=== PATIENT | male | born 1940 | race Caucasian/White ===

== ENCOUNTER 2016-04-07 12:28 | Inpatient (IN) | payer MEDICARE, BC ==
--- NOTE | 2016-04-07 13:16 | ED ---
General Adult HPI - General Chief complaint: Weakness Stated complaint: abd pain, loss of appetite Time Seen by Provider: 04/07/16 13:15 Source: patient, family, RN notes reviewed, old records reviewed Mode of arrival: wheelchair Limitations: no limitations - History of Present Illness Initial comments: This is a 75-year-old male ER for evaluation of weakness. Patient has had severe debility as of late. Patient has history of stroke, but this is unrelated. Patient has no other significant medical history. No chest pain and he has had source of breath upon exertion. Patient denies abdominal pain, denies headache. Denies any recent falls or trauma. Family states patient has been decreased in his level of activity since about Thanksgi time. I may become more more concerned about him. Patient himself is states he doesn't feel like he has much of an appetite, has not eaten in 3 days, and his level of activity is severely diminished. Patient has significant weight loss - Related Data Previous Rx's Medication Instructions Recorded Aspirin 81 mg PO DAILY #60 chew 07/06/15 Carvedilol [Coreg] 3.125 mg PO BID-W/MEALS #60 tab 07/06/15 Furosemide [Lasix] 20 mg PO DAILY #30 tab 07/06/15 Losartan [Cozaar] 25 mg PO DAILY #30 tab 07/06/15 hydrALAZINE HCL [Apresoline] 25 mg PO TID #90 tab 07/06/15 Allergies Allergy/AdvReac Type Severity Reaction Status Date / Time No Known Allergies Allergy Verified 04/07/16 13:10 Review of Systems ROS Statement: Those systems with pertinent positive or pertinent negative responses have been documented in the HPI. ROS Other: All systems not noted in ROS Statement are negative. Past Medical History Past Medical History: Cancer, Heart Failure, CVA/TIA, Hypertension, Prostate Disorder Additional Past Medical History / Comment(s): anemia History of Any Multi-Drug Resistant Organisms: None Reported Past Surgical History: Prostate Surgery Past Anesthesia/Blood Transfusion Reactions: No Reported Reaction Past Psychological History: No Psychological Hx Reported Smoking Status: Current every day smoker Past Alcohol Use History: None Reported, Rare Past Drug Use History: None Reported - Past Family History Father Additional Family Medical History / Comment(s): patient states he has no family medical history General Exam Limitations: no limitations General appearance: alert, anxious, lethargic, cachectic Head exam: Present: atraumatic, normocephalic, normal inspection Eye exam: Present: normal appearance, PERRL, EOMI. Absent: scleral icterus, conjunctival injection, periorbital swelling ENT exam: Present: normal exam, mucous membranes moist Neck exam: Present: normal inspection. Absent: tenderness, meningismus, lymphadenopathy Respiratory exam: Present: normal lung sounds bilaterally. Absent: respiratory distress, wheezes, rales, rhonchi, stridor Cardiovascular Exam: Present: normal rhythm, bradycardia, normal heart sounds. Absent: systolic murmur, diastolic murmur, rubs, gallop, clicks GI/Abdominal exam: Present: soft, normal bowel sounds. Absent: distended, tenderness, guarding, rebound, rigid Extremities exam: Present: normal inspection, full ROM, normal capillary refill. Absent: tenderness, pedal edema, joint swelling, calf tenderness Back exam: Present: normal inspection Neurological exam: Present: alert, oriented X3, CN II-XII intact Psychiatric exam: Present: normal affect, normal mood Skin exam: Present: warm, dry, intact, normal color. Absent: rash Course Vital Signs 04/07/16 13:04 Pulse Rate 57 L Respiratory 14 Rate Blood Pressure 104/69 O2 Sat by Pulse 96 Oximetry - Reevaluation(s) Reevaluation #1: 04/07/16 15:22 Patient has no specific clinical improvement at this point EKG Findings - EKG Comments: EKG Findings:: EKG shows sinus rhythm rate of 87, NM 136, QRS was 88, QTC 582 Medical Decision Making - Medical Decision Making 35 male ER for evaluation, weakness and anorexia and dehydration, patient found to be severely and profoundly anemic, and new onset renal failure with severe dehydration exam. Patient will be admitted for transfusion, rehydration, and nephrology consult - Lab Data Result diagrams: 04/07/16 14:34 04/07/16 14:34 Lab Results 04/07/16 04/07/16 04/07/16 Range/Units 14:34 14:34 14:34 WBC 6.3 (3.8-10.6) k/uL RBC 2.24 L (4.30-5.90) m/uL Hgb 4.2 L* (13.0-17.5) gm/dL Hct 15.9 L* (39.0-53.0) % MCV 71.1 L (80.0-100.0) fL MCH 18.9 L (25.0-35.0) pg MCHC 26.5 L (31.0-37.0) g/dL RDW 19.6 H (11.5-15.5) % Plt Count 221 (150-450) k/uL PT 12.9 H (9.0-12.0) sec INR 1.3 (<1.1) APTT 24.2 (22.0-30.0) sec Sodium 137 (137-145) mmol/L Potassium 5.5 H (3.5-5.1) mmol/L Chloride 107 (98-107) mmol/L Carbon Dioxide 12 L (22-30) mmol/L Anion Gap 18 mmol/L BUN 87 H* (9-20) mg/dL Creatinine 4.80 H (0.66-1.25) mg/dL Est GFR (MDRD) Af Amer 14 (>60 ml/min/1.73 sqM) Est GFR (MDRD) Non-Af 12 (>60 ml/min/1.73 sqM) Glucose 104 H (74-99) mg/dL Calcium 9.1 (8.4-10.2) mg/dL Phosphorus 6.7 H (2.5-4.5) mg/dL Magnesium 2.3 (1.6-2.3) mg/dL Total Bilirubin 0.4 (0.2-1.3) mg/dL AST 42 (17-59) U/L ALT 59 (21-72) U/L Alkaline Phosphatase 82 (38-126) U/L Total Protein 6.6 (6.3-8.2) g/dL Albumin 3.6 (3.5-5.0) g/dL Lipase 153 (23-300) U/L - Radiology Data Radiology results: report reviewed (Chest x-ray two-view is negative for acute disease), image reviewed Disposition Clinical Impression: Dehydration, Anemia, ARF (acute renal failure) Disposition: ADMITTED IP TO THIS [facility] Condition: Serious Referrals: Jillian Ronquillo MD [Primary Care Provider] - 1-2 days
[2016-04-07 15:01] LABS: Anisocytosis Slight; CH 19.5; CHCM 27.3; Calcium 9.1 mg/dL (8.4-10.2); HDW 4.47; Hypochromasia Marked; MCH 18.9 pg (25.0-35.0); MCV 71.1 fL (80.0-100.0); Magnesium 2.3 mg/dL (1.6-2.3); Mean Platelet Volume 8.9; Microcytosis Marked; Phosphorous 6.7 mg/dL (2.5-4.5); Poikilocytosis Moderate; Potassium 5.5 mmol/L (3.5-5.1); RBC 2.24 m/uL (4.30-5.90); RDW 19.6 % (11.5-15.5); Total Bilirubin 0.4 mg/dL (0.2-1.3); Total Protein 6.6 g/dL (6.3-8.2); WBC (Perox) 5.37
[2016-04-07 15:03] LABS: MCHC 26.5 g/dL (31.0-37.0)
[2016-04-07 15:04] LABS: HCT 15.9 % (39.0-53.0); HGB 4.2 gm/dL (13.0-17.5); INR 1.3 (<1.1); Partial Thromboplastin Time 24.2 sec (22.0-30.0); Prothrombin Time 12.9 sec (9.0-12.0)
[2016-04-07] MEDS ORDERED: diphenhydrAMINE 50 MG/ML 1 ML VIAL IVP STA (15:17)
[2016-04-07] MEDS ORDERED: SODIUM CHLORIDE 0.9% 1,000 ML IV ONE (15:17)
[2016-04-07] MEDS ORDERED: SODIUM CHLORIDE 0.9% 500 ML IV STA ×2 (15:17→15:20)
[2016-04-07] MEDS ORDERED: SODIUM CHLORIDE 0.9% 1,000 ML IV STA (15:20)
--- NOTE | 2016-04-07 15:20 | XR ---
EXAMINATION TYPE: XR chest 2V DATE OF EXAM: 04/07/2016 3:15 PM COMPARISON: 07/02/2015 HISTORY: Chest pain FINDINGS: The lungs are clear and there is no pneumothorax, pleural effusion, or focal pneumonia. The heart i s enlarged. Hyperinflation suggests COPD. Pulmonary hilum appears enlarged on the left likely in the basis of pulmonary arterial hypertension. Degenerative change of the spine. IMPRESSION: 1. Severe cardiomegaly with findings suggestive of COPD
[2016-04-07] MEDS ORDERED: IPRATROPIUM-ALBUTEROL 3 ML NEB INHALATION STA (15:23)
[2016-04-07 15:33] LABS: Creatine Kinase MB 4.8 ng/mL (0.0-2.4); Troponin I 0.112 ng/mL (0.000-0.034)
[2016-04-07 15:34] LABS: Add Differential Manual Differential
[2016-04-07 15:37] LABS: Nucleated Red Blood Cells 8 /100 WBC (0-0); Total Cells Counted 200
[2016-04-07 15:38] LABS: Crenated RBC Present; Target Cells Present; WBC 5.8 k/uL (3.8-10.6)
[2016-04-07 15:39] LABS: Polychromasia Present
[2016-04-07 18:30] LABS: Glucose,Whole Blood 127 mg/dL (75-99)
[2016-04-07 19:05] LABS: Appearance,Urine Clear (Clear); Protein,Urine Trace (Negative); Specific Gravity,Urine 1.011 (1.001-1.035)
[2016-04-07 19:06] LABS: Bacteria,Urine Occasional /hpf; Bilirubin,Urine Negative (Negative); Glucose,Urine (UA) Negative (Negative); Ketones,Urine Negative (Negative); Leukocyte Esterase,Urine Small (Negative); Nitrite,Urine Positive (Negative); Particle Count 2693; RBC,Urine 1 /hpf (0-5); UA Billing (MACRO vs. MICRO) MICRO; Urobilinogen,Urine <2.0 mg/dL (<2.0); WBC,Urine 2 /hpf (0-5)
[2016-04-08] MEDS ORDERED: NALOXONE 0.4 MG/ML 1 ML VIAL IV PRN (01:50)
[2016-04-08 05:27] LABS: INR 1.3 (<1.1); Partial Thromboplastin Time 24.6 sec (22.0-30.0)
[2016-04-08 05:28] LABS: Calcium 8.4 mg/dL (8.4-10.2); Phosphorous 6.3 mg/dL (2.5-4.5); Potassium 5.2 mmol/L (3.5-5.1)
[2016-04-08 05:34] LABS: Anisocytosis Moderate; CHCM 28.7; HCT 22.1 % (39.0-53.0); HDW 5.36; Hypochromasia Marked; MCH 22.7 pg (25.0-35.0); MCHC 28.9 g/dL (31.0-37.0); Mean Platelet Volume 8.1; Microcytosis Moderate; Poikilocytosis Marked; RBC 2.81 m/uL (4.30-5.90); RDW 20.3 % (11.5-15.5)
[2016-04-08 05:38] LABS: HGB 6.4 gm/dL (13.0-17.5); MCV 78.6 fL (80.0-100.0)
[2016-04-08 06:05] LABS: Add Differential Manual Differential
[2016-04-08 06:10] LABS: Nucleated Red Blood Cells 8 /100 WBC (0-0); Total Cells Counted 200
[2016-04-08 06:11] LABS: Crenated RBC Present; Manual Review Performed; Polychromasia Present; Target Cells Present; WBC 12.3 k/uL (3.8-10.6)
--- NOTE | 2016-04-08 07:40 | XR ---
EXAMINATION TYPE: XR chest 1V DATE OF EXAM: 04/08/2016 6:57 AM HISTORY: Shortness of breath. COMPARISON: To 317 TECHNIQUE: Single view of the chest is submitted. FINDINGS: Demonstrated are scattered senescent parenchymal change. Hyperinflation compatible with COPD. There is no evidence for focal infiltrate. The heart is enlarged. Hilar and mediastinal structures are within normal limits. Degenerative changes are seen of the dorsal spine. IMPRESSION: 1. Chronic changes without evidence for acute pulmonary disease.
--- NOTE | 2016-04-08 08:40 | US ---
EXAMINATION TYPE: US kidneys/renal and bladder DATE OF EXAM: 04/08/2016 8:29 AM COMPARISON: October 25, 2015 CLINICAL HISTORY: ARF. EXAM MEASUREMENTS: Right Kidney: 8.6 x 4.4 x 4.3 cm Left Kidney: not identified Findings: exam done portably in ICU, patient unable to cooperate. LLQ is filled with large loops of fluid fille d bowel, kidney not identified Right Kidney: echogenic, difficult to visualize Left Kidney: not identified, large fluid filled bowel occupying LLQ space previous study demonstrate d a left kidney however given exam limitations the left kidney cannot be visualized on today's study. Bladder: not identified, patient has catheter IMPRESSION: 1. Atrophic changes of the right kidney with some medical renal disease suggested. 2. Nonvisualization of the left kidney.
--- NOTE | 2016-04-08 09:57 | P.CNPUL ---
History of Present Illness Consult date: 04/08/16 Chief complaint: Acute kidney injury, failure to thrive History of present illness: 75-year-old -[place] male patient presented emergency department yesterday in a very poor health condition. The patient had lost according to the family approximately 40 pounds over the past month. I was told that he had not been eating for the past 4-6 days. The patient is awake and alert and he claims that he has no appetite and obviously he is a failure to thrive, given up on life, very much cachectic and emaciated with significant malnourishment and thought the loss and by the protein mass. In addition, the patient was an acute kidney injury with his creatinine was found to be at 4.5. He was found to be profoundly anemic with his initially was at 4.2. The patient did not have any obvious source of internal or external bleeding. He has remote history of prostate cancer and has undergone a prostatectomy. No history of any malignancy. He was in the hospital back in June 2015 for some symptoms of TIA. 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 The workup back then included a carotid Doppler that was negative for any hemodynamically significant stenosis and the patient had an echocardiogram that showed global hypokinesis with an ejection fraction of around 20%. The patient was under the care of Dr. Ochoa. He was discharged home. He claims to be following up with Dr. Ronquillo. He is a chronic smoker. No alcoholism. No substance abuse. No constipation. No abdominal distention. No GI bleeding. No hematemesis. He did vomit on few occasions however on outpatient basis. He is moving all 4 extremities and there is no limitation in his body movements. He was given a total of 2 units of packed RBCs yesterday and his hemoglobin is up to 6.4. An additional 1 unit will be given to him right now. He also received fluids in the order of 3 L normal saline and currently is on a maintenance of 100 mL an hour of 3 Amp bicarbonate with D5 water. Review of Systems For review of system was done and the positive findings are almost above in history of present illness. Apparently the patient has been gradually getting worse thinks Thanksgiving. He'll very much concerned of his condition and health in general. No chest pain. No shortness of breath on admission. No other complaints otherwise. 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 Past Drug Use History: None Reported - Past Family History Father Family Medical History: No Reported History Additional Family Medical History / Comment(s): patient states he has no family medical history Mother Family Medical History: Hypertension, Myocardial Infarction ([place]) Medications and Allergies Home Medications Medication Instructions Recorded Confirmed Type No Known Home Medications [No 04/07/16 04/07/16 History Known Home Medications] Allergies Allergy/AdvReac Type Severity Reaction Status Date / Time No Known Allergies Allergy Verified 04/07/16 13:10 Physical Exam Vitals: Vital Signs Temp Pulse Resp BP Pulse Ox 04/08/16 07:00 85 29 H 111/74 98 04/08/16 06:30 87 23 118/75 99 04/08/16 06:00 100 29 H 116/73 100 04/08/16 05:30 98.4 F 85 69 H 115/76 04/08/16 05:00 85 30 H 115/73 100 04/08/16 04:30 88 25 H 110/76 99 04/08/16 04:00 97.3 F L 88 69 H 112/87 100 04/08/16 03:30 87 23 111/83 100 04/08/16 03:12 97.5 F L 86 18 114/84 100 04/08/16 03:10 88 22 114/84 100 04/08/16 03:00 88 24 103/76 100 04/08/16 02:50 89 32 H 109/76 04/08/16 02:40 87 30 H 112/75 100 04/08/16 02:30 88 24 111/75 100 04/08/16 02:20 88 41 H 109/77 100 04/08/16 02:10 87 32 H 120/78 04/08/16 02:00 87 31 H 111/73 97 04/08/16 01:30 89 26 H 111/75 97 04/08/16 01:00 97.1 F L 86 30 H 110/68 100 04/08/16 00:30 88 23 108/72 100 04/08/16 00:28 97.1 F L 88 22 109/77 100 04/08/16 00:18 95.1 F L 87 20 108/76 100 04/08/16 00:01 95.1 F L 88 35 H 109/77 100 04/08/16 00:00 94.7 F L 87 69 H 109/77 100 04/07/16 23:40 85 24 109/77 99 04/07/16 23:30 86 23 109/75 100 04/07/16 23:20 86 28 H 109/75 99 04/07/16 23:10 85 22 109/75 93 L 04/07/16 23:00 86 23 113/79 85 L 04/07/16 22:50 86 21 113/79 04/07/16 22:40 86 23 113/79 72 L 04/07/16 22:30 85 23 108/75 79 L 04/07/16 22:20 84 21 108/75 04/07/16 22:10 86 28 H 108/75 99 04/07/16 22:00 86 46 H 119/79 71 L 04/07/16 21:50 85 11 L 119/79 80 L 04/07/16 21:40 101 H 32 H 119/79 87 L 04/07/16 21:30 24 119/78 91 L 04/07/16 21:20 88 42 H 119/78 84 L 04/07/16 21:10 91 33 H 119/78 97 04/07/16 21:00 93 26 H 119/78 99 04/07/16 20:40 94 20 119/78 98 04/07/16 20:30 97 40 H 119/78 86 L 04/07/16 20:20 93 32 H 119/78 84 L 04/07/16 20:10 95 34 H 119/78 97 04/07/16 20:00 96 20 119/78 85 L 04/07/16 19:40 92 26 H 92 L 04/07/16 19:30 93 28 H 121/92 93 L 04/07/16 19:20 90 36 H 104/59 92 L 04/07/16 19:10 94.5 F L 87 33 H 98/66 90 L 04/07/16 19:00 89 38 H 98/66 76 L 04/07/16 18:50 90 33 H 111/74 81 L 04/07/16 18:40 85 30 H 111/74 04/07/16 18:30 87 36 H 111/74 75 L 04/07/16 18:24 85 28 H 04/07/16 18:03 97.4 F L 84 18 130/69 100 04/07/16 15:50 83 04/07/16 15:45 82 20 126/71 100 04/07/16 15:37 83 Intake and Output 04/07/16 04/08/16 04/08/16 22:59 06:59 14:59 Intake Total 1190 2150 540 Output Total 850 370 70 Balance 340 1780 470 Intake: IV 400 800 300 Sodium Chloride 0.9% 1, 400 800 300 000 ml @ 100 mls/hr IV . Q10H ONE Rx#:[id number] Oral 480 420 240 Blood Product 310 930 Rc As-1 Unit 0 310 [id number] Rc Irr As1 Unit 310 [id number] Output: Urine 850 370 70 Other: Voiding Method Indwelling Catheter Indwelling Catheter Weight 59.4 kg Thin cachectic emaciated male patient with significant malnourishment.Head exam was generally normal. There was no scleral icterus or corneal arcus. Mucous membranes were moist. There is obvious temporal wasting. My normal neck mucous membranes are extremely dry at this point. Lung sounds are diminished bilaterally otherwise clear. There is no wheezes or rhonchi early crackles.Cardiac exam revealed the PMI to be normally situated and sized. The rhythm was regular and no extrasystoles were noted during several minutes of auscultation. The first and second heart sounds were normal and physiologic splitting of the second heart sound was noted. There were no murmurs, rubs, clicks, or gallops. Abdomen is soft nontender there is no organomegaly and no mass could be palpated. Extremities show diffuse muscle atrophy and there is no cyanosis or clubbing at this point. Neurologically he is awake and alert and is following commands and answering questions appropriately. Results - Laboratory Findings CBC and BMP: 04/08/16 04:55 04/08/16 04:55 PT/INR, D-dimer PT 13.0 sec (9.0-12.0) H 04/08/16 04:55 INR 1.3 (<1.1) 04/08/16 04:55 Abnormal lab findings: Abnormal Labs 04/07/16 04/07/16 04/08/16 18:28 18:30 04:55 WBC 12.3 H RBC 2.81 L Hgb 6.4 L* D Hct 22.1 L MCV 78.6 L D MCH 22.7 L MCHC 28.9 L RDW 20.3 H Neutrophils # (Manual) 10.8 H Lymphocytes # (Manual) 0.4 L Monocytes # (Manual) 1.1 H Nucleated RBCs 8 H PT Potassium Chloride Carbon Dioxide BUN Creatinine POC Glucose (mg/dL) 127 H Phosphorus Troponin I Urine Protein Trace H Ur Leukocyte Esterase Small H Urine Bacteria Occasional H Urine Yeast (Budding) Moderate H 04/08/16 04/08/16 04/08/16 04:55 04:55 04:55 WBC RBC Hgb Hct MCV MCH MCHC RDW Neutrophils # (Manual) Lymphocytes # (Manual) Monocytes # (Manual) Nucleated RBCs PT 13.0 H Potassium 5.2 H Chloride 108 H Carbon Dioxide 12 L BUN 86 H* Creatinine 4.51 H POC Glucose (mg/dL) Phosphorus 6.3 H Troponin I 0.186 H* Urine Protein Ur Leukocyte Esterase Urine Bacteria Urine Yeast (Budding) - Diagnostic Findings Chest x-ray: image reviewed Assessment and Plan Plan: Assessment 1 acute anemia, microcytic, suggestive of an occult ongoing blood loss and very much concerning an underlying intra-abdominal malignancy or a colonic malignancy resulting into an iron deficiency anemia. The patient received a total of 2 units of packed RBC and hemoglobin is up to 6.4. Further investigation is to follow. We'll check iron studies. We'll check CAT scan of the abdomen and pelvis and possibly a colonoscopy needs to be done at a later stage. 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 Check iron studies. Check a CAT scan of the abdomen and pelvis and will also check the CAT scan of the chest, oral contrast only and this will be a part of malignancy screening. Continued IV fluids and the patient is in a 5 with 3 A of bicarb at the rate of 100 mL an hour. Watch for any signs of fluid overload. Keep the Cazares catheter in place. Consult nephrology. Ultrasound of the kidneys. Thyroid function test will be checked. We'll continue to follow make further recommendations based on his progress. Prognosis obviously poor.
[2016-04-08] MEDS: PANTOPRAZOLE 40 MG/10 ML VIAL IV SCH (10:41)
[2016-04-08] MEDS: HEPARIN SODIUM,PORCINE 5,000 UNIT/ML 1 ML VIAL SQ SCH ×2 (10:41→16:48)
[2016-04-08] MEDS: DEXTROSE 5% IN WATER 1,000 ML with SODIUM BICARB (1 MEQ/ML) 150 ML IV SCH (10:41)
[2016-04-08] MEDS: IOHEXOL 350 MG/ML 25 ML BOTTLE (ORAL USE) PO PRN ×2 (10:58→12:06)
[2016-04-08 11:05] LABS: % Iron Saturation 4.2 % (20-50)
--- NOTE | 2016-04-08 11:58 | CONS ---
DATE OF CONSULTATION: REASON FOR CONSULT: Renal failure. HISTORY OF PRESENT ILLNESS: Patient is a 75-year-old male who was admitted to the hospital with complaints of weakness, increased lethargy, which has been worsening over the past few weeks. Patient also stated that he has been losing weight for about a year now. His hemoglobin was at 4.2 g/dL on admission. Serum creatinine was at 4.8. Patient was also significantly hypotensive. His urine output now is about 25 to 40 mL and hour. He has received about 2 L of IV fluids thus far and he is maintained on IV fluids. Prior to admission, patient denied any significant diarrhea. He just had very poor appetite and decreased intake. No history of vomiting. No history of diarrhea. No cough. Patient had a chest x-ray, which does not show any significant masses to consider underlying malignancy. He does have a history of prostatic cancer, status post prostatectomy. During previous admission in June of last year, serum creatinine was at 1.8 mg/dL. Patient also has significant cardiomyopathy with EF of less than 20%. Of note, CO2 was at 12 on this admission. PAST MEDICAL HISTORY: Severe cardiomyopathy, history of weight loss going on for about a year, hypertension, history of CVA/TIA, history of prostatic cancer, status post prostatic surgery. Social history is positive for smoking. No history of drug abuse or alcohol abuse. REVIEW OF SYSTEMS: As per HPI, other systems negative. ALLERGIES: None. Medications prior to admission included Coreg, Lasix, Cozaar, hydralazine. ASSESSMENT: 1. Acute kidney injury secondary to hypotension, hypoperfusion and use of angiotensin receptor blockers prior to admission. Urine output is borderline. Continue with aggressive IV hydration. Serum creatinine is slightly improved. 2. Severe metabolic acidosis with slight anion gap most likely secondary to renal failure and some degree of hypoperfusion. We will start IV bicarb. 3. Hyperkalemia associated with acute kidney injury, use of angiotensin receptor blockers; will expect further improvement with initiation of IV bicarb. 4. Severe anemia. No active bleeding per history. Recommend colonoscopy if there is no obvious malignancy identified otherwise. I will also check urine immunofixation to rule out underlying myeloma. UA currently shows only trace protein. 5. Anemia, rule out underlying malignancy, also rule out multiple myeloma. PLAN: Start IV bicarb. Check TSH. Check urine immunofixation and immunoelectrophoresis. Repeat labs in the a.m. Continue to avoid nephrotoxic agents. Continue aggressive IV hydration. Transfuse one more unit packed RBCs. Thank you for this consultation. Will continue to follow the patient with you during his hospitalization.
--- NOTE | 2016-04-08 13:29 | CT ---
EXAMINATION TYPE: CT ChestAbdPelvis wo con DATE OF EXAM: 04/08/2016 1:15 PM COMPARISON: NONE HISTORY: Wt loss and anemia CT DLP: 336.7mGycm Unenhanced CT of the Chest, Abdomen and Pelvis Unenhanced CT of the chest ,abdomen and pelvis is performed. The lack of intravenous contrast limits evaluation of the solid and hollow viscera. Study further limited by the lack of intra-abdominal fat . Oral contrast: Yes CT Chest: LUNGS: Mild upper lobe emphysematous change. Moderate COPD changes. Left basilar patchy density may r eflect atelectasis and/or infiltrate. Small bilateral pleural effusions. No evidence for mass or dist inct nodule. MEDIASTINUM: Thoracic aorta is of normal caliber. The heart is significantly enlarged. No evidence for mediastinal mass or adenopathy. HILAR STRUCTURES: No evidence for mass. No hilar adenopathy is appreciated. OTHER: No significant abnormality. CONTRAST CT ABDOMEN AND PELVIS: LIVER/GB: No calcified gallstones. No space occupying hepatic lesion. Biliary tree is of normal ca liber. PANCREAS: Poor visualization of the pancreas. SPLEEN: No splenic enlargement. No lesion seen. ADRENALS: No nodule. No thickening. KIDNEYS/BLADDER: Atrophic changes of the kidneys. No hydronephrosis. No nephrolithiasis. No disc t inct renal mass. BOWEL: Distention of the stomach with most of the oral contrast residing within the stomach. There is a small amount of contrast within the mildly distended duodenum. There appears to be caliber change overlying the aorta at the level of the transverse duodenum. Correlate for SMA syndrome. Remainder of the bowel is of normal caliber. No inflammatory change appreciated. Moderately severe gastroesophage al reflux. GENITAL ORGANS: No gross abnormality. LYMPH NODES: No greater than 1cm abdominal or pelvic lymph nodes are appreciated. AORTA: Infrarenal abdominal aortic aneurysm measuring 3.3 cm. OSSEOUS STRUCTURES: No significant abnormality is seen. OTHER: No evidence for free air. Patient is quite cachectic. IMPRESSION: 1. Correlate for SMA syndrome. 2. Infrarenal abdominal aortic aneurysm. 3. Severe cardiomegaly. 4. COPD with emphysematous changes. Basilar effusions and left basilar atelectasis or developing pneu monia. 5. Gastroesophageal reflux
[2016-04-08] MEDS ORDERED: FUROSEMIDE 10 MG/ML 10 ML VIAL IV STA (16:00)
[2016-04-08 17:30] LABS: Anisocytosis Slight; CHCM 29.7; HDW 5.44; Hypochromasia Marked; MCH 23.6 pg (25.0-35.0); MCHC 29.7 g/dL (31.0-37.0); MCV 79.6 fL (80.0-100.0); Mean Platelet Volume 9.6; Microcytosis Slight; Poikilocytosis Marked; RBC 2.44 m/uL (4.30-5.90); RDW 19.6 % (11.5-15.5); WBC 10.9 k/uL (3.8-10.6)
[2016-04-08 17:34] LABS: HGB 5.8 gm/dL (13.0-17.5)
[2016-04-08 17:36] LABS: HCT 19.5 % (39.0-53.0)
[2016-04-09] MEDS: HEPARIN SODIUM,PORCINE 5,000 UNIT/ML 1 ML VIAL SQ SCH ×2 (01:44→09:06)
[2016-04-09 05:31] LABS: INR 1.4 (<1.1); Partial Thromboplastin Time 28.7 sec (22.0-30.0); Prothrombin Time 13.9 sec (9.0-12.0)
[2016-04-09 05:32] LABS: Anisocytosis Slight; Basophils % (A) 0 %; CH 25.7; CHCM 31.2; Eosinophils % (A) 0 %; HCT 23.8 % (39.0-53.0); Hypochromasia Marked; Luc # (Auto) 0.36; Luc % (Auto) 3; Lymphocytes # (A) 0.9 k/uL (1.0-4.8); Lymphocytes % (A) 7 %; MCH 25.7 pg (25.0-35.0); MCHC 31.5 g/dL (31.0-37.0); MCV 81.6 fL (80.0-100.0); Mean Platelet Volume 9.8; Microcytosis Slight; Monocytes # (A) 0.8 k/uL (0-1.0); Monocytes % (A) 6 %; Neutrophils # (A) 11.4 k/uL (1.3-7.7); Neutrophils % (A) 85 %; Poikilocytosis Marked; RBC 2.92 m/uL (4.30-5.90); RDW 18.9 % (11.5-15.5); WBC 13.4 k/uL (3.8-10.6); WBC (Perox) 13.04
[2016-04-09 05:33] LABS: Calcium 7.6 mg/dL (8.4-10.2); HGB 7.5 gm/dL (13.0-17.5); Magnesium 1.7 mg/dL (1.6-2.3); Phosphorous 3.6 mg/dL (2.5-4.5); Potassium 4.7 mmol/L (3.5-5.1)
[2016-04-09] MEDS ORDERED: Magnesium Replacement Protocol 1 EACH MISC MISCELLANE PRN (07:06)
--- NOTE | 2016-04-09 07:09 | XR ---
EXAMINATION TYPE: XR chest 1V DATE OF EXAM: 04/09/2016 6:48 AM HISTORY: Shortness of breath. COMPARISON: April 08, 2016 TECHNIQUE: Single view of the chest is submitted. FINDINGS: Demonstrated are scattered senescent parenchymal change. There is left lower lobe infiltrate persists. The heart is enlarged. Hilar and mediastinal structures are within normal limits. Degenerative changes are seen of the dorsal spine. IMPRESSION: 1. Stable chest
[2016-04-09 07:19] LABS: Glucose,Whole Blood 107 mg/dL (75-99)
--- NOTE | 2016-04-09 08:25 | HP ---
DATE OF ADMISSION: DATE OF SERVICE: 04/08/2016 CHIEF COMPLAINT: Weakness, abdominal pain, loss of appetite. HISTORY OF PRESENT ILLNESS: Mr. Mendoza is a 75-year-old male with past medical history of stroke, hypertension, heart failure, prostrate disorder coming in with a chief complaint of generalized weakness. Patient states since about Thanksgiving his level of activity has been worsening. For the past 3 days patient has lost much of his appetite and also was having noticeable weight changes and so came into the hospital for further evaluation. At the time of admission, the patient was found to have a hemoglobin of 4.2 and creatinine of 4.80 and so has been admitted to the hospital for further evaluation The patient has been given 3 units of PRBCs and his hemoglobin has been up to 6.4, but the patient started to have GI bleed and has been having bright red blood in his stools and his hemoglobin dropped to 5.8 around this evening again. Patient has been getting IV fluids and also is on bicarb drip and he is also getting IV Protonix. REVIEW OF SYSTEMS: The patient states that he is not having any fevers, chills or rigors. Only complaint is that he has this extreme fatigue and tiredness and that he is not able to take care of his daily activities. Denies having any chest pain, difficulty in breathing. No blood in his stools prior to this admission. No dysuria or hematuria. No loss of consciousness, syncopal episode. No headaches. He denies having any recurrent infections or easy bruising. Denies having any joint pains or aches. All 13 review of systems are done and negative except for ones mentioned in the HPI. PAST MEDICAL HISTORY: Significant for a second for stroke, hypertension, and prostate disorder. ALLERGIES: No known drug allergies. Patient home medications: None. PAST SURGICAL HISTORY: Prostate surgery, tonsillectomy. SOCIAL HISTORY: Current every day smoker, quit alcohol in 1985. FAMILY HISTORY: Denies having any hypertension or diabetes. On examination, patient's vital signs temperature 98.4, heart rate 87, respiratory rate 18, blood pressure 111/74, saturating at 96% on room air. GENERAL EXAMINATION: Patient appears emaciated and cachectic. HEAD: Atraumatic. Positive for pallor. Mucous membranes are moist. NECK: No JVD. No thyromegaly. LUNGS: Diminished breath sounds in all lung loaiza. No wheezes or crackles. CARDIAC: S1, S2 heard. EXTREMITIES: No edema. No cyanosis. ABDOMEN: Soft, nontender. Bowel sounds positive. No organomegaly appreciated. 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 Patient's labs: White count of 10.9, hemoglobin is 5.8, platelets of 110. Sodium 139, potassium 5.2, chloride 108, bicarb 12, BUN 86, creatinine 4.51. Troponin 0.112, repeat 0.186. ASSESSMENT AND PLAN: 1. Acute blood loss anemia. Patient did receive 3 units of PRBCs until now and his hemoglobin is at 5.8 and he is actively bleeding. Will continue with PPI and transfuse as needed. Patient needs work-up for any underlying intra-abdominal malignancy. 2. Acute kidney injury, most likely secondary to volume depletion due to GI bleed. Will continue with bicarb drip and repeat his electrolytes for tomorrow morning. 3. History of prostate cancer, status post prostatectomy. 4. Nicotine dependence. 5. Alcohol use in the past. 6. History of cerebrovascular accident/transient ischemic attack, unspecified. 7. Severe protein calorie malnutrition. 8. Troponin leak, probably secondary to demand ischemia. PLAN: Plan is to continue the patient on bicarb drip and repeat his electrolytes for tomorrow morning. We will transfuse as needed. Continue with IV Protonix. Will consult GI for work-up for intra-abdominal malignancy. Overall prognosis is poor. Further recommendations to follow depending on the progress of the patient.
[2016-04-09] MEDS: MAGNESIUM SULFATE-D5W PMX 1 GM in DEXTROSE/WATER 1 100ML.BAG IVPB SCH ×2 (09:07→10:59)
[2016-04-09] MEDS: PANTOPRAZOLE 40 MG/10 ML VIAL IV SCH (09:07)
--- NOTE | 2016-04-09 10:01 | PN ---
Patient is seen for follow-up for acute kidney injury. He was admitted to the hospital with hypotension, severe hypovolemia, hemoglobin of 4 g/dL and a creatinine of 4.8. Patient had initially no urine output; however, he was started on IV fluids. He also received one dose of IV Lasix, following which his urine output has picked up significantly. Serum creatinine is down to 3.9. Patient did have ( ) bowel movement yesterday and his hemoglobin dropped further he has been transfused 5 units packed RBCs total. He will be seen by GI today. Hemoglobin is at 7.5 g/dL. Patient has also had significant weight loss prior to admission and the CAT scan did not reveal any major masses or lesions suggestive of malignancy. Urine immunofixation has been ordered to rule out multiple myeloma. Patient was also severely acidotic and he is maintained on bicarb drip with some improvement in his acidosis. On examination today, blood pressure is 108/77, heart rate 86 per minute. He is afebrile. Examination of the heart S1 and S2. Examination of the lungs: Bilateral breath sounds are heard. ABDOMEN: Soft, nontender sounds. Examination of the lower extremities shows no evidence of edema. BOOK PACKER are grossly intact. Labs show hemoglobin 7.5, sodium 137, potassium 4.7, BUN 117, serum creatinine 3.98. UA is fairly unremarkable. ASSESSMENT: 1. Acute kidney injury, acute tubular necrosis, initially oliguric currently nonoliguric with improving renal function. Patient was also severely hypovolemic and continue with IV fluids for now. 2. Gastrointestinal bleed with disproportionately elevated BUN secondary to gastrointestinal bleed. awaiting gastrointestinal input, status post 5 units packed RBCs. 3. Metabolic acidosis currently non-anion gap secondary to renal failure, maintained on bicarb drip. 4. Hyperkalemia, currently resolved. 5. Iron deficiency will maintain patient on IV iron. 6. Rule out underlying myeloma, urine immunofixation is currently pending. PLAN: Maintain patient on IV iron. Monitor hemoglobin for need for packed RBC transfusion. Continue IV bicarb and repeat labs in a.m.
--- NOTE | 2016-04-09 10:11 | P.PN ---
Subjective 75-year-old -[place] male patient presented emergency department yesterday in a very poor health condition. The patient had lost according to the family approximately 40 pounds over the past month. I was told that he had not been eating for the past 4-6 days. The patient is awake and alert and he claims that he has no appetite and obviously he is a failure to thrive, given up on life, very much cachectic and emaciated with significant malnourishment and thought the loss and by the protein mass. In addition, the patient was an acute kidney injury with his creatinine was found to be at 4.5. He was found to be profoundly anemic with his initially was at 4.2. The patient did not have any obvious source of internal or external bleeding. He has remote history of prostate cancer and has undergone a prostatectomy. No history of any malignancy. He was in the hospital back in June 2015 for some symptoms of TIA. Back then he had a CAT scan of the brain that was negative unit showed diffuse ORACLE ANALYST atrophy and was negative for any acute CVA. The workup back then included a carotid Doppler that was negative for any hemodynamically significant stenosis and the patient had an echocardiogram that showed global hypokinesis with an ejection fraction of around 20%. The patient was under the care of Dr. Ochoa. He was discharged home. He claims to be following up with Dr. Ronquillo. He is a chronic smoker. No alcoholism. No substance abuse. No constipation. No abdominal distention. No GI bleeding. No hematemesis. He did vomit on few occasions however on outpatient basis. He is moving all 4 extremities and there is no limitation in his body movements. He was given a total of 2 units of packed RBCs yesterday and his hemoglobin is up to 6.4. An additional 1 unit will be given to him right now. He also received fluids in the order of 3 L normal saline and currently is on a maintenance of 100 mL an hour of 3 Amp bicarbonate with D5 water. On 04/09/2016 the patient is being seen in follow-up. As mentioned, the patient had significant drop in hemoglobin down to 6.4 and he got transfused with 2 units of packed RBC initially and I gave him an additional 1 unit in the morning. Subsequent hemoglobin came back at 5.8. Based on this, the patient was given another 2 units of packed RBC and hemoglobin came up to 7.5. Note that during the day, the patient started having episodes of GI bleeds. In the beginning these was black clots and later on it switched to maroon clots. The patient had a total of 6 episodes the last episode being this morning at around 7:00. CAT scan of the abdomen was also done yesterday and it showed distention of the stomach with most of the oral contrast residing within the stomach. There was a small amount of contrast within the mildly dilated duodenum. There appears to be a caliber change overlying the aorta at the level of the transverse duodenum. The possibility of a SMA syndrome was entertained on this patient. In addition, the patient had COPD, emphysematous change, bibasilar effusions, severe cardiomyopathy and she reflux. He is also being resuscitated IV fluids. The patient is currently receiving D5 with 3 A of bicarb at the rate of 50 mL an hour. We drop the infusion rate due to concern of fluid overload and underlying cardiomyopathy. However, based on the ongoing events, I would increase the infusion rate of 125 mL an hour. His serum bicarb level is up to 18. The BN is still elevated. Creatinine has dropped down to 3.98. Objective - Vital Signs Vital signs: Vital Signs Temp 97.8 F 04/09/16 08:00 Pulse 94 04/09/16 09:00 Resp 22 04/09/16 09:00 BP 114/79 04/09/16 09:00 Pulse Ox 92 L 04/09/16 09:00 Intake & Output 04/08/16 04/09/16 04/09/16 18:59 06:59 18:59 Intake Total 1990 1600 250 Output Total 835 1450 225 Balance 1155 150 25 Weight 59.4 kg 58.9 kg Intake: IV 1100 550 150 Dextrose 5% in Water 1, 700 550 150 000 ml @ 50 mls/hr IV . Q23H SHEA with Sodium Bicarb (1 Meq/ml) 150 ml Rx#:[id number] Sodium Chloride 0.9% 1, 400 000 ml @ 100 mls/hr IV . Q10H ONE Rx#:[id number] Intake, IV Titration 100 Amount Magnesium Sulfate-D5w Pmx 100 1 gm In Dextrose/Water 1 100ml.bag @ 100 mls/hr IVPB Q1H SHEA Rx#: [id number] Oral 640 300 Blood Product 250 750 Rc Cpda-1 Unit 250 [id number] Rc Cpda-1 Unit 250 [id number] Rc Cpda-1 Unit 0 250 [id number] Output: Urine 785 1450 225 Emesis 50 Other: Voiding Method Indwelling Catheter Indwelling Catheter Indwelling Catheter # Bowel Movements 1 1 1 - Exam Thin cachectic emaciated male patient with significant malnourishment.Head exam was generally normal. There was no scleral icterus or corneal arcus. Mucous membranes were moist. There is obvious temporal wasting. My normal neck mucous membranes are extremely dry at this point. Lung sounds are diminished bilaterally otherwise clear. There is no wheezes or rhonchi early crackles.Cardiac exam revealed the PMI to be normally situated and sized. The rhythm was regular and no extrasystoles were noted during several minutes of auscultation. The first and second heart sounds were normal and physiologic splitting of the second heart sound was noted. There were no murmurs, rubs, clicks, or gallops. Abdomen is soft nontender there is no organomegaly and no mass could be palpated. Extremities show diffuse muscle atrophy and there is no cyanosis or clubbing at this point. Neurologically he is awake and alert and is following commands and answering questions appropriately. - Labs CBC & Chem 7: 04/09/16 05:02 04/09/16 05:02 Labs: Abnormal Lab Results - Last 24 Hours (Table) 04/08/16 04/08/16 04/09/16 Range/Units 04:55 17:11 05:02 WBC 10.9 H 13.4 H (3.8-10.6) k/uL RBC 2.44 L 2.92 L (4.30-5.90) m/uL Hgb 5.8 L* 7.5 L D (13.0-17.5) gm/dL Hct 19.5 L* 23.8 L (39.0-53.0) % MCV 79.6 L (80.0-100.0) fL MCH 23.6 L (25.0-35.0) pg MCHC 29.7 L (31.0-37.0) g/dL RDW 19.6 H 18.9 H (11.5-15.5) % Plt Count 110 L 114 L (150-450) k/uL Neutrophils # 11.4 H (1.3-7.7) k/uL Lymphocytes # 0.9 L (1.0-4.8) k/uL PT (9.0-12.0) sec Carbon Dioxide (22-30) mmol/L BUN (9-20) mg/dL Creatinine (0.66-1.25) mg/dL POC Glucose (mg/dL) (75-99) mg/dL Calcium (8.4-10.2) mg/dL Iron 16 L (49-181) ug/dL % Saturation 4.2 L (20-50) % 04/09/16 04/09/16 04/09/16 Range/Units 05:02 05:02 07:17 WBC (3.8-10.6) k/uL RBC (4.30-5.90) m/uL Hgb (13.0-17.5) gm/dL Hct (39.0-53.0) % MCV (80.0-100.0) fL MCH (25.0-35.0) pg MCHC (31.0-37.0) g/dL RDW (11.5-15.5) % Plt Count (150-450) k/uL Neutrophils # (1.3-7.7) k/uL Lymphocytes # (1.0-4.8) k/uL PT 13.9 H (9.0-12.0) sec Carbon Dioxide 16 L (22-30) mmol/L BUN 117 H* (9-20) mg/dL Creatinine 3.98 H (0.66-1.25) mg/dL POC Glucose (mg/dL) 107 H (75-99) mg/dL Calcium 7.6 L (8.4-10.2) mg/dL Iron (49-181) ug/dL % Saturation (20-50) % Microbiology - Last 24 Hours (Table) 04/07/16 18:30 Urine Culture - Preliminary Urine,Catheterized Assessment and Plan Plan: Assessment 1 acute anemia, microcytic, suggestive of an occult ongoing blood loss and very much concerning an underlying intra-abdominal malignancy or a colonic malignancy resulting into an iron deficiency anemia. The patient received a total of 2 units of packed RBC and hemoglobin is up to 6.4. Further investigation is to follow. We'll check iron studies. We'll check CAT scan of the abdomen and pelvis and possibly a colonoscopy needs to be done at a later stage. On 04/09/2016, the patient is being seen in follow-up. The patient started having episodes of GI bleed as I mentioned there has been significant drop in his hemoglobin. Overall he had been transfused a total of 5 units. Most recent hemoglobin is at 7.5. Meanwhile the CAT scan of the abdomen shows an raises the possibility of a SMA syndrome. For that reason a GI and a surgical consultation was obtained on an emergent basis. The patient is still using resuscitated with IV fluids. 2 acute kidney injury, nonoliguric, likely secondary to intravascular volume depletion and dehydration and the patient is responding nicely to fluids and he has an adequate urine output at this point. On 04/09/2016, the patient is still being resuscitated IV fluids. Renal function is improving and the creatinine is down to 3.98. The patient is producing adequate urine output in the order of 45 mL an hour. 3 cardiomyopathy with generalized hypokinesis and ejection fraction of around 20 % 4 prostate cancer the paresis prostatectomy 5 nicotine addiction/smoking 6 history of alcoholism 7 previous hospital physician for TIA/CVA with diffuse ORACLE ANALYST atrophy 8 severe malnourishment/cachexia, poor appetite and significant loss and total body protein mass 9 troponin leak, nonspecific 10 hyperphosphatemia 11 sinus rhythm with a bundle-branch block pattern, left sided on EKG, chronicity is not known Plan This patient is bleeding. This is probably an upper GI or a small bowel source of bleeding. The findings on the CAT scan of the abdomen was noted. There is evidence of mildly distended duodenum and a caliber change overlying the aorta at the level of the transverse duodenum. The possibility of SMA syndrome was entertained. The patient also has a small infrarenal abdominal aortic aneurysm measuring 3.3 cm in size. Further investigation will be needed. I pointed toward consultation for GI and general surgery in regards to these findings. Meanwhile the patient will be kept only on clear liquid diet at this point. We' ll monitor his hemodynamics. The fluid rates will be increased up to 125 mL an hour of D5 with 3 A of bicarb. Patient is producing adequate amount of urine output. Monitor hemoglobin. We'll continue to follow make further recommendations based on his progress. There is a critically care evaluation was done and 35 minutes. Time with Patient: Greater than 30
--- NOTE | 2016-04-09 10:31 | P.PN ---
Progress Note - Text Discussed the case with the general surgeon. We will hold off on TPN for now. We'll proceed with an EGD and colonoscopy to see there is any anatomic obstruction on the small bowel caused by the SMA. We'll also need to identify the source of bleeding. Once cleared, the patient will need a PEG tube for enteral feeding and nutritional support. We'll continue to follow.
[2016-04-09] MEDS ORDERED: [UNRECOGNIZED DRUG - OTHER] IV SCH (10:45)
[2016-04-09] MEDS: SODIUM FERRIC GLUCONAT-SUCROSE 125 MG in SODIUM CHLORIDE 0.9% 100 ML IVPB SCH (10:57)
[2016-04-09] MEDS: DEXTROSE 5% IN WATER 1,000 ML with SODIUM BICARB (1 MEQ/ML) 150 ML IV SCH ×2 (10:57→18:44)
--- NOTE | 2016-04-09 11:19 | P.GSCN ---
History of Present Illness Consult date: 04/09/16 Reason for Consult: Malnutrition, anemia History of present illness: This a 75-year-old male admitted to the ICU. Patient presents with weight loss and anemia. Apparently has lost approximately 50 pounds since January. He is also started to have acute GI bleed this morning. Review of Systems - Constitutional Reports as per HPI Past Medical History Past Medical History: Cancer, Heart Failure, CVA/TIA, Hypertension, Prostate Disorder Additional Past Medical History / Comment(s): New onset anemia, history of TIA/ CVA, history of severe COLLEGE COACH atrophy, global hypokinesis with ejection fraction of around 20%, history of prostate cancer status post prostatectomy, ongoing cachexia and weight loss History of Any Multi-Drug Resistant Organisms: None Reported Past Surgical History: Prostate Surgery, Tonsillectomy Past Anesthesia/Blood Transfusion Reactions: No Reported Reaction Past Psychological History: No Psychological Hx Reported Smoking Status: Current every day smoker Past Alcohol Use History: Heavy Additional Past Alcohol Use History / Comment(s): STARTED SMOKING AT AGE 14,1 PPD.PAST HEAVY ETOH USE BUT QUIT 1985. Past Drug Use History: None Reported - Past Family History Father Family Medical History: No Reported History Additional Family Medical History / Comment(s): patient states he has no family medical history Mother Family Medical History: Hypertension, Myocardial Infarction ([place]) Medications and Allergies Home Medications Medication Instructions Recorded Confirmed Type No Known Home Medications [No 04/07/16 04/07/16 History Known Home Medications] Allergies Allergy/AdvReac Type Severity Reaction Status Date / Time No Known Allergies Allergy Verified 04/07/16 13:10 Surgical - Exam Vital Signs Pulse Resp BP Pulse Ox 57 L 14 104/69 96 04/07/16 13:04 04/07/16 13:04 04/07/16 13:04 04/07/16 13:04 Cachectic - General well developed, no distress - Eyes PERRL - ENT normal pinna - Neck no masses - Abdomen Very thin abdomen Abdomen: soft Results - Labs 04/09/16 05:02 04/09/16 05:02 Abnormal Lab Results - Last 24 Hours (Table) 04/08/16 04/08/16 04/09/16 Range/Units 04:55 17:11 05:02 WBC 10.9 H 13.4 H (3.8-10.6) k/uL RBC 2.44 L 2.92 L (4.30-5.90) m/uL Hgb 5.8 L* 7.5 L D (13.0-17.5) gm/dL Hct 19.5 L* 23.8 L (39.0-53.0) % MCV 79.6 L (80.0-100.0) fL MCH 23.6 L (25.0-35.0) pg MCHC 29.7 L (31.0-37.0) g/dL RDW 19.6 H 18.9 H (11.5-15.5) % Plt Count 110 L 114 L (150-450) k/uL Neutrophils # 11.4 H (1.3-7.7) k/uL Lymphocytes # 0.9 L (1.0-4.8) k/uL PT (9.0-12.0) sec Carbon Dioxide (22-30) mmol/L BUN (9-20) mg/dL Creatinine (0.66-1.25) mg/dL POC Glucose (mg/dL) (75-99) mg/dL Calcium (8.4-10.2) mg/dL Iron 16 L (49-181) ug/dL % Saturation 4.2 L (20-50) % 04/09/16 04/09/16 04/09/16 Range/Units 05:02 05:02 07:17 WBC (3.8-10.6) k/uL RBC (4.30-5.90) m/uL Hgb (13.0-17.5) gm/dL Hct (39.0-53.0) % MCV (80.0-100.0) fL MCH (25.0-35.0) pg MCHC (31.0-37.0) g/dL RDW (11.5-15.5) % Plt Count (150-450) k/uL Neutrophils # (1.3-7.7) k/uL Lymphocytes # (1.0-4.8) k/uL PT 13.9 H (9.0-12.0) sec Carbon Dioxide 16 L (22-30) mmol/L BUN 117 H* (9-20) mg/dL Creatinine 3.98 H (0.66-1.25) mg/dL POC Glucose (mg/dL) 107 H (75-99) mg/dL Calcium 7.6 L (8.4-10.2) mg/dL Iron (49-181) ug/dL % Saturation (20-50) % Microbiology - Last 24 Hours (Table) 04/07/16 18:30 Urine Culture - Preliminary Urine,Catheterized Diabetes panel 04/09/16 Range/Units 05:02 Sodium 137 (137-145) mmol/L Potassium 4.7 (3.5-5.1) mmol/L Chloride 107 (98-107) mmol/L Carbon Dioxide 16 L (22-30) mmol/L BUN 117 H* (9-20) mg/dL Creatinine 3.98 H (0.66-1.25) mg/dL Glucose 77 (74-99) mg/dL Calcium 7.6 L (8.4-10.2) mg/dL Thyroid panel 04/08/16 Range/Units 04:55 TSH 3.540 (0.465-4.680) mIU/L Calcium panel 04/09/16 Range/Units 05:02 Calcium 7.6 L (8.4-10.2) mg/dL Phosphorus 3.6 (2.5-4.5) mg/dL Pituitary panel 04/08/16 04/09/16 Range/Units 04:55 05:02 Sodium 137 (137-145) mmol/L Potassium 4.7 (3.5-5.1) mmol/L Chloride 107 (98-107) mmol/L Carbon Dioxide 16 L (22-30) mmol/L BUN 117 H* (9-20) mg/dL Creatinine 3.98 H (0.66-1.25) mg/dL Glucose 77 (74-99) mg/dL Calcium 7.6 L (8.4-10.2) mg/dL TSH 3.540 (0.465-4.680) mIU/L Adrenal panel 04/09/16 Range/Units 05:02 Sodium 137 (137-145) mmol/L Potassium 4.7 (3.5-5.1) mmol/L Chloride 107 (98-107) mmol/L Carbon Dioxide 16 L (22-30) mmol/L BUN 117 H* (9-20) mg/dL Creatinine 3.98 H (0.66-1.25) mg/dL Glucose 77 (74-99) mg/dL Calcium 7.6 L (8.4-10.2) mg/dL - Imaging CT scan - abdomen: report reviewed Assessment and Plan Plan: 75-year-old male with sudden weight loss. Patient will undergo EGD in a.m. If there is evidence of SMA syndrome he may require surgical intervention.
[2016-04-09] MEDS ORDERED: MULTIVITAMINS, THERA 1 EACH TAB PO SCH (12:00)
[2016-04-09] MEDS: FOLIC ACID 1 MG TAB PO SCH (13:41)
[2016-04-09] MEDS: MULTIVITAMINS, THERA 1 EACH TAB PO SCH (13:41)
[2016-04-09] MEDS: THIAMINE 100 MG TAB PO SCH (13:41)
--- NOTE | 2016-04-10 01:38 | P.CONS ---
History of Present Illness - Reason for Consult Consult date: 04/09/16 - History of Present Illness The patient is a 75-year old male who was admitted with history of weakness and significant weight loss and decrease in his activity that has been noted around . The patient was found to have profound anemia and has started to manifest GI bleeding after admission. He has received 5 units of packed RBC's so far. He also has evidence of acute kdiney injury. Surgery was also consulted for possible SMA syndrome. Patient is scheduled foor EGD in AM. Review of Systems Constitutional: Denied fever, chills or unintentional weight loss Neurologic: No headahes, double vision or sensory or motor changes Cardiopulmonary: No chest pains, SOB or palpitations Gastrointestinal: See PI above Genitourinary: No hematuria, dysuria or frequency Endocrine: No polyphagia or polydypsia Hematology: No bleeding tendency or bruising Skin: No rashes Psychiatric: No anxiety or depression Past Medical History Past Medical History: Cancer, Heart Failure, CVA/TIA, Hypertension, Prostate Disorder Additional Past Medical History / Comment(s): New onset anemia, history of TIA/ CVA, 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 Past Drug Use History: None Reported - Past Family History Father Family Medical History: No Reported History Additional Family Medical History / Comment(s): patient states he has no family medical history Mother Family Medical History: Hypertension, Myocardial Infarction ([place]) Medications and Allergies Home Medications Medication Instructions Recorded Confirmed Type No Known Home Medications [No 04/07/16 04/07/16 History Known Home Medications] Allergies Allergy/AdvReac Type Severity Reaction Status Date / Time No Known Allergies Allergy Verified 04/07/16 13:10 Physical Exam Vitals: Vital Signs Temp Pulse Resp BP Pulse Ox 04/09/16 22:00 75 20 113/72 04/09/16 21:00 77 20 103/74 04/09/16 20:00 97.6 F 80 18 108/76 04/09/16 19:00 77 19 101/69 95 04/09/16 18:00 81 85 H 103/74 92 L 04/09/16 17:00 76 20 108/70 92 L 04/09/16 16:00 97.9 F 76 20 111/66 93 L 04/09/16 15:00 79 18 113/70 96 04/09/16 14:00 80 25 H 117/73 92 L 04/09/16 13:00 92 25 H 114/77 93 L 04/09/16 12:00 97.8 F 90 24 110/74 96 04/09/16 11:00 86 17 103/74 95 04/09/16 10:00 85 16 117/76 96 04/09/16 09:00 94 22 114/79 92 L 04/09/16 08:00 97.8 F 86 22 108/77 96 04/09/16 07:00 93 28 H 108/76 04/09/16 06:30 98 20 120/79 04/09/16 06:00 92 18 115/78 96 04/09/16 05:30 96 111/75 04/09/16 05:00 92 21 109/76 100 04/09/16 04:30 93 20 115/76 100 04/09/16 04:00 97.6 F 95 28 H 113/79 04/09/16 03:30 92 18 112/75 94 L 04/09/16 03:00 87 21 109/70 04/09/16 02:30 93 18 114/78 94 L 04/09/16 02:00 94 20 117/79 99 04/09/16 01:30 93 20 108/79 96 04/09/16 01:00 91 23 113/77 98 04/09/16 00:30 91 24 118/82 93 L 04/09/16 00:08 92 22 116/82 95 04/09/16 00:06 97.6 F 93 18 106/80 95 04/09/16 00:00 97.6 F 88 91 H 106/80 99 04/08/16 23:30 97.6 F 87 20 115/80 93 L Intake and Output 02/05/17 02/05/17 02/06/17 14:59 22:59 06:59 Intake Total 1075 935 Output Total 705 685 Balance 370 250 Intake: IV 775 875 Dextrose 5% in Water 1, 775 875 000 ml @ 125 mls/hr IV . Q9H12M SHEA with Sodium Bicarb (1 Meq/ml) 150 ml Rx#:[id number] Intake, IV Titration 300 Amount Magnesium Sulfate-D5w Pmx 200 1 gm In Dextrose/Water 1 100ml.bag @ 100 mls/hr IVPB Q1H SHEA Rx#: [id number] Sodium Ferric Gluconat- 100 Sucrose 125 mg In Sodium Chloride 0.9% 100 ml @ 100 mls/hr IVPB DAILY SHEA Rx#:[id number] Oral 60 Output: Urine 705 685 Other: Voiding Method Indwelling Catheter Indwelling Catheter # Bowel Movements 1 0 General appearance: The patient is alert, oriented, in no acute distress. HET: Head is normocephalic and atraumatic. Pupils are equal and reactive. Oropharynx is clear without lesions. Neck: Supple without lymphadenopathy. Trachea midline. Heart: S1 S2. Regular rate and rhythm. Lungs: No crackles or wheezes are heard. Abdomen: Soft, diffuse upper epigastric pain, nondistended with bowel sounds. No peritoneal signs. No palpable organomegaly or masses. Extremities: Normal skin color and turgor. No cyanosis, rash, ulceration, clubbing, or edema. Radial and pedal pulses are 2/4 bilaterally. Neurological: No focal deficits. Strength and sensation are grossly intact. Results CBC & Chem 7: 04/21/16 05:20 04/21/16 05:20 Labs: Abnormal Lab Results - Last 24 Hours (Table) 04/09/16 04/09/16 04/09/16 Range/Units 05:02 05:02 05:02 WBC 13.4 H (3.8-10.6) k/uL RBC 2.92 L (4.30-5.90) m/uL Hgb 7.5 L D (13.0-17.5) gm/dL Hct 23.8 L (39.0-53.0) % RDW 18.9 H (11.5-15.5) % Plt Count 114 L (150-450) k/uL Neutrophils # 11.4 H (1.3-7.7) k/uL Lymphocytes # 0.9 L (1.0-4.8) k/uL PT 13.9 H (9.0-12.0) sec Carbon Dioxide 16 L (22-30) mmol/L BUN 117 H* (9-20) mg/dL Creatinine 3.98 H (0.66-1.25) mg/dL POC Glucose (mg/dL) (75-99) mg/dL Calcium 7.6 L (8.4-10.2) mg/dL 04/09/16 Range/Units 07:17 WBC (3.8-10.6) k/uL RBC (4.30-5.90) m/uL Hgb (13.0-17.5) gm/dL Hct (39.0-53.0) % RDW (11.5-15.5) % Plt Count (150-450) k/uL Neutrophils # (1.3-7.7) k/uL Lymphocytes # (1.0-4.8) k/uL PT (9.0-12.0) sec Carbon Dioxide (22-30) mmol/L BUN (9-20) mg/dL Creatinine (0.66-1.25) mg/dL POC Glucose (mg/dL) 107 H (75-99) mg/dL Calcium (8.4-10.2) mg/dL Microbiology - Last 24 Hours (Table) 04/07/16 18:30 Urine Culture - Final Urine,Catheterized Assessment and Plan Plan: 75-year old with GI bleeding and profound anemia and significant weight loss. Abnormal CT raising possibility of SMA syndrome. Will await EGD results an plan accordingly.
[2016-04-10] MEDS: DEXTROSE 5% IN WATER 1,000 ML with SODIUM BICARB (1 MEQ/ML) 150 ML IV SCH ×2 (04:36→08:53)
[2016-04-10 05:00] LABS: Anisocytosis Moderate; CH 25.8; CHCM 32.1; HCT 21.3 % (39.0-53.0); HDW 4.89; Hypochromasia Marked; MCH 24.3 pg (25.0-35.0); MCHC 30.5 g/dL (31.0-37.0); MCV 79.8 fL (80.0-100.0); Mean Platelet Volume 10.6; Microcytosis Slight; Poikilocytosis Marked; RBC 2.67 m/uL (4.30-5.90); RDW 20.2 % (11.5-15.5); WBC (Perox) 9.45
[2016-04-10 05:01] LABS: HGB 6.5 gm/dL (13.0-17.5)
[2016-04-10 05:02] LABS: INR 1.3 (<1.1); Partial Thromboplastin Time 30.6 sec (22.0-30.0); Prothrombin Time 12.8 sec (9.0-12.0)
[2016-04-10 05:06] LABS: Calcium 7.2 mg/dL (8.4-10.2); Magnesium 2.1 mg/dL (1.6-2.3); Phosphorous 2.7 mg/dL (2.5-4.5); Potassium 3.5 mmol/L (3.5-5.1)
[2016-04-10 05:20] LABS: Add Differential Manual Differential
[2016-04-10 05:23] LABS: Band Neutrophils % 0.5 %; Manual Review Performed; Nucleated Red Blood Cells 6 /100 WBC (0-0); Total Cells Counted 200; WBC 9.3 k/uL (3.8-10.6)
[2016-04-10 05:24] LABS: Polychromasia Present; Target Cells Present
[2016-04-10] MEDS ORDERED: Potassium Replacement Protocol 1 EACH MISC MISCELLANE PRN (05:44)
[2016-04-10] MEDS ORDERED: POTASSIUM CHLORIDE 10 MEQ, LIDOCAINE 2% INJ 10 MG in SODIUM CHLORIDE 0.9% 100 ML IV SCH (06:00)
--- NOTE | 2016-04-10 08:20 | XR ---
EXAMINATION TYPE: XR chest 1V DATE OF EXAM: 04/10/2016 6:48 AM COMPARISON: 04/09/2016 HISTORY: Shortness of TECHNIQUE: Single frontal view of the chest is obtained. FINDINGS: Marked cardiomegaly with left lower lobe infiltrate and small effusion stable. Hyperinflat ion suggests COPD. No overt failure. No pneumothorax. IMPRESSION: 1. COPD and severe cardiomegaly with stable left lower lobe infiltrate and small effusion.
[2016-04-10] MEDS: PANTOPRAZOLE 40 MG/10 ML VIAL IV SCH (08:53)
[2016-04-10] MEDS: SODIUM FERRIC GLUCONAT-SUCROSE 125 MG in SODIUM CHLORIDE 0.9% 100 ML IVPB SCH (08:58)
[2016-04-10] MEDS: SODIUM CHLORIDE 0.9% 1,000 ML IV SCH (10:58)
--- NOTE | 2016-04-10 11:05 | PN ---
DATE OF SERVICE: 04/10/2016 The patient is seen for follow-up for acute kidney injury, which is mainly acute tubular necrosis associated with hypotension and hypoperfusion. His renal function has been improving. Patient was also severely anemic at the time of admission and he started to have black tarry stools yesterday. He has required more than 5 units of packed RBCs. The patient was evaluated by GI yesterday and he is scheduled for EGD this morning. The patient has had significant weight loss over the past 7 to 8 months. On examination, blood pressure is 104/64, heart rate 97 per minute. He is afebrile. Examination of the heart S1 and S2. Examination of the lungs, bilateral breath sounds are heard. No crackles or wheezing. His abdomen is soft, nontender, cachectic. Examination of lower extremities shows no evidence of edema. Labs show hemoglobin of 6.5 g/dL, sodium 132, potassium 3.5, BUN 105, serum creatinine 3.6. ASSESSMENT: 1. Acute kidney injury, acute tubular necrosis, currently nonoliguric and significantly improved. 2. Severe metabolic acidosis associated with advanced renal failure, currently improved. Will discontinue the bicarb drip. 3. Severe anemia at the time of admission from underlying gastrointestinal bleed, scheduled for endoscopy today. 4. Severe iron deficiency secondary to ongoing GI bleed, rule out underlying gastrointestinal malignancy. 5. Hypotension associated with severe anemia and hypovolemia, currently improved. PLAN: Discontinue bicarb drip. Change IV fluids to normal saline. Repeat labs in a.m.
[2016-04-10] MEDS ORDERED: ePHEDrine 50 MG/ML 1 ML AMP ONE (13:14)
[2016-04-10] MEDS ORDERED: PROPOFOL 10 MG/ML 20 ML VIAL IV ONE (13:14)
[2016-04-10] MEDS ORDERED: IV FLUID CONTINUATION 1,000 ML IV ONE (13:15)
--- NOTE | 2016-04-10 13:31 | P.OP ---
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 He received IV sedation. The gastroscope some placed oropharynx and passed into the esophagus and into the stomach. Scope was then placed through the pylorus. There appeared to be evidence of SMA syndrome with an occlusion of the duodenum by a pulsatile vessel. The scope was then withdrawn in the antrum appeared mildly inflamed a biopsies performed. Scope was then brought back and near the incisura of the stomach there appeared to be a large gastric ulcer. There is no active bleeding. There is no evidence of blood in the stomach. Scope was then withdrawn and retroflexed and there was a small hiatal hernia. The GE junction was at 40 cm. The distal esophagus. Normal. The proximal esophagus. Normal. Scope was withdrawn for patient.
[2016-04-10] MEDS ORDERED: PEG 3350-NA SULF,BICARB,CL/KCL 4,000 ML BOTTLE PO ONE (14:00)
--- NOTE | 2016-04-10 14:50 | P.PN ---
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 The patient had lost according to the family approximately 40 pounds over the past month. I was told that he had not been eating for the past 4-6 days. The patient is awake and alert and he claims that he has no appetite and obviously he is a failure to thrive, given up on life, very much cachectic and emaciated with significant malnourishment and thought the loss and by the protein mass. In addition, the patient was an acute kidney injury with his creatinine was found to be at 4.5. He was found to be profoundly anemic with his initially was at 4.2. The patient did not have any obvious source of internal or external bleeding. He has remote history of prostate cancer and has undergone a prostatectomy. No history of any malignancy. He was in the hospital back in June 2015 for some symptoms of TIA. 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 The workup back then included a carotid Doppler that was negative for any hemodynamically significant stenosis and the patient had an echocardiogram that showed global hypokinesis with an ejection fraction of around 20%. The patient was under the care of Dr. Ochoa. He was discharged home. He claims to be following up with Dr. Ronquillo. He is a chronic smoker. No alcoholism. No substance abuse. No constipation. No abdominal distention. No GI bleeding. No hematemesis. He did vomit on few occasions however on outpatient basis. He is moving all 4 extremities and there is no limitation in his body movements. He was given a total of 2 units of packed RBCs yesterday and his hemoglobin is up to 6.4. An additional 1 unit will be given to him right now. He also received fluids in the order of 3 L normal saline and currently is on a maintenance of 100 mL an hour of 3 Amp bicarbonate with D5 water. On 04/09/2016 the patient is being seen in follow-up. As mentioned, the patient had significant drop in hemoglobin down to 6.4 and he got transfused with 2 units of packed RBC initially and I gave him an additional 1 unit in the morning. Subsequent hemoglobin came back at 5.8. Based on this, the patient was given another 2 units of packed RBC and hemoglobin came up to 7.5. Note that during the day, the patient started having episodes of GI bleeds. In the beginning these was black clots and later on it switched to maroon clots. The patient had a total of 6 episodes the last episode being this morning at around 7:00. CAT scan of the abdomen was also done yesterday and it showed distention of the stomach with most of the oral contrast residing within the stomach. There was a small amount of contrast within the mildly dilated duodenum. There appears to be a caliber change overlying the aorta at the level of the transverse duodenum. The possibility of a SMA syndrome was entertained on this patient. In addition, the patient had COPD, emphysematous change, bibasilar effusions, severe cardiomyopathy and she reflux. He is also being resuscitated IV fluids. The patient is currently receiving D5 with 3 A of bicarb at the rate of 50 mL an hour. We drop the infusion rate due to concern of fluid overload and underlying cardiomyopathy. However, based on the ongoing events, I would increase the infusion rate of 125 mL an hour. His serum bicarb level is up to 18. The BN is still elevated. Creatinine has dropped down to 3.98. Reevaluated today on 04/10/2016, patient underwent EGD which was nondiagnostic and was noted to be normal. Hemoglobin this morning is 6.5, hence I ordered another unit of packed RBC to be transfused today. Patient is now being followed by gastroenterology and general surgery and workup is still in progress. His renal profile seems to be a bit improved creatinine is down to 3.6 BUN is 105. Rest of the labs were noted to be relatively unremarkable. So far the patient received 5 units of packed RBCs, and he would be receiving the sixths unit today. Clinically, the patient is feeling better, denies any shortness of breath no cough no chest pain no abdominal pain no nausea no vomiting. Objective - Vital Signs Vital signs: Vital Signs Temp 97.4 F L 04/10/16 13:53 Pulse 87 04/10/16 14:15 Resp 20 04/10/16 14:15 BP 128/79 04/10/16 14:15 Pulse Ox 100 04/10/16 14:15 Intake & Output 04/09/16 04/10/16 04/10/16 18:59 06:59 18:59 Intake Total 1760 1350 1350 Output Total 1245 1345 495 Balance 515 5 855 Weight 59.1 kg Intake: IV 1400 1250 700 Dextrose 5% in Water 1, 1400 1250 500 000 ml @ 125 mls/hr IV . Q9H12M SHEA with Sodium Bicarb (1 Meq/ml) 150 ml Rx#:[id number] Intake, IV Titration 300 100 400 Amount Magnesium Sulfate-D5w Pmx 200 1 gm In Dextrose/Water 1 100ml.bag @ 100 mls/hr IVPB Q1H SHEA Rx#: [id number] Potassium Chloride 10 meq 100 Lidocaine 2% Inj 10 mg In Sodium Chloride 0.9% 100 ml @ 100 mls/hr IV Q1HR SHEA Rx#:[id number] Sodium Chloride 0.9% 1, 300 000 ml @ 100 mls/hr IV . Q10H SHEA Rx#:[id number] Sodium Ferric Gluconat- 100 100 Sucrose 125 mg In Sodium Chloride 0.9% 100 ml @ 100 mls/hr IVPB DAILY SHEA Rx#:[id number] Oral 60 Blood Product 250 Rc Cpda-1 Unit 0 [id number] Rc Cpda-1 Unit 250 [id number] Output: Urine 1245 1345 495 Other: Voiding Method Indwelling Catheter Indwelling Catheter Indwelling Catheter # Bowel Movements 1 0 - Exam Physical Exam: Revealed a 75-year-old in no distress HEENT:[Neck is supple.] [No neck masses.] [No thyromegaly.] [No JVD.] Chest: [Clear throughout, no crackles, no rhonchi, no wheezes.] Cardiac Exam: [Normal S1 and S2, no S3 gallop, no murmur.] Abdomen: [Soft, nontender, no megaly, no rebound, no guarding, normal bowel sounds.] Extremities: [No clubbing, no edema, no cyanosis.] Neurological Exam: [No focal neurologic deficit.] - Labs CBC & Chem 7: 04/10/16 04:09 04/10/16 04:09 Labs: Abnormal Lab Results - Last 24 Hours (Table) 04/10/16 04/10/16 04/10/16 Range/Units 04:09 04:09 04:09 RBC 2.67 L (4.30-5.90) m/uL Hgb 6.5 L* (13.0-17.5) gm/dL Hct 21.3 L (39.0-53.0) % MCV 79.8 L (80.0-100.0) fL MCH 24.3 L (25.0-35.0) pg MCHC 30.5 L (31.0-37.0) g/dL RDW 20.2 H (11.5-15.5) % Plt Count 102 L (150-450) k/uL Neutrophils # (Manual) 7.9 H (1.3-7.7) k/uL Lymphocytes # (Manual) 0.9 L (1.0-4.8) k/uL Nucleated RBCs 6 H (0-0) /100 WBC PT 12.8 H (9.0-12.0) sec APTT 30.6 H (22.0-30.0) sec Sodium 132 L (137-145) mmol/L Chloride 97 L (98-107) mmol/L BUN 105 H* (9-20) mg/dL Creatinine 3.60 H (0.66-1.25) mg/dL Calcium 7.2 L (8.4-10.2) mg/dL Microbiology - Last 24 Hours (Table) 04/07/16 18:30 Urine Culture - Final Urine,Catheterized Assessment and Plan Plan: 1 acute anemia, microcytic, suggestive of an occult ongoing blood loss and very much concerning an underlying intra-abdominal malignancy or a colonic malignancy resulting into an iron deficiency anemia. The patient received a total of 2 units of packed RBC and hemoglobin is up to 6.4. Further investigation is to follow. We'll check iron studies. We'll check CAT scan of the abdomen and pelvis and possibly a colonoscopy needs to be done at a later stage. On 04/09/2016, the patient is being seen in follow-up. The patient started having episodes of GI bleed as I mentioned there has been significant drop in his hemoglobin. Overall he had been transfused a total of 5 units. Most recent hemoglobin is at 7.5. Meanwhile the CAT scan of the abdomen shows an raises the possibility of a SMA syndrome. For that reason a GI and a surgical consultation was obtained on an emergent basis. The patient is still using resuscitated with IV fluids. 2 acute kidney injury, nonoliguric, likely secondary to intravascular volume depletion and dehydration and the patient is responding nicely to fluids and he has an adequate urine output at this point. On 04/09/2016, the patient is still being resuscitated IV fluids. Renal function is improving and the creatinine is down to 3.98. The patient is producing adequate urine output in the order of 45 mL an hour. On 04/10/2016, patient is feeling better clinically, and his hemoglobin remains low at 6.5 hence he will require more blood transfusion and this will be #6 unit given today. 3 cardiomyopathy with generalized hypokinesis and ejection fraction of around 20 % 4 prostate cancer the paresis prostatectomy 5 nicotine addiction/smoking 6 history of alcoholism 7 previous hospital physician for TIA/CVA with diffuse RADIO INTELLIGENCE OPERATOR atrophy 8 severe malnourishment/cachexia, poor appetite and significant loss and total body protein mass 9 troponin leak, nonspecific 10 hyperphosphatemia 11 sinus rhythm with a bundle-branch block pattern, left sided on EKG, chronicity is not known Recommendation: EGD was noted to be normal as documented by Dr. michelle on the case, if the patient truly has SMA syndrome, I believe surgery would have to be considered. That decision will be made by the surgeon on the case. In the meantime continue supportive care measures, continue to monitor hemodynamics, keep the hemoglobin above 7. Prognosis remains guarded. Critical care time is 35 minutes. Time with Patient: Greater than 30
[2016-04-10] MEDS: FOLIC ACID 1 MG TAB PO SCH (15:01)
[2016-04-10] MEDS: MULTIVITAMINS, THERA 1 EACH TAB PO SCH (15:01)
[2016-04-10] MEDS: THIAMINE 100 MG TAB PO SCH (15:01)
--- NOTE | 2016-04-10 15:07 | PN ---
INTERVAL HISTORY: Mr. Mendoza is a 75-year-old male with a past medical history of stroke, hypertension, heart failure, prostrate disorder, admitted to the hospital with the chief complaint of generalized weakness. The patient has been having decreased p.o. intake since and for the past 3 days, he has not eaten much and for the past couple of days, he did not even drink any liquids, so brought into the hospital for further evaluation. At the time of admission, the patient's hemoglobin was found to be 4.2 and a creatinine of 4.8 and he has received 5 units of PRBCs until now. Patient had 6 to 7 bloody bowel movements until this morning. Since morning, he did not have any bleeding per rectum. He is currently on a bicarb drip. Today the patient appears to be much more alert and oriented than yesterday. He has his sister and his fiance at the bedside. Patient states that it is his loss of appetite and not problem with dysphagia that he was not able to eat. He states that he feels much better than when he came in. Denies having any abdominal pain, nausea or vomiting. He denies having any chest pain, any difficulty in breathing. He states his last bowel movement was this morning and it was bloody. Patient denies having any weakness of his extremities. Patient's medications have been reviewed. He is on Tylenol, DuoNeb, bicarb drip, iron supplements, multivitamins, Protonix, thiamine, and folic acid supplement. On examination, patient's vitals, temperature 97.6, heart rate 80, respiratory rate 18, blood pressure 108/76, saturating at 94% on room air. Patient appears to emaciated and cachectic. Has temporal wasting. HEAD: Atraumatic. EYES: Positive for pallor. Mucous membranes are moist. Patient has very poor dental hygiene. NECK: No thyromegaly. No JVD. LUNGS: Diminished breath sounds in all lung loaiza. CARDIAC: S1, S2 heard. EXTREMITIES: No edema. No cyanosis, no clubbing. Abdomen is soft, nontender. Bowel sounds positive. No organomegaly appreciated. MECHANOTHERAPIST: Alert, awake, oriented x3, following commands. No focal deficits. Patient's labs: White count of 13.4, hemoglobin is 7.5, platelets of 114. Sodium 137, potassium 4.7, chloride 107, bicarb 16, BUN 117, creatinine 3.98. Iron profile showing iron-deficiency anemia and TSH within normal limits, CEA 4.2. ASSESSMENT AND PLAN: 1. Acute anemia secondary to acute gastrointestinal bleed. Patient received 5 units of PRBCs until now and his hemoglobin has been around 7.5. He is not actively bleeding currently. 2. Surgical services have been consulted and the patient also had a CAT scan of his abdomen and pelvis which was showing SMA syndrome and infrarenal abdominal aortic aneurysm with severe cardiomegaly. 3. Acute kidney injury secondary to volume depletion due to gastrointestinal bleed, continue with bicarb drip. 4. History of prostate cancer, status post prostatectomy. 5. Troponin elevation, most likely secondary to demand ischemia. 6. History of alcohol abuse. 7. Nicotine dependence. 8. History of transient ischemic attack/cerebrovascular accident. 9. Severe cardiomegaly has been on CT of the chest. PLAN: To continue the patient with bicarb drip as mentioned above and Surgical Services were consulted for evaluation of SMA syndrome . Patient being scheduled for an EGD and possible PEG tube placement for tomorrow morning. The treatment care plan was discussed with the patient's sister and fiance and the patient. Overall prognosis is guarded. Further recommendations to follow depending on the progress of the patient. [facility]
[2016-04-10 16:20] LABS: Anisocytosis Slight; CH 27.4; CHCM 32.6; HCT 28.2 % (39.0-53.0); HDW 4.82; Hypochromasia Moderate; MCH 27.2 pg (25.0-35.0); MCHC 32.6 g/dL (31.0-37.0); MCV 83.5 fL (80.0-100.0); Mean Platelet Volume 10.3; Microcytosis Slight; Poikilocytosis Marked; RBC 3.38 m/uL (4.30-5.90); RDW 19.3 % (11.5-15.5); WBC (Perox) 9.73
[2016-04-10 16:23] LABS: HGB 9.2 gm/dL (13.0-17.5)
[2016-04-10 18:21] LABS: Add Differential Manual Differential
[2016-04-10 18:26] LABS: Nucleated Red Blood Cells 4 /100 WBC (0-0); Total Cells Counted 200; WBC 9.3 k/uL (3.8-10.6)
[2016-04-10 18:27] LABS: Crenated RBC Present; Polychromasia Present; Target Cells Present
[2016-04-10] MEDS: POTASSIUM CHLORIDE 10 MEQ, LIDOCAINE 2% INJ 10 MG in SODIUM CHLORIDE 0.9% 100 ML IVPB SCH ×2 (18:58→21:39)
[2016-04-11] MEDS: SODIUM CHLORIDE 0.9% 1,000 ML IV SCH ×3 (04:43→18:10)
[2016-04-11 05:21] LABS: Anisocytosis Slight; Basophils % (A) 0 %; CHCM 30.9; Eosinophils # (A) 0.1 k/uL (0-0.7); Eosinophils % (A) 1 %; HGB 9.6 gm/dL (13.0-17.5); Hypochromasia Marked; Large Platelets Flag Moderate; Luc % (Auto) 2; Lymphocytes # (A) 0.6 k/uL (1.0-4.8); Lymphocytes % (A) 6 %; MCHC 31.1 g/dL (31.0-37.0); MCV 86.9 fL (80.0-100.0); Mean Platelet Volume 11.2; Monocytes # (A) 0.6 k/uL (0-1.0); Monocytes % (A) 6 %; Neutrophils # (A) 8.2 k/uL (1.3-7.7); Neutrophils % (A) 85 %; Poikilocytosis Moderate; RBC 3.57 m/uL (4.30-5.90); RDW 18.9 % (11.5-15.5); WBC 9.6 k/uL (3.8-10.6)
[2016-04-11 05:41] LABS: Calcium 7.2 mg/dL (8.4-10.2); Magnesium 1.9 mg/dL (1.6-2.3); Phosphorous 3.3 mg/dL (2.5-4.5)
[2016-04-11 06:04] LABS: Manual Review Performed
[2016-04-11 06:05] LABS: Polychromasia Present; Target Cells Present
[2016-04-11 06:06] LABS: Large Platelets Present
[2016-04-11] MEDS: MAGNESIUM SULFATE-D5W PMX 1 GM in DEXTROSE/WATER 1 100ML.BAG IVPB SCH ×2 (06:27→08:59)
--- NOTE | 2016-04-11 08:52 | XR ---
EXAMINATION TYPE: XR chest 1V DATE OF EXAM: 04/11/2016 6:51 AM COMPARISON: 04/10/2016 HISTORY: Shortness of breath TECHNIQUE: Single frontal view of the chest is obtained. FINDINGS: Marked cardiomegaly with left lower lobe infiltrate and small effusion stable. Hyperinflat ion suggests COPD. No overt failure. No pneumothorax. There now is a small right pleural effusion and basilar infiltrate. IMPRESSION: 1. COPD and severe cardiomegaly with stable left lower lobe infiltrate and small effusion. 2. There is no a small right pleural effusion with basilar infiltrate. Mild venous congestion not exc luded.
[2016-04-11] MEDS: PANTOPRAZOLE 40 MG/10 ML VIAL IV SCH (09:00)
[2016-04-11] MEDS ORDERED: LIDOCAINE 2% INJ 20 MG/ML SQ ONE (09:44)
--- NOTE | 2016-04-11 09:45 | PN ---
Mr. Mendoza is a 75-year-old male with past medical history of stroke, hypertension, heart failure, prostrate disorder, admitted to the hospital with the chief complaint of generalized weakness. Patient was found to have a hemoglobin of 4.8. He was given 2 units of PRBCs. Then eventually he started to have GI bleed. The patient received 6 units of PRBCs until now and his hemoglobin has been stable. 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 Today, the patient appears to be more alert and awake. He denies having any complaints. He states that his appetite seems to be getting better and wants to eat. Apparently the patient oral intake has been affected for the past few months. REVIEW OF SYSTEMS: CONSTITUTIONAL: Does not have any fevers, chills. RESPIRATORY: No difficulty in breathing. CARDIAC: No chest pain. GI: He denies having any pain. No bloody stools. Patient's medications have been reviewed. On examination, patient's vital signs: Temperature 97.5, heart rate 77, respiratory rate 12, blood pressure 109/73, saturating at 98%. GENERAL: Patient is thin, cachectic with temporal wasting. No acute distress. HEAD: Atraumatic. EYES: PERRLA, positive ( ) and mucous membrane moist. NECK: No JVD. LUNGS: Diminished breath sounds in all lung loaiza. CARDIAC: S1, S2 heard. ABDOMEN: Soft, scaphoid. Bowel sounds positive. 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 No focal deficits. Patient's labs: White count of 9.3, hemoglobin 9.2, platelets 76, sodium 132, potassium 3.5, chloride 97, bicarb 25, BUN 105, creatinine 3. ASSESSMENT AND PLAN: 1. Acute anemia secondary to acute GI bleed. The patient received 6 units of PRBCs. Until now hemoglobin has been stable around 9. Not actively bleeding. 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 2. Acute kidney injury secondary to volume depletion. Continue with bicarb drip and creatinine slowly trending down. 3. History of prostate cancer, status post prostatectomy. 4. Troponin elevation secondary to demand ischemia. 5. History of alcohol abuse. 6. Nicotine dependence. 7. History of transient ischemic attack/cerebrovascular accident. 8. Severe cardiomegaly has been seen on the CAT scan of the chest. PLAN: The plan is to continue the patient on bicarb drip and patient is being scheduled for a colonoscopy for tomorrow. Continue with the rest of his medication regimen and overall prognosis is guarded. Further recommendations to follow depending on the progress of the patient.
[2016-04-11] MEDS: SODIUM FERRIC GLUCONAT-SUCROSE 125 MG in SODIUM CHLORIDE 0.9% 100 ML IVPB SCH (10:00)
--- NOTE | 2016-04-11 10:03 | XR ---
EXAMINATION TYPE: XR chest 1V portable DATE OF EXAM: 04/11/2016 9:59 AM COMPARISON: 04/11/2016 HISTORY: PICC line placed TECHNIQUE: Single frontal view of the chest is obtained. FINDINGS: Bilateral infiltrate and pleural effusion seen with interstitial changes. Heart is enlarge d and there is evidence of COPD. PICC line appears in good position with the tip overlying the SVC IMPRESSION: 1. Diffuse pleural-parenchymal changes are stable 2. PICC line in good position.
--- NOTE | 2016-04-11 10:17 | CDI ---
In responding to this query, please exercise your independent professional judgment. The [facility] Coding Staff and Clinical Documentation Specialists appreciate your assistance in clarifying documentation, maintaining compliance with coding guidelines, accurately documenting patients condition and capturing severity of illness. The fact that a question is asked does not imply that any particular answer is desired or expected. Communication forms are a method of clarifying documentation and are not made part of the Legal Health Record. Thank you in advance for your clarification. Last Revision, May 2015 Mirna Verde [address] [place] [address] Documentation Clarification Form Date: 04/11/2016 10:07:00 AM From: Genoveva Du RN, CCDS Admit Date: 04/07/2016 3:21:00 PM Patient Name: Manuel Mendoza Visit Number: [id number] Dr. Way CHF is documented in the medical history . History/Risk Factors: CHF, HTN, CVA, ARF with ATN this admission, Anemia with GIB this admission Clinical Indicators: 04/08 Pulmonary consult: " patient had an echocardiogram that showed global hypokinesis with an ejection fraction of around 20%. cardiomyopathy." VS/Pulse OX: HR 57, RR 14, B/P 104/69, spo2 96% RA 07/02/15 Echocardiogram Results: severe global hypokinesis of the LV. EF <20%. 04/10/16 Chest X Ray: Copd and severe cardiomegly with stable left lower lobe infiltrate and small pleural effusion Treatment: Lasix 60 mg IVP OT- then held d/t ARF with ATN Consults: Pulmonary, Nephrology In your professional opinion, can you please clarify the acuity and type of CHF if known? Acute Chronic Acute on Chronic AND Systolic Diastolic Systolic and Diastolic Cor Pulmonale (Right Sided HF w/ Pulmonary HTN) Unable to determine Other, please specify If known, please specify if Heart Failure is due to: Hypertension Rheumatic Fever Please document in your progress notes and discharge summary in order to capture severity of illness and risk of mortality. Include clinical findings that support your diagnosis. FYI: Press F11 to launch patient chart. Place X here if this finding has no clinical significance, is not applicable or if you are not able to provide any additional documentation. YAQUELIN
--- NOTE | 2016-04-11 10:27 | CDI ---
In responding to this query, please exercise your independent professional judgment. The [facility] Coding Staff and Clinical Documentation Specialists appreciate your assistance in clarifying documentation, maintaining compliance with coding guidelines, accurately documenting patients condition and capturing severity of illness. The fact that a question is asked does not imply that any particular answer is desired or expected. Communication forms are a method of clarifying documentation and are not made part of the Legal Health Record. Thank you in advance for your clarification. Last Revision, January 2015 Mirna Verde [address] [place] [address] Documentation Clarification Form Date: 04/11/2016 10:18:00 AM From: Genoveva Du RN, CCDS Admit Date: 04/07/2016 3:21:00 PM Patient Name: Manuel Mendoza Visit Number: [id number] Dr. Way Cardiomyopathy is documented in the Pulmonary Consult and Progress Notes . History/Risk Factors: CHF, HTN, CVA. Iron deficiency, Severe Anemia Clinical indicators: 04/10 Pulmonary Progress Note: "cardiomyopathy with generalized hypokinesis and ejection fraction of around 20%." Patient C/O: Weakness, lethargy, loss of appetite, 04/10/16 CXR: COPD and severe cardiomegly with stable left lower lobe infiltrate and small pleural effusion 06/29/15 Echocardiogram: there is severe global hypokinesis of LV. EF severely impaired <20% Treatment: Consults: Pulmonary, Nephrology 2L IVF Bolus 7 Units PC Currently not on any cardiac meds In your professional opinion; can you please clarify the type of cardiomyopathy and underlying cause if known? Congenital Dilated Hypertrophic Ischemic Secondary, please indicate underlying cause if known Unable to determine Other, please specify Please document in your progress notes and discharge summary in order to capture severity of illness and risk of mortality. Include clinical findings that support your diagnosis. FYI: Press F11 to launch patient chart Place X here if this finding has no clinical significance, is not applicable or if you are not able to provide any additional documentation. MTDD
[2016-04-11 11:53] LABS: Glucose,Whole Blood 96 mg/dL (75-99)
[2016-04-11 12:02] LABS: Ionized Calcium 4.2 mg/dL (4.5-5.3)
[2016-04-11 12:04] LABS: Calcium 7.1 mg/dL (8.4-10.2); Potassium 3.7 mmol/L (3.5-5.1); Total Bilirubin 0.6 mg/dL (0.2-1.3); Total Protein 4.9 g/dL (6.3-8.2)
--- NOTE | 2016-04-11 12:20 | P.PN ---
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 The patient had lost according to the family approximately 40 pounds over the past month. I was told that he had not been eating for the past 4-6 days. The patient is awake and alert and he claims that he has no appetite and obviously he is a failure to thrive, given up on life, very much cachectic and emaciated with significant malnourishment and thought the loss and by the protein mass. In addition, the patient was an acute kidney injury with his creatinine was found to be at 4.5. He was found to be profoundly anemic with his initially was at 4.2. The patient did not have any obvious source of internal or external bleeding. He has remote history of prostate cancer and has undergone a prostatectomy. No history of any malignancy. He was in the hospital back in June 2015 for some symptoms of TIA. Back then he had a CAT scan of the brain that was negative unit showed diffuse DESIGN PRINTER BALLOON atrophy and was negative for any acute CVA. The workup back then included a carotid Doppler that was negative for any hemodynamically significant stenosis and the patient had an echocardiogram that showed global hypokinesis with an ejection fraction of around 20%. The patient was under the care of Dr. Ochoa. He was discharged home. He claims to be following up with Dr. Ronquillo. He is a chronic smoker. No alcoholism. No substance abuse. No constipation. No abdominal distention. No GI bleeding. No hematemesis. He did vomit on few occasions however on outpatient basis. He is moving all 4 extremities and there is no limitation in his body movements. He was given a total of 2 units of packed RBCs yesterday and his hemoglobin is up to 6.4. An additional 1 unit will be given to him right now. He also received fluids in the order of 3 L normal saline and currently is on a maintenance of 100 mL an hour of 3 Amp bicarbonate with D5 water. On 04/09/2016 the patient is being seen in follow-up. As mentioned, the patient had significant drop in hemoglobin down to 6.4 and he got transfused with 2 units of packed RBC initially and I gave him an additional 1 unit in the morning. Subsequent hemoglobin came back at 5.8. Based on this, the patient was given another 2 units of packed RBC and hemoglobin came up to 7.5. Note that during the day, the patient started having episodes of GI bleeds. In the beginning these was black clots and later on it switched to maroon clots. The patient had a total of 6 episodes the last episode being this morning at around 7:00. CAT scan of the abdomen was also done yesterday and it showed distention of the stomach with most of the oral contrast residing within the stomach. There was a small amount of contrast within the mildly dilated duodenum. There appears to be a caliber change overlying the aorta at the level of the transverse duodenum. The possibility of a SMA syndrome was entertained on this patient. In addition, the patient had COPD, emphysematous change, bibasilar effusions, severe cardiomyopathy and she reflux. He is also being resuscitated IV fluids. The patient is currently receiving D5 with 3 A of bicarb at the rate of 50 mL an hour. We drop the infusion rate due to concern of fluid overload and underlying cardiomyopathy. However, based on the ongoing events, I would increase the infusion rate of 125 mL an hour. His serum bicarb level is up to 18. The BN is still elevated. Creatinine has dropped down to 3.98. Reevaluated today on 04/10/2016, patient underwent EGD which was nondiagnostic and was noted to be normal. Hemoglobin this morning is 6.5, hence I ordered another unit of packed RBC to be transfused today. Patient is now being followed by gastroenterology and general surgery and workup is still in progress. His renal profile seems to be a bit improved creatinine is down to 3.6 BUN is 105. Rest of the labs were noted to be relatively unremarkable. So far the patient received 5 units of packed RBCs, and he would be receiving the sixths unit today. Clinically, the patient is feeling better, denies any shortness of breath no cough no chest pain no abdominal pain no nausea no vomiting. Patient was reevaluated today on 04/11/2016, he seems to be doing quite well. Patient is about to have a PICC line placed and to continue nutritional support , patient is on TPN. Dr. Ramos is planning colonoscopy because of his GI bleeding, and hopefully he will be cleaned it off for adequate colonoscopy. Hemoglobin today is 9.6, no evidence of active bleeding today, total units of packed RBCs given so far are 7. Patient is feeling better overall, he is relatively asymptomatic. His WBC count is 9.6. Electrolytes are normal. BUN remains elevated at 73 and creatinine is 3.05. Improved compared to what it was on admission at 4.80. Chest x-ray showed COPD, cardiomegaly, and left lower lobe atelectasis or infiltrate, and a small effusion. Objective - Vital Signs Vital signs: Vital Signs Temp 98.1 F 04/11/16 08:00 Pulse 84 04/11/16 11:00 Resp 21 04/11/16 11:00 BP 117/83 04/11/16 11:00 Pulse Ox 97 04/11/16 11:00 Intake & Output 04/10/16 04/11/16 04/11/16 18:59 06:59 18:59 Intake Total 2100 1200 700 Output Total 1000 670 210 Balance 1100 530 490 Weight 61.9 kg 61.9 kg Intake: IV 700 400 Dextrose 5% in Water 1, 500 000 ml @ 125 mls/hr IV . Q9H12M SHEA with Sodium Bicarb (1 Meq/ml) 150 ml Rx#:[id number] Sodium Chloride 0.9% 1, 400 000 ml @ 100 mls/hr IV . Q10H SHEA Rx#:[id number] Intake, IV Titration 900 1200 300 Amount Magnesium Sulfate-D5w Pmx 200 1 gm In Dextrose/Water 1 100ml.bag @ 100 mls/hr IVPB Q1H SHEA Rx#: [id number] Potassium Chloride 10 meq 100 100 Lidocaine 2% Inj 10 mg In Sodium Chloride 0.9% 100 ml @ 100 mls/hr IVPB Q1HR SHEA Rx#:[id number] Sodium Chloride 0.9% 1, 700 1100 100 000 ml @ 100 mls/hr IV . Q10H SHEA Rx#:[id number] Sodium Ferric Gluconat- 100 Sucrose 125 mg In Sodium Chloride 0.9% 100 ml @ 100 mls/hr IVPB DAILY SHEA Rx#:[id number] Blood Product 500 Rc Cpda-1 Unit 250 [id number] Rc Cpda-1 Unit 250 [id number] Output: Urine 1000 670 210 Other: Voiding Method Indwelling Catheter Indwelling Catheter Indwelling Catheter - Exam Physical Exam: Revealed a 75-year-old in no distress HEENT:[Neck is supple.] [No neck masses.] [No thyromegaly.] [No JVD.] Chest: [Clear throughout, no crackles, no rhonchi, no wheezes.] Cardiac Exam: [Normal S1 and S2, no S3 gallop, no murmur.] Abdomen: [Soft, nontender, no megaly, no rebound, no guarding, normal bowel sounds.] Extremities: [No clubbing, no edema, no cyanosis.] Neurological Exam: [No focal neurologic deficit.] - Labs CBC & Chem 7: 04/11/16 04:46 04/11/16 11:05 Labs: Abnormal Lab Results - Last 24 Hours (Table) 04/10/16 04/10/16 04/10/16 Range/Units 15:58 15:58 15:58 RBC 3.38 L (4.30-5.90) m/uL Hgb 9.2 L D (13.0-17.5) gm/dL Hct 28.2 L (39.0-53.0) % RDW 19.3 H (11.5-15.5) % Plt Count 76 L (150-450) k/uL Neutrophils # (1.3-7.7) k/uL Neutrophils # (Manual) 8.7 H (1.3-7.7) k/uL Lymphocytes # (1.0-4.8) k/uL Lymphocytes # (Manual) 0.5 L (1.0-4.8) k/uL Nucleated RBCs 4 H (0-0) /100 WBC Sodium (137-145) mmol/L Potassium 3.2 L (3.5-5.1) mmol/L BUN (9-20) mg/dL Creatinine (0.66-1.25) mg/dL Calcium (8.4-10.2) mg/dL Ionized Calcium Clarissa (4.5-5.3) mg/dL ALT (21-72) U/L Total Protein (6.3-8.2) g/dL Albumin (3.5-5.0) g/dL Crossmatch See Detail 04/11/16 04/11/16 04/11/16 Range/Units 04:46 04:46 11:05 RBC 3.57 L (4.30-5.90) m/uL Hgb 9.6 L (13.0-17.5) gm/dL Hct 31.0 L (39.0-53.0) % RDW 18.9 H (11.5-15.5) % Plt Count 91 L (150-450) k/uL Neutrophils # 8.2 H (1.3-7.7) k/uL Neutrophils # (Manual) (1.3-7.7) k/uL Lymphocytes # 0.6 L (1.0-4.8) k/uL Lymphocytes # (Manual) (1.0-4.8) k/uL Nucleated RBCs (0-0) /100 WBC Sodium 135 L (137-145) mmol/L Potassium (3.5-5.1) mmol/L BUN 80 H* 73 H (9-20) mg/dL Creatinine 3.10 H 3.05 H (0.66-1.25) mg/dL Calcium 7.2 L 7.1 L (8.4-10.2) mg/dL Ionized Calcium Clarissa 4.2 L (4.5-5.3) mg/dL ALT 117 H (21-72) U/L Total Protein 4.9 L (6.3-8.2) g/dL Albumin 2.4 L (3.5-5.0) g/dL Crossmatch Assessment and Plan Plan: 1 acute anemia, microcytic, suggestive of an occult ongoing blood loss and very much concerning an underlying intra-abdominal malignancy or a colonic malignancy resulting into an iron deficiency anemia. 2 possible SMA syndrome, however this is not convincing says the clinical presentation is not consistent with SMA syndrome. On 04/10/2016, patient is feeling better clinically, and his hemoglobin remains low at 6.5 hence he will require more blood transfusion and this will be #6 unit given today. On 04/11/2016, patient had a PICC line placed, he received a total of 7 units of packed RBCs so far since admission, and I believe the patient is being considered for colonoscopy by Dr. Ramos. In the meantime we will continue to monitor in the ICU, and transfuse to keep hemoglobin above 7. In the meantime continue to monitor for pulmonary edema as his the patient has severe cardiomyopathy and LV dysfunction. 3 cardiomyopathy with generalized hypokinesis and ejection fraction of around 20 % 4 prostate cancer the paresis prostatectomy 5 nicotine addiction/smoking 6 history of alcoholism 7 previous hospital physician for TIA/CVA with diffuse DESIGN PRINTER BALLOON atrophy 8 severe malnourishment/cachexia, poor appetite and significant loss and total body protein mass 9 troponin leak, nonspecific 10 hyperphosphatemia 11 sinus rhythm with a bundle-branch block pattern, left sided on EKG, chronicity is not known Recommendation: Continue present supportive care measures, TPN via PICC line, plans for colonoscopy as recommended by Dr. Ramos on the case. Prognosis remains guarded. Clinically I doubt SMA syndrome. Time with Patient: Less than 30
[2016-04-11 12:27] LABS: Hemoglobin A1C 5.4 % (4.2-6.1)
[2016-04-11] MEDS: INSULIN LISPRO (humaLOG) 300 UNIT/3 ML VIAL SQ SCH ×2 (12:45→18:10)
[2016-04-11] MEDS: FOLIC ACID 1 MG TAB PO SCH (12:45)
[2016-04-11] MEDS: FAT EMULSION 20% 250 ML IV SCH (12:46)
[2016-04-11] MEDS: MULTIVITAMINS, THERA 1 EACH TAB PO SCH (12:46)
[2016-04-11] MEDS: THIAMINE 100 MG TAB PO SCH (12:47)
[2016-04-11] MEDS ORDERED: MVI, ADULT NO.4 WITH VIT K 10 ML, TRACE (CONC-1ML/DOSE) 1 ML in AMINO ACID 5%-D25W+LYTE... IV ONE ×3 (13:00)
--- NOTE | 2016-04-11 13:05 | IR ---
PICC LINE PLACEMENT: HISTORY: Infection requiring long-term antibiotic therapy PROCEDURE: Ultrasound guidance of PICC line placement. CHALK TESTER: Dr. Gaffney. COMPLICATIONS: None ANESTHESIA: 1. 1% Lidocaine locally. FINDINGS/TECHNIQUE: The procedure was explained to the patient. The risks, complications, benefits and alternatives were discussed and any questions were answered. Informed consent was obtained. The patient was placed supine on the fluoroscopic table and prepped and draped in the usual sterile fas ion. Utilizing a 21 gauge needle and sonographic guidance, access in the left basilic vein was achi eved and there is placement of a 0.018 guidewire. The vein is patent. A 5-F. Sheath was placed over the guidewire. The guidewire and dilator were removed and a 5-F. Double lumen PICC line was placed through the sheath with the chest x-ray confirming the tip at the level of the SVC. The sheath was r emoved, the catheter was flushed and sutured into position. The patient was stable throughout the pr ocedure and remained stable upon discharge from the Department of Radiology. The vein puncture was patent under ultrasound. A crespo scale image was obtained to document patency of the vein punctured. All elements of the maximal barrier technique were utilized. IMPRESSION: 1. Successful PICC line placement under ultrasound performed bedside within the ICU.
[2016-04-11] MEDS ORDERED: PROPOFOL 10 MG/ML 20 ML VIAL IV ONE (13:17)
[2016-04-11] MEDS ORDERED: ePHEDrine 50 MG/ML 1 ML AMP ONE (13:17)
[2016-04-11] MEDS ORDERED: IV FLUID CONTINUATION 400 ML IV ONE (13:19)
--- NOTE | 2016-04-11 13:39 | P.OP ---
Date of Procedure: 04/11/16 Preoperative Diagnosis: GI bleed Postoperative Diagnosis: Normal colonoscopy, right colon not visualized. Procedure(s) Performed: Colonoscopy Anesthesia: MAC Surgeon: Salty Ramos Pathology: none sent Condition: stable Disposition: PACU Description of Procedure: Patient's placed on the endoscopy table lateral position. He received IV sedation. Digital rectal exam was performed which revealed no abnormalities. The flexible colonoscope was then placed patient anus and passed throughout the colon. Scope passed into the right colon secondary to tortuosity bowel. Patient was very cachectic and there was a high risk a perforation due to the patient's underlying malnutrition. At this point the scope was withdrawn remainder of the transverse colon descending colon and sigmoid colon appeared normal. There is no evidence of blood in the colon. The scope was then brought back the rectum and this appeared normal. Scope was withdrawn for patient.
[2016-04-11] MEDS ORDERED: HYDROmorphone 1 MG/ML 1 ML SYRINGE IVP STA (17:35)
[2016-04-11 18:00] LABS: Glucose,Whole Blood 142 mg/dL (75-99)
--- NOTE | 2016-04-11 18:42 | XR ---
EXAMINATION TYPE: XR abdomen 2V DATE OF EXAM: 04/11/2016 6:14 PM COMPARISON: NONE HISTORY: Abdominal pain after colonoscopy TECHNIQUE: 2 views FINDINGS: Heart is enlarged. There is pulmonary vascular congestion. There is a large amount of air i n the large and small bowel. There appears to be some air under the right hemidiaphragm. IMPRESSION: Intestinal ileus. There is evidence for a pneumoperitoneum with air under the right hemid iaphragm. Cardiomegaly and probable congestive heart failure with pulmonary congestion and mild basilar pulmona ry infiltrates. This report was given verbally to Veronica in the ICU at 6:40 PM.
--- NOTE | 2016-04-11 20:09 | PN ---
Patient is seen for follow-up for acute kidney injury which was mainly prerenal. Patient was also hypotensive and he has been started on fluids. Renal function has improved to some degree. Serum creatinine now at 3.1 from 4.8 on initial admission, patient's urine output has improved significantly since admission. He developed gastrointestinal bleed and did have an endoscopy, which did not reveal any significant findings and patient is scheduled for colonoscopy today. There was no abnormality noted on the colonoscopy. On examination, blood pressure was this morning was 124/84, heart rate 83 per minute. He is afebrile. Examination of the heart S1 and S2. Examination of the lungs: Bilateral breath sounds are heard. Decreased breath sounds in bases. ABDOMEN: Soft, nontender. Examination of lower extremities shows no evidence of edema. MANAGER VALIDATION exam is grossly intact. Labs show hemoglobin 9.6. Sodium 139, potassium 3.7, BUN 73, serum creatinine 3.0. Phosphorus at 3.3. ASSESSMENT: 1. Acute kidney injury, acute tubular necrosis, associated with severe hypovolemia and hypotension, currently nonoliguric with significant improvement in urine output. 2. Gastrointestinal bleed with normal EGD and colonoscopy. 3. Severe anemia on admission with hemoglobin of 4.2 g/dL and metabolic acidosis. Urine immunofixation is normal. 4. Severe metabolic acidosis on initial admission, currently resolved. PLAN: Continue IV fluids. Continue to encourage increased oral intake.
--- NOTE | 2016-04-11 21:07 | P.PN ---
Progress Note - Text The patient developed abdominal pain this afternoon. He had a x-ray of the abdomen performed today which shows some evidence of free air. I discussed these findings with the patient's daughter and sister. The patient will undergo exploratory laparotomy today to evaluate source of free air. I discussed with the patient and his family that he is very cachectic and his colonic is very fragile. Which could explain his free air..
--- NOTE | 2016-04-11 22:07 | PN ---
SUBJECTIVE DATA/INTERVAL HISTORY: This is a 75 gentleman that was admitted to the hospital due to an unintentional weight loss of over 40 pounds in the last few months. Patient was noted to have an acute anemia secondary to what was initially attributed to alcohol blood loss from the gastrointestinal tract. 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 Patient initially underwent an EGD, which was nondiagnostic. Patient received approximately about 7 units of PRBC. The patient has not had any dietary intake for a prolonged period of time. Patient also underwent a colonoscopy today which apparently was also nondiagnostic for any acute bleeding at this time. However, the right colon apparently was torturous and Dr. Ramos was not able to pass the colonoscope further. Patient also was started on TPN due to significantly poor intake in the recent times. Patient was seen earlier this ( ). Denies having any new complaints. States to be feeling slightly better since admission. Denies having chest pain, difficulty in breathing, nausea, vomiting. OBJECTIVE DATA: Temperature is 98.1, pulse rate 84, respiratory rate 21, blood pressure is 117/80, saturating 97% on room air. GENERAL APPEARANCE: Alert, oriented x3 in no acute distress. LUNGS: Diminished breath sounds, however, no rhonchi or wheezing appreciated. HEART: S1, S2 are heard. Regular rate and rhythm. No murmurs appreciated. ABDOMEN: Soft, nontender, no organomegaly. Bowel sounds are intact. Rectal exam done previously did not reveal any abnormalities. This was done by another physician. NEUROLOGIC: No focal motor or sensory deficits appreciated. EXTREMITIES: No lower extremity edema noted. Laboratory data included hemoglobin 9.6, hematocrit of 31, white count 9.6, platelets of 91. Sodium 139, potassium 3.7, chloride 102, bicarb 26, BUN 72, creatinine of 3.05. ASSESSMENT AND PLAN: 1. Acute microcytic anemia likely secondary to iron deficiency. 2. Acute blood loss anemia with underlying iron deficiency likely secondary to a gastrointestinal chronic loss. 3. Possible SMA syndrome. 4. Unintentional weight loss. 5. Compensated systolic heart failure around 20% ejection fraction. 6. Prostate cancer, status post prostatectomy. 7. Chronic tobacco dependence. 8. History of alcoholism. 9. Severe protein calorie malnutrition. 10. Hypophosphatemia. 11. Indeterminate troponin leak. PLAN: The patient appears to be slightly stable. Patient is slightly improved. Continue TPN at this time. Will need to evaluate further recommendations in regards to the SMA syndrome, however due to the severe protein calorie malnutrition prognosis appeared to be extremely guarded. Continue clinical course. Further recommendations will follow.
[2016-04-11] MEDS ORDERED: LIDOCAINE 1% INJ 10MG/ML (20 ML MDV) ONE (22:17)
[2016-04-11] MEDS ORDERED: VECURONIUM 10 MG VIAL IV ONE (22:17)
[2016-04-11] MEDS ORDERED: ETOMIDATE 2 MG/ML 10 ML VIAL ONE (22:17)
[2016-04-11] MEDS ORDERED: fentaNYL (PF) 50 MCG/ML 2 ML AMP ONE (22:17)
[2016-04-11] MEDS ORDERED: PHENYLEPHRINE-0.9% NACL SYG 1 MG/10 ML SYRINGE ONE (22:17)
[2016-04-11] MEDS ORDERED: GLYCOPYRROLATE 0.2 MG/ML 2 ML VIAL ONE (22:17)
[2016-04-11] MEDS ORDERED: NEOSTIGMINE 1 MG/ML 10 ML VIAL ONE (22:17)
[2016-04-11] MEDS ORDERED: SUCCINYLCHOLINE CHLORIDE 100 MG/5 ML SYR IV ONE (22:17)
[2016-04-11] MEDS ORDERED: SODIUM CHLORIDE 0.9% 100 ML with ceFAZolin 2,000 MG IV ONE ×2 (22:30)
[2016-04-11] MEDS ORDERED: IV FLUID CONTINUATION 500 ML IV ONE ×2 (22:43)
[2016-04-11] MEDS ORDERED: LACTATED RINGERS 1,000 ML IV ONE ×2 (22:44)
[2016-04-11] MEDS: PIPERACILLIN-TAZOBACTAM 3.375 GM in DEXTROSE/WATER 1 50ML.BAG IVPB SCH (22:51)
--- NOTE | 2016-04-11 23:20 | P.OP ---
Date of Procedure: 04/11/16 Preoperative Diagnosis: Bowel perforation Postoperative Diagnosis: Perforation of rectosigmoid Procedure(s) Performed: Partial colectomy Anesthesia: NICKOLAS Surgeon: Salty Ramos Estimated Blood Loss (ml): 40 Pathology: other (Rectosigmoid) Condition: stable Disposition: ICU Indications for Procedure: This is a 75-year-old male cachectic who underwent colonoscopy for GI bleed. Patient developed abdominal pain after colonoscopy. Abdominal x-ray showed evidence of free air. Description of Procedure: The patient's placed on the operative table in the supine position. He received general anesthesia. His abdomen was prepped and draped usual sterile fashion. The abdomen was entered through midline incision. The Bookwalter retractors placed a wound. There was some serous and was fluid in the belly. This was aspirated. The colon appeared to be dilated. At the level of the rectosigmoid there is found to be a colonic perforation. There were adhesions on the distal sigmoid which fixed this area. At this point the bowel was transected proximally and distally with a GI stapler. The specimen measured approximately 4 cm in length. A giip-[id number] functional end-to-end staple anastomosis created between the proximal and distal bowel at the rectosigmoid area. A 3-0 GI silk suture was used as a crotch stitch. The abdomen was then irrigated with 4 L of normal saline. There is no bleeding seen. The patient stomach was palpated. The ulcer could be palpated on the lesser curvature approximately 5 cm from the pylorus. The fascia was then closed with looped #1 PDS suture. Skin was closed with consuelo. Patient was sent to the ICU in guarded condition.
[2016-04-11 23:52] LABS: Glucose,Whole Blood 143 mg/dL (75-99)
[2016-04-12] MEDS: INSULIN LISPRO (humaLOG) 300 UNIT/3 ML VIAL SQ SCH ×4 (00:27→19:06)
[2016-04-12] MEDS: HYDROmorphone 1 MG/ML 1 ML SYRINGE IVP PRN ×2 (00:40→10:06)
[2016-04-12] MEDS: LACTATED RINGERS 1,000 ML IV SCH ×3 (00:42→17:35)
[2016-04-12] MEDS: SODIUM CHLORIDE 0.9% 1,000 ML IV SCH (00:43)
[2016-04-12] MEDS ORDERED: HYDROmorphone 1 MG/ML 1 ML SYRINGE IVP PRN (00:44)
[2016-04-12 00:55] LABS: Glucose,Whole Blood 154 mg/dL (75-99)
[2016-04-12 01:10] LABS: Anisocytosis Slight; CH 26.8; CHCM 30.7; HCT 36.7 % (39.0-53.0); HDW 4.67; HGB 11.4 gm/dL (13.0-17.5); Hypochromasia Marked; Immature Gran Flag Marked; Large Platelets Flag Marked; MCV 87.1 fL (80.0-100.0); Mean Platelet Volume 11.6; Poikilocytosis Marked; RBC 4.21 m/uL (4.30-5.90); RDW 19.5 % (11.5-15.5); WBC (Perox) 10.63
[2016-04-12 01:23] LABS: Potassium 3.7 mmol/L (3.5-5.1)
[2016-04-12] MEDS ORDERED: POTASSIUM CHLORIDE 10 MEQ in WATER FOR INJECTION 1 100ML.BAG IVPB ONE (01:34)
[2016-04-12 01:49] LABS: Add Differential Manual Differential
[2016-04-12 01:55] LABS: Band Neutrophils % 8.5 %; Nucleated Red Blood Cells 10 /100 WBC (0-0); Total Cells Counted 200
[2016-04-12 01:56] LABS: Large Platelets Present; Manual Review Performed; Polychromasia Present; Toxic Granulation Present; WBC 9.3 k/uL (3.8-10.6)
[2016-04-12 04:51] LABS: Anisocytosis Slight; CH 26.9; CHCM 30.8; HCT 35.7 % (39.0-53.0); HDW 4.72; HGB 10.9 gm/dL (13.0-17.5); Hypochromasia Marked; Immature Gran Flag Marked; Large Platelets Flag Moderate; MCH 26.5 pg (25.0-35.0); MCHC 30.5 g/dL (31.0-37.0); Poikilocytosis Marked; RDW 19.8 % (11.5-15.5); WBC (Perox) 14.41
[2016-04-12 05:05] LABS: Calcium 7.4 mg/dL (8.4-10.2); Magnesium 2.2 mg/dL (1.6-2.3); Phosphorous 4.4 mg/dL (2.5-4.5); Potassium 3.9 mmol/L (3.5-5.1)
[2016-04-12 05:07] LABS: Add Differential Manual Differential
[2016-04-12 05:12] LABS: Band Neutrophils % 10.5 %; Manual Review Performed; Metamyelocytes % 0.5 %; Nucleated Red Blood Cells 6 /100 WBC (0-0); Polychromasia Present; Total Cells Counted 200; WBC 13.5 k/uL (3.8-10.6)
[2016-04-12 05:13] LABS: Large Platelets Present
--- NOTE | 2016-04-12 07:40 | XR ---
EXAMINATION TYPE: XR chest 1V DATE OF EXAM: 04/12/2016 6:49 AM COMPARISON: 04/11/2016 HISTORY: Abnormal x-ray TECHNIQUE: Single frontal view of the chest is obtained. FINDINGS: There is persistent large amount of free intraperitoneal air. Bilateral infiltrate and ple ural effusion seen. NG tube is seen. The heart is enlarged. Left-sided PICC line noted. No pneumothor ax. IMPRESSION: 1. Pneumoperitoneum persists 2. Bilateral infiltrate and pleural effusion
[2016-04-12 07:42] LABS: Glucose,Whole Blood 129 mg/dL (75-99)
[2016-04-12] MEDS: PANTOPRAZOLE 40 MG/10 ML VIAL IV SCH (07:44)
[2016-04-12] MEDS: PIPERACILLIN-TAZOBACTAM 3.375 GM in DEXTROSE/WATER 1 50ML.BAG IVPB SCH (07:44)
[2016-04-12 11:52] LABS: Glucose,Whole Blood 132 mg/dL (75-99)
[2016-04-12] MEDS: FOLIC ACID 1 MG TAB PO SCH (13:22)
[2016-04-12] MEDS: FAT EMULSION 20% 250 ML IV SCH (13:59)
--- NOTE | 2016-04-12 14:45 | PN ---
Patient is seen for follow-up for acute kidney injury. He was admitted to the hospital with severe anemia hemoglobin of 4.2. Initially there was no cause identified; however, subsequently the patient started to have obvious GI bleeding. An EGD was done with which did not reveal any evidence of underlying any cause of bleeding. Patient also had a colonoscopy done yesterday which was unfortunately complicated with perforation and patient had surgery yesterday with partial colectomy. He did not need a colostomy. Initially on admission, patient was quite hypotensive and hypovolemic. He has been aggressively hydrated. He was also very acidotic and severely oliguric. Subsequently his urine output has improved. Renal function has improved; however, creatinine is staying at about 2.9 mg/dL. He is maintained on normal saline and he is now having good urine output. His urine output had gone down again yesterday after surgery, but seems to have picked up now. Urinalysis has been fairly unremarkable. An ultrasound was also unremarkable. On examination today, patient is comfortable, awake, not in any acute distress. Blood pressure is 110/78, heart rate 97 per minute. He is afebrile. Examination of the heart S1 and S2. Examination of the lungs decreased breath sounds in bases. No crackles or wheezing is heard. ABDOMEN: Soft. Is currently dressed. Examination of lower extremities shows no evidence of edema. INFECTION PREVENTIONIST exam shows patient is moving all 4 extremities. Labs show sodium 138, potassium 3.9. Hemoglobin 10.9 g/dL. ASSESSMENT: 1. Acute kidney injury secondary to severe hypovolemia hypotension. 2. Acute tubular necrosis, initially currently improving. Serum creatinine is the same as yesterday. Continue with IV fluids for now and repeat labs in a.m. Continue to avoid nephrotoxic agents. 3. Status post colonic perforation currently status post partial colectomy doing fairly well. 4. Significant weight loss prior to admission. No obvious malignancy identified. PLAN: Continue IV fluids. Repeat labs in the a.m.
--- NOTE | 2016-04-12 15:05 | P.PN ---
Subjective Principal diagnosis: Acute anemia secondary to occult blood loss, possible superior mesenteric artery syndrome 75-year-old -[place] male patient presented emergency department yesterday in a very poor health condition. The patient had lost according to the family approximately 40 pounds over the past month. I was told that he had not been eating for the past 4-6 days. The patient is awake and alert and he claims that he has no appetite and obviously he is a failure to thrive, given up on life, very much cachectic and emaciated with significant malnourishment and thought the loss and by the protein mass. In addition, the patient was an acute kidney injury with his creatinine was found to be at 4.5. He was found to be profoundly anemic with his initially was at 4.2. The patient did not have any obvious source of internal or external bleeding. He has remote history of prostate cancer and has undergone a prostatectomy. No history of any malignancy. He was in the hospital back in June 2015 for some symptoms of TIA. Back then he had a CAT scan of the brain that was negative unit showed diffuse BIOFUELS OPERATIONS MANAGER atrophy and was negative for any acute CVA. The workup back then included a carotid Doppler that was negative for any hemodynamically significant stenosis and the patient had an echocardiogram that showed global hypokinesis with an ejection fraction of around 20%. The patient was under the care of Dr. Ochoa. He was discharged home. He claims to be following up with Dr. Ronquillo. He is a chronic smoker. No alcoholism. No substance abuse. No constipation. No abdominal distention. No GI bleeding. No hematemesis. He did vomit on few occasions however on outpatient basis. He is moving all 4 extremities and there is no limitation in his body movements. He was given a total of 2 units of packed RBCs yesterday and his hemoglobin is up to 6.4. An additional 1 unit will be given to him right now. He also received fluids in the order of 3 L normal saline and currently is on a maintenance of 100 mL an hour of 3 Amp bicarbonate with D5 water. On 04/09/2016 the patient is being seen in follow-up. As mentioned, the patient had significant drop in hemoglobin down to 6.4 and he got transfused with 2 units of packed RBC initially and I gave him an additional 1 unit in the morning. Subsequent hemoglobin came back at 5.8. Based on this, the patient was given another 2 units of packed RBC and hemoglobin came up to 7.5. Note that during the day, the patient started having episodes of GI bleeds. In the beginning these was black clots and later on it switched to maroon clots. The patient had a total of 6 episodes the last episode being this morning at around 7:00. CAT scan of the abdomen was also done yesterday and it showed distention of the stomach with most of the oral contrast residing within the stomach. There was a small amount of contrast within the mildly dilated duodenum. There appears to be a caliber change overlying the aorta at the level of the transverse duodenum. The possibility of a SMA syndrome was entertained on this patient. In addition, the patient had COPD, emphysematous change, bibasilar effusions, severe cardiomyopathy and she reflux. He is also being resuscitated IV fluids. The patient is currently receiving D5 with 3 A of bicarb at the rate of 50 mL an hour. We drop the infusion rate due to concern of fluid overload and underlying cardiomyopathy. However, based on the ongoing events, I would increase the infusion rate of 125 mL an hour. His serum bicarb level is up to 18. The BN is still elevated. Creatinine has dropped down to 3.98. Reevaluated today on 04/10/2016, patient underwent EGD which was nondiagnostic and was noted to be normal. Hemoglobin this morning is 6.5, hence I ordered another unit of packed RBC to be transfused today. Patient is now being followed by gastroenterology and general surgery and workup is still in progress. His renal profile seems to be a bit improved creatinine is down to 3.6 BUN is 105. Rest of the labs were noted to be relatively unremarkable. So far the patient received 5 units of packed RBCs, and he would be receiving the sixths unit today. Clinically, the patient is feeling better, denies any shortness of breath no cough no chest pain no abdominal pain no nausea no vomiting. Patient was reevaluated today on 04/11/2016, he seems to be doing quite well. Patient is about to have a PICC line placed and to continue nutritional support , patient is on TPN. Dr. aRmos is planning colonoscopy because of his GI bleeding, and hopefully he will be cleaned it off for adequate colonoscopy. Hemoglobin today is 9.6, no evidence of active bleeding today, total units of packed RBCs given so far are 7. Patient is feeling better overall, he is relatively asymptomatic. His WBC count is 9.6. Electrolytes are normal. BUN remains elevated at 73 and creatinine is 3.05. Improved compared to what it was on admission at 4.80. Chest x-ray showed COPD, cardiomegaly, and left lower lobe atelectasis or infiltrate, and a small effusion. Patient was reevaluated today on 04/12/2016, apparently the patient underwent colonoscopy yesterday, and postoperatively was noted to have free air on the x- rays of the abdomen. Hence the patient underwent partial colectomy for perforation of rectosigmoid area. Patient was extubated uneventfully after his surgery, he is now in the intensive care unit, hemodynamically stable, continues to have a nasogastric tube in place, and seems to be in no form of respiratory distress. His hemoglobin seems to be stable, today it is 10.9. Patient received a total of 7 units of packed RBCs since admission. Renal profile has improved but is not improving any further, creatinine is 2.90 today. Chest x-ray showed pneumoperitoneum, and bilateral areas of atelectasis or infiltrates with pleural effusions. Hence I will cut down his IV fluid, patient is making good amount of urine on his own. Hence I will not diuresis at this point. Patient remains on Zosyn which is appropriate for now Objective - Vital Signs Vital signs: Vital Signs Temp 97.9 F 04/12/16 12:00 Pulse 107 H 04/12/16 14:00 Resp 25 H 04/12/16 14:00 BP 124/74 04/12/16 14:00 Pulse Ox 94 L 04/12/16 14:00 Intake & Output 04/11/16 04/12/16 04/12/16 18:59 06:59 18:59 Intake Total 1746 2797 1011 Output Total 515 355 275 Balance 1231 2442 736 Weight 61.9 kg 59 kg 59 kg Intake: IV 1100 1450 Sodium Chloride 0.9% 1, 1000 400 000 ml @ 100 mls/hr IV . Q10H [facility] Rx#:[id number] Intake, IV Titration 646 1347 1011 Amount Amino Acid 5%-D25w+Lytes* 141 300 240 E* 1,000 ml @ 70 mls/hr IV .BY DURATION SHEA Rx#: [id number] Fat Emulsion 20% 250 ml @ 105 147 21 21 mls/hr IV DAILY@1300 SHEA Rx#:[id number] Lactated Ringers 1,000 ml 900 750 @ 75 mls/hr IV .[id number] SHEA Rx#:[id number] Magnesium Sulfate-D5w Pmx 200 1 gm In Dextrose/Water 1 100ml.bag @ 100 mls/hr IVPB Q1H [facility] Rx#: [id number] Sodium Chloride 0.9% 1, 100 000 ml @ 100 mls/hr IV . Q10H [facility] Rx#:[id number] Sodium Ferric Gluconat- 100 Sucrose 125 mg In Sodium Chloride 0.9% 100 ml @ 100 mls/hr IVPB DAILY SHEA Rx#:[id number] Output: Gastric Drainage 75 Urine 515 305 200 Estimated Blood Loss 50 Other: Voiding Method Indwelling Catheter Indwelling Catheter Indwelling Catheter - Exam Physical Exam: Revealed a 75-year-old in no distress HEENT:[Neck is supple.] [No neck masses.] [No thyromegaly.] [No JVD.] Nasogastric tube is intact. Chest: [Diminished breath sounds at the bases no crackles or rhonchi or wheezes. ] Cardiac Exam: [Normal S1 and S2, no S3 gallop, no murmur.] Abdomen: [Postsurgical, slightly tender , no megaly, no rebound, no guarding, no bowel sounds.] Extremities: [No clubbing, no edema, no cyanosis.] Neurological Exam: [No focal neurologic deficit.] - Labs CBC & Chem 7: 04/12/16 04:18 04/12/16 04:18 Labs: Abnormal Lab Results - Last 24 Hours (Table) 04/11/16 04/11/16 04/12/16 Range/Units 17:58 23:49 00:53 WBC (3.8-10.6) k/uL RBC (4.30-5.90) m/uL Hgb (13.0-17.5) gm/dL Hct (39.0-53.0) % MCHC (31.0-37.0) g/dL RDW (11.5-15.5) % Plt Count (150-450) k/uL Neutrophils # (Manual) (1.3-7.7) k/uL Lymphocytes # (Manual) (1.0-4.8) k/uL Nucleated RBCs (0-0) /100 WBC Carbon Dioxide (22-30) mmol/L BUN (9-20) mg/dL Creatinine (0.66-1.25) mg/dL Glucose (74-99) mg/dL POC Glucose (mg/dL) 142 H 143 H 154 H (75-99) mg/dL Calcium (8.4-10.2) mg/dL 04/12/16 04/12/16 04/12/16 Range/Units 00:59 00:59 04:18 WBC 13.5 H (3.8-10.6) k/uL RBC 4.21 L 4.10 L (4.30-5.90) m/uL Hgb 11.4 L 10.9 L (13.0-17.5) gm/dL Hct 36.7 L 35.7 L (39.0-53.0) % MCHC 30.5 L (31.0-37.0) g/dL RDW 19.5 H 19.8 H (11.5-15.5) % Plt Count 100 L 88 L (150-450) k/uL Neutrophils # (Manual) 9.1 H 13.0 H (1.3-7.7) k/uL Lymphocytes # (Manual) 0.1 L 0.4 L (1.0-4.8) k/uL Nucleated RBCs 10 H 6 H (0-0) /100 WBC Carbon Dioxide 21 L (22-30) mmol/L BUN 65 H (9-20) mg/dL Creatinine 2.90 H (0.66-1.25) mg/dL Glucose 140 H (74-99) mg/dL POC Glucose (mg/dL) (75-99) mg/dL Calcium 7.0 L (8.4-10.2) mg/dL 04/12/16 04/12/16 04/12/16 Range/Units 04:18 07:40 11:50 WBC (3.8-10.6) k/uL RBC (4.30-5.90) m/uL Hgb (13.0-17.5) gm/dL Hct (39.0-53.0) % MCHC (31.0-37.0) g/dL RDW (11.5-15.5) % Plt Count (150-450) k/uL Neutrophils # (Manual) (1.3-7.7) k/uL Lymphocytes # (Manual) (1.0-4.8) k/uL Nucleated RBCs (0-0) /100 WBC Carbon Dioxide (22-30) mmol/L BUN 67 H (9-20) mg/dL Creatinine 2.90 H (0.66-1.25) mg/dL Glucose 135 H (74-99) mg/dL POC Glucose (mg/dL) 129 H 132 H (75-99) mg/dL Calcium 7.4 L (8.4-10.2) mg/dL Assessment and Plan Plan: 1 acute anemia, microcytic, suggestive of an occult ongoing blood loss and very much concerning an underlying intra-abdominal malignancy or a colonic malignancy resulting into an iron deficiency anemia. 2 possible SMA syndrome, however this is not convincing says the clinical presentation is not consistent with SMA syndrome. On 04/10/2016, patient is feeling better clinically, and his hemoglobin remains low at 6.5 hence he will require more blood transfusion and this will be #6 unit given today. On 04/11/2016, patient had a PICC line placed, he received a total of 7 units of packed RBCs so far since admission, and I believe the patient is being considered for colonoscopy by Dr. Ramos. In the meantime we will continue to monitor in the ICU, and transfuse to keep hemoglobin above 7. In the meantime continue to monitor for pulmonary edema as his the patient has severe cardiomyopathy and LV dysfunction. On 04/12/2016, patient is status post partial colectomy for perforation of the rectosigmoid. Patient has relatively uneventful postoperative course. Hemoglobin remains stable. Total units of transfusions given since admission with 7 units of packed RBCs. 3 cardiomyopathy with generalized hypokinesis and ejection fraction of around 20 % 4 prostate cancer the paresis prostatectomy 5 nicotine addiction/smoking 6 history of alcoholism 7 previous hospital physician for TIA/CVA with diffuse BIOFUELS OPERATIONS MANAGER atrophy 8 severe malnourishment/cachexia, poor appetite and significant loss and total body protein mass 9 troponin leak, nonspecific 10 hyperphosphatemia 11 sinus rhythm with a bundle-branch block pattern, left sided on EKG, chronicity is not known Recommendation: Continue present supportive care measures, continue TPN, we'll monitor in the ICU for one more day, and possible transfer to a regular medical floor in a.m. Time with Patient: Less than 30
[2016-04-12] MEDS ORDERED: DILTIAZEM 5 MG/ML 5 ML VIAL IVP STA ×2 (16:35→16:58)
--- NOTE | 2016-04-12 17:22 | P.PN ---
Subjective Patient is a 75-year-old male admitted with evidence of GI bleed status post transfusion of 7 units of PRBC total since admission. 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 On 04/11/2016, patient underwent colonoscopy for GI bleed with no evidence of blood in the colon. Patient subsequently developed abdominal pain after colonoscopy with abdominal x-ray showing evidence of free air. Patient was taken to the operating room for bowel perforation with findings of perforation of the rectosigmoid and underwent partial colectomy. Patient is evaluated in the intensive care unit. Patient denies abdominal pain at rest, minimal abdominal pain with movement. Denies nausea or vomiting. Denies flatus or bowel movement. No evidence of active bleeding. NG tube with 75 mL of brownish drainage last 24 hours. Urine output marginal. Afebrile. WBC increased to 13.5. Hemoglobin stable at 10.9. Objective - Vital Signs Vital signs: Vital Signs Temp 97.9 F 04/12/16 12:00 Pulse 94 04/12/16 15:30 Resp 22 04/12/16 15:30 BP 119/79 04/12/16 15:30 Pulse Ox 92 L 04/12/16 15:30 Intake & Output 04/11/16 04/12/16 04/12/16 18:59 06:59 18:59 Intake Total 1746 2797 1343 Output Total 515 355 330 Balance 1231 2442 1013 Weight 61.9 kg 59 kg 59 kg Intake: IV 1100 1450 Sodium Chloride 0.9% 1, 1000 400 000 ml @ 100 mls/hr IV . Q10H [facility] Rx#:[id number] Intake, IV Titration 646 1347 1343 Amount Amino Acid 5%-D25w+Lytes* 141 300 380 E* 1,000 ml @ 70 mls/hr IV .BY DURATION [facility]A Rx#: [id number] Fat Emulsion 20% 250 ml @ 105 147 63 21 mls/hr IV DAILY@1300 [facility] Rx#:[id number] Lactated Ringers 1,000 ml 900 900 @ 75 mls/hr IV .[id number] [facility] Rx#:[id number] Magnesium Sulfate-D5w Pmx 200 1 gm In Dextrose/Water 1 100ml.bag @ 100 mls/hr IVPB Q1H [facility] Rx#: [id number] Sodium Chloride 0.9% 1, 100 000 ml @ 100 mls/hr IV . Q10H [facility] Rx#:[id number] Sodium Ferric Gluconat- 100 Sucrose 125 mg In Sodium Chloride 0.9% 100 ml @ 100 mls/hr IVPB DAILY [facility] Rx#:[id number] Output: Gastric Drainage 75 Urine 515 305 255 Estimated Blood Loss 50 Other: Voiding Method Indwelling Catheter Indwelling Catheter Indwelling Catheter - Exam GENERAL: Pt awake and alert, cachectic, in no acute distress. ENT: Nasogastric tube to low intermittent suction. LUNGS: Breath sounds clear to auscultation bilaterally. No wheezes, rales, or rhonchi. HEART: Heart S1, S2, no S3 or S4. Irregularly irregular. Patient currently A. fib with RVR on monitor. ABDOMEN: Soft, mild incisional tenderness, hypoactive bowel sounds. No guarding , no rebound. Abdominal incision will old sanguinous drainage. NEUROLOGICAL: Pt oriented x 3. - Labs CBC & Chem 7: 04/12/16 04:18 04/12/16 04:18 Labs: Abnormal Lab Results - Last 24 Hours (Table) 04/11/16 04/11/16 04/12/16 Range/Units 17:58 23:49 00:53 WBC (3.8-10.6) k/uL RBC (4.30-5.90) m/uL Hgb (13.0-17.5) gm/dL Hct (39.0-53.0) % MCHC (31.0-37.0) g/dL RDW (11.5-15.5) % Plt Count (150-450) k/uL Neutrophils # (Manual) (1.3-7.7) k/uL Lymphocytes # (Manual) (1.0-4.8) k/uL Nucleated RBCs (0-0) /100 WBC Carbon Dioxide (22-30) mmol/L BUN (9-20) mg/dL Creatinine (0.66-1.25) mg/dL Glucose (74-99) mg/dL POC Glucose (mg/dL) 142 H 143 H 154 H (75-99) mg/dL Calcium (8.4-10.2) mg/dL 04/12/16 04/12/16 04/12/16 Range/Units 00:59 00:59 04:18 WBC 13.5 H (3.8-10.6) k/uL RBC 4.21 L 4.10 L (4.30-5.90) m/uL Hgb 11.4 L 10.9 L (13.0-17.5) gm/dL Hct 36.7 L 35.7 L (39.0-53.0) % MCHC 30.5 L (31.0-37.0) g/dL RDW 19.5 H 19.8 H (11.5-15.5) % Plt Count 100 L 88 L (150-450) k/uL Neutrophils # (Manual) 9.1 H 13.0 H (1.3-7.7) k/uL Lymphocytes # (Manual) 0.1 L 0.4 L (1.0-4.8) k/uL Nucleated RBCs 10 H 6 H (0-0) /100 WBC Carbon Dioxide 21 L (22-30) mmol/L BUN 65 H (9-20) mg/dL Creatinine 2.90 H (0.66-1.25) mg/dL Glucose 140 H (74-99) mg/dL POC Glucose (mg/dL) (75-99) mg/dL Calcium 7.0 L (8.4-10.2) mg/dL 04/12/16 04/12/16 04/12/16 Range/Units 04:18 07:40 11:50 WBC (3.8-10.6) k/uL RBC (4.30-5.90) m/uL Hgb (13.0-17.5) gm/dL Hct (39.0-53.0) % MCHC (31.0-37.0) g/dL RDW (11.5-15.5) % Plt Count (150-450) k/uL Neutrophils # (Manual) (1.3-7.7) k/uL Lymphocytes # (Manual) (1.0-4.8) k/uL Nucleated RBCs (0-0) /100 WBC Carbon Dioxide (22-30) mmol/L BUN 67 H (9-20) mg/dL Creatinine 2.90 H (0.66-1.25) mg/dL Glucose 135 H (74-99) mg/dL POC Glucose (mg/dL) 129 H 132 H (75-99) mg/dL Calcium 7.4 L (8.4-10.2) mg/dL Assessment and Plan Plan: Impression: 1. Acute anemia, microcytic, suggestive of occult ongoing blood loss suspect secondary to gastric ulcer. 2. Possible SMA syndrome. 3. Small hiatal hernia. 4. Status post partial colectomy for perforation of rectosigmoid on 04/12/2016 5. Malnutrition, protein calorie, severe. Plan: Continue NG tube to low intermittent suction. Continue TPN. Continue IV hydration. Continue supportive treatment and pain management. Increase activity. Continue incentive spirometry 10 times an hour while awake. Continue to follow medical team. Repeat CBC and BMP in a.m. The above impression and plan have been discussed and directed by Dr. Ramos. Casa KNIGHT acting as scribe for Dr. Ramos.
[2016-04-12 17:32] LABS: Magnesium 2.1 mg/dL (1.6-2.3); Phosphorous 4.1 mg/dL (2.5-4.5); Potassium 3.8 mmol/L (3.5-5.1)
--- NOTE | 2016-04-12 17:46 | P.PN ---
Subjective 75-year-old gentleman with history of peptic ulcer disease comes in to the hospital with a 60 pound weight loss due to pain associated with ingestion of food. Patient was noted to have anemia on admission. Patient underwent a upper endoscopy was noted to have a large ulcer that was not bleeding. Thereafter patient also underwent a colonoscopy on 04/11/2016. Unfortunately there was a competition with abdominal perforation and patient was noted to have free air in the abdomen thereafter patient underwent a sigmoid colectomy and laparotomy. Patient was started on TPN on 04/10/2016. Patient is tolerating currently. On 04/12/2016and During my exmination patient was not complaining of any pain at rest however does complain of pain in his abdomen with minimal movement. Patient was noted to have a irregularly irregular tachycardia. Patient does have a left bundle branch block at baseline. Denies having any chest pain difficulty breathing headaches blurry vision. Objective - Vital Signs Vital signs: Vital Signs Temp 97.9 F 04/12/16 12:00 Pulse 94 04/12/16 15:30 Resp 22 04/12/16 15:30 BP 119/79 04/12/16 15:30 Pulse Ox 92 L 04/12/16 15:30 Intake & Output 04/11/16 04/12/16 04/12/16 18:59 06:59 18:59 Intake Total 1746 2797 1343 Output Total 515 355 330 Balance 1231 2442 1013 Weight 61.9 kg 59 kg 59 kg Intake: IV 1100 1450 Sodium Chloride 0.9% 1, 1000 400 000 ml @ 100 mls/hr IV . Q10H [facility] Rx#:[id number] Intake, IV Titration 646 1347 1343 Amount Amino Acid 5%-D25w+Lytes* 141 300 380 E* 1,000 ml @ 70 mls/hr IV .BY DURATION [facility] Rx#: [id number] Fat Emulsion 20% 250 ml @ 105 147 63 21 mls/hr IV DAILY@1300 [facility] Rx#:[id number] Lactated Ringers 1,000 ml 900 900 @ 75 mls/hr IV .[id number] [facility] Rx#:[id number] Magnesium Sulfate-D5w Pmx 200 1 gm In Dextrose/Water 1 100ml.bag @ 100 mls/hr IVPB Q1H [facility] Rx#: [id number] Sodium Chloride 0.9% 1, 100 000 ml @ 100 mls/hr IV . Q10H [facility] Rx#:[id number] Sodium Ferric Gluconat- 100 Sucrose 125 mg In Sodium Chloride 0.9% 100 ml @ 100 mls/hr IVPB DAILY [facility] Rx#:[id number] Output: Gastric Drainage 75 Urine 515 305 255 Estimated Blood Loss 50 Other: Voiding Method Indwelling Catheter Indwelling Catheter Indwelling Catheter - Exam Gen. appearance patient is extremity cachectic Neck is supple no JVD Heart S1-S2 heard irregularly irregular tachycardic Abdomen is tender to palpation is a midline incision that is noted no organomegaly is appreciated Lungs good air entry clear to auscultation or rhonchi or wheezing noted His a PICC line on the left upper arm Neurologically no focal motor or sensory deficits noted - Labs CBC & Chem 7: 04/12/16 04:18 04/12/16 17:07 Labs: Abnormal Lab Results - Last 24 Hours (Table) 04/11/16 04/11/16 04/12/16 Range/Units 17:58 23:49 00:53 WBC (3.8-10.6) k/uL RBC (4.30-5.90) m/uL Hgb (13.0-17.5) gm/dL Hct (39.0-53.0) % MCHC (31.0-37.0) g/dL RDW (11.5-15.5) % Plt Count (150-450) k/uL Neutrophils # (Manual) (1.3-7.7) k/uL Lymphocytes # (Manual) (1.0-4.8) k/uL Nucleated RBCs (0-0) /100 WBC Carbon Dioxide (22-30) mmol/L BUN (9-20) mg/dL Creatinine (0.66-1.25) mg/dL Glucose (74-99) mg/dL POC Glucose (mg/dL) 142 H 143 H 154 H (75-99) mg/dL Calcium (8.4-10.2) mg/dL 04/12/16 04/12/16 04/12/16 Range/Units 00:59 00:59 04:18 WBC 13.5 H (3.8-10.6) k/uL RBC 4.21 L 4.10 L (4.30-5.90) m/uL Hgb 11.4 L 10.9 L (13.0-17.5) gm/dL Hct 36.7 L 35.7 L (39.0-53.0) % MCHC 30.5 L (31.0-37.0) g/dL RDW 19.5 H 19.8 H (11.5-15.5) % Plt Count 100 L 88 L (150-450) k/uL Neutrophils # (Manual) 9.1 H 13.0 H (1.3-7.7) k/uL Lymphocytes # (Manual) 0.1 L 0.4 L (1.0-4.8) k/uL Nucleated RBCs 10 H 6 H (0-0) /100 WBC Carbon Dioxide 21 L (22-30) mmol/L BUN 65 H (9-20) mg/dL Creatinine 2.90 H (0.66-1.25) mg/dL Glucose 140 H (74-99) mg/dL POC Glucose (mg/dL) (75-99) mg/dL Calcium 7.0 L (8.4-10.2) mg/dL 04/12/16 04/12/16 04/12/16 Range/Units 04:18 07:40 11:50 WBC (3.8-10.6) k/uL RBC (4.30-5.90) m/uL Hgb (13.0-17.5) gm/dL Hct (39.0-53.0) % MCHC (31.0-37.0) g/dL RDW (11.5-15.5) % Plt Count (150-450) k/uL Neutrophils # (Manual) (1.3-7.7) k/uL Lymphocytes # (Manual) (1.0-4.8) k/uL Nucleated RBCs (0-0) /100 WBC Carbon Dioxide (22-30) mmol/L BUN 67 H (9-20) mg/dL Creatinine 2.90 H (0.66-1.25) mg/dL Glucose 135 H (74-99) mg/dL POC Glucose (mg/dL) 129 H 132 H (75-99) mg/dL Calcium 7.4 L (8.4-10.2) mg/dL Assessment and Plan Plan: #1 acute on chronic blood loss anemia from a GI source compensated systolic heart failure #4 prostate cancer status post prostatectomy #5 chronic tobacco dependence #6 severe protein calorie malnutrition #7 hypophosphatemia #8 indeterminate troponin leak #9 wide-complex tachycardia however it appears to be apparent at this time it could be underlying atrial fib Plan Patient will be given 10 mg of IV Cardizem thereafter a Cardizem drip will be started. We'll need to workup the underlying rhythm. Continue TPN. Patient's prognosis is poor due to severe weight loss. Repeat hemoglobin in the a.m.
[2016-04-12 18:17] LABS: Glucose,Whole Blood 202 mg/dL (75-99)
[2016-04-12] MEDS ORDERED: SODIUM CHLORIDE 0.9% 1,000 ML IV ONE (18:52)
[2016-04-12] MEDS ORDERED: PHYTONADIONE 5 MG in SODIUM CHLORIDE 0.9% 50 ML IVPB STA (18:52)
[2016-04-12] MEDS: DILTIAZEM 125 MG in SODIUM CHLORIDE 0.9% 100 ML IV SCH (19:06)
[2016-04-12] MEDS: 1: MVI, ADULT NO.4 WITH VIT K 10 ML, TRACE (CONC-1ML/DOSE) 1 ML in AMINO ACID 5%-D25W+LY IV SCH ×3 (21:45)
[2016-04-12 23:39] LABS: Glucose,Whole Blood 228 mg/dL (75-99)
[2016-04-13] MEDS: PIPERACILLIN-TAZOBACTAM 3.375 GM in DEXTROSE/WATER 1 50ML.BAG IVPB SCH ×3 (00:37→22:27)
[2016-04-13] MEDS: INSULIN LISPRO (humaLOG) 300 UNIT/3 ML VIAL SQ SCH ×4 (00:37→18:10)
[2016-04-13] MEDS: LACTATED RINGERS 1,000 ML IV SCH ×2 (04:31→18:10)
[2016-04-13 05:13] LABS: Anisocytosis Slight; Basophils % (A) 0 %; CH 26.7; CHCM 30.6; Eosinophils # (A) 0.1 k/uL (0-0.7); Eosinophils % (A) 0 %; HCT 29.1 % (39.0-53.0); HDW 4.59; Hypochromasia Marked; Large Platelets Flag Moderate; Luc # (Auto) 0.17; Luc % (Auto) 1; Lymphocytes # (A) 0.5 k/uL (1.0-4.8); Lymphocytes % (A) 3 %; MCH 27.7 pg (25.0-35.0); MCHC 31.8 g/dL (31.0-37.0); MCV 87.2 fL (80.0-100.0); Mean Platelet Volume 11.5; Monocytes # (A) 0.5 k/uL (0-1.0); Monocytes % (A) 3 %; Neutrophils # (A) 13.8 k/uL (1.3-7.7); Neutrophils % (A) 92 %; Poikilocytosis Moderate; RBC 3.33 m/uL (4.30-5.90)
[2016-04-13 05:18] LABS: HGB 9.2 gm/dL (13.0-17.5)
[2016-04-13 05:28] LABS: Calcium 7.4 mg/dL (8.4-10.2); Magnesium 2.1 mg/dL (1.6-2.3); Phosphorous 4.2 mg/dL (2.5-4.5)
[2016-04-13 05:36] LABS: Glucose,Whole Blood 166 mg/dL (75-99)
--- NOTE | 2016-04-13 09:00 | XR ---
EXAMINATION TYPE: XR chest 1V DATE OF EXAM: 04/13/2016 6:39 AM COMPARISON: 04/12/2016 HISTORY: Abnormal x-ray TECHNIQUE: Single frontal view of the chest is obtained. FINDINGS: There is persistent large amount of free intraperitoneal air. Bilateral infiltrate and ple ural effusion seen. NG tube is seen. The heart is enlarged. Left-sided PICC line noted. No pneumothor ax. Surgical consuelo overlying the abdomen. Hyperinflation correlate for COPD. IMPRESSION: 1. Pneumoperitoneum persists 2. Bilateral infiltrate and pleural effusion
[2016-04-13] MEDS: PANTOPRAZOLE 40 MG/10 ML VIAL IV SCH (10:03)
[2016-04-13] MEDS: 1: MVI, ADULT NO.4 WITH VIT K 10 ML, TRACE (CONC-1ML/DOSE) 1 ML in AMINO ACID 5%-D25W+LY IV SCH ×6 (10:03→20:33)
--- NOTE | 2016-04-13 10:26 | P.PN ---
Subjective Patient is a 75-year-old male admitted with evidence of GI bleed status post transfusion of 7 units of PRBC total since admission. 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 On 04/11/2016, patient underwent colonoscopy for GI bleed with no evidence of blood in the colon. Patient subsequently developed abdominal pain after colonoscopy with abdominal x-ray showing evidence of free air. Patient was taken to the operating room for bowel perforation with findings of perforation of the rectosigmoid and underwent partial colectomy. Patient is evaluated in the intensive care unit. Patient complains of mild abdominal pain with movement. Denies nausea or vomiting. Report flatus without bowel movement. No evidence of active bleeding. NG tube with small amount of yellow/green drainage last 24 hours. Urine output adequate. Afebrile. WBC increased to 15. Hemoglobin stable at 10.9. Chest x-ray from this morning with evidence of persistent pneumoperitoneum. Objective - Vital Signs Vital signs: Vital Signs Temp 97.5 F L 04/13/16 08:00 Pulse 96 04/13/16 09:00 Resp 22 04/13/16 09:00 BP 111/56 04/13/16 09:00 Pulse Ox 93 L 04/13/16 09:00 Intake & Output 04/12/16 04/13/16 04/13/16 18:59 06:59 18:59 Intake Total 2600 2414 80 Output Total 385 895 125 Balance 2215 1519 -45 Weight 59 kg 66.7 kg Intake: Intake, IV Titration 2600 2414 80 Amount Amino Acid 5%-D25w+Lytes* 520 840 E* 1,000 ml @ 70 mls/hr IV .BY DURATION [facility] Rx#: [id number] Diltiazem 125 mg In 110 10 Sodium Chloride 0.9% 100 ml @ Titrate IV .Q0M [facility] Rx#:[id number] Fat Emulsion 20% 250 ml @ 105 84 21 mls/hr IV DAILY@1300 [facility] Rx#:[id number] Lactated Ringers 1,000 ml 1975 375 @ 75 mls/hr IV .[id number] [facility] Rx#:[id number] Lactated Ringers 1,000 ml 675 As IV .[facility] Rx#: [id number] Mvi, Adult No.4 with Vit 280 70 K 10 ml Trace (Conc-1Ml/ Dose) 1 ml In Amino Acid 5%-D25w+Lytes*E* 1,000 ml @ 70 mls/hr IV .BY DURATION [facility] Rx#: [id number] Piperacillin-Tazobactam 3 50 .375 gm In Dextrose/Water 1 50ml.bag @ 12.5 mls/hr IVPB Q12HR [facility] Rx#: [id number] Output: Gastric Drainage 75 Urine 310 895 125 Other: Voiding Method Indwelling Catheter Indwelling Catheter - Exam GENERAL: Pt awake and alert, cachectic, in no acute distress. ENT: Nasogastric tube to low intermittent suction. HEART: Heart S1, S2, no S3 or S4. Irregularly irregular. ABDOMEN: Soft, mild incisional tenderness, active bowel sounds. No guarding, no rebound. Abdominal incision will old sanguinous drainage. NEUROLOGICAL: Pt oriented x 3. - Labs CBC & Chem 7: 04/13/16 04:59 04/13/16 04:59 Labs: Abnormal Lab Results - Last 24 Hours (Table) 04/12/16 04/12/16 04/12/16 Range/Units 11:50 18:16 23:37 WBC (3.8-10.6) k/uL RBC (4.30-5.90) m/uL Hgb (13.0-17.5) gm/dL Hct (39.0-53.0) % RDW (11.5-15.5) % Plt Count (150-450) k/uL Neutrophils # (1.3-7.7) k/uL Lymphocytes # (1.0-4.8) k/uL BUN (9-20) mg/dL Creatinine (0.66-1.25) mg/dL Glucose (74-99) mg/dL POC Glucose (mg/dL) 132 H 202 H 228 H (75-99) mg/dL Calcium (8.4-10.2) mg/dL 04/13/16 04/13/16 04/13/16 Range/Units 04:59 04:59 05:33 WBC 15.0 H (3.8-10.6) k/uL RBC 3.33 L (4.30-5.90) m/uL Hgb 9.2 L D (13.0-17.5) gm/dL Hct 29.1 L (39.0-53.0) % RDW 20.0 H (11.5-15.5) % Plt Count 76 L (150-450) k/uL Neutrophils # 13.8 H (1.3-7.7) k/uL Lymphocytes # 0.5 L (1.0-4.8) k/uL BUN 67 H (9-20) mg/dL Creatinine 2.90 H (0.66-1.25) mg/dL Glucose 161 H (74-99) mg/dL POC Glucose (mg/dL) 166 H (75-99) mg/dL Calcium 7.4 L (8.4-10.2) mg/dL Assessment and Plan Plan: Impression: 1. Acute anemia, microcytic, suggestive of occult ongoing blood loss suspect secondary to gastric ulcer. 2. Possible SMA syndrome. 3. Small hiatal hernia. 4. Status post partial colectomy for perforation of rectosigmoid on 04/12/2016. 5. Malnutrition, protein calorie, severe. Plan: Discontinue NG tube. Keep patient nothing by mouth except for ice chips and popsicles. Continue TPN. Continue IV hydration. Continue supportive treatment and pain management. Increase activity. Continue incentive spirometry 10 times an hour while awake. Continue physical therapy. Continue to follow medical team. Repeat CBC and BMP in a.m. The above impression and plan have been discussed and directed by Dr. Ramos. Casa KNIGHT acting as scribe for Dr. Ramos.
[2016-04-13] MEDS: DILTIAZEM 125 MG in SODIUM CHLORIDE 0.9% 100 ML IV SCH (10:35)
[2016-04-13 11:37] LABS: Glucose,Whole Blood 114 mg/dL (75-99)
--- NOTE | 2016-04-13 12:14 | P.PN ---
Subjective Patient is seen in follow-up for acute kidney injury on chronic kidney disease. Vision does have chronic kidney disease stage III with baseline creatinine near 1.8 from a of 2016. This admission his creatinine was 4.8 and is now stabilized at 2.9. Hemoglobin stable at 9.2. He's currently receiving TPN. He is maintained on a Cardizem drip for atrial fibrillation with RVR. Denies any chest pain or shortness of breath. Vital signs are stable. General: The patient appeared well nourished and normally developed. HEENT: Head exam is unremarkable. Neck is without jugular venous distension. LUNGS: Lungs are clear to auscultation and percussion. Breath sounds decreased. HEART: Irregular rate and rhythm. First and second heart sounds normal. No murmurs, rubs or gallops. ABDOMEN: Abdominal exam reveals normal bowel sounds. Non-tender and non- distended. No evidence of peritonitis. EXTREMITITES: No clubbing, cyanosis, or edema. Objective - Vital Signs Vital signs: Vital Signs Temp 97.5 F L 04/13/16 08:00 Pulse 96 04/13/16 11:00 Resp 13 04/13/16 11:00 BP 84/57 04/13/16 11:00 Pulse Ox 94 L 04/13/16 11:00 Intake & Output 04/12/16 04/13/16 04/13/16 18:59 06:59 18:59 Intake Total 2600 2414 788 Output Total 385 895 245 Balance 2215 1519 543 Weight 59 kg 66.7 kg Intake: Intake, IV Titration 2600 2414 788 Amount Amino Acid 5%-D25w+Lytes* 520 840 E* 1,000 ml @ 70 mls/hr IV .BY DURATION [facility] Rx#: [id number] Diltiazem 125 mg In 110 163 Sodium Chloride 0.9% 100 ml @ Titrate IV .Q0M [facility] Rx#:[id number] Fat Emulsion 20% 250 ml @ 105 84 21 mls/hr IV DAILY@1300 [facility] Rx#:[id number] Lactated Ringers 1,000 ml 1975 375 225 @ 75 mls/hr IV .[id number] [facility] Rx#:[id number] Lactated Ringers 1,000 ml 675 As IV .[facility] Rx#: [id number] Mvi, Adult No.4 with Vit 280 350 K 10 ml Trace (Conc-1Ml/ Dose) 1 ml In Amino Acid 5%-D25w+Lytes*E* 1,000 ml @ 70 mls/hr IV .BY DURATION [facility] Rx#: [id number] Piperacillin-Tazobactam 3 50 50 .375 gm In Dextrose/Water 1 50ml.bag @ 12.5 mls/hr IVPB Q12HR [facility] Rx#: [id number] Output: Gastric Drainage 75 Urine 310 895 245 Other: Voiding Method Indwelling Catheter Indwelling Catheter - Labs CBC & Chem 7: 04/13/16 04:59 04/13/16 04:59 Labs: Abnormal Lab Results - Last 24 Hours (Table) 04/12/16 04/12/16 04/13/16 Range/Units 18:16 23:37 04:59 WBC 15.0 H (3.8-10.6) k/uL RBC 3.33 L (4.30-5.90) m/uL Hgb 9.2 L D (13.0-17.5) gm/dL Hct 29.1 L (39.0-53.0) % RDW 20.0 H (11.5-15.5) % Plt Count 76 L (150-450) k/uL Neutrophils # 13.8 H (1.3-7.7) k/uL Lymphocytes # 0.5 L (1.0-4.8) k/uL BUN (9-20) mg/dL Creatinine (0.66-1.25) mg/dL Glucose (74-99) mg/dL POC Glucose (mg/dL) 202 H 228 H (75-99) mg/dL Calcium (8.4-10.2) mg/dL 04/13/16 04/13/16 04/13/16 Range/Units 04:59 05:33 11:35 WBC (3.8-10.6) k/uL RBC (4.30-5.90) m/uL Hgb (13.0-17.5) gm/dL Hct (39.0-53.0) % RDW (11.5-15.5) % Plt Count (150-450) k/uL Neutrophils # (1.3-7.7) k/uL Lymphocytes # (1.0-4.8) k/uL BUN 67 H (9-20) mg/dL Creatinine 2.90 H (0.66-1.25) mg/dL Glucose 161 H (74-99) mg/dL POC Glucose (mg/dL) 166 H 114 H (75-99) mg/dL Calcium 7.4 L (8.4-10.2) mg/dL Assessment and Plan Plan: Assessment: #1. Nonoliguric acute kidney injury secondary to ischemic ATN secondary to severe anemia and hemodynamic instability. Creatinine stable at 2.9. #2. Chronic kidney disease stage III with baseline creatinine near 1.8. #3. Acute anemia status post packed red blood cell transfusions. Hemoglobin stable at 9.2 today. #4. Hypotension. #5. Atrial fibrillation with RVR. #6. Status post partial colectomy due to perforation. Plan: Continue with IV fluids. Maintain TPN. Cardiology following. Currently on Cardizem drip. Monitor hemoglobin and transfuse as needed. Repeat electrolytes in the morning.
[2016-04-13] MEDS: FOLIC ACID 1 MG TAB PO SCH (13:15)
[2016-04-13] MEDS: FAT EMULSION 20% 250 ML IV SCH (13:16)
--- NOTE | 2016-04-13 13:42 | P.PN ---
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 The patient had lost according to the family approximately 40 pounds over the past month. I was told that he had not been eating for the past 4-6 days. The patient is awake and alert and he claims that he has no appetite and obviously he is a failure to thrive, given up on life, very much cachectic and emaciated with significant malnourishment and thought the loss and by the protein mass. In addition, the patient was an acute kidney injury with his creatinine was found to be at 4.5. He was found to be profoundly anemic with his initially was at 4.2. The patient did not have any obvious source of internal or external bleeding. He has remote history of prostate cancer and has undergone a prostatectomy. No history of any malignancy. He was in the hospital back in June 2015 for some symptoms of TIA. Back then he had a CAT scan of the brain that was negative unit showed diffuse REVIEW NURSE atrophy and was negative for any acute CVA. The workup back then included a carotid Doppler that was negative for any hemodynamically significant stenosis and the patient had an echocardiogram that showed global hypokinesis with an ejection fraction of around 20%. The patient was under the care of Dr. Ochoa. He was discharged home. He claims to be following up with Dr. Ronquillo. He is a chronic smoker. No alcoholism. No substance abuse. No constipation. No abdominal distention. No GI bleeding. No hematemesis. He did vomit on few occasions however on outpatient basis. He is moving all 4 extremities and there is no limitation in his body movements. He was given a total of 2 units of packed RBCs yesterday and his hemoglobin is up to 6.4. An additional 1 unit will be given to him right now. He also received fluids in the order of 3 L normal saline and currently is on a maintenance of 100 mL an hour of 3 Amp bicarbonate with D5 water. On 04/09/2016 the patient is being seen in follow-up. As mentioned, the patient had significant drop in hemoglobin down to 6.4 and he got transfused with 2 units of packed RBC initially and I gave him an additional 1 unit in the morning. Subsequent hemoglobin came back at 5.8. Based on this, the patient was given another 2 units of packed RBC and hemoglobin came up to 7.5. Note that during the day, the patient started having episodes of GI bleeds. In the beginning these was black clots and later on it switched to maroon clots. The patient had a total of 6 episodes the last episode being this morning at around 7:00. CAT scan of the abdomen was also done yesterday and it showed distention of the stomach with most of the oral contrast residing within the stomach. There was a small amount of contrast within the mildly dilated duodenum. There appears to be a caliber change overlying the aorta at the level of the transverse duodenum. The possibility of a SMA syndrome was entertained on this patient. In addition, the patient had COPD, emphysematous change, bibasilar effusions, severe cardiomyopathy and she reflux. He is also being resuscitated IV fluids. The patient is currently receiving D5 with 3 A of bicarb at the rate of 50 mL an hour. We drop the infusion rate due to concern of fluid overload and underlying cardiomyopathy. However, based on the ongoing events, I would increase the infusion rate of 125 mL an hour. His serum bicarb level is up to 18. The BN is still elevated. Creatinine has dropped down to 3.98. Reevaluated today on 04/10/2016, patient underwent EGD which was nondiagnostic and was noted to be normal. Hemoglobin this morning is 6.5, hence I ordered another unit of packed RBC to be transfused today. Patient is now being followed by gastroenterology and general surgery and workup is still in progress. His renal profile seems to be a bit improved creatinine is down to 3.6 BUN is 105. Rest of the labs were noted to be relatively unremarkable. So far the patient received 5 units of packed RBCs, and he would be receiving the sixths unit today. Clinically, the patient is feeling better, denies any shortness of breath no cough no chest pain no abdominal pain no nausea no vomiting. Patient was reevaluated today on 04/11/2016, he seems to be doing quite well. Patient is about to have a PICC line placed and to continue nutritional support , patient is on TPN. Dr. Ramos is planning colonoscopy because of his GI bleeding, and hopefully he will be cleaned it off for adequate colonoscopy. Hemoglobin today is 9.6, no evidence of active bleeding today, total units of packed RBCs given so far are 7. Patient is feeling better overall, he is relatively asymptomatic. His WBC count is 9.6. Electrolytes are normal. BUN remains elevated at 73 and creatinine is 3.05. Improved compared to what it was on admission at 4.80. Chest x-ray showed COPD, cardiomegaly, and left lower lobe atelectasis or infiltrate, and a small effusion. Patient was reevaluated today on 04/12/2016, apparently the patient underwent colonoscopy yesterday, and postoperatively was noted to have free air on the x- rays of the abdomen. Hence the patient underwent partial colectomy for perforation of rectosigmoid area. Patient was extubated uneventfully after his surgery, he is now in the intensive care unit, hemodynamically stable, continues to have a nasogastric tube in place, and seems to be in no form of respiratory distress. His hemoglobin seems to be stable, today it is 10.9. Patient received a total of 7 units of packed RBCs since admission. Renal profile has improved but is not improving any further, creatinine is 2.90 today. Chest x-ray showed pneumoperitoneum, and bilateral areas of atelectasis or infiltrates with pleural effusions. Hence I will cut down his IV fluid, patient is making good amount of urine on his own. Hence I will not diuresis at this point. Patient remains on Zosyn which is appropriate for now Patient was reevaluated on 04/13/2016, seems to be doing relatively well, remains on Cardizem drip as per cardiology for his A. fib/RVR. Patient is doing well, hemoglobin is stable at 9.2 WBC count is 15.0. Electrolytes are relatively normal BUN remains elevated at 67 creatinine is 2.90 about the same as it was in the last couple of days. Patient denies any abdominal pain, no nausea, no vomiting, and he denies any shortness of breath. Chest x-ray is improved, however it continues to show by basilar infiltrates and pleural effusions. Patient remains on antibiotics accordingly. Objective - Vital Signs Vital signs: Vital Signs Temp 97.8 F 04/13/16 12:00 Pulse 69 04/13/16 12:00 Resp 23 04/13/16 12:00 BP 86/53 04/13/16 12:00 Pulse Ox 95 04/13/16 12:00 Intake & Output 04/12/16 04/13/1617 18:59 06:59 18:59 Intake Total 2600 2414 940 Output Total 385 895 275 Balance 2215 1515 665 Weight 59 kg 66.7 kg Intake: Intake, IV Titration 2600 2414 940 Amount Amino Acid 5%-D25w+Lytes* 520 840 E* 1,000 ml @ 70 mls/hr IV .BY DURATION [facility] Rx#: [id number] Diltiazem 125 mg In 110 170 Sodium Chloride 0.9% 100 ml @ Titrate IV .Q0M [facility] Rx#:[id number] Fat Emulsion 20% 250 ml @ 105 84 21 mls/hr IV DAILY@1300 [facility] Rx#:[id number] Lactated Ringers 1,000 ml 1975 375 300 @ 75 mls/hr IV .[id number] [facility] Rx#:[id number] Lactated Ringers 1,000 ml 675 As IV .[facility] Rx#: [id number] Mvi, Adult No.4 with Vit 280 420 K 10 ml Trace (Conc-1Ml/ Dose) 1 ml In Amino Acid 5%-D25w+Lytes*E* 1,000 ml @ 70 mls/hr IV .BY DURATION [facility] Rx#: [id number] Piperacillin-Tazobactam 3 50 50 .375 gm In Dextrose/Water 1 50ml.bag @ 12.5 mls/hr IVPB Q12HR [facility] Rx#: [id number] Output: Gastric Drainage 75 Urine 310 895 275 Other: Voiding Method Indwelling Catheter Indwelling Catheter Indwelling Catheter - Exam Physical Exam: Revealed a 75-year-old in no distress HEENT:[Neck is supple.] [No neck masses.] [No thyromegaly.] [No JVD.] Nasogastric tube is intact., It will likely be removed today. Chest: [Diminished breath sounds at the bases no crackles or rhonchi or wheezes. ] Cardiac Exam: [Normal S1 and S2, no S3 gallop, no murmur.] Abdomen: [Postsurgical, slightly tender , no megaly, no rebound, no guarding, no bowel sounds.] Extremities: [No clubbing, no edema, no cyanosis.] Neurological Exam: [No focal neurologic deficit.] - Labs CBC & Chem 7: 04/13/16 04:59 02/09/17 04:59 Labs: Abnormal Lab Results - Last 24 Hours (Table) 04/12/16 04/12/16 04/13/16 Range/Units 18:16 23:37 04:59 WBC 15.0 H (3.8-10.6) k/uL RBC 3.33 L (4.30-5.90) m/uL Hgb 9.2 L D (13.0-17.5) gm/dL Hct 29.1 L (39.0-53.0) % RDW 20.0 H (11.5-15.5) % Plt Count 76 L (150-450) k/uL Neutrophils # 13.8 H (1.3-7.7) k/uL Lymphocytes # 0.5 L (1.0-4.8) k/uL BUN (9-20) mg/dL Creatinine (0.66-1.25) mg/dL Glucose (74-99) mg/dL POC Glucose (mg/dL) 202 H 228 H (75-99) mg/dL Calcium (8.4-10.2) mg/dL 04/13/16 04/13/16 04/13/16 Range/Units 04:59 05:33 11:35 WBC (3.8-10.6) k/uL RBC (4.30-5.90) m/uL Hgb (13.0-17.5) gm/dL Hct (39.0-53.0) % RDW (11.5-15.5) % Plt Count (150-450) k/uL Neutrophils # (1.3-7.7) k/uL Lymphocytes # (1.0-4.8) k/uL BUN 67 H (9-20) mg/dL Creatinine 2.90 H (0.66-1.25) mg/dL Glucose 161 H (74-99) mg/dL POC Glucose (mg/dL) 166 H 114 H (75-99) mg/dL Calcium 7.4 L (8.4-10.2) mg/dL Assessment and Plan Plan: 1 acute anemia, microcytic, suggestive of an occult ongoing blood loss and very much concerning an underlying intra-abdominal malignancy or a colonic malignancy resulting into an iron deficiency anemia. 2 possible SMA syndrome, however this is not convincing says the clinical presentation is not consistent with SMA syndrome. On 04/10/2016, patient is feeling better clinically, and his hemoglobin remains low at 6.5 hence he will require more blood transfusion and this will be #6 unit given today. On 04/11/2016, patient had a PICC line placed, he received a total of 7 units of packed RBCs so far since admission, and I believe the patient is being considered for colonoscopy by Dr. Ramos. In the meantime we will continue to monitor in the ICU, and transfuse to keep hemoglobin above 7. In the meantime continue to monitor for pulmonary edema as his the patient has severe cardiomyopathy and LV dysfunction. On 04/12/2016, patient is status post partial colectomy for perforation of the rectosigmoid. Patient has relatively uneventful postoperative course. Hemoglobin remains stable. Total units of transfusions given since admission with 7 units of packed RBCs. On 04/13/2016, patient is doing relatively better than expected, however he remains in A. fib and RVR, and he is on Cardizem drip. We plan to transfer the patient out of the ICU to a cardiac floor/monitor bed. Considering his poor LV function, and considering his abnormal chest x-ray showing bilateral pleural effusions, I would likely could maintain the patient on diuretics. 3 cardiomyopathy with generalized hypokinesis and ejection fraction of around 20 % 4 prostate cancer the paresis prostatectomy 5 nicotine addiction/smoking 6 history of alcoholism 7 previous hospital physician for TIA/CVA with diffuse REVIEW NURSE atrophy 8 severe malnourishment/cachexia, poor appetite and significant loss and total body protein mass 9 troponin leak, nonspecific 10 hyperphosphatemia 11 sinus rhythm with a bundle-branch block pattern, left sided on EKG, chronicity is not known Recommendation: Continue present supportive care measures, transfer patient to a monitored bed on selective, and continue to follow closely. Prognosis remains guarded. We'll continue to follow Time with Patient: Less than 30
[2016-04-13] MEDS: FUROSEMIDE 10 MG/ML 2 ML VIAL IV SCH (14:56)
[2016-04-13 17:30] LABS: Glucose,Whole Blood 140 mg/dL (75-99)
--- NOTE | 2016-04-13 19:43 | P.PN ---
Subjective 75-year-old gentleman with history of peptic ulcer disease comes in to the hospital with a 60 pound weight loss due to pain associated with ingestion of food. Patient was noted to have anemia on admission. Patient underwent a upper endoscopy was noted to have a large ulcer that was not bleeding. Thereafter patient also underwent a colonoscopy on 04/11/2016. Unfortunately there was a competition with abdominal perforation and patient was noted to have free air in the abdomen thereafter patient underwent a sigmoid colectomy and laparotomy. Patient was started on TPN on 04/10/2016. Patient is tolerating currently. On 04/12/2016and During my exmination patient was not complaining of any pain at rest however does complain of pain in his abdomen with minimal movement. Patient was noted to have a irregularly irregular tachycardia. Patient does have a left bundle branch block at baseline. Denies having any chest pain difficulty breathing headaches blurry vision. 04/13/2016 Patient denies having any additional complaints. States to have some abdominal discomfort. Objective - Vital Signs Vital signs: Vital Signs Temp 97.8 F 04/13/16 12:00 Pulse 101 H 04/13/16 14:00 Resp 13 04/13/16 14:00 BP 90/62 04/13/16 14:00 Pulse Ox 96 04/13/16 14:00 Intake & Output 04/13/16 04/13/16 04/14/16 06:59 18:59 06:59 Intake Total 2414 1282 Output Total 895 340 Balance 1519 942 Weight 66.7 kg Intake: Intake, IV Titration 2414 1282 Amount Amino Acid 5%-D25w+Lytes* 840 E* 1,000 ml @ 70 mls/hr IV .BY DURATION [facility] Rx#: [id number] Diltiazem 125 mg In 110 180 Sodium Chloride 0.9% 100 ml @ Titrate IV .Q0M [facility] Rx#:[id number] Fat Emulsion 20% 250 ml @ 84 42 21 mls/hr IV DAILY@1300 [facility] Rx#:[id number] Lactated Ringers 1,000 ml 375 450 @ 75 mls/hr IV .[id number] [facility] Rx#:[id number] Lactated Ringers 1,000 ml 675 As IV .[facility] Rx#: [id number] Mvi, Adult No.4 with Vit 280 560 K 10 ml Trace (Conc-1Ml/ Dose) 1 ml In Amino Acid 5%-D25w+Lytes*E* 1,000 ml @ 70 mls/hr IV .BY DURATION [facility] Rx#: [id number] Piperacillin-Tazobactam 3 50 50 .375 gm In Dextrose/Water 1 50ml.bag @ 12.5 mls/hr IVPB Q12HR [facility] Rx#: [id number] Output: Urine 895 340 Other: Voiding Method Indwelling Catheter Indwelling Catheter - Exam Gen. appearance patient is extremity cachectic Neck is supple no JVD Heart S1-S2 heard irregularly irregular tachycardic Abdomen is tender to palpation is a midline incision that is noted no organomegaly is appreciated Lungs good air entry clear to auscultation or rhonchi or wheezing noted His a PICC line on the left upper arm Neurologically no focal motor or sensory deficits noted - Labs CBC & Chem 7: 04/13/16 04:59 04/13/16 04:59 Labs: Abnormal Lab Results - Last 24 Hours (Table) 04/12/16 04/13/16 04/13/16 Range/Units 23:37 04:59 04:59 WBC 15.0 H (3.8-10.6) k/uL RBC 3.33 L (4.30-5.90) m/uL Hgb 9.2 L D (13.0-17.5) gm/dL Hct 29.1 L (39.0-53.0) % RDW 20.0 H (11.5-15.5) % Plt Count 76 L (150-450) k/uL Neutrophils # 13.8 H (1.3-7.7) k/uL Lymphocytes # 0.5 L (1.0-4.8) k/uL BUN 67 H (9-20) mg/dL Creatinine 2.90 H (0.66-1.25) mg/dL Glucose 161 H (74-99) mg/dL POC Glucose (mg/dL) 228 H (75-99) mg/dL Calcium 7.4 L (8.4-10.2) mg/dL 04/13/16 04/13/16 04/13/16 Range/Units 05:33 11:35 17:27 WBC (3.8-10.6) k/uL RBC (4.30-5.90) m/uL Hgb (13.0-17.5) gm/dL Hct (39.0-53.0) % RDW (11.5-15.5) % Plt Count (150-450) k/uL Neutrophils # (1.3-7.7) k/uL Lymphocytes # (1.0-4.8) k/uL BUN (9-20) mg/dL Creatinine (0.66-1.25) mg/dL Glucose (74-99) mg/dL POC Glucose (mg/dL) 166 H 114 H 140 H (75-99) mg/dL Calcium (8.4-10.2) mg/dL Assessment and Plan Plan: #1 acute on chronic blood loss anemia from a GI source compensated systolic heart failure #4 prostate cancer status post prostatectomy #5 chronic tobacco dependence #6 severe protein calorie malnutrition #7 hypophosphatemia #8 indeterminate troponin leak #9 wide-complex tachycardia appears to have some aberrant conduction currently maintained on a Cardizem drip Plan Continue TPN. Continue Cardizem drip. In regards to restarting diet defer to surgery. Patient has multiple comorbidities. Prognosis is guarded. However if her plan changes to continue bowel rest for prolonged period of time may need to consider [facility].
[2016-04-13 21:38] LABS: Glucose,Whole Blood 147 mg/dL (75-99)
[2016-04-14] MEDS: INSULIN LISPRO (humaLOG) 300 UNIT/3 ML VIAL SQ SCH ×4 (00:04→17:20)
[2016-04-14] MEDS: LACTATED RINGERS 1,000 ML IV SCH ×2 (06:05→17:20)
[2016-04-14 06:34] LABS: Ionized Calcium 4.7 mg/dL (4.5-5.3)
[2016-04-14 06:37] LABS: Glucose,Whole Blood 162 mg/dL (75-99)
[2016-04-14 06:43] LABS: Anisocytosis Moderate; Basophils % (A) 0 %; CH 26.9; CHCM 30.8; Eosinophils % (A) 0 %; HCT 27.9 % (39.0-53.0); HDW 4.46; HGB 8.6 gm/dL (13.0-17.5); Hypochromasia Marked; Large Platelets Flag Marked; Luc # (Auto) 0.18; Luc % (Auto) 1; Lymphocytes # (A) 0.5 k/uL (1.0-4.8); Lymphocytes % (A) 3 %; MCH 26.8 pg (25.0-35.0); MCHC 30.8 g/dL (31.0-37.0); MCV 87.1 fL (80.0-100.0); Mean Platelet Volume 12.7; Microcytosis Slight; Monocytes # (A) 0.7 k/uL (0-1.0); Monocytes % (A) 4 %; Neutrophils # (A) 14.7 k/uL (1.3-7.7); Neutrophils % (A) 91 %; Poikilocytosis Moderate; RBC 3.21 m/uL (4.30-5.90); RDW 20.2 % (11.5-15.5); WBC 16.1 k/uL (3.8-10.6); WBC (Perox) 18.05
[2016-04-14 06:46] LABS: Calcium 7.7 mg/dL (8.4-10.2); Magnesium 2.2 mg/dL (1.6-2.3); Phosphorous 4.8 mg/dL (2.5-4.5)
[2016-04-14 07:16] LABS: Large Platelets Present; Manual Review Performed; Toxic Granulation Present
[2016-04-14] MEDS: PANTOPRAZOLE 40 MG/10 ML VIAL IV SCH (08:45)
[2016-04-14] MEDS: PIPERACILLIN-TAZOBACTAM 3.375 GM in DEXTROSE/WATER 1 50ML.BAG IVPB SCH ×2 (08:45→20:47)
[2016-04-14] MEDS: DILTIAZEM 125 MG in SODIUM CHLORIDE 0.9% 100 ML IV SCH (10:11)
--- NOTE | 2016-04-14 10:45 | XR ---
EXAMINATION TYPE: XR chest 1V DATE OF EXAM: 04/14/2016 10:40 AM COMPARISON: 04/13/2016 HISTORY: NG tube removal TECHNIQUE: Single frontal view of the chest is obtained. FINDINGS: Persistent bilateral infiltrate and pleural effusion is stable with cardiomegaly and left- sided PICC line. Mild central venous congestion not excluded. No pneumothorax. However, there persists evidence of free intraperitoneal air. IMPRESSION: 1. Stable bilateral infiltrate and pleural effusion. 2. Persistent free intraperitoneal air.
[2016-04-14] MEDS: 1: MVI, ADULT NO.4 WITH VIT K 10 ML, TRACE (CONC-1ML/DOSE) 1 ML in AMINO ACID 5%-D25W+LY IV SCH ×15 (12:00→19:31)
[2016-04-14 12:06] LABS: Glucose,Whole Blood 158 mg/dL (75-99)
[2016-04-14] MEDS: FOLIC ACID 1 MG TAB PO SCH (12:19)
[2016-04-14] MEDS: FUROSEMIDE 10 MG/ML 2 ML VIAL IV SCH (12:23)
[2016-04-14] MEDS: FAT EMULSION 20% 250 ML IV SCH (12:29)
--- NOTE | 2016-04-14 14:27 | PN ---
The patient is seen for followup for acute kidney injury. He was initially admitted to the hospital with severe anemia and hemoglobin of around 4. Subsequently, the patient developed obvious GI bleed for which he had an EGD done, which did not show any evidence of active bleeding. A colonoscopy was done which unfortunately was complicated with bowel perforation. Patient was taken to OR and he exploratory laparotomy and partial colectomy. Colostomy did not need to be done. He was significantly hypotensive and hypovolemic on initial admission. This improved with aggressive IV hydration and serum creatinine had improved with improvement in urine output as well. His creatinine, however, has been rising again after the surgery. Urine output remains adequate. Patient is maintained on IV fluids in the form of TPN. He had also developed A. fib with RVR, which definitely contributed to some worsening of his renal function. On examination today, patient is sitting up on a bedside chair. He is comfortable. He is not in any acute distress. Blood pressure is 117/82, ( ) per minute. He is afebrile. EXAMINATION OF THE HEART: S1 and S2. EXAMINATION OF THE LUNGS: Bilateral breath sounds are heard. Decreased breath sounds at the bases. ABDOMEN: Soft. Incision is dressed. Examination of the lower extremities shows no evidence of edema. Labs show sodium 138, potassium 4.0, BUN 74, serum creatinine 3.2. Hemoglobin at 8.6 g/dL. ASSESSMENT: 1. Acute kidney injury, acute tubular necrosis, currently nonoliguric with improvement in renal function since admission; however lately, the serum creatinine has risen again secondary to hemodynamic instability with atrial fibrillation and rapid ventricular response. Patient is maintained on a Cardizem drip. He has a Cazares catheter with urine output of 1280 mL for 24 hours. Continue to avoid nephrotoxic agents. Continue with TPN. 2. Gastrointestinal bleed with no obvious source of bleeding. No active bleeding noted at this time. 3. Status post laparotomy and sigmoid colectomy 4. Chronic kidney disease with previous creatinine at 1.8 in July of 2015. Etiology is likely nephrosclerosis. UA was fairly benign at the time of admission. 5. Weight loss over the past year with workup currently negative thus far. No obvious malignancy identified yet. TSH was not low.
--- NOTE | 2016-04-14 16:41 | P.PN ---
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 The patient had lost according to the family approximately 40 pounds over the past month. I was told that he had not been eating for the past 4-6 days. The patient is awake and alert and he claims that he has no appetite and obviously he is a failure to thrive, given up on life, very much cachectic and emaciated with significant malnourishment and thought the loss and by the protein mass. In addition, the patient was an acute kidney injury with his creatinine was found to be at 4.5. He was found to be profoundly anemic with his initially was at 4.2. The patient did not have any obvious source of internal or external bleeding. He has remote history of prostate cancer and has undergone a prostatectomy. No history of any malignancy. He was in the hospital back in June 2015 for some symptoms of TIA. Back then he had a CAT scan of the brain that was negative unit showed diffuse [employer] atrophy and was negative for any acute CVA. The workup back then included a carotid Doppler that was negative for any hemodynamically significant stenosis and the patient had an echocardiogram that showed global hypokinesis with an ejection fraction of around 20%. The patient was under the care of Dr. Ochoa. He was discharged home. He claims to be following up with Dr. Ronquillo. He is a chronic smoker. No alcoholism. No substance abuse. No constipation. No abdominal distention. No GI bleeding. No hematemesis. He did vomit on few occasions however on outpatient basis. He is moving all 4 extremities and there is no limitation in his body movements. He was given a total of 2 units of packed RBCs yesterday and his hemoglobin is up to 6.4. An additional 1 unit will be given to him right now. He also received fluids in the order of 3 L normal saline and currently is on a maintenance of 100 mL an hour of 3 Amp bicarbonate with D5 water. On 04/09/2016 the patient is being seen in follow-up. As mentioned, the patient had significant drop in hemoglobin down to 6.4 and he got transfused with 2 units of packed RBC initially and I gave him an additional 1 unit in the morning. Subsequent hemoglobin came back at 5.8. Based on this, the patient was given another 2 units of packed RBC and hemoglobin came up to 7.5. Note that during the day, the patient started having episodes of GI bleeds. In the beginning these was black clots and later on it switched to maroon clots. The patient had a total of 6 episodes the last episode being this morning at around 7:00. CAT scan of the abdomen was also done yesterday and it showed distention of the stomach with most of the oral contrast residing within the stomach. There was a small amount of contrast within the mildly dilated duodenum. There appears to be a caliber change overlying the aorta at the level of the transverse duodenum. The possibility of a SMA syndrome was entertained on this patient. In addition, the patient had COPD, emphysematous change, bibasilar effusions, severe cardiomyopathy and she reflux. He is also being resuscitated IV fluids. The patient is currently receiving D5 with 3 A of bicarb at the rate of 50 mL an hour. We drop the infusion rate due to concern of fluid overload and underlying cardiomyopathy. However, based on the ongoing events, I would increase the infusion rate of 125 mL an hour. His serum bicarb level is up to 18. The BN is still elevated. Creatinine has dropped down to 3.98. Reevaluated today on 04/10/2016, patient underwent EGD which was nondiagnostic and was noted to be normal. Hemoglobin this morning is 6.5, hence I ordered another unit of packed RBC to be transfused today. Patient is now being followed by gastroenterology and general surgery and workup is still in progress. His renal profile seems to be a bit improved creatinine is down to 3.6 BUN is 105. Rest of the labs were noted to be relatively unremarkable. So far the patient received 5 units of packed RBCs, and he would be receiving the sixths unit today. Clinically, the patient is feeling better, denies any shortness of breath no cough no chest pain no abdominal pain no nausea no vomiting. Patient was reevaluated today on 04/11/2016, he seems to be doing quite well. Patient is about to have a PICC line placed and to continue nutritional support , patient is on TPN. Dr. Ramos is planning colonoscopy because of his GI bleeding, and hopefully he will be cleaned it off for adequate colonoscopy. Hemoglobin today is 9.6, no evidence of active bleeding today, total units of packed RBCs given so far are 7. Patient is feeling better overall, he is relatively asymptomatic. His WBC count is 9.6. Electrolytes are normal. BUN remains elevated at 73 and creatinine is 3.05. Improved compared to what it was on admission at 4.80. Chest x-ray showed COPD, cardiomegaly, and left lower lobe atelectasis or infiltrate, and a small effusion. Patient was reevaluated today on 04/12/2016, apparently the patient underwent colonoscopy yesterday, and postoperatively was noted to have free air on the x- rays of the abdomen. Hence the patient underwent partial colectomy for perforation of rectosigmoid area. Patient was extubated uneventfully after his surgery, he is now in the intensive care unit, hemodynamically stable, continues to have a nasogastric tube in place, and seems to be in no form of respiratory distress. His hemoglobin seems to be stable, today it is 10.9. Patient received a total of 7 units of packed RBCs since admission. Renal profile has improved but is not improving any further, creatinine is 2.90 today. Chest x-ray showed pneumoperitoneum, and bilateral areas of atelectasis or infiltrates with pleural effusions. Hence I will cut down his IV fluid, patient is making good amount of urine on his own. Hence I will not diuresis at this point. Patient remains on Zosyn which is appropriate for now Patient was reevaluated on 04/13/2016, seems to be doing relatively well, remains on Cardizem drip as per cardiology for his A. fib/RVR. Patient is doing well, hemoglobin is stable at 9.2 WBC count is 15.0. Electrolytes are relatively normal BUN remains elevated at 67 creatinine is 2.90 about the same as it was in the last couple of days. Patient denies any abdominal pain, no nausea, no vomiting, and he denies any shortness of breath. Chest x-ray is improved, however it continues to show by basilar infiltrates and pleural effusions. Patient remains on antibiotics accordingly. Patient was seen today on 04/14/2016, seems to be doing relatively well, less shortness of breath, no cough no wheezing no chest pain, remains nothing by mouth, and his nasogastric tube was removed. Chest x-ray continues to show some bibasilar atelectasis and small bilateral pleural effusions, patient remains on Lasix. CBC showed a stable hemoglobin of 8.6, his BUN is up to 74 creatinine is 3.20. Hence I will cut down the Lasix to 20 mg once daily instead of twice daily. Overall the patient seems to be worse while considering his overall multiple comorbidities. Objective - Vital Signs Vital signs: Vital Signs Temp 96.9 F L 04/14/16 15:43 Pulse 60 04/14/16 15:43 Resp 20 04/14/16 15:43 BP 138/68 04/14/16 15:43 Pulse Ox 96 04/14/16 15:43 Intake & Output 04/13/16 04/14/16 04/14/16 18:59 06:59 18:59 Intake Total 2293 125 810 Output Total 340 600 Balance 195 125 210 Weight 67 kg 67 kg Intake: Intake, IV Titration 2293 125 810 Amount Diltiazem 125 mg In 180 125 Sodium Chloride 0.9% 100 ml @ Titrate IV .Q0M [facility] Rx#:[id number] Fat Emulsion 20% 250 ml @ 42 21 mls/hr IV DAILY@1300 [facility]#:[id number] Lactated Ringers 1,000 ml 450 @ 75 mls/hr IV .[id number] [facility] Rx#:[id number] Lactated Ringers 1,000 ml 150 As IV .STK-[facility] ONE Rx#: [id number] Mvi, Adult No.4 with Vit 1571 K 10 ml Trace (Conc-1Ml/ Dose) 1 ml In Amino Acid 5%-D25w+Lytes*E* 1,000 ml @ 70 mls/hr IV .BY DURATION [facility] Rx#: [id number] Mvi, Adult No.4 with Vit 560 K 10 ml Trace (Conc-1Ml/ Dose) 1 ml In Amino Acid 5%-D25w+Lytes*E* 1,000 ml @ 70 mls/hr IV .BY DURATION [facility] Rx#: [id number] Piperacillin-Tazobactam 3 50 100 .375 gm In Dextrose/Water 1 50ml.bag @ 12.5 mls/hr IVPB Q12HR [facility] Rx#: [id number] Output: Urine 340 600 Uretheral (Cazares) 600 Other: Voiding Method Indwelling Catheter - Exam Physical Exam: Revealed a 75-year-old in no distress HEENT:[Neck is supple.] [No neck masses.] [No thyromegaly.] [No JVD.] Nasogastric tube is intact., It will likely be removed today. Chest: [Diminished breath sounds at the bases no crackles or rhonchi or wheezes. ] Cardiac Exam: [Irregular irregular rhythm Normal S1 and S2, no S3 gallop, no murmur.] Abdomen: [Postsurgical, slightly tender , no megaly, no rebound, no guarding, no bowel sounds.] Extremities: [No clubbing, trace of bipedal edema, no cyanosis.] Neurological Exam: [No focal neurologic deficit.] - Labs CBC & Chem 7: 04/14/16 05:54 04/14/16 05:54 Labs: Abnormal Lab Results - Last 24 Hours (Table) 04/13/16 04/13/16 04/14/16 Range/Units 17:27 21:06 05:54 WBC (3.8-10.6) k/uL RBC (4.30-5.90) m/uL Hgb (13.0-17.5) gm/dL Hct (39.0-53.0) % MCHC (31.0-37.0) g/dL RDW (11.5-15.5) % Plt Count (150-450) k/uL Neutrophils # (1.3-7.7) k/uL Lymphocytes # (1.0-4.8) k/uL Carbon Dioxide 21 L (22-30) mmol/L BUN 74 H (9-20) mg/dL Creatinine 3.20 H (0.66-1.25) mg/dL Glucose 160 H (74-99) mg/dL POC Glucose (mg/dL) 140 H 147 H (75-99) mg/dL Calcium 7.7 L (8.4-10.2) mg/dL Phosphorus 4.8 H (2.5-4.5) mg/dL 04/14/16 04/14/16 04/14/16 Range/Units 05:54 06:11 12:04 WBC 16.1 H (3.8-10.6) k/uL RBC 3.21 L (4.30-5.90) m/uL Hgb 8.6 L (13.0-17.5) gm/dL Hct 27.9 L (39.0-53.0) % MCHC 30.8 L (31.0-37.0) g/dL RDW 20.2 H (11.5-15.5) % Plt Count 77 L (150-450) k/uL Neutrophils # 14.7 H (1.3-7.7) k/uL Lymphocytes # 0.5 L (1.0-4.8) k/uL Carbon Dioxide (22-30) mmol/L BUN (9-20) mg/dL Creatinine (0.66-1.25) mg/dL Glucose (74-99) mg/dL POC Glucose (mg/dL) 162 H 158 H (75-99) mg/dL Calcium (8.4-10.2) mg/dL Phosphorus (2.5-4.5) mg/dL Assessment and Plan Plan: 1 acute anemia, microcytic, suggestive of an occult ongoing blood loss and very much concerning an underlying intra-abdominal malignancy or a colonic malignancy resulting into an iron deficiency anemia. 2 possible SMA syndrome, however this is not convincing says the clinical presentation is not consistent with SMA syndrome. On 04/10/2016, patient is feeling better clinically, and his hemoglobin remains low at 6.5 hence he will require more blood transfusion and this will be #6 unit given today. On 04/11/2016, patient had a PICC line placed, he received a total of 7 units of packed RBCs so far since admission, and I believe the patient is being considered for colonoscopy by Dr. Ramos. In the meantime we will continue to monitor in the ICU, and transfuse to keep hemoglobin above 7. In the meantime continue to monitor for pulmonary edema as his the patient has severe cardiomyopathy and LV dysfunction. On 04/12/2016, patient is status post partial colectomy for perforation of the rectosigmoid. Patient has relatively uneventful postoperative course. Hemoglobin remains stable. Total units of transfusions given since admission with 7 units of packed RBCs. On 04/13/2016, patient is doing relatively better than expected, however he remains in A. fib and RVR, and he is on Cardizem drip. We plan to transfer the patient out of the ICU to a cardiac floor/monitor bed. Considering his poor LV function, and considering his abnormal chest x-ray showing bilateral pleural effusions, I would likely could maintain the patient on diuretics. On 04/14/2016, patient continues to do well, his renal functioning seems to be a bit worse, continues to have small bilateral pleural effusions, and I believe this is mostly related to his underlying congestive heart failure and and suspected cardiomyopathy/LV dysfunction, ejection fraction is about 20%. We will keep the patient on diuretics, however I will cut that down to 20 mg daily. 3 cardiomyopathy with generalized hypokinesis and ejection fraction of around 20 % 4 prostate cancer the paresis prostatectomy 5 nicotine addiction/smoking 6 history of alcoholism 7 previous hospital physician for TIA/CVA with diffuse [employer] atrophy 8 severe malnourishment/cachexia, poor appetite and significant loss and total body protein mass 9 troponin leak, nonspecific 10 hyperphosphatemia 11 sinus rhythm with a bundle-branch block pattern, left sided on EKG, chronicity is not known Recommendation: Continue present supportive care measures, start ambulating the patient, we will continue to follow, reviewed the chest x-ray, and discussed his condition with the patient. Time with Patient: Less than 30
[2016-04-14 17:17] LABS: Glucose,Whole Blood 105 mg/dL (75-99)
--- NOTE | 2016-04-14 18:15 | P.PN ---
Subjective Patient is a 75-year-old male admitted with evidence of GI bleed status post transfusion of 7 units of PRBC total since admission. 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 On 04/11/2016, patient underwent colonoscopy for GI bleed with no evidence of blood in the colon. Patient subsequently developed abdominal pain after colonoscopy with abdominal x-ray showing evidence of free air. Patient was taken to the operating room for bowel perforation with findings of perforation of the rectosigmoid and underwent partial colectomy. Patient is evaluated on the selective care unit. Patient complains of mild abdominal pain with movement. Denies nausea or vomiting. Report flatus without bowel movement. No evidence of active bleeding. Urine output adequate. Afebrile. WBC increased to 16.1. Hemoglobin decreased to 8.6. Chest x-ray from this morning with evidence of persistent free intraperitoneal air. Biopsy of gastric body positive for H. pylori. Objective - Vital Signs Vital signs: Vital Signs Temp 96.9 F L 04/14/16 15:43 Pulse 60 04/14/16 15:43 Resp 20 04/14/16 15:43 BP 138/68 04/14/16 15:43 Pulse Ox 96 04/14/16 15:43 Intake & Output 04/13/16 04/14/16 04/14/16 18:59 06:59 18:59 Intake Total 2293 125 810 Output Total 340 600 Balance 3 125 210 Weight 67 kg 67 kg Intake: Intake, IV Titration 2293 125 810 Amount Diltiazem 125 mg In 180 125 Sodium Chloride 0.9% 100 ml @ Titrate IV .Q0M [facility] Rx#:[id number] Fat Emulsion 20% 250 ml @ 42 21 mls/hr IV DAILY@1300 [facility] Rx#:[id number] Lactated Ringers 1,000 ml 450 @ 75 mls/hr IV .[id number] [facility] Rx#:[id number] Lactated Ringers 1,000 ml 150 As IV .[facility] Rx#: [id number] Mvi, Adult No.4 with Vit 1571 K 10 ml Trace (Conc-1Ml/ Dose) 1 ml In Amino Acid 5%-D25w+Lytes*E* 1,000 ml @ 70 mls/hr IV .BY DURATION [facility] Rx#: [id number] Mvi, Adult No.4 with Vit 560 K 10 ml Trace (Conc-1Ml/ Dose) 1 ml In Amino Acid 5%-D25w+Lytes*E* 1,000 ml @ 70 mls/hr IV .BY DURATION [facility] Rx#: [id number] Piperacillin-Tazobactam 3 50 100 .375 gm In Dextrose/Water 1 50ml.bag @ 12.5 mls/hr IVPB Q12HR [facility] Rx#: [id number] Output: Urine 340 600 Uretheral (Cazares) 600 Other: Voiding Method Indwelling Catheter - Exam GENERAL: Pt awake and alert, cachectic, in no acute distress. HEART: Heart S1, S2, no S3 or S4. Irregularly irregular. ABDOMEN: Soft, mild incisional tenderness, active bowel sounds. No guarding, no rebound. Abdominal incision saturated with serosanguineous drainage. Suki intact. No erythema or purulent drainage. NEUROLOGICAL: Pt oriented x 3. - Labs CBC & Chem 7: 04/14/16 05:54 04/14/16 05:54 Labs: Abnormal Lab Results - Last 24 Hours (Table) 04/13/16 04/14/16 04/14/16 Range/Units 21:06 05:54 05:54 WBC 16.1 H (3.8-10.6) k/uL RBC 3.21 L (4.30-5.90) m/uL Hgb 8.6 L (13.0-17.5) gm/dL Hct 27.9 L (39.0-53.0) % MCHC 30.8 L (31.0-37.0) g/dL RDW 20.2 H (11.5-15.5) % Plt Count 77 L (150-450) k/uL Neutrophils # 14.7 H (1.3-7.7) k/uL Lymphocytes # 0.5 L (1.0-4.8) k/uL Carbon Dioxide 21 L (22-30) mmol/L BUN 74 H (9-20) mg/dL Creatinine 3.20 H (0.66-1.25) mg/dL Glucose 160 H (74-99) mg/dL POC Glucose (mg/dL) 147 H (75-99) mg/dL Calcium 7.7 L (8.4-10.2) mg/dL Phosphorus 4.8 H (2.5-4.5) mg/dL 04/14/16 04/14/16 04/14/16 Range/Units 06:11 12:04 17:16 WBC (3.8-10.6) k/uL RBC (4.30-5.90) m/uL Hgb (13.0-17.5) gm/dL Hct (39.0-53.0) % MCHC (31.0-37.0) g/dL RDW (11.5-15.5) % Plt Count (150-450) k/uL Neutrophils # (1.3-7.7) k/uL Lymphocytes # (1.0-4.8) k/uL Carbon Dioxide (22-30) mmol/L BUN (9-20) mg/dL Creatinine (0.66-1.25) mg/dL Glucose (74-99) mg/dL POC Glucose (mg/dL) 162 H 158 H 105 H (75-99) mg/dL Calcium (8.4-10.2) mg/dL Phosphorus (2.5-4.5) mg/dL Assessment and Plan Plan: Impression: 1. Acute anemia, microcytic, suggestive of occult ongoing blood loss suspect secondary to gastric ulcer secondary to H. pylori.. 2. Possible SMA syndrome. 3. Small hiatal hernia. 4. Status post partial colectomy for perforation of rectosigmoid on 04/12/2016. 5. Malnutrition, protein calorie, severe. Plan: *Patient on clear liquid diet. Continue TPN. Continue local wound care. Continue IV hydration. Continue supportive treatment and pain management. Increase activity. Continue incentive spirometry 10 times an hour while awake. Continue physical therapy. Continue to follow medical team. Repeat CBC and BMP in a.m. The above impression and plan have been discussed and directed by Dr. Ramos. Casa KNIGHT acting as scribe for Dr. Ramos.
--- NOTE | 2016-04-14 18:24 | P.PN ---
Subjective 75-year-old gentleman with history of peptic ulcer disease comes in to the hospital with a 60 pound weight loss due to pain associated with ingestion of food. Patient was noted to have anemia on admission. Patient underwent a upper endoscopy was noted to have a large ulcer that was not bleeding. Thereafter patient also underwent a colonoscopy on 04/11/2016. Unfortunately there was a competition with abdominal perforation and patient was noted to have free air in the abdomen thereafter patient underwent a sigmoid colectomy and laparotomy. Patient was started on TPN on 04/10/2016. Patient is tolerating currently. On 04/12/2016and During my exmination patient was not complaining of any pain at rest however does complain of pain in his abdomen with minimal movement. Patient was noted to have a irregularly irregular tachycardia. Patient does have a left bundle branch block at baseline. Denies having any chest pain difficulty breathing headaches blurry vision. 04/13/2016 Patient denies having any additional complaints. States to have some abdominal discomfort. 04/14/16 No new overnight events. Denies passing gas. Tolerating CLD> NO fevers, chills, chest pain, KOFFI reported. Objective - Vital Signs Vital signs: Vital Signs Temp 96.9 F L 04/14/16 15:43 Pulse 60 04/14/16 15:43 Resp 20 04/14/16 15:43 BP 138/68 04/14/16 15:43 Pulse Ox 96 04/14/16 15:43 Intake & Output 04/13/16 04/14/16 04/14/16 18:59 06:59 18:59 Intake Total 2293 125 810 Output Total 340 600 Balance 1953 125 210 Weight 67 kg 67 kg Intake: Intake, IV Titration 2293 125 810 Amount Diltiazem 125 mg In 180 125 Sodium Chloride 0.9% 100 ml @ Titrate IV .Q0M [facility] Rx#:[id number] Fat Emulsion 20% 250 ml @ 42 21 mls/hr IV DAILY@1300 [facility] Rx#:[id number] Lactated Ringers 1,000 ml 450 @ 75 mls/hr IV .[id number] [facility] Rx#:[id number] Lactated Ringers 1,000 ml 150 As IV .[facility] Rx#: [id number] Mvi, Adult No.4 with Vit 1571 K 10 ml Trace (Conc-1Ml/ Dose) 1 ml In Amino Acid 5%-D25w+Lytes*E* 1,000 ml @ 70 mls/hr IV .BY DURATION [facility] Rx#: [id number] Mvi, Adult No.4 with Vit 560 K 10 ml Trace (Conc-1Ml/ Dose) 1 ml In Amino Acid 5%-D25w+Lytes*E* 1,000 ml @ 70 mls/hr IV .BY DURATION [facility] Rx#: [id number] Piperacillin-Tazobactam 3 50 100 .375 gm In Dextrose/Water 1 50ml.bag @ 12.5 mls/hr IVPB Q12HR [facility] Rx#: [id number] Output: Urine 340 600 Uretheral (Cazares) 600 Other: Voiding Method Indwelling Catheter - Exam Gen. appearance patient is extremity cachectic Neck is supple no JVD Heart S1-S2 heard irregularly irregular tachycardic Abdomen is tender to palpation is a midline incision that is noted no organomegaly is appreciated Lungs good air entry clear to auscultation or rhonchi or wheezing noted His a PICC line on the left upper arm Neurologically no focal motor or sensory deficits noted - Labs CBC & Chem 7: 04/14/16 05:54 04/14/16 05:54 Labs: Abnormal Lab Results - Last 24 Hours (Table) 04/13/16 04/14/16 04/14/16 Range/Units 21:06 05:54 05:54 WBC 16.1 H (3.8-10.6) k/uL RBC 3.21 L (4.30-5.90) m/uL Hgb 8.6 L (13.0-17.5) gm/dL Hct 27.9 L (39.0-53.0) % MCHC 30.8 L (31.0-37.0) g/dL RDW 20.2 H (11.5-15.5) % Plt Count 77 L (150-450) k/uL Neutrophils # 14.7 H (1.3-7.7) k/uL Lymphocytes # 0.5 L (1.0-4.8) k/uL Carbon Dioxide 21 L (22-30) mmol/L BUN 74 H (9-20) mg/dL Creatinine 3.20 H (0.66-1.25) mg/dL Glucose 160 H (74-99) mg/dL POC Glucose (mg/dL) 147 H (75-99) mg/dL Calcium 7.7 L (8.4-10.2) mg/dL Phosphorus 4.8 H (2.5-4.5) mg/dL 04/14/16 04/14/16 04/14/16 Range/Units 06:11 12:04 17:16 WBC (3.8-10.6) k/uL RBC (4.30-5.90) m/uL Hgb (13.0-17.5) gm/dL Hct (39.0-53.0) % MCHC (31.0-37.0) g/dL RDW (11.5-15.5) % Plt Count (150-450) k/uL Neutrophils # (1.3-7.7) k/uL Lymphocytes # (1.0-4.8) k/uL Carbon Dioxide (22-30) mmol/L BUN (9-20) mg/dL Creatinine (0.66-1.25) mg/dL Glucose (74-99) mg/dL POC Glucose (mg/dL) 162 H 158 H 105 H (75-99) mg/dL Calcium (8.4-10.2) mg/dL Phosphorus (2.5-4.5) mg/dL Assessment and Plan Plan: #1 acute on chronic blood loss anemia from a GI source compensated systolic heart failure #4 prostate cancer status post prostatectomy #5 chronic tobacco dependence #6 severe protein calorie malnutrition #7 hypophosphatemia #8 indeterminate troponin leak #9 wide-complex tachycardia appears to have some aberrant conduction currently maintained on a Cardizem drip Plan Continue TPN. Continue Cardizem drip. In regards to restarting diet defer to surgery. Patient has multiple comorbidities. Prognosis is guarded Pt will be monitered as diet is advanced. Repeat labs in the am. Will start oral cardizem to titrate off drip vero in the am. DVT prophylaxis.
[2016-04-14] MEDS ORDERED: METOPROLOL TARTRATE 5 MG/5 ML VIAL IVP PRN (22:55)
[2016-04-14] MEDS: METOPROLOL TARTRATE 25 MG TAB PO SCH (23:25)
[2016-04-14] MEDS: IPRATROPIUM-ALBUTEROL 3 ML NEB INHALATION PRN (23:49)
[2016-04-15] MEDS: INSULIN LISPRO (humaLOG) 300 UNIT/3 ML VIAL SQ SCH ×4 (00:06→19:56)
[2016-04-15 00:14] LABS: Glucose,Whole Blood 173 mg/dL (75-99)
[2016-04-15] MEDS: 1: MVI, ADULT NO.4 WITH VIT K 10 ML, TRACE (CONC-1ML/DOSE) 1 ML in AMINO ACID 5%-D25W+LY IV SCH ×6 (04:47)
[2016-04-15 05:09] LABS: Anisocytosis Moderate; Basophils % (A) 0 %; CH 26.7; CHCM 30.2; Eosinophils % (A) 0 %; HCT 28.2 % (39.0-53.0); HDW 4.38; HGB 8.5 gm/dL (13.0-17.5); Hypochromasia Marked; Large Platelets Flag Marked; Luc % (Auto) 2; Lymphocytes # (A) 0.7 k/uL (1.0-4.8); Lymphocytes % (A) 5 %; MCH 26.6 pg (25.0-35.0); MCHC 30.3 g/dL (31.0-37.0); MCV 88.1 fL (80.0-100.0); Mean Platelet Volume 12.9; Microcytosis Slight; Monocytes # (A) 0.5 k/uL (0-1.0); Monocytes % (A) 4 %; Neutrophils # (A) 13.4 k/uL (1.3-7.7); Neutrophils % (A) 90 %; Poikilocytosis Moderate; RBC 3.21 m/uL (4.30-5.90); RDW 20.1 % (11.5-15.5); WBC 14.9 k/uL (3.8-10.6)
[2016-04-15 05:19] LABS: Ionized Calcium 4.7 mg/dL (4.5-5.3)
[2016-04-15 05:32] LABS: Magnesium 2.3 mg/dL (1.6-2.3); Phosphorous 4.6 mg/dL (2.5-4.5); Potassium 4.6 mmol/L (3.5-5.1)
[2016-04-15 06:41] LABS: Glucose,Whole Blood 149 mg/dL (75-99)
[2016-04-15] MEDS ORDERED: LACTATED RINGERS 500 ML IV ONE (06:45)
[2016-04-15] MEDS ORDERED: LACTATED RINGERS 1,000 ML IV ONE (06:45)
[2016-04-15] MEDS: LACTATED RINGERS 1,000 ML IV SCH (06:46)
--- NOTE | 2016-04-15 07:49 | XR ---
EXAMINATION TYPE: XR chest 1V portable DATE OF EXAM: 04/15/2016 7:21 AM COMPARISON: 04/14/2016 INDICATION: Increased shortness of breath TECHNIQUE: Single frontal view of the chest is obtained. FINDINGS: The heart size is normal. The pulmonary vasculature is normal. There is a right lower lobe infiltrate. Correlate for pneumonia. Minimal right and small left pleural effusion is present. Some mild left basilar infiltrate is present. Findings are worsening over the i nterval. PICC line enters on the left with tip in superior vena cava region. IMPRESSION: 1. Worsening bilateral lower lobe infiltrates greater on the right, with small bilateral pleural effu sions, larger on the left.
--- NOTE | 2016-04-15 08:10 | P.PN ---
Subjective Alert... Decreased UOP overnight. pain controlled. BP on lower side. is tolerating pills. On TPN, getting LR fluid bolus. Objective - Vital Signs Vital signs: Vital Signs Temp 97.2 F L 04/15/16 04:00 Pulse 120 H 04/15/16 06:53 Resp 22 04/15/16 04:00 BP 97/59 04/15/16 06:53 Pulse Ox 95 04/15/16 04:00 Intake & Output 04/14/16 04/15/16 04/15/16 18:59 06:59 18:59 Intake Total 810 920 870 Output Total 600 400 Balance 210 520 870 Weight 67 kg 74 kg Intake: Intake, IV Titration 810 920 870 Amount Lactated Ringers 1,000 ml 450 450 @ 75 mls/hr IV .[id number] [facility] Rx#:[id number] Lactated Ringers 1,000 ml 150 As IV .STK-MED ONE Rx#: [id number] Mvi, Adult No.4 with Vit 560 420 K 10 ml Trace (Conc-1Ml/ Dose) 1 ml In Amino Acid 5%-D25w+Lytes*E* 1,000 ml @ 70 mls/hr IV .BY [facility] Rx#: [id number] Parenteral Electrolytes 420 20 ml Potassium Acetate 10 meq In Amino Acid 5%- D25w 1,000 ml @ 70 mls/hr IV .BY [facility] Rx#: [id number] Piperacillin-Tazobactam 3 100 50 .375 gm In Dextrose/Water 1 50ml.bag @ 12.5 mls/hr IVPB Q12HR [facility] Rx#: [id number] Output: Urine 600 400 Straight 400 Uretheral (Cazares) 600 - Constitutional General appearance: Present: no acute distress - Respiratory Respiratory: bilateral: CTA - Cardiovascular Rhythm: irregularly irregular - Peripheral edema leg Peripheral Edema: bilateral: None - Gastrointestinal General gastrointestinal: Present: decreased bowel sounds - Labs CBC & Chem 7: 04/15/16 04:51 04/15/16 04:45 Labs: Abnormal Lab Results - Last 24 Hours (Table) 04/14/16 04/14/16 04/14/16 Range/Units 12:04 17:16 23:49 WBC (3.8-10.6) k/uL RBC (4.30-5.90) m/uL Hgb (13.0-17.5) gm/dL Hct (39.0-53.0) % MCHC (31.0-37.0) g/dL RDW (11.5-15.5) % Plt Count (150-450) k/uL Neutrophils # (1.3-7.7) k/uL Lymphocytes # (1.0-4.8) k/uL Carbon Dioxide (22-30) mmol/L BUN (9-20) mg/dL Creatinine (0.66-1.25) mg/dL POC Glucose (mg/dL) 158 H 105 H (75-99) mg/dL Plasma Lactic Acid Yaw 2.6 H* (0.7-2.0) mmol/L Calcium (8.4-10.2) mg/dL Phosphorus (2.5-4.5) mg/dL 04/15/16 04/15/16 04/15/16 Range/Units 00:00 04:45 04:45 WBC (3.8-10.6) k/uL RBC (4.30-5.90) m/uL Hgb (13.0-17.5) gm/dL Hct (39.0-53.0) % MCHC (31.0-37.0) g/dL RDW (11.5-15.5) % Plt Count (150-450) k/uL Neutrophils # (1.3-7.7) k/uL Lymphocytes # (1.0-4.8) k/uL Carbon Dioxide 18 L (22-30) mmol/L BUN 83 H* (9-20) mg/dL Creatinine 3.55 H (0.66-1.25) mg/dL POC Glucose (mg/dL) 173 H (75-99) mg/dL Plasma Lactic Acid Yaw 2.1 H (0.7-2.0) mmol/L Calcium 8.0 L (8.4-10.2) mg/dL Phosphorus 4.6 H (2.5-4.5) mg/dL 04/15/16 04/15/16 Range/Units 04:51 06:11 WBC 14.9 H (3.8-10.6) k/uL RBC 3.21 L (4.30-5.90) m/uL Hgb 8.5 L (13.0-17.5) gm/dL Hct 28.2 L (39.0-53.0) % MCHC 30.3 L (31.0-37.0) g/dL RDW 20.1 H (11.5-15.5) % Plt Count 80 L (150-450) k/uL Neutrophils # 13.4 H (1.3-7.7) k/uL Lymphocytes # 0.7 L (1.0-4.8) k/uL Carbon Dioxide (22-30) mmol/L BUN (9-20) mg/dL Creatinine (0.66-1.25) mg/dL POC Glucose (mg/dL) 149 H (75-99) mg/dL Plasma Lactic Acid Yaw (0.7-2.0) mmol/L Calcium (8.4-10.2) mg/dL Phosphorus (2.5-4.5) mg/dL Assessment and Plan Plan: Assessment: #1. Nonoliguric acute kidney injury secondary to ischemic ATN secondary to severe anemia/hemodynamic instability. BP on lower side. --Receiving IVF bolus now. --D/C lasix. --Add NaHCO3 1300mg bid for worsening acidosis (lactic acid is trending down) --Heplock IV. Continue TPN 70ml/hr. --Fluid bolus with 0.9NS if BP remains low. #2. Chronic kidney disease stage III with baseline creatinine near 1.8. #3. Acute anemia status post packed red blood cell transfusions. #4. Atrial fibrillation with RVR. --On cardizem gtt #5. Status post partial colectomy due to perforation.
[2016-04-15] MEDS: PANTOPRAZOLE 40 MG/10 ML VIAL IV SCH (08:32)
[2016-04-15] MEDS: PIPERACILLIN-TAZOBACTAM 3.375 GM in DEXTROSE/WATER 1 50ML.BAG IVPB SCH ×2 (08:32→22:32)
[2016-04-15] MEDS: METOPROLOL TARTRATE 25 MG TAB PO SCH ×2 (08:33→19:55)
--- NOTE | 2016-04-15 10:18 | P.PN ---
Subjective Principal diagnosis: Peptic ulcer disease, blood loss anemia, colon perforation status post resection The patient is seen on rounds. He's tolerating clear liquids. He's not hungry. He hasn't passed flatus. Pain is controlled. Denies chest pain or shortness of breath. Objective - Vital Signs Vital signs: Vital Signs Temp 97.0 F L 04/15/16 08:00 Pulse 111 H 04/15/16 08:00 Resp 28 H 04/15/16 08:00 BP 96/64 04/15/16 08:00 Pulse Ox 95 04/15/16 04:00 Intake & Output 04/14/16 04/15/16 04/15/16 18:59 06:59 18:59 Intake Total 810 920 870 Output Total 600 400 Balance 210 520 870 Weight 67 kg 74 kg Intake: Intake, IV Titration 810 920 870 Amount Lactated Ringers 1,000 ml 450 450 @ 75 mls/hr IV .[id number] [facility] Rx#:[id number] Lactated Ringers 1,000 ml 150 As IV .K-MED ONE Rx#: [id number] Mvi, Adult No.4 with Vit 560 420 K 10 ml Trace (Conc-1Ml/ Dose) 1 ml In Amino Acid 5%-D25w+Lytes*E* 1,000 ml @ 70 mls/hr IV .BY DURATION [facility] Rx#: [id number] Parenteral Electrolytes 420 20 ml Potassium Acetate 10 meq In Amino Acid 5%- D25w 1,000 ml @ 70 mls/hr IV .BY DURATION [facility] Rx#: [id number] Piperacillin-Tazobactam 3 100 50 .375 gm In Dextrose/Water 1 50ml.bag @ 12.5 mls/hr IVPB Q12HR [facility] Rx#: [id number] Output: Urine 600 400 Straight 400 Uretheral (Cazares) 600 - Constitutional General appearance: Present: cooperative, thin - Respiratory Respiratory: bilateral: CTA - Cardiovascular Rhythm: regular - Gastrointestinal General gastrointestinal: Present: decreased bowel sounds, distended (Mildly), soft Localized gastrointestinal: surgical scar: midline (The incision is intact. There is moderate amount to large amount of serous drainage in the lower midline ) - Labs CBC & Chem 7: 04/15/16 04:51 04/15/16 04:45 Labs: Abnormal Lab Results - Last 24 Hours (Table) 04/14/16 04/14/16 04/14/16 Range/Units 12:04 17:16 23:49 WBC (3.8-10.6) k/uL RBC (4.30-5.90) m/uL Hgb (13.0-17.5) gm/dL Hct (39.0-53.0) % MCHC (31.0-37.0) g/dL RDW (11.5-15.5) % Plt Count (150-450) k/uL Neutrophils # (1.3-7.7) k/uL Lymphocytes # (1.0-4.8) k/uL Carbon Dioxide (22-30) mmol/L BUN (9-20) mg/dL Creatinine (0.66-1.25) mg/dL POC Glucose (mg/dL) 158 H 105 H (75-99) mg/dL Plasma Lactic Acid Yaw 2.6 H* (0.7-2.0) mmol/L Calcium (8.4-10.2) mg/dL Phosphorus (2.5-4.5) mg/dL 04/15/16 04/15/16 04/15/16 Range/Units 00:00 04:45 04:45 WBC (3.8-10.6) k/uL RBC (4.30-5.90) m/uL Hgb (13.0-17.5) gm/dL Hct (39.0-53.0) % MCHC (31.0-37.0) g/dL RDW (11.5-15.5) % Plt Count (150-450) k/uL Neutrophils # (1.3-7.7) k/uL Lymphocytes # (1.0-4.8) k/uL Carbon Dioxide 18 L (22-30) mmol/L BUN 83 H* (9-20) mg/dL Creatinine 3.55 H (0.66-1.25) mg/dL POC Glucose (mg/dL) 173 H (75-99) mg/dL Plasma Lactic Acid Yaw 2.1 H (0.7-2.0) mmol/L Calcium 8.0 L (8.4-10.2) mg/dL Phosphorus 4.6 H (2.5-4.5) mg/dL 04/15/16 04/15/16 Range/Units 04:51 06:11 WBC 14.9 H (3.8-10.6) k/uL RBC 3.21 L (4.30-5.90) m/uL Hgb 8.5 L (13.0-17.5) gm/dL Hct 28.2 L (39.0-53.0) % MCHC 30.3 L (31.0-37.0) g/dL RDW 20.1 H (11.5-15.5) % Plt Count 80 L (150-450) k/uL Neutrophils # 13.4 H (1.3-7.7) k/uL Lymphocytes # 0.7 L (1.0-4.8) k/uL Carbon Dioxide (22-30) mmol/L BUN (9-20) mg/dL Creatinine (0.66-1.25) mg/dL POC Glucose (mg/dL) 149 H (75-99) mg/dL Plasma Lactic Acid Yaw (0.7-2.0) mmol/L Calcium (8.4-10.2) mg/dL Phosphorus (2.5-4.5) mg/dL Assessment and Plan (1) Peptic ulcer disease with hemorrhage Status: Acute (2) Helicobacter pylori (H. pylori) Status: Acute (3) Protein-calorie malnutrition, severe Status: Acute Plan: Monitor the wound. Add some supplements and since he's not eating well. Encourage activity. Monitor hemoglobin. Treat for the H. pylori. Progressing very slowly
[2016-04-15] MEDS ORDERED: AMOXICILLIN 875 MG TAB PO SCH (10:30)
--- NOTE | 2016-04-15 11:04 | P.PN ---
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 The patient had lost according to the family approximately 40 pounds over the past month. I was told that he had not been eating for the past 4-6 days. The patient is awake and alert and he claims that he has no appetite and obviously he is a failure to thrive, given up on life, very much cachectic and emaciated with significant malnourishment and thought the loss and by the protein mass. In addition, the patient was an acute kidney injury with his creatinine was found to be at 4.5. He was found to be profoundly anemic with his initially was at 4.2. The patient did not have any obvious source of internal or external bleeding. He has remote history of prostate cancer and has undergone a prostatectomy. No history of any malignancy. He was in the hospital back in June 2015 for some symptoms of TIA. Back then he had a CAT scan of the brain that was negative unit showed diffuse DIRECTOR C[employer]OMER atrophy and was negative for any acute CVA. The workup back then included a carotid Doppler that was negative for any hemodynamically significant stenosis and the patient had an echocardiogram that showed global hypokinesis with an ejection fraction of around 20%. The patient was under the care of Dr. Ochoa. He was discharged home. He claims to be following up with Dr. Ronquillo. He is a chronic smoker. No alcoholism. No substance abuse. No constipation. No abdominal distention. No GI bleeding. No hematemesis. He did vomit on few occasions however on outpatient basis. He is moving all 4 extremities and there is no limitation in his body movements. He was given a total of 2 units of packed RBCs yesterday and his hemoglobin is up to 6.4. An additional 1 unit will be given to him right now. He also received fluids in the order of 3 L normal saline and currently is on a maintenance of 100 mL an hour of 3 Amp bicarbonate with D5 water. Patient was reevaluated today on 04/12/2016, apparently the patient underwent colonoscopy yesterday, and postoperatively was noted to have free air on the x- rays of the abdomen. Hence the patient underwent partial colectomy for perforation of rectosigmoid area. Patient was extubated uneventfully after his surgery, he is now in the intensive care unit, hemodynamically stable, continues to have a nasogastric tube in place, and seems to be in no form of respiratory distress. His hemoglobin seems to be stable, today it is 10.9. Patient received a total of 7 units of packed RBCs since admission. Renal profile has improved but is not improving any further, creatinine is 2.90 today. Chest x-ray showed pneumoperitoneum, and bilateral areas of atelectasis or infiltrates with pleural effusions. Hence I will cut down his IV fluid, patient is making good amount of urine on his own. Hence I will not diuresis at this point. Patient remains on Zosyn which is appropriate for now Patient was reevaluated on 04/13/2016, seems to be doing relatively well, remains on Cardizem drip as per cardiology for his A. fib/RVR. Patient is doing well, hemoglobin is stable at 9.2 WBC count is 15.0. Electrolytes are relatively normal BUN remains elevated at 67 creatinine is 2.90 about the same as it was in the last couple of days. Patient denies any abdominal pain, no nausea, no vomiting, and he denies any shortness of breath. Chest x-ray is improved, however it continues to show by basilar infiltrates and pleural effusions. Patient remains on antibiotics accordingly. Patient was seen today on 04/14/2016, seems to be doing relatively well, less shortness of breath, no cough no wheezing no chest pain, remains nothing by mouth, and his nasogastric tube was removed. Chest x-ray continues to show some bibasilar atelectasis and small bilateral pleural effusions, patient remains on Lasix. CBC showed a stable hemoglobin of 8.6, his BUN is up to 74 creatinine is 3.20. Hence I will cut down the Lasix to 20 mg once daily instead of twice daily. Overall the patient seems to be worse while considering his overall multiple comorbidities. Patient was reevaluated today on 04/15/2016, clinically he feels much better, breathing a lot easier, however his chest x-ray is suggestive of bilateral infiltrates in the lower lobes, and possibly bilateral pleural effusions. Patient is known to have history of cardiomyopathy and LV dysfunction, and he remains on diuretics. However his renal profile seems to be worsening, and I believe this is more of a cardiorenal syndrome. Although the patient presented with hypertension, and he may have sustained acute kidney injury upon presentation from acute tubular necrosis. However his being followed by nephrology, and urine output seems to be reasonable. Patient remains on antibiotics for presumptive by basilar infiltrates. CBC showed leukocytosis today with a WBC count of 14.9. Hemoglobin is stable at 8.5 BUN is 83 creatinine is 3.55. Chest x-ray is worrisome but clinically the patient is doing well, denies any cough no wheezing denies any shortness of breath, he is actually on room air saturating quite nicely. Objective - Vital Signs Vital signs: Vital Signs Temp 97.0 F L 04/15/16 08:00 Pulse 111 H 04/15/16 08:00 Resp 28 H 04/15/16 08:00 BP 96/64 04/15/16 08:00 Pulse Ox 95 04/15/16 08:00 Intake & Output 04/14/16 04/15/16 04/15/16 18:59 06:59 18:59 Intake Total 810 920 870 Output Total 600 400 Balance 210 520 870 Weight 67 kg 74 kg Intake: Intake, IV Titration 810 920 870 Amount Lactated Ringers 1,000 ml 450 450 @ 75 mls/hr IV .[id number] [facility] Rx#:[id number] Lactated Ringers 1,000 ml 150 As IV .STK-MED ONE Rx#: [id number] Mvi, Adult No.4 with Vit 560 420 K 10 ml Trace (Conc-1Ml/ Dose) 1 ml In Amino Acid 5%-D25w+Lytes*E* 1,000 ml @ 70 mls/hr IV .BY DURATION [facility] Rx#: [id number] Parenteral Electrolytes 420 20 ml Potassium Acetate 10 meq In Amino Acid 5%- D25w 1,000 ml @ 70 mls/hr IV .BY DURATION [facility] Rx#: [id number] Piperacillin-Tazobactam 3 100 50 .375 gm In Dextrose/Water 1 50ml.bag @ 12.5 mls/hr IVPB Q12HR [facility] Rx#: [id number] Output: Urine 600 400 Straight 400 Uretheral (Cazares) 600 - Exam Physical Exam: Revealed a 75-year-old in no distress HEENT:[Neck is supple.] [No neck masses.] [No thyromegaly.] [No JVD.] Nasogastric tube is intact., It will likely be removed today. Chest: [Diminished breath sounds at the bases no crackles or rhonchi or wheezes. ] Cardiac Exam: [Irregular irregular rhythm Normal S1 and S2, no S3 gallop, no murmur.] Abdomen: [Postsurgical, slightly tender , no megaly, no rebound, no guarding, no bowel sounds.] Extremities: [No clubbing, trace of bipedal edema, no cyanosis.] Neurological Exam: [No focal neurologic deficit.] - Labs CBC & Chem 7: 04/15/16 04:51 04/15/16 04:45 Labs: Abnormal Lab Results - Last 24 Hours (Table) 04/14/16 04/14/16 04/14/16 Range/Units 12:04 17:16 23:49 WBC (3.8-10.6) k/uL RBC (4.30-5.90) m/uL Hgb (13.0-17.5) gm/dL Hct (39.0-53.0) % MCHC (31.0-37.0) g/dL RDW (11.5-15.5) % Plt Count (150-450) k/uL Neutrophils # (1.3-7.7) k/uL Lymphocytes # (1.0-4.8) k/uL Carbon Dioxide (22-30) mmol/L BUN (9-20) mg/dL Creatinine (0.66-1.25) mg/dL POC Glucose (mg/dL) 158 H 105 H (75-99) mg/dL Plasma Lactic Acid Yaw 2.6 H* (0.7-2.0) mmol/L Calcium (8.4-10.2) mg/dL Phosphorus (2.5-4.5) mg/dL 04/15/16 04/15/16 04/15/16 Range/Units 00:00 04:45 04:45 WBC (3.8-10.6) k/uL RBC (4.30-5.90) m/uL Hgb (13.0-17.5) gm/dL Hct (39.0-53.0) % MCHC (31.0-37.0) g/dL RDW (11.5-15.5) % Plt Count (150-450) k/uL Neutrophils # (1.3-7.7) k/uL Lymphocytes # (1.0-4.8) k/uL Carbon Dioxide 18 L (22-30) mmol/L BUN 83 H* (9-20) mg/dL Creatinine 3.55 H (0.66-1.25) mg/dL POC Glucose (mg/dL) 173 H (75-99) mg/dL Plasma Lactic Acid Yaw 2.1 H (0.7-2.0) mmol/L Calcium 8.0 L (8.4-10.2) mg/dL Phosphorus 4.6 H (2.5-4.5) mg/dL 04/15/16 04/15/16 Range/Units 04:51 06:11 WBC 14.9 H (3.8-10.6) k/uL RBC 3.21 L (4.30-5.90) m/uL Hgb 8.5 L (13.0-17.5) gm/dL Hct 28.2 L (39.0-53.0) % MCHC 30.3 L (31.0-37.0) g/dL RDW 20.1 H (11.5-15.5) % Plt Count 80 L (150-450) k/uL Neutrophils # 13.4 H (1.3-7.7) k/uL Lymphocytes # 0.7 L (1.0-4.8) k/uL Carbon Dioxide (22-30) mmol/L BUN (9-20) mg/dL Creatinine (0.66-1.25) mg/dL POC Glucose (mg/dL) 149 H (75-99) mg/dL Plasma Lactic Acid Yaw (0.7-2.0) mmol/L Calcium (8.4-10.2) mg/dL Phosphorus (2.5-4.5) mg/dL Assessment and Plan Plan: 1 acute anemia, microcytic, suggestive of an occult ongoing blood loss and very much concerning an underlying intra-abdominal malignancy or a colonic malignancy resulting into an iron deficiency anemia. 2 possible SMA syndrome, however this is not convincing says the clinical presentation is not consistent with SMA syndrome. On 04/10/2016, patient is feeling better clinically, and his hemoglobin remains low at 6.5 hence he will require more blood transfusion and this will be #6 unit given today. On 04/11/2016, patient had a PICC line placed, he received a total of 7 units of packed RBCs so far since admission, and I believe the patient is being considered for colonoscopy by Dr. Ramos. In the meantime we will continue to monitor in the ICU, and transfuse to keep hemoglobin above 7. In the meantime continue to monitor for pulmonary edema as his the patient has severe cardiomyopathy and LV dysfunction. On 04/12/2016, patient is status post partial colectomy for perforation of the rectosigmoid. Patient has relatively uneventful postoperative course. Hemoglobin remains stable. Total units of transfusions given since admission with 7 units of packed RBCs. On 04/13/2016, patient is doing relatively better than expected, however he remains in A. fib and RVR, and he is on Cardizem drip. We plan to transfer the patient out of the ICU to a cardiac floor/monitor bed. Considering his poor LV function, and considering his abnormal chest x-ray showing bilateral pleural effusions, I would likely could maintain the patient on diuretics. On 04/14/2016, patient continues to do well, his renal functioning seems to be a bit worse, continues to have small bilateral pleural effusions, and I believe this is mostly related to his underlying congestive heart failure and and suspected cardiomyopathy/LV dysfunction, ejection fraction is about 20%. We will keep the patient on diuretics, however I will cut that down to 20 mg daily. On 04/15/2016, no major change except chest x-ray is more suggestive of worsening infiltrates in lower lobes. Patient remains on antibiotics and diuretics, renal functioning seems to be worsening again. And I believe the patient has what seems to be a cardiorenal syndrome. 3 cardiomyopathy with generalized hypokinesis and ejection fraction of around 20 % 4 prostate cancer the paresis prostatectomy 5 nicotine addiction/smoking 6 history of alcoholism 7 previous hospital physician for TIA/CVA with diffuse [employer] CUSTOMER atrophy 8 severe malnourishment/cachexia, poor appetite and significant loss and total body protein mass 9 troponin leak, nonspecific 10 hyperphosphatemia 11 sinus rhythm with a bundle-branch block pattern, left sided on EKG, chronicity is not known Recommendation: Continue present supportive care measures, start ambulating the patient, we will continue to follow, reviewed the chest x-ray, and discussed his condition with the patient. Time with Patient: Less than 30
[2016-04-15] MEDS: FOLIC ACID 1 MG TAB PO SCH (11:44)
[2016-04-15] MEDS: SODIUM BICARBONATE TAB 650 MG TAB PO SCH ×2 (11:44→22:18)
[2016-04-15] MEDS: CLARITHROMYCIN 500 MG TAB PO SCH ×2 (11:45→22:18)
[2016-04-15 11:49] LABS: Glucose,Whole Blood 135 mg/dL (75-99)
[2016-04-15] MEDS ORDERED: FUROSEMIDE 10 MG/ML 2 ML VIAL IV ONE (13:00)
[2016-04-15 14:18] LABS: Glucose,Whole Blood 134 mg/dL (75-99)
[2016-04-15] MEDS: NOREPINEPHRINE 16 MG in SODIUM CHLORIDE 0.9% 250 ML IV SCH (14:48)
--- NOTE | 2016-04-15 17:09 | P.PN ---
Subjective 75-year-old gentleman with history of peptic ulcer disease comes in to the hospital with a 60 pound weight loss due to pain associated with ingestion of food. Patient was noted to have anemia on admission. Patient underwent a upper endoscopy was noted to have a large ulcer that was not bleeding. Thereafter patient also underwent a colonoscopy on 04/11/2016. Unfortunately there was a competition with abdominal perforation and patient was noted to have free air in the abdomen thereafter patient underwent a sigmoid colectomy and laparotomy. Patient was started on TPN on 04/10/2016. Patient is tolerating currently. On 04/12/2016and During my exmination patient was not complaining of any pain at rest however does complain of pain in his abdomen with minimal movement. Patient was noted to have a irregularly irregular tachycardia. Patient does have a left bundle branch block at baseline. Denies having any chest pain difficulty breathing headaches blurry vision. 04/13/2016 Patient denies having any additional complaints. States to have some abdominal discomfort. 04/14/16 No new overnight events. Denies passing gas. Tolerating CLD> NO fevers, chills, chest pain, KOFFI reported. 04/15/2016 The patient this morning was slightly tachycardic. There was some concern over breathing to 40. Patient's blood pressure was low. Patient was triaged ICU. Patient was seen multiple times with frequent evaluations. I initially patient' s IV fluids were increased patient denied having any acute complaints however heart rate was anywhere in the 120s to 130s some appears to be a left bundle branch block with irregular abberency In the ICU he was directed at the patient should be started on Levophed. Objective - Vital Signs Vital signs: Vital Signs Temp 97.0 F L 04/15/16 11:38 Pulse 109 H 04/15/16 15:00 Resp 23 04/15/16 15:00 BP 106/66 04/15/16 15:00 Pulse Ox 98 04/15/16 15:00 Intake & Output 04/14/16 04/15/16 04/15/16 18:59 06:59 18:59 Intake Total 810 920 870 Output Total 600 400 Balance 210 520 870 Weight 67 kg 74 kg Intake: Intake, IV Titration 810 920 870 Amount Lactated Ringers 1,000 ml 450 450 @ 75 mls/hr IV .[id number] [facility] Rx#:[id number] Lactated Ringers 1,000 ml 150 As IV .[facility] Rx#: [id number] Mvi, Adult No.4 with Vit 560 420 K 10 ml Trace (Conc-1Ml/ Dose) 1 ml In Amino Acid 5%-D25w+Lytes*E* 1,000 ml @ 70 mls/hr IV .BY DURATION [facility] Rx#: [id number] Parenteral Electrolytes 420 20 ml Potassium Acetate 10 meq In Amino Acid 5%- D25w 1,000 ml @ 70 mls/hr IV .BY DURATION [facility] Rx#: [id number] Piperacillin-Tazobactam 3 100 50 .375 gm In Dextrose/Water 1 50ml.bag @ 12.5 mls/hr IVPB Q12HR [facility] Rx#: [id number] Output: Urine 600 400 Straight 400 Uretheral (Cazares) 600 - Exam Gen. appearance patient is extremity cachectic Neck is supple no JVD Heart S1-S2 heard irregularly irregular tachycardic Abdomen is tender to palpation is a midline incision that is noted no organomegaly is appreciated Lungs good air entry clear to auscultation or rhonchi or wheezing noted His a PICC line on the left upper arm Neurologically no focal motor or sensory deficits noted - Labs CBC & Chem 7: 04/15/16 04:51 04/15/16 04:45 Labs: Abnormal Lab Results - Last 24 Hours (Table) 04/14/16 04/14/16 04/15/16 Range/Units 17:16 23:49 00:00 WBC (3.8-10.6) k/uL RBC (4.30-5.90) m/uL Hgb (13.0-17.5) gm/dL Hct (39.0-53.0) % MCHC (31.0-37.0) g/dL RDW (11.5-15.5) % Plt Count (150-450) k/uL Neutrophils # (1.3-7.7) k/uL Lymphocytes # (1.0-4.8) k/uL Carbon Dioxide (22-30) mmol/L BUN (9-20) mg/dL Creatinine (0.66-1.25) mg/dL POC Glucose (mg/dL) 105 H 173 H (75-99) mg/dL Plasma Lactic Acid Yaw 2.6 H* (0.7-2.0) mmol/L Calcium (8.4-10.2) mg/dL Phosphorus (2.5-4.5) mg/dL 04/15/16 04/15/16 04/15/16 Range/Units 04:45 04:45 04:51 WBC 14.9 H (3.8-10.6) k/uL RBC 3.21 L (4.30-5.90) m/uL Hgb 8.5 L (13.0-17.5) gm/dL Hct 28.2 L (39.0-53.0) % MCHC 30.3 L (31.0-37.0) g/dL RDW 20.1 H (11.5-15.5) % Plt Count 80 L (150-450) k/uL Neutrophils # 13.4 H (1.3-7.7) k/uL Lymphocytes # 0.7 L (1.0-4.8) k/uL Carbon Dioxide 18 L (22-30) mmol/L BUN 83 H* (9-20) mg/dL Creatinine 3.55 H (0.66-1.25) mg/dL POC Glucose (mg/dL) (75-99) mg/dL Plasma Lactic Acid Yaw 2.1 H (0.7-2.0) mmol/L Calcium 8.0 L (8.4-10.2) mg/dL Phosphorus 4.6 H (2.5-4.5) mg/dL 04/15/16 04/15/16 04/15/16 Range/Units 06:11 11:47 14:13 WBC (3.8-10.6) k/uL RBC (4.30-5.90) m/uL Hgb (13.0-17.5) gm/dL Hct (39.0-53.0) % MCHC (31.0-37.0) g/dL RDW (11.5-15.5) % Plt Count (150-450) k/uL Neutrophils # (1.3-7.7) k/uL Lymphocytes # (1.0-4.8) k/uL Carbon Dioxide (22-30) mmol/L BUN (9-20) mg/dL Creatinine (0.66-1.25) mg/dL POC Glucose (mg/dL) 149 H 135 H 134 H (75-99) mg/dL Plasma Lactic Acid Yaw (0.7-2.0) mmol/L Calcium (8.4-10.2) mg/dL Phosphorus (2.5-4.5) mg/dL Assessment and Plan Plan: #1 acute on chronic blood loss anemia from a GI source compensated systolic heart failure #4 prostate cancer status post prostatectomy #5 chronic tobacco dependence #6 severe protein calorie malnutrition #7 hypophosphatemia #8 indeterminate troponin leak #9 wide-complex tachycardia appears to have some aberrant conduction currently maintained on a Cardizem drip #10 shock likely due to underlying sepsis. Plan Patient was evaluated again in the ICU. Continue Levothroid. Did discuss the case with the estate planning director as well. Empiric antibiotics will be started. Did discuss the case with the patient and the family that his prognosis extremely poor. Patient does not want to be intubated patient will be made a DO NOT RESUSCITATE and DO NOT INTUBATE prior to a CODE BLUE for respiratory distress The patient progressively gets worse goals of care to be comfortable was also discussed with the patient does agree with that. Prognosis is extremely poor
[2016-04-15] MEDS: FAT EMULSION 20% 250 ML IV SCH (17:11)
[2016-04-15] MEDS ORDERED: 1: PARENTERAL ELECTROLYTES 20 ML, MVI, ADULT NO.4 WITH VIT K 10 ML, TRACE (CONC-1ML/DOSE IV SCH ×5 (18:00)
[2016-04-15 19:55] LABS: Glucose,Whole Blood 92 mg/dL (75-99)
[2016-04-15] MEDS: IPRATROPIUM-ALBUTEROL 3 ML NEB INHALATION PRN (21:01)
[2016-04-16] MEDS ORDERED: FUROSEMIDE 10 MG/ML 4 ML VIAL IV STA ×2 (00:33→10:42)
[2016-04-16] MEDS: INSULIN LISPRO (humaLOG) 300 UNIT/3 ML VIAL SQ SCH ×4 (00:59→18:11)
[2016-04-16 05:18] LABS: Ionized Calcium 4.4 mg/dL (4.5-5.3)
[2016-04-16 05:26] LABS: Magnesium 2.3 mg/dL (1.6-2.3); Phosphorous 5.1 mg/dL (2.5-4.5); Potassium 4.8 mmol/L (3.5-5.1)
[2016-04-16 05:33] LABS: Anisocytosis Moderate; Basophils % (A) 0 %; CH 26.6; CHCM 30.4; Eosinophils % (A) 0 %; HCT 27.8 % (39.0-53.0); HDW 4.29; HGB 9.1 gm/dL (13.0-17.5); Hypochromasia Marked; Large Platelets Flag Marked; Luc # (Auto) 0.32; Luc % (Auto) 3; Lymphocytes % (A) 8 %; MCH 28.7 pg (25.0-35.0); MCHC 32.8 g/dL (31.0-37.0); MCV 87.4 fL (80.0-100.0); Mean Platelet Volume 13.2; Microcytosis Slight; Monocytes # (A) 0.4 k/uL (0-1.0); Monocytes % (A) 3 %; Neutrophils # (A) 10.9 k/uL (1.3-7.7); Neutrophils % (A) 86 %; Poikilocytosis Moderate; RBC 3.18 m/uL (4.30-5.90); RDW 20.2 % (11.5-15.5); WBC 12.6 k/uL (3.8-10.6); WBC (Perox) 13.65
[2016-04-16] MEDS: IPRATROPIUM-ALBUTEROL 3 ML NEB INHALATION PRN ×2 (05:37→19:58)
[2016-04-16 06:50] LABS: Glucose,Whole Blood 177 mg/dL (75-99)
--- NOTE | 2016-04-16 07:44 | XR ---
EXAMINATION TYPE: XR chest 1V portable DATE OF EXAM: 04/16/2016 6:32 AM COMPARISON: April 15, 2016 HISTORY: Congestive heart failure or pneumonia TECHNIQUE: Single frontal view of the chest is obtained. FINDINGS: There is worsening of the focal right infrahilar and right lower lobe more confluent opaci ties and stable bilateral trace pleural effusions with associated bibasilar atelectasis. Unchanged le ft PICC. Cardiomediastinal silhouette is stable. Osseous structures are intact. IMPRESSION: Worsening right infrahilar and right lower lobe pneumonia with trace right parapneumonic effusion and trace left pleural effusion.
--- NOTE | 2016-04-16 08:20 | P.PN ---
Subjective Became hypotensive and tachycardic yesterday and was transferred to ICU. Required levophed. Made a DNR. UOPhas dropped considerably in past 12 hours. Lasix was held and has been receiving IVFS (LR). Weaned off levophed. He is alert, no complaints. On TPN and LR. Objective - Vital Signs Vital signs: Vital Signs Temp 97.4 F L 04/16/16 04:00 Pulse 98 04/16/16 07:00 Resp 37 H 04/16/16 07:00 BP 123/83 04/16/16 07:00 Pulse Ox 98 04/16/16 07:00 Intake & Output 04/15/16 04/16/16 04/16/16 18:59 06:59 18:59 Intake Total 1101 892.102 75 Output Total 740 820 30 Balance 361 72.102 45 Weight 72.2 kg Intake: IV 825 75 Lactated Ringers 1,000 ml 825 75 @ 75 mls/hr IV .[id number] [facility] Rx#:[id number] Intake, IV Titration 1101 67.102 Amount Fat Emulsion 20% 250 ml @ 21 21 21 mls/hr IV DAILY@1300 [facility] Rx#:[id number] Lactated Ringers 1,000 ml 450 20 @ 75 mls/hr IV .[id number] [facility] Rx#:[id number] Mvi, Adult No.4 with Vit 420 K 10 ml Trace (Conc-1Ml/ Dose) 1 ml In Amino Acid 5%-D25w+Lytes*E* 1,000 ml @ 70 mls/hr IV .BY DURATION [facility] Rx#: [id number] Norepinephrine 16 mg In 26.102 Sodium Chloride 0.9% 250 ml @ Titrate IV .Q0M [facility] Rx#:[id number] Parenteral Electrolytes 210 20 ml Potassium Acetate 10 meq In Amino Acid 5%- D25w 1,000 ml @ 70 mls/hr IV .BY DURATION [facility] Rx#: [id number] Output: Urine 740 820 30 Uretheral (Cazares) 600 600 Other: Voiding Method Indwelling Catheter Indwelling Catheter # Bowel Movements 0 - Constitutional General appearance: Present: cooperative, no acute distress - Respiratory Respiratory: bilateral: dullness - Cardiovascular Rhythm: regular Heart sounds: normal: S1, S2 - Peripheral edema leg Peripheral Edema: bilateral: None, Trace - Gastrointestinal General gastrointestinal: Present: normal bowel sounds - Labs CBC & Chem 7: 04/16/16 04:31 04/16/16 04:31 Labs: Abnormal Lab Results - Last 24 Hours (Table) 04/15/16 04/15/16 04/16/16 Range/Units 11:47 14:13 04:31 WBC (3.8-10.6) k/uL RBC (4.30-5.90) m/uL Hgb (13.0-17.5) gm/dL Hct (39.0-53.0) % RDW (11.5-15.5) % Plt Count (150-450) k/uL Neutrophils # (1.3-7.7) k/uL Carbon Dioxide 16 L (22-30) mmol/L BUN 96 H* (9-20) mg/dL Creatinine 4.00 H (0.66-1.25) mg/dL Glucose 136 H (74-99) mg/dL POC Glucose (mg/dL) 135 H 134 H (75-99) mg/dL Calcium 8.0 L (8.4-10.2) mg/dL Ionized Calcium Clarissa 4.4 L (4.5-5.3) mg/dL Phosphorus 5.1 H (2.5-4.5) mg/dL 04/16/16 04/16/16 Range/Units 04:31 06:49 WBC 12.6 H (3.8-10.6) k/uL RBC 3.18 L (4.30-5.90) m/uL Hgb 9.1 L (13.0-17.5) gm/dL Hct 27.8 L (39.0-53.0) % RDW 20.2 H (11.5-15.5) % Plt Count 80 L (150-450) k/uL Neutrophils # 10.9 H (1.3-7.7) k/uL Carbon Dioxide (22-30) mmol/L BUN (9-20) mg/dL Creatinine (0.66-1.25) mg/dL Glucose (74-99) mg/dL POC Glucose (mg/dL) 177 H (75-99) mg/dL Calcium (8.4-10.2) mg/dL Ionized Calcium Clarissa (4.5-5.3) mg/dL Phosphorus (2.5-4.5) mg/dL Assessment and Plan Plan: Assessment/Plan #1. Nonoliguric--> Oliguric acute kidney injury secondary to ischemic ATN secondary to severe anemia/hemodynamic instability. BP on lower side. --UOP has dropped considerably as result of hemodynamic instability yesterday. --He is off levophed. Heplock IV now. --remove the potassium in the TPN. --No indication for dialysis however may be needed if uop doesnt improve. I spoke to him about dialysis and he asked to speak to his family. --He was made a DNR #2. Metabolic Acidosis-stable. --On NaHCO3, will increase from BID to tid 1300mg. #3. Chronic kidney disease stage III with baseline creatinine near 1.8. #4. Acute anemia status post packed red blood cell transfusions. #5. Atrial fibrillation with RVR. #6. Status post partial colectomy due to perforation. --On TPN
[2016-04-16] MEDS: CLARITHROMYCIN 500 MG TAB PO SCH ×2 (09:23→20:02)
[2016-04-16] MEDS: PANTOPRAZOLE 40 MG/10 ML VIAL IV SCH (09:23)
[2016-04-16] MEDS: SODIUM BICARBONATE TAB 650 MG TAB PO SCH ×3 (09:24→20:43)
[2016-04-16] MEDS: PIPERACILLIN-TAZOBACTAM 3.375 GM in DEXTROSE/WATER 1 50ML.BAG IVPB SCH ×2 (09:34→20:02)
--- NOTE | 2016-04-16 10:31 | P.PN ---
Subjective Principal diagnosis: Peptic ulcer disease, blood loss anemia, colon perforation status post resection The patient is seen on rounds. He was moved to the ICU due to some hypotension for which she received legal fed. That was wean last night and his blood pressures been stable. He also had problems with tachypnea and shortness of breath. His respirations are in the 30s today and he feels better. He denies any abdominal pain. He's been having large amount of serous drainage for which the nurses have been changing his dressing frequently Objective - Vital Signs Vital signs: Vital Signs Temp 97.4 F L 04/16/16 04:00 Pulse 98 04/16/16 07:00 Resp 37 H 04/16/16 07:00 BP 123/83 04/16/16 07:00 Pulse Ox 98 04/16/16 07:00 Intake & Output 04/15/16 04/16/16 04/16/16 18:59 06:59 18:59 Intake Total 1101 892.102 75 Output Total 740 820 30 Balance 361 72.102 45 Weight 72.2 kg Intake: IV 825 75 Lactated Ringers 1,000 ml 825 75 @ 75 mls/hr IV .[id number] [facility] Rx#:[id number] Intake, IV Titration 1101 67.102 Amount Fat Emulsion 20% 250 ml @ 21 21 21 mls/hr IV DAILY@1300 [facility] Rx#:[id number] Lactated Ringers 1,000 ml 450 20 @ 75 mls/hr IV .[id number] [facility] Rx#:[id number] Mvi, Adult No.4 with Vit 420 K 10 ml Trace (Conc-1Ml/ Dose) 1 ml In Amino Acid 5%-D25w+Lytes*E* 1,000 ml @ 70 mls/hr IV .BY DURATION [facility] Rx#: [id number] Norepinephrine 16 mg In 26.102 Sodium Chloride 0.9% 250 ml @ Titrate IV .Q0M [facility] Rx#:[id number] Parenteral Electrolytes 210 20 ml Potassium Acetate 10 meq In Amino Acid 5%- D25w 1,000 ml @ 70 mls/hr IV .BY DURATION [facility] Rx#: [id number] Output: Urine 740 820 30 Uretheral (Cazares) 600 600 Other: Voiding Method Indwelling Catheter Indwelling Catheter # Bowel Movements 0 - Constitutional General appearance: Present: no acute distress, thin - Respiratory Respiratory: bilateral: CTA - Gastrointestinal General gastrointestinal: Present: decreased bowel sounds, soft. Absent: tenderness Localized gastrointestinal: surgical scar: midline (Incision is intact without cellulitis or swelling. There is a moderately large amount of serous drainage.) - Labs CBC & Chem 7: 04/16/16 04:31 04/16/16 04:31 Labs: Abnormal Lab Results - Last 24 Hours (Table) 04/15/16 04/15/16 04/16/16 Range/Units 11:47 14:13 04:31 WBC (3.8-10.6) k/uL RBC (4.30-5.90) m/uL Hgb (13.0-17.5) gm/dL Hct (39.0-53.0) % RDW (11.5-15.5) % Plt Count (150-450) k/uL Neutrophils # (1.3-7.7) k/uL Carbon Dioxide 16 L (22-30) mmol/L BUN 96 H* (9-20) mg/dL Creatinine 4.00 H (0.66-1.25) mg/dL Glucose 136 H (74-99) mg/dL POC Glucose (mg/dL) 135 H 134 H (75-99) mg/dL Calcium 8.0 L (8.4-10.2) mg/dL Ionized Calcium Clarissa 4.4 L (4.5-5.3) mg/dL Phosphorus 5.1 H (2.5-4.5) mg/dL 04/16/16 04/16/16 Range/Units 04:31 06:49 WBC 12.6 H (3.8-10.6) k/uL RBC 3.18 L (4.30-5.90) m/uL Hgb 9.1 L (13.0-17.5) gm/dL Hct 27.8 L (39.0-53.0) % RDW 20.2 H (11.5-15.5) % Plt Count 80 L (150-450) k/uL Neutrophils # 10.9 H (1.3-7.7) k/uL Carbon Dioxide (22-30) mmol/L BUN (9-20) mg/dL Creatinine (0.66-1.25) mg/dL Glucose (74-99) mg/dL POC Glucose (mg/dL) 177 H (75-99) mg/dL Calcium (8.4-10.2) mg/dL Ionized Calcium Clarissa (4.5-5.3) mg/dL Phosphorus (2.5-4.5) mg/dL Assessment and Plan (1) Peptic ulcer disease with hemorrhage Status: Acute (2) Helicobacter pylori (H. pylori) Status: Acute (3) Protein-calorie malnutrition, severe Status: Acute Plan: Discuss wound management with the nurses. We'll try to pouch the lower portion of the incision. He had severe protein calorie malnutrition at time of the surgery so it's likely he's having some fascial dehiscence which is allowing the drainage. Continue medical treatment. Progressing slowly.
[2016-04-16] MEDS ORDERED: 1: PARENTERAL ELECTROLYTES 20 ML, MVI, ADULT NO.4 WITH VIT K 10 ML, TRACE (CONC-1ML/DOSE IV SCH ×4 (11:00)
[2016-04-16] MEDS: METOPROLOL TARTRATE 25 MG TAB PO SCH ×2 (12:27→20:00)
[2016-04-16] MEDS: FOLIC ACID 1 MG TAB PO SCH (12:29)
[2016-04-16] MEDS: FAT EMULSION 20% 250 ML IV SCH (12:29)
[2016-04-16 13:03] LABS: Glucose,Whole Blood 172 mg/dL (75-99)
--- NOTE | 2016-04-16 13:43 | P.PN ---
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 The patient had lost according to the family approximately 40 pounds over the past month. I was told that he had not been eating for the past 4-6 days. The patient is awake and alert and he claims that he has no appetite and obviously he is a failure to thrive, given up on life, very much cachectic and emaciated with significant malnourishment and thought the loss and by the protein mass. In addition, the patient was an acute kidney injury with his creatinine was found to be at 4.5. He was found to be profoundly anemic with his initially was at 4.2. The patient did not have any obvious source of internal or external bleeding. He has remote history of prostate cancer and has undergone a prostatectomy. No history of any malignancy. He was in the hospital back in June 2015 for some symptoms of TIA. Back then he had a CAT scan of the brain that was negative unit showed diffuse TAKE AWAY [employer]ENDANT atrophy and was negative for any acute CVA. The workup back then included a carotid Doppler that was negative for any hemodynamically significant stenosis and the patient had an echocardiogram that showed global hypokinesis with an ejection fraction of around 20%. The patient was under the care of Dr. Ochoa. He was discharged home. He claims to be following up with Dr. Ronquillo. He is a chronic smoker. No alcoholism. No substance abuse. No constipation. No abdominal distention. No GI bleeding. No hematemesis. He did vomit on few occasions however on outpatient basis. He is moving all 4 extremities and there is no limitation in his body movements. He was given a total of 2 units of packed RBCs yesterday and his hemoglobin is up to 6.4. An additional 1 unit will be given to him right now. He also received fluids in the order of 3 L normal saline and currently is on a maintenance of 100 mL an hour of 3 Amp bicarbonate with D5 water. Patient was reevaluated today on 04/12/2016, apparently the patient underwent colonoscopy yesterday, and postoperatively was noted to have free air on the x- rays of the abdomen. Hence the patient underwent partial colectomy for perforation of rectosigmoid area. Patient was extubated uneventfully after his surgery, he is now in the intensive care unit, hemodynamically stable, continues to have a nasogastric tube in place, and seems to be in no form of respiratory distress. His hemoglobin seems to be stable, today it is 10.9. Patient received a total of 7 units of packed RBCs since admission. Renal profile has improved but is not improving any further, creatinine is 2.90 today. Chest x-ray showed pneumoperitoneum, and bilateral areas of atelectasis or infiltrates with pleural effusions. Hence I will cut down his IV fluid, patient is making good amount of urine on his own. Hence I will not diuresis at this point. Patient remains on Zosyn which is appropriate for now Patient was reevaluated on 04/13/2016, seems to be doing relatively well, remains on Cardizem drip as per cardiology for his A. fib/RVR. Patient is doing well, hemoglobin is stable at 9.2 WBC count is 15.0. Electrolytes are relatively normal BUN remains elevated at 67 creatinine is 2.90 about the same as it was in the last couple of days. Patient denies any abdominal pain, no nausea, no vomiting, and he denies any shortness of breath. Chest x-ray is improved, however it continues to show by basilar infiltrates and pleural effusions. Patient remains on antibiotics accordingly. Patient was seen today on 04/14/2016, seems to be doing relatively well, less shortness of breath, no cough no wheezing no chest pain, remains nothing by mouth, and his nasogastric tube was removed. Chest x-ray continues to show some bibasilar atelectasis and small bilateral pleural effusions, patient remains on Lasix. CBC showed a stable hemoglobin of 8.6, his BUN is up to 74 creatinine is 3.20. Hence I will cut down the Lasix to 20 mg once daily instead of twice daily. Overall the patient seems to be worse while considering his overall multiple comorbidities. Patient was reevaluated today on 04/15/2016, clinically he feels much better, breathing a lot easier, however his chest x-ray is suggestive of bilateral infiltrates in the lower lobes, and possibly bilateral pleural effusions. Patient is known to have history of cardiomyopathy and LV dysfunction, and he remains on diuretics. However his renal profile seems to be worsening, and I believe this is more of a cardiorenal syndrome. Although the patient presented with hypertension, and he may have sustained acute kidney injury upon presentation from acute tubular necrosis. However his being followed by nephrology, and urine output seems to be reasonable. Patient remains on antibiotics for presumptive by basilar infiltrates. CBC showed leukocytosis today with a WBC count of 14.9. Hemoglobin is stable at 8.5 BUN is 83 creatinine is 3.55. Chest x-ray is worrisome but clinically the patient is doing well, denies any cough no wheezing denies any shortness of breath, he is actually on room air saturating quite nicely. Patient was transferred yesterday to the intensive care unit, the reason we transfer the patient was mostly because of the fact that he was in atrial fibrillation, RVR, hypotensive, and he was developing worsening congestive heart failure, and possibly worsening infiltrates in both lungs. The patient required placement on norepinephrine last night, but he is off norepinephrine at this point, and his blood pressure seems to be reasonable. Patient has episodes of tachypnea, but at this point he seems to be in no form of distress. Not to mention that the patient requested to be yesterday to be a DO NOT RESUSCITATE CODE STATUS. Chest x-ray today showed worsening right infrahilar and right lower lobe consolidation, and I believe there is a trace or small parapneumonic effusion noted on the right side with a small effusion on the left. Labs showed normal CBC his BUN is up to 96 creatinine is up to 4. Patient is being followed by nephrology. Today I recommended more diuretic to be given, and in the meantime we will continue with antibiotics. Patient remains on Zosyn, and Biaxin. Objective - Vital Signs Vital signs: Vital Signs Temp 98 F 04/16/16 08:00 Pulse 98 04/16/16 11:00 Resp 33 H 04/16/16 11:00 BP 108/75 04/16/16 11:00 Pulse Ox 95 04/16/16 11:00 Intake & Output 04/15/16 04/16/16 04/16/16 18:59 06:59 18:59 Intake Total 1101 892.102 405 Output Total 740 820 160 Balance 361 72.102 245 Weight 72.2 kg Intake: IV 825 75 Lactated Ringers 1,000 ml 825 75 @ 75 mls/hr IV .[id number] [facility] Rx#:[id number] Intake, IV Titration 1101 67.102 330 Amount Fat Emulsion 20% 250 ml @ 21 21 21 mls/hr IV DAILY@1300 [facility] Rx#:[id number] Lactated Ringers 1,000 ml 450 20 @ 75 mls/hr IV .[id number] [facility] Rx#:[id number] Mvi, Adult No.4 with Vit 420 K 10 ml Trace (Conc-1Ml/ Dose) 1 ml In Amino Acid 5%-D25w+Lytes*E* 1,000 ml @ 70 mls/hr IV .BY DURATION [facility] Rx#: [id number] Norepinephrine 16 mg In 26.102 Sodium Chloride 0.9% 250 ml @ Titrate IV .Q0M [facility] Rx#:[id number] Parenteral Electrolytes 280 20 ml In Amino Acid 5%- D25w 1,000 ml @ 70 mls/hr IV .BY DURATION [facility] Rx#: [id number] Parenteral Electrolytes 210 20 ml Potassium Acetate 10 meq In Amino Acid 5%- D25w 1,000 ml @ 70 mls/hr IV .BY DURATION [facility] Rx#: [id number] Piperacillin-Tazobactam 3 50 .375 gm In Dextrose/Water 1 50ml.bag @ 12.5 mls/hr IVPB Q12HR [facility] Rx#: [id number] Output: Urine 740 820 160 Uretheral (Cazares) 600 600 Other: Voiding Method Indwelling Catheter Indwelling Catheter # Bowel Movements 0 - Exam Physical Exam: Revealed a 75-year-old in no distress HEENT:[Neck is supple.] [No neck masses.] [No thyromegaly.] [No JVD.] Nasogastric tube is intact., It will likely be removed today. Chest: [Diminished breath sounds at the bases no crackles or rhonchi or wheezes. ] Cardiac Exam: [Irregular irregular rhythm Normal S1 and S2, no S3 gallop, no murmur.] Abdomen: [Postsurgical, slightly tender , no megaly, no rebound, no guarding, no bowel sounds.] Extremities: [No clubbing, trace of bipedal edema, no cyanosis.] Neurological Exam: [No focal neurologic deficit.] - Labs CBC & Chem 7: 04/16/16 04:31 04/16/16 04:31 Labs: Abnormal Lab Results - Last 24 Hours (Table) 04/15/16 04/16/16 04/16/16 Range/Units 14:13 04:31 04:31 WBC 12.6 H (3.8-10.6) k/uL RBC 3.18 L (4.30-5.90) m/uL Hgb 9.1 L (13.0-17.5) gm/dL Hct 27.8 L (39.0-53.0) % RDW 20.2 H (11.5-15.5) % Plt Count 80 L (150-450) k/uL Neutrophils # 10.9 H (1.3-7.7) k/uL Carbon Dioxide 16 L (22-30) mmol/L BUN 96 H* (9-20) mg/dL Creatinine 4.00 H (0.66-1.25) mg/dL Glucose 136 H (74-99) mg/dL POC Glucose (mg/dL) 134 H (75-99) mg/dL Calcium 8.0 L (8.4-10.2) mg/dL Ionized Calcium Clarissa 4.4 L (4.5-5.3) mg/dL Phosphorus 5.1 H (2.5-4.5) mg/dL 04/16/16 04/16/16 Range/Units 06:49 12:43 WBC (3.8-10.6) k/uL RBC (4.30-5.90) m/uL Hgb (13.0-17.5) gm/dL Hct (39.0-53.0) % RDW (11.5-15.5) % Plt Count (150-450) k/uL Neutrophils # (1.3-7.7) k/uL Carbon Dioxide (22-30) mmol/L BUN (9-20) mg/dL Creatinine (0.66-1.25) mg/dL Glucose (74-99) mg/dL POC Glucose (mg/dL) 177 H 172 H (75-99) mg/dL Calcium (8.4-10.2) mg/dL Ionized Calcium Clarissa (4.5-5.3) mg/dL Phosphorus (2.5-4.5) mg/dL Assessment and Plan Plan: 1 acute anemia, microcytic, suggestive of an occult ongoing blood loss and very much concerning an underlying intra-abdominal malignancy or a colonic malignancy resulting into an iron deficiency anemia. 2 possible SMA syndrome, however this is not convincing says the clinical presentation is not consistent with SMA syndrome. On 04/10/2016, patient is feeling better clinically, and his hemoglobin remains low at 6.5 hence he will require more blood transfusion and this will be #6 unit given today. On 04/11/2016, patient had a PICC line placed, he received a total of 7 units of packed RBCs so far since admission, and I believe the patient is being considered for colonoscopy by Dr. Ramos. In the meantime we will continue to monitor in the ICU, and transfuse to keep hemoglobin above 7. In the meantime continue to monitor for pulmonary edema as his the patient has severe cardiomyopathy and LV dysfunction. On 04/12/2016, patient is status post partial colectomy for perforation of the rectosigmoid. Patient has relatively uneventful postoperative course. Hemoglobin remains stable. Total units of transfusions given since admission with 7 units of packed RBCs. On 04/13/2016, patient is doing relatively better than expected, however he remains in A. fib and RVR, and he is on Cardizem drip. We plan to transfer the patient out of the ICU to a cardiac floor/monitor bed. Considering his poor LV function, and considering his abnormal chest x-ray showing bilateral pleural effusions, I would likely could maintain the patient on diuretics. On 04/14/2016, patient continues to do well, his renal functioning seems to be a bit worse, continues to have small bilateral pleural effusions, and I believe this is mostly related to his underlying congestive heart failure and and suspected cardiomyopathy/LV dysfunction, ejection fraction is about 20%. We will keep the patient on diuretics, however I will cut that down to 20 mg daily. On 04/15/2016, no major change except chest x-ray is more suggestive of worsening infiltrates in lower lobes. Patient remains on antibiotics and diuretics, renal functioning seems to be worsening again. And I believe the patient has what seems to be a cardiorenal syndrome. On 04/16/2016, patient is back in the ICU, required norepinephrine overnight, but presently off norepinephrine. Blood pressure seems to be reasonable, heart rate seems to be under control, and his A. fib/RVR is well controlled at this point. However his chest x-ray showed some worsening of his right infrahilar pneumonia and pleural effusion, patient was given more diuretics, and I will keep him on antibiotics. If the chest x-ray shows any worsening, ultrasound of the chest and possible thoracentesis could be considered. 3 cardiomyopathy with generalized hypokinesis and ejection fraction of around 20 % 4 prostate cancer the paresis prostatectomy 5 nicotine addiction/smoking 6 history of alcoholism 7 previous hospital physician for TIA/CVA with diffuse TAKE [employer]ENDANT atrophy 8 severe malnourishment/cachexia, poor appetite and significant loss and total body protein mass 9 troponin leak, nonspecific 10 hyperphosphatemia 11 sinus rhythm with a bundle-branch block pattern, left sided on EKG, chronicity is not known Recommendation: Continue present supportive care measures, continue to monitor in the ICU, Lasix was ordered this morning, continue antibiotics, overall prognosis remains poor and guarded. Time with Patient: Greater than 30
[2016-04-16 18:06] LABS: Glucose,Whole Blood 206 mg/dL (75-99)
--- NOTE | 2016-04-16 18:59 | P.PN ---
Subjective 75-year-old gentleman with history of peptic ulcer disease comes in to the hospital with a 60 pound weight loss due to pain associated with ingestion of food. Patient was noted to have anemia on admission. Patient underwent a upper endoscopy was noted to have a large ulcer that was not bleeding. Thereafter patient also underwent a colonoscopy on 04/11/2016. Unfortunately there was a competition with abdominal perforation and patient was noted to have free air in the abdomen thereafter patient underwent a sigmoid colectomy and laparotomy. Patient was started on TPN on 04/10/2016. Patient is tolerating currently. On 04/12/2016and During my exmination patient was not complaining of any pain at rest however does complain of pain in his abdomen with minimal movement. Patient was noted to have a irregularly irregular tachycardia. Patient does have a left bundle branch block at baseline. Denies having any chest pain difficulty breathing headaches blurry vision. 04/13/2016 Patient denies having any additional complaints. States to have some abdominal discomfort. 04/14/16 No new overnight events. Denies passing gas. Tolerating CLD> NO fevers, chills, chest pain, KOFFI reported. 04/15/2016 The patient this morning was slightly tachycardic. There was some concern over breathing to 40. Patient's blood pressure was low. Patient was triaged ICU. Patient was seen multiple times with frequent evaluations. I initially patient' s IV fluids were increased patient denied having any acute complaints however heart rate was anywhere in the 120s to 130s some appears to be a left bundle branch block with irregular abberency In the ICU he was directed at the patient should be started on Levophed. 2016 Slightly improved currently on 4 l o2. States to have some KOFFI No other complaints reported. Objective - Vital Signs Vital signs: Vital Signs Temp 97.4 F L 04/16/16 16:00 Pulse 111 H 04/16/16 17:00 Resp 26 H 04/16/16 17:00 BP 116/85 04/16/16 17:00 Pulse Ox 94 L 04/16/16 17:00 Intake & Output 04/15/16 04/16/16 04/16/16 18:59 06:59 18:59 Intake Total 1101 892.102 930 Output Total 740 820 590 Balance 361 72.102 340 Weight 72.2 kg Intake: IV 825 75 Lactated Ringers 1,000 ml 825 75 @ 75 mls/hr IV .[id number] [facility] Rx#:[id number] Intake, IV Titration 1101 67.102 855 Amount Fat Emulsion 20% 250 ml @ 21 21 105 21 mls/hr IV DAILY@1300 [facility] Rx#:[id number] Lactated Ringers 1,000 ml 450 20 @ 75 mls/hr IV .[id number] [facility] Rx#:[id number] Mvi, Adult No.4 with Vit 420 K 10 ml Trace (Conc-1Ml/ Dose) 1 ml In Amino Acid 5%-D25w+Lytes*E* 1,000 ml @ 70 mls/hr IV .BY DURATION [facility] Rx#: [id number] Norepinephrine 16 mg In 26.102 Sodium Chloride 0.9% 250 ml @ Titrate IV .Q0M [facility] Rx#:[id number] Parenteral Electrolytes 700 20 ml In Amino Acid 5%- D25w 1,000 ml @ 70 mls/hr IV .BY DURATION [facility] Rx#: [id number] Parenteral Electrolytes 210 20 ml Potassium Acetate 10 meq In Amino Acid 5%- D25w 1,000 ml @ 70 mls/hr IV .BY DURATION [facility] Rx#: [id number] Piperacillin-Tazobactam 3 50 .375 gm In Dextrose/Water 1 50ml.bag @ 12.5 mls/hr IVPB Q12HR [facility] Rx#: [id number] Output: Urine 740 820 590 Uretheral (Cazares) 600 600 Other: Voiding Method Indwelling Catheter Indwelling Catheter Indwelling Catheter # Bowel Movements 0 - Exam Gen. appearance patient is extremity cachectic Neck is supple no JVD Heart S1-S2 heard irregularly irregular tachycardic Abdomen is tender to palpation is a midline incision that is noted no organomegaly is appreciated Lungs good air entry clear to auscultation or rhonchi or wheezing noted His a PICC line on the left upper arm Neurologically no focal motor or sensory deficits noted - Labs CBC & Chem 7: 04/16/16 04:31 04/16/16 04:31 Labs: Abnormal Lab Results - Last 24 Hours (Table) 04/16/16 04/16/16 04/16/16 Range/Units 04:31 04:31 06:49 WBC 12.6 H (3.8-10.6) k/uL RBC 3.18 L (4.30-5.90) m/uL Hgb 9.1 L (13.0-17.5) gm/dL Hct 27.8 L (39.0-53.0) % RDW 20.2 H (11.5-15.5) % Plt Count 80 L (150-450) k/uL Neutrophils # 10.9 H (1.3-7.7) k/uL Carbon Dioxide 16 L (22-30) mmol/L BUN 96 H* (9-20) mg/dL Creatinine 4.00 H (0.66-1.25) mg/dL Glucose 136 H (74-99) mg/dL POC Glucose (mg/dL) 177 H (75-99) mg/dL Calcium 8.0 L (8.4-10.2) mg/dL Ionized Calcium Clarissa 4.4 L (4.5-5.3) mg/dL Phosphorus 5.1 H (2.5-4.5) mg/dL 04/16/16 04/16/16 Range/Units 12:43 18:04 WBC (3.8-10.6) k/uL RBC (4.30-5.90) m/uL Hgb (13.0-17.5) gm/dL Hct (39.0-53.0) % RDW (11.5-15.5) % Plt Count (150-450) k/uL Neutrophils # (1.3-7.7) k/uL Carbon Dioxide (22-30) mmol/L BUN (9-20) mg/dL Creatinine (0.66-1.25) mg/dL Glucose (74-99) mg/dL POC Glucose (mg/dL) 172 H 206 H (75-99) mg/dL Calcium (8.4-10.2) mg/dL Ionized Calcium Clarissa (4.5-5.3) mg/dL Phosphorus (2.5-4.5) mg/dL Assessment and Plan Plan: #1 acute on chronic blood loss anemia from a GI source #2 slightly decompensated systolic heart failure due to fluid infusion during shock state. #3 acute hypoxic respiratory failure sec to mild degree of fluid overload like #4 prostate cancer status post prostatectomy #5 chronic tobacco dependence #6 severe protein calorie malnutrition #7 hypophosphatemia #8 indeterminate troponin leak #9 wide-complex tachycardia appears to have some aberrant conduction currently maintained on a Cardizem drip #10 shock likely due to underlying sepsis. Plan Continue ongoing care, slightly improved Empiric antibiotics will be started. Did discuss the case with the patient and the family that his prognosis extremely poor. Patient does not want to be intubated patient will be made a DO NOT RESUSCITATE and DO NOT INTUBATE prior to a CODE BLUE for respiratory distress The patient progressively gets worse goals of care to be comfortable was also discussed with the patient does agree with that. Prognosis is extremely poor
[2016-04-17 00:12] LABS: Glucose,Whole Blood 126 mg/dL (75-99)
[2016-04-17] MEDS ORDERED: SODIUM CHLORIDE 0.9% 500 ML IV ONE (00:57)
[2016-04-17] MEDS: INSULIN LISPRO (humaLOG) 300 UNIT/3 ML VIAL SQ SCH ×4 (01:48→17:48)
[2016-04-17] MEDS: DILTIAZEM 125 MG in SODIUM CHLORIDE 0.9% 100 ML IV SCH (01:49)
[2016-04-17] MEDS: IPRATROPIUM-ALBUTEROL 3 ML NEB INHALATION PRN ×4 (03:26→15:57)
[2016-04-17 05:03] LABS: Ionized Calcium 4.8 mg/dL (4.5-5.3)
[2016-04-17 05:09] LABS: Anisocytosis Moderate; Basophils % (A) 0 %; CH 26.4; CHCM 29.9; Eosinophils % (A) 0 %; HDW 4.13; HGB 8.3 gm/dL (13.0-17.5); Hypochromasia Marked; Large Platelets Flag Marked; Luc % (Auto) 2; Lymphocytes % (A) 5 %; MCHC 30.7 g/dL (31.0-37.0); MCV 88.1 fL (80.0-100.0); Mean Platelet Volume 14.5; Microcytosis Slight; Monocytes # (A) 0.9 k/uL (0-1.0); Monocytes % (A) 4 %; Neutrophils # (A) 20.4 k/uL (1.3-7.7); Neutrophils % (A) 90 %; Poikilocytosis Moderate; RBC 3.07 m/uL (4.30-5.90); WBC 22.8 k/uL (3.8-10.6)
[2016-04-17 05:12] LABS: Calcium 8.1 mg/dL (8.4-10.2); Magnesium 2.3 mg/dL (1.6-2.3); Phosphorous 4.3 mg/dL (2.5-4.5); Potassium 4.2 mmol/L (3.5-5.1)
[2016-04-17 05:56] LABS: Large Platelets Present
[2016-04-17 05:59] LABS: Polychromasia Present; Target Cells Present
[2016-04-17 06:36] LABS: Glucose,Whole Blood 141 mg/dL (75-99)
--- NOTE | 2016-04-17 07:59 | XR ---
EXAMINATION TYPE: XR chest 1V DATE OF EXAM: 04/17/2016 6:49 AM HISTORY: Shortness of breath. REFERENCE: Previous study dated 04/16/2016. FINDINGS: A left basilic PICC line is in place. Its tip is in the superior vena cava. There are bilateral effusions. There is bibasilar airspace disease. This may have worsened slightly o n the left comparison: Previous exam. Heart size is normal. IMPRESSION: WORSENING LEFT BASILAR AIRSPACE DISEASE.
[2016-04-17] MEDS: CLARITHROMYCIN 500 MG TAB PO SCH ×2 (09:45→21:12)
[2016-04-17] MEDS: METOPROLOL TARTRATE 25 MG TAB PO SCH ×2 (09:45→20:36)
[2016-04-17] MEDS: PANTOPRAZOLE 40 MG/10 ML VIAL IV SCH (09:45)
[2016-04-17] MEDS: PIPERACILLIN-TAZOBACTAM 3.375 GM in DEXTROSE/WATER 1 50ML.BAG IVPB SCH ×2 (10:23→21:12)
[2016-04-17] MEDS: SODIUM BICARBONATE TAB 650 MG TAB PO SCH ×4 (10:24→21:12)
--- NOTE | 2016-04-17 11:25 | P.PN ---
Subjective 75-year-old -[place] male patient presented emergency department yesterday in a very poor health condition. The patient had lost according to the family approximately 40 pounds over the past month. I was told that he had not been eating for the past 4-6 days. The patient is awake and alert and he claims that he has no appetite and obviously he is a failure to thrive, given up on life, very much cachectic and emaciated with significant malnourishment and thought the loss and by the protein mass. In addition, the patient was an acute kidney injury with his creatinine was found to be at 4.5. He was found to be profoundly anemic with his initially was at 4.2. The patient did not have any obvious source of internal or external bleeding. He has remote history of prostate cancer and has undergone a prostatectomy. No history of any malignancy. He was in the hospital back in June 2015 for some symptoms of TIA. Back then he had a CAT scan of the brain that was negative unit showed diffuse ENVIRONMENTAL SERVICES MANAGER atrophy and was negative for any acute CVA. The workup back then included a carotid Doppler that was negative for any hemodynamically significant stenosis and the patient had an echocardiogram that showed global hypokinesis with an ejection fraction of around 20%. The patient was under the care of Dr. Ochoa. He was discharged home. He claims to be following up with Dr. Ronquillo. He is a chronic smoker. No alcoholism. No substance abuse. No constipation. No abdominal distention. No GI bleeding. No hematemesis. He did vomit on few occasions however on outpatient basis. He is moving all 4 extremities and there is no limitation in his body movements. He was given a total of 2 units of packed RBCs yesterday and his hemoglobin is up to 6.4. An additional 1 unit will be given to him right now. He also received fluids in the order of 3 L normal saline and currently is on a maintenance of 100 mL an hour of 3 Amp bicarbonate with D5 water. He is seen again today 04/17/2016 in the intensive care unit. The patient had undergone partial colectomy for perforated rectosigmoid area. He was transferred to the intensive care unit for an episode of hypotension on 2016 after an A team was called. He did have atrial fibrillation with a rapid ventricular response at that time. He had also had worsening congestive heart failure. He is currently on norepinephrine at 5 g, Cardizem drip at 5 mg per hour. He use had a poor oral intake even prior to admission. The patient is quite cachectic appearing. He is receiving TPN at 70 mL per hour. Presently, he is awake and alert in no acute distress. He is requiring 4 L of nasal cannula to maintain O2 saturations in the 90s. His white count is climbing currently at 22.8. Hemoglobin 8.3. Platelet count 82,000. His renal function is worsening. BUN 110, creatinine 4.23. Objective - Vital Signs Vital signs: Vital Signs Temp 97.8 F 04/17/16 08:00 Pulse 120 H 04/17/16 10:00 Resp 18 04/17/16 10:00 BP 103/69 04/17/16 10:00 Pulse Ox 98 04/17/16 10:00 Intake & Output 04/16/16 04/17/16 04/17/16 18:59 06:59 18:59 Intake Total 1112 0 294.92 Output Total 650 345 148 Balance 462 -345 146.92 Weight 73.6 kg 73.6 kg Intake: IV 75 Lactated Ringers 1,000 ml 75 @ 75 mls/hr IV .[id number] [facility] Rx#:[id number] Intake, IV Titration 1037 0 294.92 Amount Diltiazem 125 mg In 15 Sodium Chloride 0.9% 100 ml @ 5 MG/HR 5 mls/hr IV .Q24H [facility] Rx#:[id number] Fat Emulsion 20% 250 ml @ 147 21 mls/hr IV DAILY@1300 [facility] Rx#:[id number] Mvi, Adult No.4 with Vit 70 K 10 ml Trace (Conc-1Ml/ Dose) 1 ml Sodium Acetate 35 meq Magnesium Sulfate 5 meq Calcium Gluconate 1,500 mg In Amino Acid 5% -D25w 1,000 ml @ 70 mls/ hr IV .BY DURATION [facility] Rx #:[id number] Norepinephrine 16 mg In 0 19.92 Sodium Chloride 0.9% 250 ml @ Titrate IV .Q0M [facility] Rx#:[id number] Parenteral Electrolytes 840 20 ml In Amino Acid 5%- D25w 1,000 ml @ 70 mls/hr IV .BY DURATION [facility] Rx#: [id number] Piperacillin-Tazobactam 3 50 50 .375 gm In Dextrose/Water 1 50ml.bag @ 12.5 mls/hr IVPB Q12HR [facility] Rx#: [id number] Sodium Acetate 35 meq 140 Magnesium Sulfate 5 meq Calcium Gluconate 1,500 mg In Amino Acid 5%-D25w 1,000 ml @ 70 mls/hr IV . BY DURATION [facility] Rx#: [id number] Output: Drainage 10 Medial Abdomen 10 Urine 650 345 136 Stool 2 Other: Voiding Method Indwelling Catheter Indwelling Catheter Indwelling Catheter - Exam GENERAL EXAM: Cachectic. Alert, fairly comfortable in no apparent distress. HEAD: Normocephalic. EYES: Normal reaction of pupils, equal size. NOSE: Clear with pink turbinates. THROAT: No erythema or exudates. NECK: No masses, no JVD. CHEST: No chest wall deformity. LUNGS: Equal air entry with bibasilar crackles. Diminished.. CVS: S1 and S2 normal with no audible murmurs, regular rhythm. ABDOMEN: No hepatosplenomegaly, normal bowel sounds, no guarding or rigidity. Extremities: There is no significant peripheral edema. No clubbing. Peripheral pulses are intact. - Labs CBC & Chem 7: 04/17/16 04:38 04/17/16 04:38 Labs: Abnormal Lab Results - Last 24 Hours (Table) 04/16/16 04/16/16 04/17/16 Range/Units 12:43 18:04 00:10 WBC (3.8-10.6) k/uL RBC (4.30-5.90) m/uL Hgb (13.0-17.5) gm/dL Hct (39.0-53.0) % MCHC (31.0-37.0) g/dL RDW (11.5-15.5) % Plt Count (150-450) k/uL Neutrophils # (1.3-7.7) k/uL Carbon Dioxide (22-30) mmol/L BUN (9-20) mg/dL Creatinine (0.66-1.25) mg/dL Glucose (74-99) mg/dL POC Glucose (mg/dL) 172 H 206 H 126 H (75-99) mg/dL Calcium (8.4-10.2) mg/dL 04/17/16 04/17/16 04/17/16 Range/Units 04:38 04:38 06:35 WBC 22.8 H (3.8-10.6) k/uL RBC 3.07 L (4.30-5.90) m/uL Hgb 8.3 L (13.0-17.5) gm/dL Hct 27.0 L (39.0-53.0) % MCHC 30.7 L (31.0-37.0) g/dL RDW 20.0 H (11.5-15.5) % Plt Count 82 L (150-450) k/uL Neutrophils # 20.4 H (1.3-7.7) k/uL Carbon Dioxide 20 L (22-30) mmol/L BUN 110 H* (9-20) mg/dL Creatinine 4.23 H (0.66-1.25) mg/dL Glucose 125 H (74-99) mg/dL POC Glucose (mg/dL) 141 H (75-99) mg/dL Calcium 8.1 L (8.4-10.2) mg/dL Assessment and Plan Plan: #1 Acute anemia, microcytic, suggestive of occult ongoing blood loss and is now status post colectomy. Pathology revealed acute serositis and focal reactive mesothelial hyperplasia consistent with perforation. #2 Atrial fibrillation with a rapid ventricular response requiring Cardizem drip. #3 Hypotension secondary to above currently on norepinephrine at 5 g. #4 Cardiomyopathy with generalized hypokinesis and ejection fraction of 20%. #5 Prostate cancer status post prostatectomy. #6 Chronic nicotine addiction. #7 History of alcoholism. #8 Previous history of CVA/TIA with diffuse ENVIRONMENTAL SERVICES MANAGER atrophy. #9 Severe malnourishment/cachexia, poor appetite and significant loss of total body protein mass Plan: The patient was seen and evaluated by Dr. Hooker. We'll obtain a cortisol level based on his ongoing hypotension. His atrial fibrillation is better controlled. The patient's overall prognosis is quite guarded at this point. There may be some discussion regarding hospice placement. He does remain a DO NOT RESUSCITATE/DO NOT INTUBATE CODE STATUS. In the interim we'll continue with full supportive care until further decisions are made. We'll continue to follow make further recommendations based on his clinical status.
[2016-04-17 12:17] LABS: Glucose,Whole Blood 156 mg/dL (75-99)
[2016-04-17] MEDS: FOLIC ACID 1 MG TAB PO SCH (12:18)
[2016-04-17] MEDS: FAT EMULSION 20% 250 ML IV SCH (12:33)
[2016-04-17] MEDS: IOHEXOL 350 MG/ML 25 ML BOTTLE (ORAL USE) PO PRN ×2 (12:50→13:46)
--- NOTE | 2016-04-17 13:15 | CDI ---
In responding to this query, please exercise your independent professional judgment. The [facility] Coding Staff and Clinical Documentation Specialists appreciate your assistance in clarifying documentation, maintaining compliance with coding guidelines, accurately documenting patients condition and capturing severity of illness. The fact that a question is asked does not imply that any particular answer is desired or expected. Communication forms are a method of clarifying documentation and are not made part of the Legal Health Record. Thank you in advance for your clarification. Last Revision, January 2015 Mirna Verde [address] [place] [address] Documentation Clarification Form 2nd Request Date: 04/11/2016 10:18:00 AM From: Genoveva Du RN, CCDS Admit Date: 04/07/2016 3:21:00 PM Patient Name: Manuel Mendoza Visit Number: [id number] Dr. [address] Cardiomyopathy is documented in the Pulmonary Consult and Progress Notes. History/Risk Factors: CHF, HTN, CVA. Iron deficiency, Severe Anemia Clinical indicators: 04/10 Pulmonary Progress Note: "cardiomyopathy with generalized hypokinesis and ejection fraction of around 20%." Patient C/O: Weakness, lethargy, loss of appetite, 04/10/16 CXR: COPD and severe cardiomegly with stable left lower lobe infiltrate and small pleural effusion 06/29/15 Echocardiogram: there is severe global hypokinesis of LV. EF severely impaired <20% Treatment: Consults: Pulmonary, nephrology 2L IVF Bolus 7 Units PC Currently not on any cardiac meds In your professional opinion; can you please clarify the type of cardiomyopathy and underlying cause if known? Congenital Dilated Hypertrophic Ischemic Secondary, please indicate underlying cause if known Unable to determine Other, please specify Please document in your progress notes and discharge summary in order to capture severity of illness and risk of mortality. Include clinical findings that support your diagnosis. FYI: Press F11 to launch patient chart Place X here if this finding has no clinical significance, is not applicable or if you are not able to provide any additional documentation. MTDD
--- NOTE | 2016-04-17 15:04 | P.PN ---
Subjective Principal diagnosis: Peptic ulcer disease, blood loss anemia, colon perforation status post resection Patient is a 75-year-old male admitted with evidence of GI bleed status post transfusion of 7 units of PRBC total since admission. 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 On 04/11/2016, patient underwent colonoscopy for GI bleed with no evidence of blood in the colon. Patient subsequently developed abdominal pain after colonoscopy with abdominal x-ray showing evidence of free air. Patient was taken to the operating room for bowel perforation with findings of perforation of the rectosigmoid and underwent partial colectomy. Patient is evaluated in the intensive care unit where he was transferred for hypotension 2 days ago. Patient remains on levophed for hemodynamic support along with IV Cardizem for atrial fibrillation with RVR. Patient denies nausea , vomiting, or abdominal pain. Report flatus without bowel movement. No evidence of active bleeding. Urine output adequate. Afebrile. WBC increased to 22.8.. Hemoglobin decreased to 8.3. Renal function worsening. 20 mL of serous drainage from midline abdominal incision last 24 hours. Objective - Vital Signs Vital signs: Vital Signs Temp 97.6 F 04/17/16 12:00 Pulse 119 H 04/17/16 14:00 Resp 32 H 04/17/16 14:00 BP 107/62 04/17/16 14:00 Pulse Ox 96 04/17/16 14:00 Intake & Output 04/16/16 04/17/16 04/17/16 18:59 06:59 18:59 Intake Total 1112 0 1386.92 Output Total 650 345 301 Balance 462 -345 1085.92 Weight 73.6 kg 73.6 kg Intake: IV 75 Lactated Ringers 1,000 ml 75 @ 75 mls/hr IV .[id number] [facility] Rx#:[id number] Intake, IV Titration 1037 0 636.92 Amount Diltiazem 125 mg In 35 Sodium Chloride 0.9% 100 ml @ 5 MG/HR 5 mls/hr IV .Q24H [facility] Rx#:[id number] Fat Emulsion 20% 250 ml @ 147 42 21 mls/hr IV DAILY@1300 [facility] Rx#:[id number] Mvi, Adult No.4 with Vit 70 K 10 ml Trace (Conc-1Ml/ Dose) 1 ml Sodium Acetate 35 meq Magnesium Sulfate 5 meq Calcium Gluconate 1,500 mg In Amino Acid 5% -D25w 1,000 ml @ 70 mls/ hr IV .BY DURATION [facility] Rx #:[id number] Norepinephrine 16 mg In 0 19.92 Sodium Chloride 0.9% 250 ml @ Titrate IV .Q0M [facility] Rx#:[id number] Parenteral Electrolytes 840 20 ml In Amino Acid 5%- D25w 1,000 ml @ 70 mls/hr IV .BY DURATION [facility] Rx#: [id number] Piperacillin-Tazobactam 3 50 50 .375 gm In Dextrose/Water 1 50ml.bag @ 12.5 mls/hr IVPB Q12HR [facility] Rx#: [id number] Sodium Acetate 35 meq 420 Magnesium Sulfate 5 meq Calcium Gluconate 1,500 mg In Amino Acid 5%-D25w 1,000 ml @ 70 mls/hr IV . BY DURATION [facility] Rx#: [id number] Oral 750 Output: Drainage 20 Medial Abdomen 20 Urine 650 345 278 Stool 3 Other: Voiding Method Indwelling Catheter Indwelling Catheter Indwelling Catheter - Exam GENERAL: Pt awake and alert, cachectic, in no acute distress. ENT: Dry mucous membranes. LUNGS: Breath sounds diminished to auscultation bilaterally. No wheezes, rales , or rhonchi. HEART: Heart S1, S2, no S3 or S4. Irregularly irregular rate and rhythm. No murmurs, rubs or gallops. ABDOMEN: Soft, nontender, nondistended, normoactive bowel sounds. No guarding, no rebound. Abdominal incision dry and intact with pouch attached to inferior end of the incision draining serous drainage. NEUROLOGICAL: Pt oriented x 2. - Labs CBC & Chem 7: 04/17/16 04:38 04/17/16 04:38 Labs: Abnormal Lab Results - Last 24 Hours (Table) 04/16/16 04/17/16 04/17/16 Range/Units 18:04 00:10 04:38 WBC (3.8-10.6) k/uL RBC (4.30-5.90) m/uL Hgb (13.0-17.5) gm/dL Hct (39.0-53.0) % MCHC (31.0-37.0) g/dL RDW (11.5-15.5) % Plt Count (150-450) k/uL Neutrophils # (1.3-7.7) k/uL Carbon Dioxide 20 L (22-30) mmol/L BUN 110 H* (9-20) mg/dL Creatinine 4.23 H (0.66-1.25) mg/dL Glucose 125 H (74-99) mg/dL POC Glucose (mg/dL) 206 H 126 H (75-99) mg/dL Calcium 8.1 L (8.4-10.2) mg/dL 04/17/16 04/17/16 04/17/16 Range/Units 04:38 06:35 12:16 WBC 22.8 H (3.8-10.6) k/uL RBC 3.07 L (4.30-5.90) m/uL Hgb 8.3 L (13.0-17.5) gm/dL Hct 27.0 L (39.0-53.0) % MCHC 30.7 L (31.0-37.0) g/dL RDW 20.0 H (11.5-15.5) % Plt Count 82 L (150-450) k/uL Neutrophils # 20.4 H (1.3-7.7) k/uL Carbon Dioxide (22-30) mmol/L BUN (9-20) mg/dL Creatinine (0.66-1.25) mg/dL Glucose (74-99) mg/dL POC Glucose (mg/dL) 141 H 156 H (75-99) mg/dL Calcium (8.4-10.2) mg/dL Assessment and Plan Plan: Impression: 1. Acute anemia, microcytic, suggestive of occult ongoing blood loss suspect secondary to gastric ulcer secondary to H. pylori status post partial colectomy for perforation of the rectosigmoid on 04/12/2016. 2. Malnutrition, protein calorie, severe. Plan: Patient will undergo CT of chest abdomen and pelvis. Continue clear liquid diet. Continue TPN. Continue local wound care. Continue to follow with medical team. Repeat CBC and BMP in a.m. The above impression and plan have been discussed and directed by Dr. Ramos. Casa KNIGHT acting as scribe for Dr. Ramos.
--- NOTE | 2016-04-17 15:31 | CT ---
EXAMINATION TYPE: CT ChestAbdPelvis wo con DATE OF EXAM: 04/17/2016 2:47 PM COMPARISON: Chest x-ray same date, CT chest abdomen pelvis April 2016 HISTORY: Sepsis. CT DLP: 1468.00 mGycm Automated exposure control for dose reduction was used. Helical acquisition obtained through the chest abdomen and pelvis following oral contrast only. FINDINGS: There are large bilateral pleural effusions. There is associated atelectasis. There are some air bron chograms, difficult to exclude basilar pneumonia. The heart is markedly enlarged. There are coronary artery calcifications present. Emphysematous changes are present within the lungs. No endobronchial l esion. Some retained secretions are present along the distal trachea. Contrast is present within the esophagus. ABDOMEN: Anterior abdomen shows consuelo. 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 Minimal air pre sent within the upper abdomen may be postoperative. There is ascites present. No evident bowel obstru ction. Question aneurysmal dilation of the celiac axis. Urinary bladder is catheterized. Gallbladder is somewhat hydropic. There are changes of anasarca, inc reased attenuation within the subcutaneous fat. Lack of contrast could compromise sensitivity. The ki dneys appear somewhat atrophic. Postoperative suture line suspected deep within the pelvis, contrast has not coursed to this level. P robable prostate seeds are present. IMPRESSION: PROBABLE POSTOPERATIVE PNEUMOPERITONEUM IS MINIMAL. ASCITES, CHANGES OF ANASARCA. INCREASED PLEURAL E FFUSIONS AND ASSOCIATED ATELECTASIS. MARKED CARDIOMEGALY, CORONARY ARTERY DISEASE. NONCONTRAST EXAM. GALLBLADDER APPEARS SOMEWHAT HYDROPIC. THERE ARE LIMITATIONS TO THE EXAM.
--- NOTE | 2016-04-17 16:20 | PN ---
Patient is seen for followup for acute kidney injury. He is currently in the ICU. Patient is maintained on pressors. He is awake. He is not in any acute distress. Renal function has worsened over the weekend. Patient continues to have urine output which is currently at about 30 mL/hour. On examination, blood pressure is 107/62, heart rate 119 per minute. He is afebrile. EXAMINATION OF THE HEART: S1 and S2. EXAMINATION OF THE LUNGS: Bilateral breath sounds are heard. Decreased breath sounds in bases. ABDOMEN: Soft. Incision is intact. Examination of lower extremities shows no significant edema. WAVE SOLDER OFFBEARER exam is grossly intact. Patient has been moving all 4 extremities. Labs show sodium 138, potassium 4.2, BUN 110, serum creatinine 4.23. Hemoglobin at 8.3 g/dL. ASSESSMENT: 1. Acute kidney injury, acute tubular necrosis, with worsening of renal function over the weekend. Currently patient is non-oliguric. He continues to have borderline urine output. I have discussed dialysis with him, and it appears that they would like to proceed with it in case it is needed. At this time patient is fairly stable. He does not need to be dialyzed today. We will reassess his status on a daily basis. 2. Atrial fibrillation with rapid ventricular response, maintained on IV Cardizem. 3. Status post laparotomy and partial colectomy for colonic perforation. 4. Generalized debility. 5. Cardiomyopathy with ejection fraction of about 20%. 6. Hypotension, maintained on Levophed. 7. Maintained on empiric antibiotics to cover the abdomen. PLAN: Continue TPN. Repeat labs in a.m.
--- NOTE | 2016-04-17 17:32 | P.PN ---
Subjective 75-year-old gentleman with history of peptic ulcer disease comes in to the hospital with a 60 pound weight loss due to pain associated with ingestion of food. Patient was noted to have anemia on admission. Patient underwent a upper endoscopy was noted to have a large ulcer that was not bleeding. Thereafter patient also underwent a colonoscopy on 04/11/2016. Unfortunately there was a competition with abdominal perforation and patient was noted to have free air in the abdomen thereafter patient underwent a sigmoid colectomy and laparotomy. Patient was started on TPN on 04/10/2016. Patient is tolerating currently. On 04/12/2016and During my exmination patient was not complaining of any pain at rest however does complain of pain in his abdomen with minimal movement. Patient was noted to have a irregularly irregular tachycardia. Patient does have a left bundle branch block at baseline. Denies having any chest pain difficulty breathing headaches blurry vision. 04/13/2016 Patient denies having any additional complaints. States to have some abdominal discomfort. 04/14/16 No new overnight events. Denies passing gas. Tolerating CLD> NO fevers, chills, chest pain, KOFFI reported. 04/15/2016 The patient this morning was slightly tachycardic. There was some concern over breathing to 40. Patient's blood pressure was low. Patient was triaged ICU. Patient was seen multiple times with frequent evaluations. I initially patient' s IV fluids were increased patient denied having any acute complaints however heart rate was anywhere in the 120s to 130s some appears to be a left bundle branch block with irregular abberency In the ICU he was directed at the patient should be started on Levophed. 2016 Slightly improved currently on 4 l o2. States to have some KOFFI No other complaints reported. 2016 ON vasopressor support Supplemental o2 Not tolerating diet. Objective - Vital Signs Vital signs: Vital Signs Temp 97.8 F 04/17/16 16:00 Pulse 122 H 04/17/16 17:00 Resp 28 H 04/17/16 17:00 BP 92/67 04/17/16 17:00 Pulse Ox 96 04/17/16 17:00 Intake & Output 04/16/16 04/17/16 04/17/16 18:59 06:59 18:59 Intake Total 1112 0 1674.92 Output Total 650 345 511 Balance 462 -345 1163.92 Weight 73.6 kg 73.6 kg Intake: IV 75 Lactated Ringers 1,000 ml 75 @ 75 mls/hr IV .[id number] [facility] Rx#:[id number] Intake, IV Titration 1037 0 924.92 Amount Diltiazem 125 mg In 50 Sodium Chloride 0.9% 100 ml @ 5 MG/HR 5 mls/hr IV .Q24H [facility] Rx#:[id number] Fat Emulsion 20% 250 ml @ 147 105 21 mls/hr IV DAILY@1300 [facility] Rx#:[id number] Mvi, Adult No.4 with Vit 70 K 10 ml Trace (Conc-1Ml/ Dose) 1 ml Sodium Acetate 35 meq Magnesium Sulfate 5 meq Calcium Gluconate 1,500 mg In Amino Acid 5% -D25w 1,000 ml @ 70 mls/ hr IV .BY DURATION [facility] Rx #:[id number] Norepinephrine 16 mg In 0 19.92 Sodium Chloride 0.9% 250 ml @ Titrate IV .Q0M [facility] Rx#:[id number] Parenteral Electrolytes 840 20 ml In Amino Acid 5%- D25w 1,000 ml @ 70 mls/hr IV .BY DURATION [facility] Rx#: [id number] Piperacillin-Tazobactam 3 50 50 .375 gm In Dextrose/Water 1 50ml.bag @ 12.5 mls/hr IVPB Q12HR [facility] Rx#: [id number] Sodium Acetate 35 meq 630 Magnesium Sulfate 5 meq Calcium Gluconate 1,500 mg In Amino Acid 5%-D25w 1,000 ml @ 70 mls/hr IV . BY DURATION [facility] Rx#: [id number] Oral 750 Output: Drainage 150 Medial Abdomen 150 Urine 650 345 358 Stool 3 Other: Voiding Method Indwelling Catheter Indwelling Catheter Indwelling Catheter # Voids 30 - Exam Gen. appearance patient is extremity cachectic Neck is supple no JVD Heart S1-S2 heard irregularly irregular tachycardic Abdomen is tender to palpation is a midline incision that is noted no organomegaly is appreciated Lungs good air entry clear to auscultation or rhonchi or wheezing noted His a PICC line on the left upper arm Neurologically no focal motor or sensory deficits noted - Labs CBC & Chem 7: 04/17/16 04:38 04/17/16 04:38 Labs: Abnormal Lab Results - Last 24 Hours (Table) 04/16/16 04/17/16 04/17/16 Range/Units 18:04 00:10 04:38 WBC (3.8-10.6) k/uL RBC (4.30-5.90) m/uL Hgb (13.0-17.5) gm/dL Hct (39.0-53.0) % MCHC (31.0-37.0) g/dL RDW (11.5-15.5) % Plt Count (150-450) k/uL Neutrophils # (1.3-7.7) k/uL Carbon Dioxide 20 L (22-30) mmol/L BUN 110 H* (9-20) mg/dL Creatinine 4.23 H (0.66-1.25) mg/dL Glucose 125 H (74-99) mg/dL POC Glucose (mg/dL) 206 H 126 H (75-99) mg/dL Calcium 8.1 L (8.4-10.2) mg/dL 04/17/16 04/17/16 04/17/16 Range/Units 04:38 06:35 12:16 WBC 22.8 H (3.8-10.6) k/uL RBC 3.07 L (4.30-5.90) m/uL Hgb 8.3 L (13.0-17.5) gm/dL Hct 27.0 L (39.0-53.0) % MCHC 30.7 L (31.0-37.0) g/dL RDW 20.0 H (11.5-15.5) % Plt Count 82 L (150-450) k/uL Neutrophils # 20.4 H (1.3-7.7) k/uL Carbon Dioxide (22-30) mmol/L BUN (9-20) mg/dL Creatinine (0.66-1.25) mg/dL Glucose (74-99) mg/dL POC Glucose (mg/dL) 141 H 156 H (75-99) mg/dL Calcium (8.4-10.2) mg/dL Assessment and Plan Plan: #1 acute on chronic blood loss anemia from a GI source #2 slightly decompensated systolic heart failure due to fluid infusion during shock state. #3 acute hypoxic respiratory failure sec to mild degree of fluid overload like #4 prostate cancer status post prostatectomy #5 chronic tobacco dependence #6 severe protein calorie malnutrition #7 hypophosphatemia #8 indeterminate troponin leak #9 wide-complex tachycardia appears to have some aberrant conduction #10 shock likely due to underlying sepsis. Plan Continue ongoing care, slightly improved Empiric antibiotics will be started. Did discuss the case with the patient and the family that his prognosis extremely poor. Patient does not want to be intubated patient will be made a DO NOT RESUSCITATE and DO NOT INTUBATE prior to a CODE BLUE for respiratory distress CT scans ordered by Surgery, await results empiric abx. The patient progressively gets worse goals of care to be comfortable was also discussed with the patient does agree with that. Prognosis is extremely poor
[2016-04-17 17:49] LABS: Glucose,Whole Blood 133 mg/dL (75-99)
[2016-04-17 23:59] LABS: Glucose,Whole Blood 139 mg/dL (75-99)
[2016-04-18] MEDS: INSULIN LISPRO (humaLOG) 300 UNIT/3 ML VIAL SQ SCH ×4 (00:03→19:12)
[2016-04-18] MEDS: DILTIAZEM 125 MG in SODIUM CHLORIDE 0.9% 100 ML IV SCH (01:07)
[2016-04-18 05:16] LABS: Ionized Calcium 4.7 mg/dL (4.5-5.3)
[2016-04-18 05:25] LABS: Calcium 8.2 mg/dL (8.4-10.2); Magnesium 2.4 mg/dL (1.6-2.3); Phosphorous 4.4 mg/dL (2.5-4.5); Potassium 3.5 mmol/L (3.5-5.1)
[2016-04-18 05:25] LABS: Anisocytosis Moderate; CH 26.6; CHCM 30.6; HDW 4.18; HGB 8.4 gm/dL (13.0-17.5); Hypochromasia Marked; Large Platelets Flag Marked; MCHC 31.1 g/dL (31.0-37.0); MCV 86.8 fL (80.0-100.0); Mean Platelet Volume 14.8; Microcytosis Slight; Poikilocytosis Moderate; RBC 3.11 m/uL (4.30-5.90); RDW 20.4 % (11.5-15.5); WBC 19.1 k/uL (3.8-10.6)
[2016-04-18] MEDS ORDERED: POTASSIUM CHLORIDE 20 MEQ in WATER FOR INJECTION 1 100ML.BAG IVPB ONE (05:47)
[2016-04-18] MEDS ORDERED: Potassium Replacement Protocol 1 EACH MISC MISCELLANE PRN (05:47)
[2016-04-18 05:54] LABS: Add Differential Manual Differential
[2016-04-18 05:56] LABS: Large Platelets Present; Nucleated Red Blood Cells 0 /100 WBC (0-0); Total Cells Counted 100
[2016-04-18 05:57] LABS: Polychromasia Present
[2016-04-18 05:59] LABS: Manual Review Performed
[2016-04-18 06:11] LABS: Glucose,Whole Blood 164 mg/dL (75-99)
[2016-04-18] MEDS: METOPROLOL TARTRATE 25 MG TAB PO SCH ×2 (08:00→19:55)
[2016-04-18] MEDS: CLARITHROMYCIN 500 MG TAB PO SCH ×2 (08:01→20:58)
[2016-04-18] MEDS: SODIUM BICARBONATE TAB 650 MG TAB PO SCH ×3 (08:01→21:00)
[2016-04-18] MEDS: PIPERACILLIN-TAZOBACTAM 3.375 GM in DEXTROSE/WATER 1 50ML.BAG IVPB SCH ×2 (08:02→21:24)
[2016-04-18] MEDS: PANTOPRAZOLE 40 MG/10 ML VIAL IV SCH (08:02)
--- NOTE | 2016-04-18 08:39 | XR ---
EXAMINATION TYPE: XR chest 1V DATE OF EXAM: 04/18/2016 6:37 AM COMPARISON: Prior chest x-ray 17 April 2016 HISTORY: Shortness of breath TECHNIQUE: Single frontal view of the chest is obtained. FINDINGS: Bibasilar effusions are present with associated atelectasis versus airspace disease. Patie nt is rotated. Left-sided PICC line is present with the distal tip overlying the innominate vein on t he left. No evident pneumothorax. Heart size is stable. There are overlying cardiac leads. IMPRESSION: Bilateral pleural effusions and associated atelectasis, correlate to exclude pneumonia, edema. Rotated exam. Cardiomegaly. Follow-up recommended.
--- NOTE | 2016-04-18 09:39 | P.PN ---
Subjective Progress note 04/18/16 This is a 75-year-old patient who was admitted back on February 04. He was seen yesterday with my nurse practitioner here in the ICU. He has a history of recent partial colectomy for perforated rectosigmoid area. He was transferred to the ICU for an episode of hypotension on April 15. Currently his hypotension is resolved. He also has a history of atrial fibrillation with RVR. Currently on a Cardizem drip at 5 mg per hour. Chest x-ray shows heart failure with cardiomegaly and bilateral effusions, right greater than left. The patient is quite cachectic appearing. Is getting TPN at 70 mL an hour. He is also getting a Cardizem 5 mg an hour. Currently on room air with saturation of 93%. Mildly tachypnea. Not well alert and with it. Objective - Vital Signs Vital signs: Vital Signs Temp 97.2 F L 04/18/16 08:00 Pulse 80 04/18/16 09:00 Resp 40 H 04/18/16 09:00 BP 155/75 04/18/16 09:00 Pulse Ox 94 L 04/18/16 09:00 Intake & Output 04/17/16 04/18/16 04/18/16 18:59 06:59 18:59 Intake Total 2815.67 727.418 279.255 Output Total 541 480 108 Balance 2274.67 247.418 171.255 Weight 73.6 kg 70.4 kg Intake: Intake, IV Titration 2065.67 607.418 229.255 Amount Diltiazem 125 mg In 55 141.5 32.333 Sodium Chloride 0.9% 100 ml @ 5 MG/HR 5 mls/hr IV .Q24H [facility] Rx#:[id number] Fat Emulsion 20% 250 ml @ 126 84 21 mls/hr IV DAILY@1300 [facility] Rx#:[id number] Mvi, Adult No.4 with Vit 1114.75 K 10 ml Trace (Conc-1Ml/ Dose) 1 ml Sodium Acetate 35 meq Magnesium Sulfate 5 meq Calcium Gluconate 1,500 mg In Amino Acid 5% -D25w 1,000 ml @ 70 mls/ hr IV .BY DURATION [facility] Rx #:[id number] Norepinephrine 16 mg In 19.92 76.918 6.922 Sodium Chloride 0.9% 250 ml @ Titrate IV .Q0M [facility] Rx#:[id number] Piperacillin-Tazobactam 3 50 25.0 50 .375 gm In Dextrose/Water 1 50ml.bag @ 12.5 mls/hr IVPB Q12HR [facility] Rx#: [id number] Sodium Acetate 35 meq 700 280 140 Magnesium Sulfate 5 meq Calcium Gluconate 1,500 mg In Amino Acid 5%-D25w 1,000 ml @ 70 mls/hr IV . BY DURATION [facility] Rx#: [id number] Oral 750 120 50 Output: Drainage 150 60 Medial Abdomen 150 60 Urine 388 420 108 Stool 3 Other: Voiding Method Indwelling Catheter Indwelling Catheter # Voids 30 - Exam No acute distress, not particularly alert but does respond appropriately. Mildly tachypnea. HEENT examination is grossly unremarkable. Not wearing any supplemental oxygen. Mucous membranes are moist. Supple. Full range of motion. No adenopathy. No neck vein distention. Cardiovascular examination reveals mild tachycardia. Heart rate about 110. Heart rate is irregular Consistent with atrial fibrillation. No distinct murmurs noted. Lungs reveal few scattered basilar crackles. Breath sounds diminished. No wheezes. A few scattered upper airway rhonchi are noted. Abdomen soft. Bowel sounds are noted. Extremities are intact. - Labs CBC & Chem 7: 04/17/16 04:38 04/18/16 04:32 Labs: Abnormal Lab Results - Last 24 Hours (Table) 04/17/16 04/17/16 04/17/16 Range/Units 04:32 12:16 17:47 WBC 19.1 H (3.8-10.6) k/uL RBC 3.11 L (4.30-5.90) m/uL Hgb 8.4 L (13.0-17.5) gm/dL Hct 27.0 L (39.0-53.0) % RDW 20.4 H (11.5-15.5) % Plt Count 99 L (150-450) k/uL Neutrophils # (Manual) 17.6 H (1.3-7.7) k/uL Lymphocytes # (Manual) 0.6 L (1.0-4.8) k/uL Carbon Dioxide (22-30) mmol/L BUN (9-20) mg/dL Creatinine (0.66-1.25) mg/dL POC Glucose (mg/dL) 156 H 133 H (75-99) mg/dL Calcium (8.4-10.2) mg/dL Magnesium (1.6-2.3) mg/dL Albumin (3.5-5.0) g/dL 04/17/16 04/18/16 04/18/16 Range/Units 23:56 04:32 06:09 WBC (3.8-10.6) k/uL RBC (4.30-5.90) m/uL Hgb (13.0-17.5) gm/dL Hct (39.0-53.0) % RDW (11.5-15.5) % Plt Count (150-450) k/uL Neutrophils # (Manual) (1.3-7.7) k/uL Lymphocytes # (Manual) (1.0-4.8) k/uL Carbon Dioxide 18 L (22-30) mmol/L BUN 113 H* (9-20) mg/dL Creatinine 4.40 H (0.66-1.25) mg/dL POC Glucose (mg/dL) 139 H 164 H (75-99) mg/dL Calcium 8.2 L (8.4-10.2) mg/dL Magnesium 2.4 H (1.6-2.3) mg/dL Albumin 2.3 L (3.5-5.0) g/dL Assessment and Plan (1) Atrial fibrillation Status: Acute (2) Cardiomyopathy Status: Acute (3) Prostate cancer Status: Acute (4) CVA (cerebral vascular accident) Status: Acute (5) Status post colectomy Status: Acute (6) ARF (acute renal failure) Status: Acute (7) Anemia Status: Acute (8) Dehydration Status: Acute (9) Peptic ulcer disease with hemorrhage Status: Acute (10) Protein-calorie malnutrition, severe Status: Acute (11) Transient cerebral ischemia Status: Acute Plan: Plan The patient was seen again today. The patient seemed to be more stable hemodynamically. We will set his been weaned off. His overall prognosis is very poor. Has been seen by surgery. He is a DO NOT RESUSCITATE. Continue to follow. Possible discharge to 6 selective later today bed opens up. We'll review the x-rays labs and medications. Time with Patient: Less than 30
[2016-04-18 11:00] LABS: HGB 8.4 gm/dL (13.0-17.5); RBC 3.11 m/uL (4.30-5.90); WBC 19.1 k/uL (3.8-10.6)
[2016-04-18 11:01] LABS: MCHC 31.1 g/dL (31.0-37.0); MCV 86.8 fL (80.0-100.0); RDW 20.4 % (11.5-15.5)
[2016-04-18 11:02] LABS: Add Differential Manual Differential
[2016-04-18 11:10] LABS: Large Platelets Present; Nucleated Red Blood Cells 0 /100 WBC (0-0); Polychromasia Present; Total Cells Counted 200
--- NOTE | 2016-04-18 11:56 | P.PN ---
Subjective Principal diagnosis: Peptic ulcer disease, blood loss anemia, colon perforation status post resection , H. pylori Patient is a 75-year-old male admitted with evidence of GI bleed status post transfusion of 7 units of PRBC total since admission. 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 On 04/11/2016, patient underwent colonoscopy for GI bleed with no evidence of blood in the colon. Patient subsequently developed abdominal pain after colonoscopy with abdominal x-ray showing evidence of free air. Patient was taken to the operating room later on 04/11/2016 for bowel perforation with findings of perforation of the rectosigmoid and underwent partial colectomy. Patient is evaluated in the intensive care unit where he is currently lying in bed. Levophed has been weaned off. Patient denies nausea, vomiting, or abdominal pain. Report flatus with one large loose bowel movement yesterday. Nurse reports the patient is not eating. No evidence of active bleeding. Urine output adequate. Afebrile. WBC decreased to 19.1. Hemoglobin stable at 8.4. Renal function continues to worsen. 40 mL of serous drainage from midline abdominal incision last 24 hours. Objective - Vital Signs Vital signs: Vital Signs Temp 97.2 F L 04/18/16 08:00 Pulse 87 04/18/16 10:00 Resp 39 H 04/18/16 10:00 BP 116/69 04/18/16 10:00 Pulse Ox 96 04/18/16 10:00 Intake & Output 04/17/16 04/18/16 04/18/16 18:59 06:59 18:59 Intake Total 2815.67 727.418 349.255 Output Total 541 480 161 Balance 2274.67 247.418 188.255 Weight 73.6 kg 70.4 kg Intake: Intake, IV Titration 2065.67 607.418 299.255 Amount Diltiazem 125 mg In 55 141.5 32.333 Sodium Chloride 0.9% 100 ml @ 5 MG/HR 5 mls/hr IV .Q24H [facility] Rx#:[id number] Fat Emulsion 20% 250 ml @ 126 84 21 mls/hr IV DAILY@1300 [facility] Rx#:[id number] Mvi, Adult No.4 with Vit 1114.75 K 10 ml Trace (Conc-1Ml/ Dose) 1 ml Sodium Acetate 35 meq Magnesium Sulfate 5 meq Calcium Gluconate 1,500 mg In Amino Acid 5% -D25w 1,000 ml @ 70 mls/ hr IV .BY DURATION [facility] Rx #:[id number] Norepinephrine 16 mg In 19.92 76.918 6.922 Sodium Chloride 0.9% 250 ml @ Titrate IV .Q0M [facility] Rx#:[id number] Piperacillin-Tazobactam 3 50 25.0 50 .375 gm In Dextrose/Water 1 50ml.bag @ 12.5 mls/hr IVPB Q12HR [facility] Rx#: [id number] Sodium Acetate 35 meq 70 Calcium Gluconate 1,500 mg Potassium Chloride 10 meq In Amino Acid 5%-D25w 1,000 ml @ 70 mls/hr IV .BY DURATION [facility] Rx#: [id number] Sodium Acetate 35 meq 700 280 140 Magnesium Sulfate 5 meq Calcium Gluconate 1,500 mg In Amino Acid 5%-D25w 1,000 ml @ 70 mls/hr IV . BY DURATION [facility] Rx#: [id number] Oral 750 120 50 Output: Drainage 150 60 Medial Abdomen 150 60 Urine 388 420 161 Stool 3 Other: Voiding Method Indwelling Catheter Indwelling Catheter Indwelling Catheter # Voids 30 - Exam GENERAL: Pt awake and alert, cachectic, in no acute distress. ENT: Dry mucous membranes. LUNGS: Breath sounds diminished to auscultation bilaterally. No wheezes, rales , or rhonchi. HEART: Heart S1, S2, no S3 or S4. Irregularly irregular rate and rhythm. No murmurs, rubs or gallops. ABDOMEN: Soft, nontender, nondistended, normoactive bowel sounds. No guarding, no rebound. Abdominal incision approximated with pouch attached to inferior end of the incision draining serous drainage. - Labs CBC & Chem 7: 04/18/16 04:32 04/18/16 04:32 Labs: Abnormal Lab Results - Last 24 Hours (Table) 04/17/16 04/17/16 04/17/16 Range/Units 04:32 12:16 17:47 WBC 19.1 H (3.8-10.6) k/uL RBC 3.11 L (4.30-5.90) m/uL Hgb 8.4 L (13.0-17.5) gm/dL Hct 27.0 L (39.0-53.0) % RDW 20.4 H (11.5-15.5) % Plt Count 99 L (150-450) k/uL Neutrophils # (Manual) 17.6 H (1.3-7.7) k/uL Lymphocytes # (Manual) 0.6 L (1.0-4.8) k/uL Carbon Dioxide (22-30) mmol/L BUN (9-20) mg/dL Creatinine (0.66-1.25) mg/dL POC Glucose (mg/dL) 156 H 133 H (75-99) mg/dL Calcium (8.4-10.2) mg/dL Magnesium (1.6-2.3) mg/dL Albumin (3.5-5.0) g/dL 04/17/16 04/18/16 04/18/16 Range/Units 23:56 04:32 04:32 WBC 19.1 H (3.8-10.6) k/uL RBC 3.11 L (4.30-5.90) m/uL Hgb 8.4 L (13.0-17.5) gm/dL Hct 27.0 L (39.0-53.0) % RDW 20.4 H (11.5-15.5) % Plt Count 99 L (150-450) k/uL Neutrophils # (Manual) 17.6 H (1.3-7.7) k/uL Lymphocytes # (Manual) 0.6 L (1.0-4.8) k/uL Carbon Dioxide 18 L (22-30) mmol/L BUN 113 H* (9-20) mg/dL Creatinine 4.40 H (0.66-1.25) mg/dL POC Glucose (mg/dL) 139 H (75-99) mg/dL Calcium 8.2 L (8.4-10.2) mg/dL Magnesium 2.4 H (1.6-2.3) mg/dL Albumin 2.3 L (3.5-5.0) g/dL 04/18/16 Range/Units 06:09 WBC (3.8-10.6) k/uL RBC (4.30-5.90) m/uL Hgb (13.0-17.5) gm/dL Hct (39.0-53.0) % RDW (11.5-15.5) % Plt Count (150-450) k/uL Neutrophils # (Manual) (1.3-7.7) k/uL Lymphocytes # (Manual) (1.0-4.8) k/uL Carbon Dioxide (22-30) mmol/L BUN (9-20) mg/dL Creatinine (0.66-1.25) mg/dL POC Glucose (mg/dL) 164 H (75-99) mg/dL Calcium (8.4-10.2) mg/dL Magnesium (1.6-2.3) mg/dL Albumin (3.5-5.0) g/dL Assessment and Plan Plan: Impression: 1. Acute anemia, microcytic, suggestive of occult ongoing blood loss suspect secondary to gastric ulcer secondary to H. pylori status post partial colectomy for perforation of the rectosigmoid on 04/12/2016. 2. Malnutrition, protein calorie, severe. Plan: Advance diet to full liquids. Continue TPN. Continue local wound care. Continue to follow with medical team. Repeat CBC and BMP in a.m. The above impression and plan have been discussed and directed by Dr. Ramos. Casa KNIGHT acting as scribe for Dr. Ramos.
[2016-04-18] MEDS: FOLIC ACID 1 MG TAB PO SCH (12:05)
[2016-04-18] MEDS ORDERED: FUROSEMIDE 10 MG/ML 10 ML VIAL IV STA (12:29)
[2016-04-18] MEDS: FAT EMULSION 20% 250 ML IV SCH (12:40)
[2016-04-18 12:45] LABS: Glucose,Whole Blood 121 mg/dL (75-99)
--- NOTE | 2016-04-18 12:53 | CDI ---
In responding to this query, please exercise your independent professional judgment. The [facility] Coding Staff and Clinical Documentation Specialists appreciate your assistance in clarifying documentation, maintaining compliance with coding guidelines, accurately documenting patients condition and capturing severity of illness. The fact that a question is asked does not imply that any particular answer is desired or expected. Communication forms are a method of clarifying documentation and are not made part of the Legal Health Record. Thank you in advance for your clarification. Last Revision, January 2015 Mirna Verde [address] [place] [address] Documentation Clarification Form Date: 04/18/2016 12:22:00 PM From: Genoveva Du RN, CCDS Admit Date: 04/07/2016 3:21:00 PM Patient Name: Manuel Mendoza Visit Number: [id number] Dr. Dwain Way Atrial fibrillation is documented in the progress notes. History/Risk Factors: A-Fib, acute on chronic systolic CHF, severe PCM, sepsis, shock, ETOH, Nicotine Dependence, demand ischemia Clinical Indicators: 04/08/16 Pulmonary Consult: "He also has a history of atrial fibrillation with RVR. Heart rate is irregular Consistent with atrial fibrillation." EKG/telemetry: Atrial Fib Treatment: Consults: Pulmonary, Surgery, Nephrology Cardizem bolus and drip @ 5 cc/hr Lopressor 5mg IVP q 6 hrs PRN for tachyarrhythmias Lopressor 25mg PO BID In your professional opinion, can you please clarify the type of atrial fibrillation, if known? Chronic/Permanent Paroxysmal Persistent Other, please specify Unable to determine Please document in your progress notes and discharge summary in order to capture severity of illness and risk of mortality. Include clinical findings that support your diagnosis. FYI: Press F11 to launch patient chart Place X here if this finding has no clinical significance, is not applicable or if you are not able to provide any additional documentation. DEOND
--- NOTE | 2016-04-18 14:33 | P.PN ---
Subjective 75-year-old gentleman with history of peptic ulcer disease comes in to the hospital with a 60 pound weight loss due to pain associated with ingestion of food. Patient was noted to have anemia on admission. Patient underwent a upper endoscopy was noted to have a large ulcer that was not bleeding. Thereafter patient also underwent a colonoscopy on 04/11/2016. Unfortunately there was a competition with abdominal perforation and patient was noted to have free air in the abdomen thereafter patient underwent a sigmoid colectomy and laparotomy. Patient was started on TPN on 04/10/2016. Patient is tolerating currently. On 04/12/2016and During my exmination patient was not complaining of any pain at rest however does complain of pain in his abdomen with minimal movement. Patient was noted to have a irregularly irregular tachycardia. Patient does have a left bundle branch block at baseline. Denies having any chest pain difficulty breathing headaches blurry vision. 04/13/2016 Patient denies having any additional complaints. States to have some abdominal discomfort. 04/14/16 No new overnight events. Denies passing gas. Tolerating CLD> NO fevers, chills, chest pain, KOFFI reported. 04/15/2016 The patient this morning was slightly tachycardic. There was some concern over breathing to 40. Patient's blood pressure was low. Patient was triaged ICU. Patient was seen multiple times with frequent evaluations. I initially patient' s IV fluids were increased patient denied having any acute complaints however heart rate was anywhere in the 120s to 130s some appears to be a left bundle branch block with irregular abberency In the ICU he was directed at the patient should be started on Levophed. 2016 Slightly improved currently on 4 l o2. States to have some KOFFI No other complaints reported. 2016 ON vasopressor support Supplemental o2 Not tolerating diet. 2016 Off vasopressor support. Continues to be on 3 L a supplement oxygen. States to be slightly improved. Does not have an appetite at this time. Is passing gas at this time. Objective - Vital Signs Vital signs: Vital Signs Temp 97.4 F L 04/18/16 12:00 Pulse 104 H 04/18/16 13:00 Resp 27 H 04/18/16 13:00 BP 113/74 04/18/16 13:00 Pulse Ox 96 04/18/16 13:00 Intake & Output 04/17/16 04/18/16 04/18/16 18:59 06:59 18:59 Intake Total 2815.67 727.418 559.965 Output Total 541 480 236 Balance 2274.67 247.418 323.965 Weight 73.6 kg 70.4 kg Intake: Intake, IV Titration 2065.67 607.418 509.965 Amount Diltiazem 125 mg In 55 141.5 32.333 Sodium Chloride 0.9% 100 ml @ 5 MG/HR 5 mls/hr IV .Q24H [facility] Rx#:[id number] Fat Emulsion 20% 250 ml @ 126 84 21 mls/hr IV DAILY@1300 [facility] Rx#:[id number] Mvi, Adult No.4 with Vit 1114.75 K 10 ml Trace (Conc-1Ml/ Dose) 1 ml Sodium Acetate 35 meq Magnesium Sulfate 5 meq Calcium Gluconate 1,500 mg In Amino Acid 5% -D25w 1,000 ml @ 70 mls/ hr IV .BY DURATION [facility] Rx #:[id number] Norepinephrine 16 mg In 19.92 76.918 7.632 Sodium Chloride 0.9% 250 ml @ Titrate IV .Q0M [facility] Rx#:[id number] Piperacillin-Tazobactam 3 50 25.0 50 .375 gm In Dextrose/Water 1 50ml.bag @ 12.5 mls/hr IVPB Q12HR [facility] Rx#: [id number] Sodium Acetate 35 meq 700 280 420 Magnesium Sulfate 5 meq Calcium Gluconate 1,500 mg In Amino Acid 5%-D25w 1,000 ml @ 70 mls/hr IV . BY DURATION [facility] Rx#: [id number] Oral 750 120 50 Output: Drainage 150 60 Medial Abdomen 150 60 Urine 388 420 236 Stool 3 Other: Voiding Method Indwelling Catheter Indwelling Catheter Indwelling Catheter # Voids 30 - Exam Gen. appearance patient is extremity cachectic Neck is supple no JVD Heart S1-S2 heard irregularly irregular tachycardic Abdomen is tender to palpation is a midline incision that is noted no organomegaly is appreciated. Is oozing around incision site no signs of cellulitis. Lungs good air entry clear to auscultation or rhonchi or wheezing noted His a PICC line on the left upper arm Neurologically no focal motor or sensory deficits noted - Labs CBC & Chem 7: 04/18/16 04:32 02/14/17 04:32 Labs: Abnormal Lab Results - Last 24 Hours (Table) 04/17/16 04/17/16 04/17/16 Range/Units 04:32 17:47 23:56 WBC 19.1 H (3.8-10.6) k/uL RBC 3.11 L (4.30-5.90) m/uL Hgb 8.4 L (13.0-17.5) gm/dL Hct 27.0 L (39.0-53.0) % RDW 20.4 H (11.5-15.5) % Plt Count 99 L (150-450) k/uL Neutrophils # (Manual) 17.6 H (1.3-7.7) k/uL Lymphocytes # (Manual) 0.6 L (1.0-4.8) k/uL Carbon Dioxide (22-30) mmol/L BUN (9-20) mg/dL Creatinine (0.66-1.25) mg/dL POC Glucose (mg/dL) 133 H 139 H (75-99) mg/dL Calcium (8.4-10.2) mg/dL Magnesium (1.6-2.3) mg/dL Albumin (3.5-5.0) g/dL 04/18/16 04/18/16 04/18/16 Range/Units 04:32 04:32 06:09 WBC 19.1 H (3.8-10.6) k/uL RBC 3.11 L (4.30-5.90) m/uL Hgb 8.4 L (13.0-17.5) gm/dL Hct 27.0 L (39.0-53.0) % RDW 20.4 H (11.5-15.5) % Plt Count 99 L (150-450) k/uL Neutrophils # (Manual) 17.6 H (1.3-7.7) k/uL Lymphocytes # (Manual) 0.6 L (1.0-4.8) k/uL Carbon Dioxide 18 L (22-30) mmol/L BUN 113 H* (9-20) mg/dL Creatinine 4.40 H (0.66-1.25) mg/dL POC Glucose (mg/dL) 164 H (75-99) mg/dL Calcium 8.2 L (8.4-10.2) mg/dL Magnesium 2.4 H (1.6-2.3) mg/dL Albumin 2.3 L (3.5-5.0) g/dL 04/18/16 Range/Units 12:42 WBC (3.8-10.6) k/uL RBC (4.30-5.90) m/uL Hgb (13.0-17.5) gm/dL Hct (39.0-53.0) % RDW (11.5-15.5) % Plt Count (150-450) k/uL Neutrophils # (Manual) (1.3-7.7) k/uL Lymphocytes # (Manual) (1.0-4.8) k/uL Carbon Dioxide (22-30) mmol/L BUN (9-20) mg/dL Creatinine (0.66-1.25) mg/dL POC Glucose (mg/dL) 121 H (75-99) mg/dL Calcium (8.4-10.2) mg/dL Magnesium (1.6-2.3) mg/dL Albumin (3.5-5.0) g/dL Assessment and Plan Plan: #1 acute on chronic blood loss anemia from a GI source #2 slightly decompensated systolic heart failure due to fluid infusion during shock state. #3 acute hypoxic respiratory failure sec to mild degree of fluid overload like #4 prostate cancer status post prostatectomy #5 chronic tobacco dependence #6 severe protein calorie malnutrition #7 hypophosphatemia #8 indeterminate troponin leak #9 wide-complex tachycardia appears to have some aberrant conduction #10 shock likely due to underlying sepsis. Plan Continue ongoing care, slightly improved Empiric antibiotics will be started. Did discuss the case with the patient and the family that his prognosis extremely poor. Patient does not want to be intubated patient will be made a DO NOT RESUSCITATE and DO NOT INTUBATE prior to a CODE BLUE for respiratory distress Triage out of ICU. Prognosis is extremely poor
[2016-04-18 18:37] LABS: Glucose,Whole Blood 161 mg/dL (75-99)
--- NOTE | 2016-04-18 21:18 | PN ---
Patient is seen for followup for acute kidney injury. Patient has had low urine output. He had been on Levophed; however, Levophed was discontinued earlier this morning. Blood pressure remains about 90 mmHg for systolic. Patient's serum creatinine has further increased to about 4.4 mg/dL. Renal replacement therapy was discussed with the patient and family yesterday, and they had suggested that they would like to proceed with dialysis if indicated. I have discussed this again with them today. At this time patient does not need to be dialyzed; however, we will need to continue to assess on a daily basis. He will not be a good candidate for long-term outpatient dialysis, particularly if his blood pressure remains low. On examination today, patient is awake. He is not in any acute distress. His blood pressure was 96/80, heart rate about 70 per minute. He is afebrile. EXAMINATION OF THE HEART: S1 and S2. EXAMINATION OF THE LUNGS: Bilateral breath sounds are heard. ABDOMEN: Soft. Currently dressed. Dressing is intact. No drainage noted. Examination of lower extremities shows no significant edema. Labs show sodium 137, potassium 3.5, BUN 113, serum creatinine 4.6. ASSESSMENT: 1. Acute kidney injury, acute tubular necrosis, currently non-oliguric with mild volume overload. Will give Lasix at 60 mg IV push x1. Patient does not need to be dialyzed today; however, we need to reassess on a daily basis. He is not a good candidate for long-term dialysis as outpatient. 2. Atrial fibrillation with rapid ventricular response, off of Cardizem drip. 3. Status post laparotomy and partial colon resection for bowel perforation, maintained on TPN. Oral intake is poor. 4. Gastrointestinal bleed, currently with no active bleeding noted. PLAN: Lasix x1. Repeat labs in a.m.
[2016-04-19] MEDS: DILTIAZEM 125 MG in SODIUM CHLORIDE 0.9% 100 ML IV SCH (00:08)
[2016-04-19] MEDS: INSULIN LISPRO (humaLOG) 300 UNIT/3 ML VIAL SQ SCH ×4 (00:57→19:53)
[2016-04-19 01:03] LABS: Glucose,Whole Blood 173 mg/dL (75-99)
[2016-04-19 04:50] LABS: Glucose,Whole Blood 101 mg/dL (75-99)
[2016-04-19 05:07] LABS: Anisocytosis Moderate; CH 26.4; CHCM 29.9; HCT 27.3 % (39.0-53.0); HDW 4.25; HGB 8.2 gm/dL (13.0-17.5); Hypochromasia Marked; Large Platelets Flag Marked; MCH 26.6 pg (25.0-35.0); MCV 88.4 fL (80.0-100.0); Mean Platelet Volume 13.7; Microcytosis Slight; Poikilocytosis Moderate; RBC 3.09 m/uL (4.30-5.90); RDW 20.3 % (11.5-15.5); WBC (Perox) 16.44
[2016-04-19 05:16] LABS: Calcium 8.3 mg/dL (8.4-10.2); Potassium 4.2 mmol/L (3.5-5.1)
--- NOTE | 2016-04-19 07:26 | XR ---
EXAMINATION TYPE: XR chest 1V DATE OF EXAM: 04/19/2016 6:45 AM COMPARISON: Prior chest x-ray 18 April 2016 HISTORY: Shortness of breath TECHNIQUE: Single frontal view of the chest is obtained. FINDINGS: 5 basilar effusions persist, there is associated atelectasis or airspace disease. Left-marcial ed PICC line is stable. No evident pneumothorax. Heart remains enlarged. Central vascularity is incre ased. IMPRESSION: Correlate for congestive heart failure with basilar effusions.
[2016-04-19] MEDS: HYDROmorphone 1 MG/ML 1 ML SYRINGE IVP PRN (07:37)
[2016-04-19] MEDS ORDERED: SODIUM CHLORIDE 0.9% 1,000 ML IV ONE ×2 (08:43→10:25)
--- NOTE | 2016-04-19 08:58 | P.PN ---
Subjective Progress note 04/18/16 This is a 75-year-old patient who was admitted back on February 04. He was seen yesterday with my nurse practitioner here in the ICU. He has a history of recent partial colectomy for perforated rectosigmoid area. He was transferred to the ICU for an episode of hypotension on April 15. Currently his hypotension is resolved. He also has a history of atrial fibrillation with RVR. Currently on a Cardizem drip at 5 mg per hour. Chest x-ray shows heart failure with cardiomegaly and bilateral effusions, right greater than left. The patient is quite cachectic appearing. Is getting TPN at 70 mL an hour. He is also getting a Cardizem 5 mg an hour. Currently on room air with saturation of 93%. Mildly tachypnea. Not well alert and with it. Progress note dated 04/19/2016 This is a 75-year-old black male who was admitted back on April 07. The patient has a history of recent partial colectomy for perforated rectosigmoid colon. He was recently transferred to the ICU for an episode of hypotension on April 15. Currently most of his hypotension has resolved although he remains on very small dose of pressor at 1 lisa per minute. Is getting TPN at 70. I asked the nurse to give him a liter and a half of fluid to see if we can get him off the levophed. He is getting O2 at 3 L nasal cannula. He is off the Cardizem drip. His overall prognosis is poor. He is DO NOT RESUSCITATE. Objective - Vital Signs Vital signs: Vital Signs Temp 97 F L 04/19/16 08:00 Pulse 115 H 04/19/16 08:00 Resp 30 H 04/19/16 08:00 BP 101/72 04/19/16 08:00 Pulse Ox 100 04/19/16 08:00 Intake & Output 04/18/16 04/19/16 04/19/16 18:59 06:59 18:59 Intake Total 9065.419 4372.663 140 Output Total 493 517 80 Balance 529.965 604.663 60 Weight 74.3 kg Intake: Intake, IV Titration 412.018 6533.663 140 Amount Diltiazem 125 mg In 32.333 Sodium Chloride 0.9% 100 ml @ 5 MG/HR 5 mls/hr IV .Q24H [facility] Rx#:[id number] Fat Emulsion 20% 250 ml @ 63 189 21 mls/hr IV DAILY@1300 [facility] Rx#:[id number] Mvi, Adult No.4 with Vit 70 K 10 ml Trace (Conc-1Ml/ Dose) 1 ml Sodium Acetate 35 meq Magnesium Sulfate 2 meq Calcium Gluconate 1,500 mg In Amino Acid 5% -D25w 1,000 ml @ 70 mls/ hr IV .BY DURATION [facility] Rx #:[id number] Mvi, Adult No.4 with Vit 70 70 K 10 ml Trace (Conc-1Ml/ Dose) 1 ml Sodium Acetate 35 meq Magnesium Sulfate 5 meq Calcium Gluconate 1,500 mg In Amino Acid 5% -D25w 1,000 ml @ 70 mls/ hr IV .BY DURATION COUNTS INCLUDE 234 BEDS AT THE [facility] Rx #:[id number] Norepinephrine 16 mg In 7.632 42.663 Sodium Chloride 0.9% 250 ml @ Titrate IV .Q0M COUNTS INCLUDE 234 BEDS AT THE [facility] Rx#:[id number] Piperacillin-Tazobactam 3 50 50.0 .375 gm In Dextrose/Water 1 50ml.bag @ 12.5 mls/hr IVPB Q12HR [facility] Rx#: [id number] Sodium Acetate 35 meq 770 770 Magnesium Sulfate 5 meq Calcium Gluconate 1,500 mg In Amino Acid 5%-D25w 1,000 ml @ 70 mls/hr IV . BY DURATION COUNTS INCLUDE 234 BEDS AT THE [facility] Rx#: [id number] Oral 100 Output: Urine 491 517 80 Stool 2 Other: Voiding Method Indwelling Catheter Indwelling Catheter # Voids 30 - Exam No acute distress, not particularly alert but does respond appropriately. Mildly tachypnea. HEENT examination is grossly unremarkable. Not wearing any supplemental oxygen. Mucous membranes are moist. Supple. Full range of motion. No adenopathy. No neck vein distention. Cardiovascular examination reveals mild tachycardia. Heart rate about 90. Heart rate is irregular Consistent with atrial fibrillation. No distinct murmurs noted. Lungs reveal few scattered basilar crackles. Breath sounds diminished. No wheezes. A few scattered upper airway rhonchi are noted. Abdomen soft. Bowel sounds are noted. Extremities are intact. - Labs CBC & Chem 7: 04/19/16 04:51 04/19/16 04:51 Labs: Abnormal Lab Results - Last 24 Hours (Table) 04/18/16 04/18/1604/18/17 Range/Units 04:32 12:42 18:35 WBC 19.1 H (3.8-10.6) k/uL RBC 3.11 L (4.30-5.90) m/uL Hgb 8.4 L (13.0-17.5) gm/dL Hct 27.0 L (39.0-53.0) % MCHC (31.0-37.0) g/dL RDW 20.4 H (11.5-15.5) % Plt Count 99 L (150-450) k/uL Neutrophils # (Manual) 17.6 H (1.3-7.7) k/uL Lymphocytes # (Manual) 0.6 L (1.0-4.8) k/uL Sodium (137-145) mmol/L Carbon Dioxide (22-30) mmol/L BUN (9-20) mg/dL Creatinine (0.66-1.25) mg/dL POC Glucose (mg/dL) 121 H 161 H (75-99) mg/dL Calcium (8.4-10.2) mg/dL 04/19/16 04/19/16 04/19/16 Range/Units 00:56 04:49 04:51 WBC (3.8-10.6) k/uL RBC (4.30-5.90) m/uL Hgb (13.0-17.5) gm/dL Hct (39.0-53.0) % MCHC (31.0-37.0) g/dL RDW (11.5-15.5) % Plt Count (150-450) k/uL Neutrophils # (Manual) (1.3-7.7) k/uL Lymphocytes # (Manual) (1.0-4.8) k/uL Sodium 136 L (137-145) mmol/L Carbon Dioxide 20 L (22-30) mmol/L BUN 123 H* (9-20) mg/dL Creatinine 4.40 H (0.66-1.25) mg/dL POC Glucose (mg/dL) 173 H 101 H (75-99) mg/dL Calcium 8.3 L (8.4-10.2) mg/dL 04/19/16 Range/Units 04:51 WBC 14.8 H (3.8-10.6) k/uL RBC 3.09 L (4.30-5.90) m/uL Hgb 8.2 L (13.0-17.5) gm/dL Hct 27.3 L (39.0-53.0) % MCHC 30.0 L (31.0-37.0) g/dL RDW 20.3 H (11.5-15.5) % Plt Count 113 L (150-450) k/uL Neutrophils # (Manual) (1.3-7.7) k/uL Lymphocytes # (Manual) (1.0-4.8) k/uL Sodium (137-145) mmol/L Carbon Dioxide (22-30) mmol/L BUN (9-20) mg/dL Creatinine (0.66-1.25) mg/dL POC Glucose (mg/dL) (75-99) mg/dL Calcium (8.4-10.2) mg/dL Microbiology - Last 24 Hours (Table) 04/17/16 17:40 Blood Culture - Preliminary Blood No Growth after 24 hours 04/17/16 17:49 Blood Culture - Preliminary Blood No Growth after 24 hours Assessment and Plan (1) Atrial fibrillation Status: Acute (2) Cardiomyopathy Status: Acute (3) Prostate cancer Status: Acute (4) CVA (cerebral vascular accident) Status: Acute (5) Status post colectomy Status: Acute (6) ARF (acute renal failure) Status: Acute (7) Anemia Status: Acute (8) Dehydration Status: Acute (9) Peptic ulcer disease with hemorrhage Status: Acute (10) Protein-calorie malnutrition, severe Status: Acute (11) Transient cerebral ischemia Status: Acute Plan: Plan The patient was seen again today. The patient seemed to be more stable hemodynamically. We will set his been weaned off. His overall prognosis is very poor. Has been seen by surgery. He is a DO NOT RESUSCITATE. Continue to follow. Possible discharge to 6 selective later today bed opens up. We'll review the x-rays labs and medications. Plan dated 04/19/2016 The patient is about the same or slightly better. We'll see if we can get him off the pressor today. We'll give him a liter to a liter and a half of fluid. He's only a small amount of oxygen therapy. He remains on TPN. His medications x-rays and labs are reviewed. Prognosis is guarded. Time with Patient: Less than 30
[2016-04-19 09:16] LABS: Add Differential Manual Differential
[2016-04-19 09:18] LABS: Band Neutrophils % 0.5 %; Myelocytes % 0.5 %; Nucleated Red Blood Cells 3 /100 WBC (0-0); Total Cells Counted 200
[2016-04-19 09:19] LABS: Large Platelets Present; Manual Review Performed; Polychromasia Present; WBC 14.4 k/uL (3.8-10.6)
[2016-04-19] MEDS: PANTOPRAZOLE 40 MG/10 ML VIAL IV SCH (10:22)
[2016-04-19] MEDS: PIPERACILLIN-TAZOBACTAM 3.375 GM in DEXTROSE/WATER 1 50ML.BAG IVPB SCH ×2 (10:22→22:50)
[2016-04-19] MEDS: CLARITHROMYCIN 500 MG TAB PO SCH ×2 (10:23→22:50)
[2016-04-19] MEDS: SODIUM BICARBONATE TAB 650 MG TAB PO SCH ×3 (10:24→22:50)
[2016-04-19] MEDS ORDERED: HEPARIN SODIUM,PORCINE 5,000 UNIT/ML 1 ML VIAL ONE (12:00)
[2016-04-19 12:35] LABS: Glucose,Whole Blood 218 mg/dL (75-99)
[2016-04-19] MEDS: FOLIC ACID 1 MG TAB PO SCH (12:47)
[2016-04-19] MEDS: FAT EMULSION 20% 250 ML IV SCH (13:22)
[2016-04-19] MEDS ORDERED: FUROSEMIDE 10 MG/ML 10 ML VIAL IV STA (13:34)
[2016-04-19 16:16] LABS: INR 1.4 (<1.1); Prothrombin Time 13.9 sec (9.0-12.0)
--- NOTE | 2016-04-19 16:39 | P.PN ---
Subjective 75-year-old gentleman with history of peptic ulcer disease comes in to the hospital with a 60 pound weight loss due to pain associated with ingestion of food. Patient was noted to have anemia on admission. Patient underwent a upper endoscopy was noted to have a large ulcer that was not bleeding. Thereafter patient also underwent a colonoscopy on 04/11/2016. Unfortunately there was a competition with abdominal perforation and patient was noted to have free air in the abdomen thereafter patient underwent a sigmoid colectomy and laparotomy. Patient was started on TPN on 04/10/2016. Patient is tolerating currently. On 04/12/2016and During my exmination patient was not complaining of any pain at rest however does complain of pain in his abdomen with minimal movement. Patient was noted to have a irregularly irregular tachycardia. Patient does have a left bundle branch block at baseline. Denies having any chest pain difficulty breathing headaches blurry vision. 04/13/2016 Patient denies having any additional complaints. States to have some abdominal discomfort. 04/14/16 No new overnight events. Denies passing gas. Tolerating CLD> NO fevers, chills, chest pain, KOFFI reported. 04/15/2016 The patient this morning was slightly tachycardic. There was some concern over breathing to 40. Patient's blood pressure was low. Patient was triaged ICU. Patient was seen multiple times with frequent evaluations. I initially patient' s IV fluids were increased patient denied having any acute complaints however heart rate was anywhere in the 120s to 130s some appears to be a left bundle branch block with irregular abberency In the ICU he was directed at the patient should be started on Levophed. 2016 Slightly improved currently on 4 l o2. States to have some KOFFI No other complaints reported. 2016 ON vasopressor support Supplemental o2 Not tolerating diet. 14 2016 Off vasopressor support. Continues to be on 3 L a supplement oxygen. States to be slightly improved. Does not have an appetite at this time. Is passing gas at this time. 04/19/2001 Patient is off vasopressor support. Patient's BUN continues to increase. Patient appears to be slightly confused. Patient possibly during our conversation. After her tree planter had a conversation with the patient's daughter hemodialysis was to be started. However it was also discussed that he may not tolerate it due to his labile blood pressures and his significant protein calorie malnutrition. Objective - Vital Signs Vital signs: Vital Signs Temp 97 F L 04/19/16 16:00 Pulse 81 04/19/16 16:00 Resp 32 H 04/19/16 16:00 BP 84/71 04/19/16 16:00 Pulse Ox 96 04/19/16 16:00 Intake & Output 04/18/16 04/19/16 04/19/16 18:59 06:59 18:59 Intake Total 3413.131 9083.663 3000 Output Total 493 517 466 Balance 529.965 998.180 4020 Weight 74.3 kg 74.3 kg Intake: Intake, IV Titration 023.138 1159.663 2950 Amount Diltiazem 125 mg In 32.333 Sodium Chloride 0.9% 100 ml @ 5 MG/HR 5 mls/hr IV .Q24H [facility] Rx#:[id number] Fat Emulsion 20% 250 ml @ 63 189 250 21 mls/hr IV DAILY@1300 [facility] Rx#:[id number] Mvi, Adult No.4 with Vit 630 K 10 ml Trace (Conc-1Ml/ Dose) 1 ml Sodium Acetate 35 meq Magnesium Sulfate 2 meq Calcium Gluconate 1,500 mg In Amino Acid 5% -D25w 1,000 ml @ 70 mls/ hr IV .BY D[facility] Rx #:[id number] Mvi, Adult No.4 with Vit 70 70 K 10 ml Trace (Conc-1Ml/ Dose) 1 ml Sodium Acetate 35 meq Magnesium Sulfate 5 meq Calcium Gluconate 1,500 mg In Amino Acid 5% -D25w 1,000 ml @ 70 mls/ hr IV .BY D[facility] Rx #:[id number] Norepinephrine 16 mg In 7.632 42.663 Sodium Chloride 0.9% 250 ml @ Titrate IV .Q0M [facility] Rx#:[id number] Piperacillin-Tazobactam 3 50 50.0 .375 gm In Dextrose/Water 1 50ml.bag @ 12.5 mls/hr IVPB Q12HR [facility] Rx#: [id number] Sodium Acetate 35 meq 770 770 Magnesium Sulfate 5 meq Calcium Gluconate 1,500 mg In Amino Acid 5%-D25w 1,000 ml @ 70 mls/hr IV . BY DURATION [facility] Rx#: [id number] Sodium Chloride 0.9% 1, 1000 000 ml @ 250 mls/hr IV . Q4H [facility] Rx#:[id number] Sodium Chloride 0.9% 1, 1000 000 ml @ 999 mls/hr IV . Q1H1M [facility] Rx#:[id number] Oral 100 50 Output: Drainage 160 Medial Abdomen 160 Urine 491 517 305 Stool 2 1 Other: Voiding Method Indwelling Catheter Indwelling Catheter Indwelling Catheter # Voids 30 - Exam Gen. appearance patient is extremity cachectic Neck is supple no JVD Heart S1-S2 heard irregularly irregular tachycardic Abdomen is tender to palpation is a midline incision that is noted no organomegaly is appreciated. Is oozing around incision site no signs of cellulitis. Lungs good air entry clear to auscultation or rhonchi or wheezing noted His a PICC line on the left upper arm Neurologically no focal motor or sensory deficits noted - Labs CBC & Chem 7: 04/19/16 04:51 04/19/16 04:51 Labs: Abnormal Lab Results - Last 24 Hours (Table) 04/18/16 04/19/16 04/19/16 Range/Units 18:35 00:56 04:49 WBC (3.8-10.6) k/uL RBC (4.30-5.90) m/uL Hgb (13.0-17.5) gm/dL Hct (39.0-53.0) % MCHC (31.0-37.0) g/dL RDW (11.5-15.5) % Plt Count (150-450) k/uL Neutrophils # (Manual) (1.3-7.7) k/uL Lymphocytes # (Manual) (1.0-4.8) k/uL Nucleated RBCs (0-0) /100 WBC PT (9.0-12.0) sec Sodium (137-145) mmol/L Carbon Dioxide (22-30) mmol/L BUN (9-20) mg/dL Creatinine (0.66-1.25) mg/dL POC Glucose (mg/dL) 161 H 173 H 101 H (75-99) mg/dL Calcium (8.4-10.2) mg/dL 04/19/16 04/19/16 04/19/16 Range/Units 04:51 04:51 12:33 WBC 14.4 H (3.8-10.6) k/uL RBC 3.09 L (4.30-5.90) m/uL Hgb 8.2 L (13.0-17.5) gm/dL Hct 27.3 L (39.0-53.0) % MCHC 30.0 L (31.0-37.0) g/dL RDW 20.3 H (11.5-15.5) % Plt Count 113 L (150-450) k/uL Neutrophils # (Manual) 13.5 H (1.3-7.7) k/uL Lymphocytes # (Manual) 0.3 L (1.0-4.8) k/uL Nucleated RBCs 3 H (0-0) /100 WBC PT (9.0-12.0) sec Sodium 136 L (137-145) mmol/L Carbon Dioxide 20 L (22-30) mmol/L BUN 123 H* (9-20) mg/dL Creatinine 4.40 H (0.66-1.25) mg/dL POC Glucose (mg/dL) 218 H (75-99) mg/dL Calcium 8.3 L (8.4-10.2) mg/dL 04/19/16 Range/Units 15:30 WBC (3.8-10.6) k/uL RBC (4.30-5.90) m/uL Hgb (13.0-17.5) gm/dL Hct (39.0-53.0) % MCHC (31.0-37.0) g/dL RDW (11.5-15.5) % Plt Count (150-450) k/uL Neutrophils # (Manual) (1.3-7.7) k/uL Lymphocytes # (Manual) (1.0-4.8) k/uL Nucleated RBCs (0-0) /100 WBC PT 13.9 H (9.0-12.0) sec Sodium (137-145) mmol/L Carbon Dioxide (22-30) mmol/L BUN (9-20) mg/dL Creatinine (0.66-1.25) mg/dL POC Glucose (mg/dL) (75-99) mg/dL Calcium (8.4-10.2) mg/dL Microbiology - Last 24 Hours (Table) 04/17/16 17:40 Blood Culture - Preliminary Blood No Growth after 24 hours 04/17/16 17:49 Blood Culture - Preliminary Blood No Growth after 24 hours Assessment and Plan Plan: #1 acute on chronic blood loss anemia from a GI source #2 slightly decompensated systolic heart failure due to fluid infusion during shock state. #3 acute hypoxic respiratory failure sec to mild degree of fluid overload like #4 prostate cancer status post prostatectomy #5 chronic tobacco dependence #6 severe protein calorie malnutrition #7 hypophosphatemia #8 indeterminate troponin leak #9 wide-complex tachycardia appears to have some aberrant conduction #10 shock likely due to underlying sepsis. #11 uremia with symptoms. Plan DO NOT RESUSCITATE Hemodialysis trial Prognosis extremely poor. Patient is symptomatic of uremia. Is not tolerating diet.
--- NOTE | 2016-04-19 18:15 | XR ---
EXAMINATION TYPE: XR chest 1V portable DATE OF EXAM: 04/19/2016 6:09 PM COMPARISON: 6:00 AM today HISTORY: Central line insertion attempted TECHNIQUE: Single frontal view of the chest is obtained. FINDINGS: There is pulmonary vascular congestion. There is blunting of costophrenic angles. There is a left side central venous catheter with the tip over the superior vena cava. I see no pneumothorax. There are chest leads. There is probably some infiltrate at the lung bases. IMPRESSION: Congestive heart failure with bilateral pleural effusions. Heart and lungs are unchanged compared to exam earlier today. Left side central venous catheter has tip in superior vena cava and unchanged compared to last exam.
[2016-04-19 19:21] LABS: Glucose,Whole Blood 156 mg/dL (75-99)
--- NOTE | 2016-04-19 20:27 | P.PN ---
Subjective Principal diagnosis: Colon perforation Covering for Dr. Ramos. Patient remains extubated. He is tachycardic and tachypneic. Blood pressure remained somewhat low. White blood cell count 14.4 hemoglobin 8.2. The patient has had some serous drainage from his incision. He denies abdominal pain however. He had a loose stool 2 days ago. He is tolerating a small amount of liquid diet. A dialysis catheter was placed today and he is tolerating hemodialysis at this time. Objective - Vital Signs Vital signs: Vital Signs Temp 97 F L 04/19/16 16:00 Pulse 105 H 04/19/16 19:00 Resp 39 H 04/19/16 19:00 BP 83/64 04/19/16 19:00 Pulse Ox 96 04/19/16 19:00 Intake & Output 04/19/16 04/19/16 04/20/16 06:59 18:59 06:59 Intake Total 2119.673 1551 91 Output Total 517 370 30 Balance 959.459 4483 61 Weight 74.3 kg 74.3 kg Intake: Intake, IV Titration 5718.582 4352 91 Amount Fat Emulsion 20% 250 ml @ 189 334 21 21 mls/hr IV DAILY@1300 [facility] Rx#:[id number] Mvi, Adult No.4 with Vit 770 70 K 10 ml Trace (Conc-1Ml/ Dose) 1 ml Sodium Acetate 35 meq Magnesium Sulfate 2 meq Calcium Gluconate 1,500 mg In Amino Acid 5% -D25w 1,000 ml @ 70 mls/ hr IV .BY DURATION [facility] Rx #:[id number] Mvi, Adult No.4 with Vit 70 70 K 10 ml Trace (Conc-1Ml/ Dose) 1 ml Sodium Acetate 35 meq Magnesium Sulfate 5 meq Calcium Gluconate 1,500 mg In Amino Acid 5% -D25w 1,000 ml @ 70 mls/ hr IV .BY DURATION [facility] Rx #:[id number] Norepinephrine 16 mg In 42.663 Sodium Chloride 0.9% 250 ml @ Titrate IV .Q0M [facility] Rx#:[id number] Piperacillin-Tazobactam 3 50.0 .375 gm In Dextrose/Water 1 50ml.bag @ 12.5 mls/hr IVPB Q12HR [facility] Rx#: [id number] Sodium Acetate 35 meq 770 Magnesium Sulfate 5 meq Calcium Gluconate 1,500 mg In Amino Acid 5%-D25w 1,000 ml @ 70 mls/hr IV . BY DURATION [facility] Rx#: [id number] Sodium Chloride 0.9% 1, 1000 000 ml @ 250 mls/hr IV . Q4H [facility] Rx#:[id number] Sodium Chloride 0.9% 1, 1000 000 ml @ 999 mls/hr IV . Q1H1M [facility] Rx#:[id number] Oral 50 Output: Urine 517 370 30 Other: Voiding Method Indwelling Catheter Indwelling Catheter - Exam Abdomen: Soft, nontender, edematous abdominal wall, serous drainage from the lower aspect of the incision - Labs CBC & Chem 7: 04/19/16 04:51 04/19/16 04:51 Labs: Abnormal Lab Results - Last 24 Hours (Table) 04/19/16 04/19/16 04/19/16 Range/Units 00:56 04:49 04:51 WBC (3.8-10.6) k/uL RBC (4.30-5.90) m/uL Hgb (13.0-17.5) gm/dL Hct (39.0-53.0) % MCHC (31.0-37.0) g/dL RDW (11.5-15.5) % Plt Count (150-450) k/uL Neutrophils # (Manual) (1.3-7.7) k/uL Lymphocytes # (Manual) (1.0-4.8) k/uL Nucleated RBCs (0-0) /100 WBC PT (9.0-12.0) sec Sodium 136 L (137-145) mmol/L Carbon Dioxide 20 L (22-30) mmol/L BUN 123 H* (9-20) mg/dL Creatinine 4.40 H (0.66-1.25) mg/dL POC Glucose (mg/dL) 173 H 101 H (75-99) mg/dL Calcium 8.3 L (8.4-10.2) mg/dL 04/19/16 04/19/16 04/19/16 Range/Units 04:51 12:33 15:30 WBC 14.4 H (3.8-10.6) k/uL RBC 3.09 L (4.30-5.90) m/uL Hgb 8.2 L (13.0-17.5) gm/dL Hct 27.3 L (39.0-53.0) % MCHC 30.0 L (31.0-37.0) g/dL RDW 20.3 H (11.5-15.5) % Plt Count 113 L (150-450) k/uL Neutrophils # (Manual) 13.5 H (1.3-7.7) k/uL Lymphocytes # (Manual) 0.3 L (1.0-4.8) k/uL Nucleated RBCs 3 H (0-0) /100 WBC PT 13.9 H (9.0-12.0) sec Sodium (137-145) mmol/L Carbon Dioxide (22-30) mmol/L BUN (9-20) mg/dL Creatinine (0.66-1.25) mg/dL POC Glucose (mg/dL) 218 H (75-99) mg/dL Calcium (8.4-10.2) mg/dL 04/19/16 Range/Units 19:20 WBC (3.8-10.6) k/uL RBC (4.30-5.90) m/uL Hgb (13.0-17.5) gm/dL Hct (39.0-53.0) % MCHC (31.0-37.0) g/dL RDW (11.5-15.5) % Plt Count (150-450) k/uL Neutrophils # (Manual) (1.3-7.7) k/uL Lymphocytes # (Manual) (1.0-4.8) k/uL Nucleated RBCs (0-0) /100 WBC PT (9.0-12.0) sec Sodium (137-145) mmol/L Carbon Dioxide (22-30) mmol/L BUN (9-20) mg/dL Creatinine (0.66-1.25) mg/dL POC Glucose (mg/dL) 156 H (75-99) mg/dL Calcium (8.4-10.2) mg/dL Microbiology - Last 24 Hours (Table) 04/17/16 17:40 Blood Culture - Preliminary Blood No Growth after 48 hours 04/17/16 17:49 Blood Culture - Preliminary Blood No Growth after 48 hours Assessment and Plan (1) Status post colectomy Narrative/Plan: Continue liquid diet plus TPN. Continue hemodialysis. Patient's family was updated as to his current condition. Will follow with you. Status: Acute
--- NOTE | 2016-04-19 21:34 | PN ---
Patient is seen for followup for acute kidney injury. Patient's renal function continues to worsen. His BUN today is up to 123 and serum creatinine at 4.4 mg/dL. Urine output had improved yesterday after the Lasix. Patient also received 2 liters of fluid bolus yesterday after the Levophed was discontinued. He is currently awake. He is mildly short of breath. He is not in any acute distress. He has episodes of sleep apnea. I have discussed with family and at this time they do want to try renal replacement therapy. I have discussed with his daughter that if he is not able to tolerate dialysis, then we will not pursue any further aggressive measures. His blood pressure is on the lower side and we will most likely not be able to get fluid off. This morning patient's mentation seems to have declined, and he has had more periods of confusion. On examination, blood pressure was 94/72, heart rate of about 108 per minute. He is afebrile. EXAMINATION OF THE HEART: S1 and S2. EXAMINATION OF THE LUNGS: Bilateral breath sounds are heard. Decreased breath sounds at the bases. Minimal basal crackles are heard. ABDOMEN: Soft, nontender. The abdomen is currently dressed. Incision is dressed. Examination of the lower extremities showed no significant edema. Labs show sodium 136, potassium 4.2. BUN is 123, serum creatinine 4.4 mg/dL. ASSESSMENT: 1. Acute kidney injury, acute tubular necrosis, currently non-oliguric, with worsening renal function and change in mentation today. We will proceed with dialysis; however, patient's family is advised that if he is not able to tolerate hemodialysis, we may need to discontinue any further aggressive medical therapy. Patient is not a candidate for long-term renal replacement therapy. 2. Status post laparotomy for bowel perforation following colonoscopy. 3. Gastrointestinal bleed on initial admission, currently stabilized. 4. Significant weight loss over the past 6 to 8 months prior to admission with no obvious etiology identified at this time. PLAN: Overall prognosis is guarded. Will try dialysis, consult Vascular Surgery for Alfonzo catheter placement.
[2016-04-19 23:38] LABS: Calcium 7.6 mg/dL (8.4-10.2); Magnesium 2.1 mg/dL (1.6-2.3); Phosphorous 3.7 mg/dL (2.5-4.5); Potassium 3.4 mmol/L (3.5-5.1)
[2016-04-19 23:43] LABS: Glucose,Whole Blood 126 mg/dL (75-99)
[2016-04-20] MEDS: INSULIN LISPRO (humaLOG) 300 UNIT/3 ML VIAL SQ SCH ×5 (00:10→23:59)
[2016-04-20] MEDS ORDERED: POTASSIUM CHLORIDE ER 20 MEQ TAB.ER PO SCH (02:00)
[2016-04-20] MEDS: DILTIAZEM 125 MG in SODIUM CHLORIDE 0.9% 100 ML IV SCH (03:05)
[2016-04-20 05:20] LABS: Glucose,Whole Blood 176 mg/dL (75-99)
[2016-04-20 05:27] LABS: Anisocytosis Slight; CH 26.3; CHCM 29.5; HDW 4.33; Hypochromasia Marked; Large Platelets Flag Marked; MCH 26.6 pg (25.0-35.0); MCHC 29.8 g/dL (31.0-37.0); MCV 89.3 fL (80.0-100.0); Mean Platelet Volume 13.4; Poikilocytosis Moderate; RBC 3.02 m/uL (4.30-5.90); WBC (Perox) 14.14
[2016-04-20 05:40] LABS: Anion Gap 15 mmol/L; Calcium 7.9 mg/dL (8.4-10.2); Carbon Dioxide 21 mmol/L (22-30); Chloride 100 mmol/L (98-107); Glucose 154 mg/dL (74-99); Non-African American GFR(MDRD) 15 (>60 ml/min/1.73 sqM); Phosphorous 4.1 mg/dL (2.5-4.5); Sodium 136 mmol/L (137-145)
[2016-04-20 05:49] LABS: Blood Urea Nitrogen 106 mg/dL (9-20)
[2016-04-20] MEDS: NOREPINEPHRINE 16 MG in SODIUM CHLORIDE 0.9% 250 ML IV SCH (06:02)
[2016-04-20 06:11] LABS: Hepatitis B Surface Ag Index 0.09
[2016-04-20 06:13] LABS: Add Differential Manual Differential
[2016-04-20 06:16] LABS: Band Neutrophils % 1.5 %; Nucleated Red Blood Cells 14 /100 WBC (0-0); Total Cells Counted 200
[2016-04-20 06:17] LABS: Manual Review Performed; Polychromasia Present; WBC 12.4 k/uL (3.8-10.6)
[2016-04-20 06:18] LABS: Large Platelets Present
[2016-04-20 06:32] LABS: Hepatitis B Surface Antibody Negative (Negative)
--- NOTE | 2016-04-20 06:53 | XR ---
EXAMINATION TYPE: XR chest 1V portable DATE OF EXAM: 04/20/2016 6:30 AM COMPARISON: 04/19/2016 HISTORY: Shortness of breath TECHNIQUE: Single frontal view of the chest is obtained. FINDINGS: Bilateral areas of consolidation and pleural effusion with interstitial central pattern. P ICC line noted in good position. No pneumothorax. IMPRESSION: 1. Bilateral infiltrate and pleural effusion are stable correlate for CHF.
[2016-04-20] MEDS: PANTOPRAZOLE 40 MG/10 ML VIAL IV SCH (08:10)
[2016-04-20] MEDS: CLARITHROMYCIN 500 MG TAB PO SCH ×2 (08:10→20:43)
[2016-04-20] MEDS: PIPERACILLIN-TAZOBACTAM 3.375 GM in DEXTROSE/WATER 1 50ML.BAG IVPB SCH ×2 (08:10→20:43)
[2016-04-20] MEDS: SODIUM BICARBONATE TAB 650 MG TAB PO SCH ×3 (08:11→21:01)
[2016-04-20] MEDS: ACETAMINOPHEN TAB 325 MG TAB PO PRN ×2 (09:29→15:18)
--- NOTE | 2016-04-20 10:32 | P.PN ---
Subjective Patient is seen in follow-up for acute kidney injury. He underwent his first treatment of hemodialysis yesterday. He did become quite hypotensive and required 2 L of IV fluid resuscitation afterwards. No ultrafiltration was done. He's currently receiving TPN. He is on 6 mics of levo fed. Patient is not a reliable historian. He is moaning. Vital signs are stable. General: The patient appeared well nourished and normally developed. HEENT: Head exam is unremarkable. Neck is without jugular venous distension. LUNGS: Lungs are clear to auscultation and percussion. Breath sounds decreased. HEART: Rate and Rhythm are regular. First and second heart sounds normal. No murmurs, rubs or gallops. ABDOMEN: Abdominal exam reveals normal bowel sounds. Non-tender and non- distended. No evidence of peritonitis. EXTREMITITES: 1+ edema. Objective - Vital Signs Vital signs: Vital Signs Temp 97.4 F L 04/20/16 04:00 Pulse 94 04/20/16 07:00 Resp 32 H 04/20/16 08:00 BP 91/70 04/20/16 07:00 Pulse Ox 100 04/20/16 07:00 Intake & Output 04/19/16 04/20/16 04/20/16 18:59 06:59 18:59 Intake Total 3224 1443.313 120 Output Total 370 439 115 Balance 2854 1004.313 5 Weight 74.3 kg 73.7 kg Intake: IV 784 70 Fat Emulsion 20% 250 ml @ 84 21 mls/hr IV DAILY@1300 [facility] Rx#:[id number] Mvi, Adult No.4 with Vit 0 K 10 ml Trace (Conc-1Ml/ Dose) 1 ml Sodium Acetate 35 meq Magnesium Sulfate 2 meq Calcium Gluconate 1,500 mg In Amino Acid 5% -D25w 1,000 ml @ 70 mls/ hr IV .BY DURATION [facility] Rx #:[id number] Sodium Acetate 35 meq 700 70 Calcium Gluconate 1,500 mg Potassium Chloride 10 meq In Amino Acid 5%-D25w 1,000 ml @ 70 mls/hr IV .BY DURATION [facility] Rx#: [id number] Intake, IV Titration 3174 389.313 50 Amount Fat Emulsion 20% 250 ml @ 334 63 21 mls/hr IV DAILY@1300 [facility] Rx#:[id number] Mvi, Adult No.4 with Vit 770 210 K 10 ml Trace (Conc-1Ml/ Dose) 1 ml Sodium Acetate 35 meq Magnesium Sulfate 2 meq Calcium Gluconate 1,500 mg In Amino Acid 5% -D25w 1,000 ml @ 70 mls/ hr IV .BY DURATION [facility] Rx #:[id number] Mvi, Adult No.4 with Vit 70 K 10 ml Trace (Conc-1Ml/ Dose) 1 ml Sodium Acetate 35 meq Magnesium Sulfate 5 meq Calcium Gluconate 1,500 mg In Amino Acid 5% -D25w 1,000 ml @ 70 mls/ hr IV .BY DURATION [facility] Rx #:[id number] Norepinephrine 16 mg In 66.313 Sodium Chloride 0.9% 250 ml @ Titrate IV .Q0M [facility] Rx#:[id number] Piperacillin-Tazobactam 3 50.0 50 .375 gm In Dextrose/Water 1 50ml.bag @ 12.5 mls/hr IVPB Q12HR [facility] Rx#: [id number] Sodium Chloride 0.9% 1, 1000 000 ml @ 250 mls/hr IV . Q4H [facility] Rx#:[id number] Sodium Chloride 0.9% 1, 1000 000 ml @ 999 mls/hr IV . Q1H1M [facility] Rx#:[id number] Oral 50 270 Output: Drainage 200 100 Medial Abdomen 200 100 Urine 370 238 15 Stool 1 Other: Voiding Method Indwelling Catheter Indwelling Catheter Indwelling Catheter # Bowel Movements 1 0 - Labs CBC & Chem 7: 04/20/16 05:20 04/20/16 05:20 Labs: Abnormal Lab Results - Last 24 Hours (Table) 04/19/16 04/19/16 04/19/16 Range/Units 12:33 15:30 19:20 WBC (3.8-10.6) k/uL RBC (4.30-5.90) m/uL Hgb (13.0-17.5) gm/dL Hct (39.0-53.0) % MCHC (31.0-37.0) g/dL RDW (11.5-15.5) % Plt Count (150-450) k/uL Neutrophils # (Manual) (1.3-7.7) k/uL Lymphocytes # (Manual) (1.0-4.8) k/uL Nucleated RBCs (0-0) /100 WBC PT 13.9 H (9.0-12.0) sec Sodium (137-145) mmol/L Potassium (3.5-5.1) mmol/L Carbon Dioxide (22-30) mmol/L BUN (9-20) mg/dL Creatinine (0.66-1.25) mg/dL Glucose (74-99) mg/dL POC Glucose (mg/dL) 218 H 156 H (75-99) mg/dL Calcium (8.4-10.2) mg/dL 04/19/16 04/19/16 04/20/16 Range/Units 22:55 23:39 05:17 WBC (3.8-10.6) k/uL RBC (4.30-5.90) m/uL Hgb (13.0-17.5) gm/dL Hct (39.0-53.0) % MCHC (31.0-37.0) g/dL RDW (11.5-15.5) % Plt Count (150-450) k/uL Neutrophils # (Manual) (1.3-7.7) k/uL Lymphocytes # (Manual) (1.0-4.8) k/uL Nucleated RBCs (0-0) /100 WBC PT (9.0-12.0) sec Sodium 134 L (137-145) mmol/L Potassium 3.4 L (3.5-5.1) mmol/L Carbon Dioxide (22-30) mmol/L BUN 92 H* (9-20) mg/dL Creatinine 3.43 H (0.66-1.25) mg/dL Glucose (74-99) mg/dL POC Glucose (mg/dL) 126 H 176 H (75-99) mg/dL Calcium 7.6 L (8.4-10.2) mg/dL 04/20/16 04/20/16 Range/Units 05:20 05:20 WBC 12.4 H (3.8-10.6) k/uL RBC 3.02 L (4.30-5.90) m/uL Hgb 8.0 L (13.0-17.5) gm/dL Hct 27.0 L (39.0-53.0) % MCHC 29.8 L (31.0-37.0) g/dL RDW 20.0 H (11.5-15.5) % Plt Count 103 L (150-450) k/uL Neutrophils # (Manual) 11.5 H (1.3-7.7) k/uL Lymphocytes # (Manual) 0.4 L (1.0-4.8) k/uL Nucleated RBCs 14 H (0-0) /100 WBC PT (9.0-12.0) sec Sodium 136 L (137-145) mmol/L Potassium (3.5-5.1) mmol/L Carbon Dioxide 21 L (22-30) mmol/L BUN 106 H* (9-20) mg/dL Creatinine 3.85 H (0.66-1.25) mg/dL Glucose 154 H (74-99) mg/dL POC Glucose (mg/dL) (75-99) mg/dL Calcium 7.9 L (8.4-10.2) mg/dL Microbiology - Last 24 Hours (Table) 04/17/16 17:40 Blood Culture - Preliminary Blood No Growth after 48 hours 04/17/16 17:49 Blood Culture - Preliminary Blood No Growth after 48 hours Assessment and Plan Plan: Assessment: #1. Nonoliguric acute kidney injury secondary to ischemic ATN secondary to severe anemia and hemodynamic instability. Status post first treatment of hemodialysis April 19. #2. Chronic kidney disease stage III with baseline creatinine near 1.8. #3. Acute anemia status post packed red blood cell transfusions. Hemoglobin stable at 8 today. #4. Hypotension requiring vasopressor support. #5. Atrial fibrillation with RVR. #6. Status post partial colectomy due to perforation. Plan: Maintain TPN. Wean vasopressors as blood pressure tolerates. Monitor hemoglobin and transfuse as needed. Repeat electrolytes in the morning. Will hold off on hemodialysis for now. Electrolytes are stable. Discussed with attending physician regarding the poor prognosis and possible comfort measures. To have a family meeting today. Otherwise will plan for hemodialysis tomorrow.
[2016-04-20] MEDS: FOLIC ACID 1 MG TAB PO SCH (11:14)
[2016-04-20 11:23] LABS: Glucose,Whole Blood 206 mg/dL (75-99)
--- NOTE | 2016-04-20 11:35 | P.PN ---
Subjective 75-year-old -Greek male patient presented emergency department yesterday in a very poor health condition. The patient had lost according to the family approximately 40 pounds over the past month. I was told that he had not been eating for the past 4-6 days. The patient is awake and alert and he claims that he has no appetite and obviously he is a failure to thrive, given up on life, very much cachectic and emaciated with significant malnourishment and thought the loss and by the protein mass. In addition, the patient was an acute kidney injury with his creatinine was found to be at 4.5. He was found to be profoundly anemic with his initially was at 4.2. The patient did not have any obvious source of internal or external bleeding. He has remote history of prostate cancer and has undergone a prostatectomy. No history of any malignancy. He was in the hospital back in June 2015 for some symptoms of TIA. Back then he had a CAT scan of the brain that was negative unit showed diffuse [employer] atrophy and was negative for any acute CVA. The workup back then included a carotid Doppler that was negative for any hemodynamically significant stenosis and the patient had an echocardiogram that showed global hypokinesis with an ejection fraction of around 20%. The patient was under the care of Dr. Ochoa. He was discharged home. He claims to be following up with Dr. Ronquillo. He is a chronic smoker. No alcoholism. No substance abuse. No constipation. No abdominal distention. No GI bleeding. No hematemesis. He did vomit on few occasions however on outpatient basis. He is moving all 4 extremities and there is no limitation in his body movements. He was given a total of 2 units of packed RBCs yesterday and his hemoglobin is up to 6.4. An additional 1 unit will be given to him right now. He also received fluids in the order of 3 L normal saline and currently is on a maintenance of 100 mL an hour of 3 Amp bicarbonate with D5 water. He is seen again today 04/20/2016 in follow-up. He remains in the intensive care unit. He was initiated on hemodialysis however his blood pressure dropped and he was unable to tolerate any fluid removal. He remains on norepinephrine currently at 6 mcg/m. His appointment 9 normal saline at 20 miles per hour. He is maintaining O2 saturations in the low 90s on oxygen at 4 L/m per nasal cannula. He is receiving TPN at 70 miles per hour. Current BUN 106 with a creatinine of 3.85. his hemoglobin continues to drift downwards currently at 8.0. Hepatitis screen is negative. He is currently on Zosyn and Biaxin. Objective - Vital Signs Vital signs: Vital Signs Temp 97.4 F L 04/20/16 04:00 Pulse 94 04/20/16 07:00 Resp 32 H 04/20/16 08:00 BP 91/70 04/20/16 07:00 Pulse Ox 100 04/20/16 07:00 Intake & Output 04/19/16 04/20/16 04/20/16 18:59 06:59 18:59 Intake Total 3224 2487.313 120 Output Total 370 439 115 Balance 2854 2048.313 5 Weight 74.3 kg 73.7 kg Intake: IV 784 70 Fat Emulsion 20% 250 ml @ 84 21 mls/hr IV DAILY@1300 [facility] Rx#:[id number] Mvi, Adult No.4 with Vit 0 K 10 ml Trace (Conc-1Ml/ Dose) 1 ml Sodium Acetate 35 meq Magnesium Sulfate 2 meq Calcium Gluconate 1,500 mg In Amino Acid 5% -D25w 1,000 ml @ 70 mls/ hr IV .BY DURATION [facility] Rx #:[id number] Sodium Acetate 35 meq 700 70 Calcium Gluconate 1,500 mg Potassium Chloride 10 meq In Amino Acid 5%-D25w 1,000 ml @ 70 mls/hr IV .BY DURATION [facility] Rx#: [id number] Intake, IV Titration 3174 1433.313 50 Amount Fat Emulsion 20% 250 ml @ 334 63 21 mls/hr IV DAILY@1300 [facility] Rx#:[id number] Mvi, Adult No.4 with Vit 770 1254 K 10 ml Trace (Conc-1Ml/ Dose) 1 ml Sodium Acetate 35 meq Magnesium Sulfate 2 meq Calcium Gluconate 1,500 mg In Amino Acid 5% -D25w 1,000 ml @ 70 mls/ hr IV .BY DURATION [facility] Rx #:[id number] Mvi, Adult No.4 with Vit 70 K 10 ml Trace (Conc-1Ml/ Dose) 1 ml Sodium Acetate 35 meq Magnesium Sulfate 5 meq Calcium Gluconate 1,500 mg In Amino Acid 5% -D25w 1,000 ml @ 70 mls/ hr IV .BY DURATION [facility] Rx #:[id number] Norepinephrine 16 mg In 66.313 Sodium Chloride 0.9% 250 ml @ Titrate IV .Q0M [facility] Rx#:[id number] Piperacillin-Tazobactam 3 50.0 50 .375 gm In Dextrose/Water 1 50ml.bag @ 12.5 mls/hr IVPB Q12HR [facility] Rx#: [id number] Sodium Chloride 0.9% 1, 1000 000 ml @ 250 mls/hr IV . Q4H [facility] Rx#:[id number] Sodium Chloride 0.9% 1, 1000 000 ml @ 999 mls/hr IV . Q1H1M [facility] Rx#:[id number] Oral 50 270 Output: Drainage 200 100 Medial Abdomen 200 100 Urine 370 238 15 Stool 1 Other: Voiding Method Indwelling Catheter Indwelling Catheter Indwelling Catheter # Bowel Movements 1 0 - Exam GENERAL EXAM: Cachectic. Alert, fairly comfortable in no apparent distress. HEAD: Normocephalic. EYES: Normal reaction of pupils, equal size. NOSE: Clear with pink turbinates. THROAT: No erythema or exudates. NECK: No masses, no JVD. CHEST: No chest wall deformity. LUNGS: Equal air entry with bibasilar crackles. Diminished.. CVS: S1 and S2 normal with no audible murmurs, regular rhythm. ABDOMEN: No hepatosplenomegaly, normal bowel sounds, no guarding or rigidity. Extremities: There is no significant peripheral edema. No clubbing. Peripheral pulses are intact. - Labs CBC & Chem 7: 04/20/16 05:20 04/20/16 05:20 Labs: Abnormal Lab Results - Last 24 Hours (Table) 04/19/16 04/19/16 04/19/16 Range/Units 12:33 15:30 19:20 WBC (3.8-10.6) k/uL RBC (4.30-5.90) m/uL Hgb (13.0-17.5) gm/dL Hct (39.0-53.0) % MCHC (31.0-37.0) g/dL RDW (11.5-15.5) % Plt Count (150-450) k/uL Neutrophils # (Manual) (1.3-7.7) k/uL Lymphocytes # (Manual) (1.0-4.8) k/uL Nucleated RBCs (0-0) /100 WBC PT 13.9 H (9.0-12.0) sec Sodium (137-145) mmol/L Potassium (3.5-5.1) mmol/L Carbon Dioxide (22-30) mmol/L BUN (9-20) mg/dL Creatinine (0.66-1.25) mg/dL Glucose (74-99) mg/dL POC Glucose (mg/dL) 218 H 156 H (75-99) mg/dL Calcium (8.4-10.2) mg/dL 04/19/16 04/19/16 04/20/16 Range/Units 22:55 23:39 05:17 WBC (3.8-10.6) k/uL RBC (4.30-5.90) m/uL Hgb (13.0-17.5) gm/dL Hct (39.0-53.0) % MCHC (31.0-37.0) g/dL RDW (11.5-15.5) % Plt Count (150-450) k/uL Neutrophils # (Manual) (1.3-7.7) k/uL Lymphocytes # (Manual) (1.0-4.8) k/uL Nucleated RBCs (0-0) /100 WBC PT (9.0-12.0) sec Sodium 134 L (137-145) mmol/L Potassium 3.4 L (3.5-5.1) mmol/L Carbon Dioxide (22-30) mmol/L BUN 92 H* (9-20) mg/dL Creatinine 3.43 H (0.66-1.25) mg/dL Glucose (74-99) mg/dL POC Glucose (mg/dL) 126 H 176 H (75-99) mg/dL Calcium 7.6 L (8.4-10.2) mg/dL 04/20/16 04/20/16 04/20/16 Range/Units 05:20 05:20 11:21 WBC 12.4 H (3.8-10.6) k/uL RBC 3.02 L (4.30-5.90) m/uL Hgb 8.0 L (13.0-17.5) gm/dL Hct 27.0 L (39.0-53.0) % MCHC 29.8 L (31.0-37.0) g/dL RDW 20.0 H (11.5-15.5) % Plt Count 103 L (150-450) k/uL Neutrophils # (Manual) 11.5 H (1.3-7.7) k/uL Lymphocytes # (Manual) 0.4 L (1.0-4.8) k/uL Nucleated RBCs 14 H (0-0) /100 WBC PT (9.0-12.0) sec Sodium 136 L (137-145) mmol/L Potassium (3.5-5.1) mmol/L Carbon Dioxide 21 L (22-30) mmol/L BUN 106 H* (9-20) mg/dL Creatinine 3.85 H (0.66-1.25) mg/dL Glucose 154 H (74-99) mg/dL POC Glucose (mg/dL) 206 H (75-99) mg/dL Calcium 7.9 L (8.4-10.2) mg/dL Microbiology - Last 24 Hours (Table) 04/17/16 17:40 Blood Culture - Preliminary Blood No Growth after 48 hours 04/17/16 17:49 Blood Culture - Preliminary Blood No Growth after 48 hours Assessment and Plan Plan: #1 Acute anemia, microcytic, suggestive of occult ongoing blood loss and is now status post colectomy. Pathology revealed acute serositis and focal reactive mesothelial hyperplasia consistent with perforation. Current hemoglobin 8.0. #2 Atrial fibrillation with a rapid ventricular response requiring Cardizem. #3 Hypotension secondary to above currently on norepinephrine at 8 g. #4 Cardiomyopathy with generalized hypokinesis and ejection fraction of 20%. #5 Prostate cancer status post prostatectomy. #6 Chronic nicotine addiction. #7 History of alcoholism. 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 #9 Severe malnourishment/cachexia, poor appetite and significant loss of total body protein mass Plan: The patient was seen and evaluated by Dr. Hooker. The patient did not tolerate hemodialysis yesterday. He is continued on norepinephrine between 6 and 8 mcg/ m. His overall prognosis remains quite poor. The plan is for discussion with the patient and daughter regarding possible hospice at this point. In the interim we'll continue to monitor him here closely in the intensive care unit. Nephrology is on the case as well.
--- NOTE | 2016-04-20 11:42 | P.PN ---
Subjective 75-year-old gentleman with history of peptic ulcer disease comes in to the hospital with a 60 pound weight loss due to pain associated with ingestion of food. Patient was noted to have anemia on admission. Patient underwent a upper endoscopy was noted to have a large ulcer that was not bleeding. Thereafter patient also underwent a colonoscopy on 04/11/2016. Unfortunately there was a competition with abdominal perforation and patient was noted to have free air in the abdomen thereafter patient underwent a sigmoid colectomy and laparotomy. Patient was started on TPN on 04/10/2016. Patient is tolerating currently. On 04/12/2016and During my exmination patient was not complaining of any pain at rest however does complain of pain in his abdomen with minimal movement. Patient was noted to have a irregularly irregular tachycardia. Patient does have a left bundle branch block at baseline. Denies having any chest pain difficulty breathing headaches blurry vision. 04/13/2016 Patient denies having any additional complaints. States to have some abdominal discomfort. 04/14/16 No new overnight events. Denies passing gas. Tolerating CLD> NO fevers, chills, chest pain, KOFFI reported. 04/15/2016 The patient this morning was slightly tachycardic. There was some concern over breathing to 40. Patient's blood pressure was low. Patient was triaged ICU. Patient was seen multiple times with frequent evaluations. I initially patient' s IV fluids were increased patient denied having any acute complaints however heart rate was anywhere in the 120s to 130s some appears to be a left bundle branch block with irregular abberency In the ICU he was directed at the patient should be started on Levophed. 2016 Slightly improved currently on 4 l o2. States to have some KOFFI No other complaints reported. 2016 ON vasopressor support Supplemental o2 Not tolerating diet. 14 2016 Off vasopressor support. Continues to be on 3 L a supplement oxygen. States to be slightly improved. Does not have an appetite at this time. Is passing gas at this time. 04/19/2016 Patient is off vasopressor support. Patient's BUN continues to increase. Patient appears to be slightly confused. Patient possibly during our conversation. After her proof carrier had a conversation with the patient's daughter hemodialysis was to be started. However it was also discussed that he may not tolerate it due to his labile blood pressures and his significant protein calorie malnutrition. 04/20/2016 Patient is restarted on vasopressor support. Underwent hemodialysis however no fluid removal was done however needed 2 L supplemental fluid infusion. Today patient appears to be tachypneic and tachycardic complains of some abdominal pain patient does get drowsy during our conversation. Objective - Vital Signs Vital signs: Vital Signs Temp 97.4 F L 04/20/16 04:00 Pulse 94 04/20/16 07:00 Resp 32 H 04/20/16 08:00 BP 91/70 04/20/16 07:00 Pulse Ox 100 04/20/16 07:00 Intake & Output 04/19/16 04/20/16 04/20/16 18:59 06:59 18:59 Intake Total 3224 2487.313 120 Output Total 370 439 115 Balance 2854 2048.313 5 Weight 74.3 kg 73.7 kg Intake: IV 784 70 Fat Emulsion 20% 250 ml @ 84 21 mls/hr IV DAILY@1300 [facility] Rx#:[id number] Mvi, Adult No.4 with Vit 0 K 10 ml Trace (Conc-1Ml/ Dose) 1 ml Sodium Acetate 35 meq Magnesium Sulfate 2 meq Calcium Gluconate 1,500 mg In Amino Acid 5% -D25w 1,000 ml @ 70 mls/ hr IV .BY DURATION [facility] Rx #:[id number] Sodium Acetate 35 meq 700 70 Calcium Gluconate 1,500 mg Potassium Chloride 10 meq In Amino Acid 5%-D25w 1,000 ml @ 70 mls/hr IV .BY DURATION [facility] Rx#: [id number] Intake, IV Titration 3174 1433.313 50 Amount Fat Emulsion 20% 250 ml @ 334 63 21 mls/hr IV DAILY@1300 [facility] Rx#:[id number] Mvi, Adult No.4 with Vit 770 1254 K 10 ml Trace (Conc-1Ml/ Dose) 1 ml Sodium Acetate 35 meq Magnesium Sulfate 2 meq Calcium Gluconate 1,500 mg In Amino Acid 5% -D25w 1,000 ml @ 70 mls/ hr IV .BY DURATION [facility] Rx #:[id number] Mvi, Adult No.4 with Vit 70 K 10 ml Trace (Conc-1Ml/ Dose) 1 ml Sodium Acetate 35 meq Magnesium Sulfate 5 meq Calcium Gluconate 1,500 mg In Amino Acid 5% -D25w 1,000 ml @ 70 mls/ hr IV .BY DURATION [facility] Rx #:[id number] Norepinephrine 16 mg In 66.313 Sodium Chloride 0.9% 250 ml @ Titrate IV .Q0M [facility] Rx#:[id number] Piperacillin-Tazobactam 3 50.0 50 .375 gm In Dextrose/Water 1 50ml.bag @ 12.5 mls/hr IVPB Q12HR [facility] Rx#: [id number] Sodium Chloride 0.9% 1, 1000 000 ml @ 250 mls/hr IV . Q4H [facility] Rx#:[id number] Sodium Chloride 0.9% 1, 1000 000 ml @ 999 mls/hr IV . Q1H1M [facility] Rx#:[id number] Oral 50 270 Output: Drainage 200 100 Medial Abdomen 200 100 Urine 370 238 15 Stool 1 Other: Voiding Method Indwelling Catheter Indwelling Catheter Indwelling Catheter # Bowel Movements 1 0 - Exam Gen. appearance patient is extremity cachectic slightly encephalopathic. Neck is supple no JVD Head is atraumatic normocephalic pupils are equal round and reactive light accommodation Heart S1-S2 heard irregularly irregular tachycardic Abdomen is tender to palpation is a midline incision that is noted no organomegaly is appreciated. Is oozing around incision site no signs of cellulitis. Lungs crackles at the bases air movement appreciated anteriorly His a PICC line on the left upper arm Neurologically no focal motor or sensory deficits noted - Labs CBC & Chem 7: 04/20/16 05:20 04/20/16 05:20 Labs: Abnormal Lab Results - Last 24 Hours (Table) 04/19/16 04/19/16 04/19/16 Range/Units 12:33 15:30 19:20 WBC (3.8-10.6) k/uL RBC (4.30-5.90) m/uL Hgb (13.0-17.5) gm/dL Hct (39.0-53.0) % MCHC (31.0-37.0) g/dL RDW (11.5-15.5) % Plt Count (150-450) k/uL Neutrophils # (Manual) (1.3-7.7) k/uL Lymphocytes # (Manual) (1.0-4.8) k/uL Nucleated RBCs (0-0) /100 WBC PT 13.9 H (9.0-12.0) sec Sodium (137-145) mmol/L Potassium (3.5-5.1) mmol/L Carbon Dioxide (22-30) mmol/L BUN (9-20) mg/dL Creatinine (0.66-1.25) mg/dL Glucose (74-99) mg/dL POC Glucose (mg/dL) 218 H 156 H (75-99) mg/dL Calcium (8.4-10.2) mg/dL 04/19/16 04/19/16 04/20/16 Range/Units 22:55 23:39 05:17 WBC (3.8-10.6) k/uL RBC (4.30-5.90) m/uL Hgb (13.0-17.5) gm/dL Hct (39.0-53.0) % MCHC (31.0-37.0) g/dL RDW (11.5-15.5) % Plt Count (150-450) k/uL Neutrophils # (Manual) (1.3-7.7) k/uL Lymphocytes # (Manual) (1.0-4.8) k/uL Nucleated RBCs (0-0) /100 WBC PT (9.0-12.0) sec Sodium 134 L (137-145) mmol/L Potassium 3.4 L (3.5-5.1) mmol/L Carbon Dioxide (22-30) mmol/L BUN 92 H* (9-20) mg/dL Creatinine 3.43 H (0.66-1.25) mg/dL Glucose (74-99) mg/dL POC Glucose (mg/dL) 126 H 176 H (75-99) mg/dL Calcium 7.6 L (8.4-10.2) mg/dL 04/20/16 04/20/16 04/20/16 Range/Units 05:20 05:20 11:21 WBC 12.4 H (3.8-10.6) k/uL RBC 3.02 L (4.30-5.90) m/uL Hgb 8.0 L (13.0-17.5) gm/dL Hct 27.0 L (39.0-53.0) % MCHC 29.8 L (31.0-37.0) g/dL RDW 20.0 H (11.5-15.5) % Plt Count 103 L (150-450) k/uL Neutrophils # (Manual) 11.5 H (1.3-7.7) k/uL Lymphocytes # (Manual) 0.4 L (1.0-4.8) k/uL Nucleated RBCs 14 H (0-0) /100 WBC PT (9.0-12.0) sec Sodium 136 L (137-145) mmol/L Potassium (3.5-5.1) mmol/L Carbon Dioxide 21 L (22-30) mmol/L BUN 106 H* (9-20) mg/dL Creatinine 3.85 H (0.66-1.25) mg/dL Glucose 154 H (74-99) mg/dL POC Glucose (mg/dL) 206 H (75-99) mg/dL Calcium 7.9 L (8.4-10.2) mg/dL Microbiology - Last 24 Hours (Table) 04/17/16 17:40 Blood Culture - Preliminary Blood No Growth after 48 hours 04/17/16 17:49 Blood Culture - Preliminary Blood No Growth after 48 hours Assessment and Plan Plan: #1 acute on chronic blood loss anemia from a GI source #2 slightly decompensated systolic heart failure due to fluid infusion during shock state. #3 acute hypoxic respiratory failure sec to mild degree of fluid overload like #4 prostate cancer status post prostatectomy #5 chronic tobacco dependence #6 severe protein calorie malnutrition #7 hypophosphatemia #8 indeterminate troponin leak #9 wide-complex tachycardia appears to have some aberrant conduction #10 shock likely due to underlying sepsis. #11 uremia with symptoms. Plan Patient underwent hemodialysis did not really tolerated as patient is back on pressure support. Patient's respiratory status is progressively worsening. Patient is tachycardic currently however is on levophed. Discussed with the patient's daughter and patient extensively that there is no additional therapies. Patient has progressively gotten worse with aggressive management. Patient verbalized understanding states that he feels good however falls asleep during our conversation. Patient's daughter did verbalized understanding and agreed to continue current care and not add any additional therapy. We'll discuss with nephrology to hold off on hemodialysis tomorrow as this was also discussed with the family. Patient is critically ill changing goals of care to comfort measures only would likely be more appropriate.
--- NOTE | 2016-04-20 12:28 | CONS ---
DATE OF CONSULTATION: Reason for consultation is placement of urgent dialysis catheter. This is a 75-year-old gentleman who I have seen in the intensive care unit. The patient has been having GI bleed for patient went for exploratory lap. Patient has a history of acute ( ) renal failure, hypertension, history of stroke in the past. PERSONAL HISTORY: No known allergy SURGICAL HISTORY: Patient had prostate surgery and tonsillectomy. SOCIAL HISTORY: Current every smoker. Quit alcohol in 1985. On examination, patient was seen in the intensive care unit. His temperature is 98.4, heart rate 87, respirations 18, blood pressure 111/74. On examination, the patient was seen in his room. Patient's neck is supple. Lungs are diminished breath sounds bilaterally. Patient had a recent abdominal surgery. Femoral pulses on the left is palpable, right side is not palpable. Plan is placement of dialysis catheter. Risks and complications discussed.
[2016-04-20] MEDS: FAT EMULSION 20% 250 ML IV SCH (14:43)
[2016-04-20 17:46] LABS: Glucose,Whole Blood 121 mg/dL (75-99)
--- NOTE | 2016-04-20 20:02 | P.PN ---
Subjective Principal diagnosis: Colon perforation Patient is more hemodynamically labile. On 4 mics of Levophed at this time. Would not tolerate dialysis today it was felt. He has episodes where he seems more lucid. Currently somewhat confused. He is tachypneic and tachycardic. Hemoglobin is 8. White blood cell count 12.4. Family is considering hospice measures. Objective - Vital Signs Vital signs: Vital Signs Temp 98.1 F 04/20/16 08:00 Pulse 136 H 04/20/16 19:00 Resp 12 04/20/16 19:00 BP 102/80 04/20/16 19:00 Pulse Ox 99 04/20/16 19:39 Intake & Output 04/20/16 04/20/16 04/21/16 06:59 18:59 06:59 Intake Total 2487.313 1278.297 91 Output Total 439 235 10 Balance 2048.313 1043.297 81 Weight 73.7 kg Intake: IV 784 1134 91 Fat Emulsion 20% 250 ml @ 84 84 21 21 mls/hr IV DAILY@1300 [facility] Rx#:[id number] Mvi, Adult No.4 with Vit 0 K 10 ml Trace (Conc-1Ml/ Dose) 1 ml Sodium Acetate 35 meq Magnesium Sulfate 2 meq Calcium Gluconate 1,500 mg In Amino Acid 5% -D25w 1,000 ml @ 70 mls/ hr IV .BY DURATION [facility] Rx #:[id number] Sodium Acetate 35 meq 700 1050 70 Calcium Gluconate 1,500 mg Potassium Chloride 10 meq In Amino Acid 5%-D25w 1,000 ml @ 70 mls/hr IV .BY DURATION [facility] Rx#: [id number] Intake, IV Titration 1433.313 144.297 Amount Fat Emulsion 20% 250 ml @ 63 21 mls/hr IV DAILY@1300 [facility] Rx#:[id number] Mvi, Adult No.4 with Vit 1254 K 10 ml Trace (Conc-1Ml/ Dose) 1 ml Sodium Acetate 35 meq Magnesium Sulfate 2 meq Calcium Gluconate 1,500 mg In Amino Acid 5% -D25w 1,000 ml @ 70 mls/ hr IV .BY DURATION [facility] Rx #:[id number] Norepinephrine 16 mg In 66.313 94.297 Sodium Chloride 0.9% 250 ml @ Titrate IV .Q0M [facility] Rx#:[id number] Piperacillin-Tazobactam 3 50.0 50 .375 gm In Dextrose/Water 1 50ml.bag @ 12.5 mls/hr IVPB Q12HR [facility] Rx#: [id number] Oral 270 Output: Drainage 200 130 Medial Abdomen 200 130 Urine 238 105 10 Stool 1 Other: Voiding Method Indwelling Catheter Indwelling Catheter # Bowel Movements 1 1 - Exam Abdomen: Soft, mild distention, mild edema of the abdominal wall, some serous drainage inferiorly - Labs CBC & Chem 7: 04/20/16 05:20 04/20/16 05:20 Labs: Abnormal Lab Results - Last 24 Hours (Table) 04/19/16 04/19/16 04/20/16 Range/Units 22:55 23:39 05:17 WBC (3.8-10.6) k/uL RBC (4.30-5.90) m/uL Hgb (13.0-17.5) gm/dL Hct (39.0-53.0) % MCHC (31.0-37.0) g/dL RDW (11.5-15.5) % Plt Count (150-450) k/uL Neutrophils # (Manual) (1.3-7.7) k/uL Lymphocytes # (Manual) (1.0-4.8) k/uL Nucleated RBCs (0-0) /100 WBC Sodium 134 L (137-145) mmol/L Potassium 3.4 L (3.5-5.1) mmol/L Carbon Dioxide (22-30) mmol/L BUN 92 H* (9-20) mg/dL Creatinine 3.43 H (0.66-1.25) mg/dL Glucose (74-99) mg/dL POC Glucose (mg/dL) 126 H 176 H (75-99) mg/dL Calcium 7.6 L (8.4-10.2) mg/dL 04/20/16 04/20/16 04/20/16 Range/Units 05:20 05:20 11:21 WBC 12.4 H (3.8-10.6) k/uL RBC 3.02 L (4.30-5.90) m/uL Hgb 8.0 L (13.0-17.5) gm/dL Hct 27.0 L (39.0-53.0) % MCHC 29.8 L (31.0-37.0) g/dL RDW 20.0 H (11.5-15.5) % Plt Count 103 L (150-450) k/uL Neutrophils # (Manual) 11.5 H (1.3-7.7) k/uL Lymphocytes # (Manual) 0.4 L (1.0-4.8) k/uL Nucleated RBCs 14 H (0-0) /100 WBC Sodium 136 L (137-145) mmol/L Potassium (3.5-5.1) mmol/L Carbon Dioxide 21 L (22-30) mmol/L BUN 106 H* (9-20) mg/dL Creatinine 3.85 H (0.66-1.25) mg/dL Glucose 154 H (74-99) mg/dL POC Glucose (mg/dL) 206 H (75-99) mg/dL Calcium 7.9 L (8.4-10.2) mg/dL 04/20/16 Range/Units 17:44 WBC (3.8-10.6) k/uL RBC (4.30-5.90) m/uL Hgb (13.0-17.5) gm/dL Hct (39.0-53.0) % MCHC (31.0-37.0) g/dL RDW (11.5-15.5) % Plt Count (150-450) k/uL Neutrophils # (Manual) (1.3-7.7) k/uL Lymphocytes # (Manual) (1.0-4.8) k/uL Nucleated RBCs (0-0) /100 WBC Sodium (137-145) mmol/L Potassium (3.5-5.1) mmol/L Carbon Dioxide (22-30) mmol/L BUN (9-20) mg/dL Creatinine (0.66-1.25) mg/dL Glucose (74-99) mg/dL POC Glucose (mg/dL) 121 H (75-99) mg/dL Calcium (8.4-10.2) mg/dL Microbiology - Last 24 Hours (Table) 04/17/16 17:49 Blood Culture - Preliminary Blood No Growth after 72 hours 04/17/16 17:40 Blood Culture - Preliminary Blood No Growth after 48 hours Assessment and Plan (1) Status post colectomy Narrative/Plan: Continue antibiotics. Continue weaning pressors as tolerated. Continue TPN. Ongoing discussions with the patient's family regarding the extent of care. Status: Acute
--- NOTE | 2016-04-20 21:24 | PCN ---
DATE OF PROCEDURE: PREOPERATIVE DIAGNOSIS: Acute on chronic renal failure. POSTOPERATIVE DIAGNOSIS: Acute on chronic renal failure. PROCEDURE: Attempted to place a dialysis catheter right femoral approach, could not pass and then we attempted right internal jugular vein. Patient has a large jugular vein. 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 Then left groin was prepped and draped in sterile manner. Using micropuncture needle, introduced to the left femoral vein. Micropuncture guide was passed. A 4 Welsh dilator advanced on top the guidewire. After that, regular guidewire was passed and dilator was passed on top of the guidewire and sheath was advanced on top of the guidewire and then a dialysis catheter advanced on top of the guidewire, flushed with heparin saline. Secured with 3-0 nylon. Dressing applied. The patient tolerated the procedure well.
[2016-04-20 23:57] LABS: Glucose,Whole Blood 144 mg/dL (75-99)
[2016-04-21] MEDS: DILTIAZEM 125 MG in SODIUM CHLORIDE 0.9% 100 ML IV SCH (04:07)
[2016-04-21 05:10] VITALS: TEMP 97.7
[2016-04-21 05:26] LABS: Glucose,Whole Blood 176 mg/dL (75-99)
[2016-04-21] MEDS: INSULIN LISPRO (humaLOG) 300 UNIT/3 ML VIAL SQ SCH ×2 (05:26→12:09)
[2016-04-21 05:33] LABS: Anisocytosis Moderate; CH 26.3; CHCM 29.3; HCT 27.3 % (39.0-53.0); HDW 4.32; HGB 8.2 gm/dL (13.0-17.5); Hypochromasia Marked; Large Platelets Flag Marked; MCH 26.9 pg (25.0-35.0); MCHC 29.9 g/dL (31.0-37.0); MCV 89.7 fL (80.0-100.0); Mean Platelet Volume 13.8; Poikilocytosis Moderate; RBC 3.05 m/uL (4.30-5.90); WBC (Perox) 14.12
[2016-04-21 05:40] LABS: Calcium 7.9 mg/dL (8.4-10.2); Phosphorous 5.1 mg/dL (2.5-4.5); Potassium 4.4 mmol/L (3.5-5.1)
[2016-04-21 05:57] LABS: Add Differential Manual Differential
[2016-04-21 06:01] LABS: Manual Review Performed; Nucleated Red Blood Cells 13 /100 WBC (0-0); Total Cells Counted 200
[2016-04-21 06:02] LABS: Large Platelets Present; Polychromasia Present
--- NOTE | 2016-04-21 08:39 | XR ---
EXAMINATION TYPE: XR chest 1V portable DATE OF EXAM: 04/21/2016 6:42 AM HISTORY: Shortness of breath. REFERENCE: Previous study dated 04/20/2016. FINDINGS: There are bilateral effusions. There are bilateral basilar infiltrates. The heart is enlarg ed. There is vascular congestion without dilip edema. There has been little of any interval change in the appearance of the chest. IMPRESSION: NO SIGNIFICANT CHANGE IN THE APPEARANCE OF THE CHEST.
[2016-04-21] MEDS: FOLIC ACID 1 MG TAB PO SCH (08:44)
[2016-04-21] MEDS: SODIUM BICARBONATE TAB 650 MG TAB PO SCH ×2 (08:44→17:18)
[2016-04-21] MEDS: CLARITHROMYCIN 500 MG TAB PO SCH (08:44)
[2016-04-21] MEDS: PANTOPRAZOLE 40 MG/10 ML VIAL IV SCH (08:46)
[2016-04-21] MEDS: PIPERACILLIN-TAZOBACTAM 3.375 GM in DEXTROSE/WATER 1 50ML.BAG IVPB SCH (08:46)
--- NOTE | 2016-04-21 08:50 | P.PN ---
Subjective Patient is seen in follow-up for acute kidney injury. He underwent his first treatment of hemodialysis on April 19. He did become quite hypotensive and required 2 L of IV fluid resuscitation afterwards. No ultrafiltration was done. He's currently receiving TPN. He is on 4 mics of levo fed. Patient is not a reliable historian. He is extremely lethargic appearing. Family meeting was held yesterday and comfort measures were discussed - the family is in agreement however the patient wants to continue care for now. Vital signs are stable. General: The patient appeared well nourished and normally developed. HEENT: Head exam is unremarkable. Neck is without jugular venous distension. LUNGS: Lungs are clear to auscultation and percussion. Breath sounds decreased. HEART: Rate and Rhythm are regular. First and second heart sounds normal. No murmurs, rubs or gallops. ABDOMEN: Abdominal exam reveals normal bowel sounds. Non-tender and non- distended. No evidence of peritonitis. EXTREMITITES: 1+ edema. Objective - Vital Signs Vital signs: Vital Signs Temp 97.7 F 04/21/16 04:00 Pulse 117 H 04/21/16 07:00 Resp 35 H 04/21/16 07:00 BP 94/79 04/21/16 07:00 Pulse Ox 94 L 04/21/16 07:00 Intake & Output 04/20/16 04/21/16 04/21/16 18:59 06:59 18:59 Intake Total 2315.797 1491.428 Output Total 235 149 Balance 2080.797 1342.428 Weight 73.9 kg Intake: IV 1134 1078 Fat Emulsion 20% 250 ml @ 84 168 21 mls/hr IV DAILY@1300 [facility] Rx#:[id number] Sodium Acetate 35 meq 1050 910 Calcium Gluconate 1,500 mg Potassium Chloride 10 meq In Amino Acid 5%-D25w 1,000 ml @ 70 mls/hr IV .BY DURATION [facility] Rx#: [id number] Intake, IV Titration 1181.797 113.428 Amount Norepinephrine 16 mg In 94.297 63.428 Sodium Chloride 0.9% 250 ml @ Titrate IV .Q0M [facility] Rx#:[id number] Piperacillin-Tazobactam 3 50 50.0 .375 gm In Dextrose/Water 1 50ml.bag @ 12.5 mls/hr IVPB Q12HR [facility] Rx#: [id number] Sodium Acetate 35 meq 1037.5 Calcium Gluconate 1,500 mg Potassium Chloride 10 meq In Amino Acid 5%-D25w 1,000 ml @ 70 mls/hr IV .BY DURATION [facility] Rx#: [id number] Oral 300 Output: Drainage 130 Medial Abdomen 130 Urine 105 149 Other: Voiding Method Indwelling Catheter Indwelling Catheter # Bowel Movements 1 - Labs CBC & Chem 7: 04/21/16 05:20 04/21/16 05:20 Labs: Abnormal Lab Results - Last 24 Hours (Table) 04/20/16 04/20/16 04/20/16 Range/Units 11:21 17:44 23:55 WBC (3.8-10.6) k/uL RBC (4.30-5.90) m/uL Hgb (13.0-17.5) gm/dL Hct (39.0-53.0) % MCHC (31.0-37.0) g/dL RDW (11.5-15.5) % Plt Count (150-450) k/uL Neutrophils # (Manual) (1.3-7.7) k/uL Lymphocytes # (Manual) (1.0-4.8) k/uL Nucleated RBCs (0-0) /100 WBC Sodium (137-145) mmol/L Carbon Dioxide (22-30) mmol/L BUN (9-20) mg/dL Creatinine (0.66-1.25) mg/dL Glucose (74-99) mg/dL POC Glucose (mg/dL) 206 H 121 H 144 H (75-99) mg/dL Calcium (8.4-10.2) mg/dL Phosphorus (2.5-4.5) mg/dL 04/21/16 04/21/16 04/21/16 Range/Units 05:20 05:20 05:25 WBC 13.0 H (3.8-10.6) k/uL RBC 3.05 L (4.30-5.90) m/uL Hgb 8.2 L (13.0-17.5) gm/dL Hct 27.3 L (39.0-53.0) % MCHC 29.9 L (31.0-37.0) g/dL RDW 20.0 H (11.5-15.5) % Plt Count 133 L (150-450) k/uL Neutrophils # (Manual) 11.9 H (1.3-7.7) k/uL Lymphocytes # (Manual) 0.6 L (1.0-4.8) k/uL Nucleated RBCs 13 H (0-0) /100 WBC Sodium 133 L (137-145) mmol/L Carbon Dioxide 19 L (22-30) mmol/L BUN 122 H* (9-20) mg/dL Creatinine 4.30 H (0.66-1.25) mg/dL Glucose 153 H (74-99) mg/dL POC Glucose (mg/dL) 176 H (75-99) mg/dL Calcium 7.9 L (8.4-10.2) mg/dL Phosphorus 5.1 H (2.5-4.5) mg/dL Microbiology - Last 24 Hours (Table) 04/17/16 17:40 Blood Culture - Preliminary Blood No Growth after 72 hours 04/17/16 17:49 Blood Culture - Preliminary Blood No Growth after 72 hours Assessment and Plan Plan: Assessment: #1. Oliguric acute kidney injury secondary to ischemic ATN secondary to severe anemia and hemodynamic instability. Status post first treatment of hemodialysis April 19. #2. Chronic kidney disease stage III with baseline creatinine near 1.8. #3. Acute anemia status post packed red blood cell transfusions. Hemoglobin stable at 8.2 today. #4. Hypotension requiring vasopressor support. #5. Atrial fibrillation with RVR. #6. Status post partial colectomy due to perforation. Plan: Maintain TPN. Wean vasopressors as blood pressure tolerates. Monitor hemoglobin and transfuse as needed. Repeat electrolytes in the morning. Patient is extremely lethargic appearing, which is multifactorial in nature including a component of uremia. Overall prognosis is poor. Based on the family meeting yesterday, family is willing to proceed with comfort measures however the patient wants to continue with treatments for now. Will attempt short hemodialysis treatment today with low blood flows and see how he does.
--- NOTE | 2016-04-21 09:47 | P.PN ---
Subjective Progress note 04/18/16 This is a 75-year-old patient who was admitted back on February 04. He was seen yesterday with my nurse practitioner here in the ICU. He has a history of recent partial colectomy for perforated rectosigmoid area. He was transferred to the ICU for an episode of hypotension on April 15. Currently his hypotension is resolved. He also has a history of atrial fibrillation with RVR. Currently on a Cardizem drip at 5 mg per hour. Chest x-ray shows heart failure with cardiomegaly and bilateral effusions, right greater than left. The patient is quite cachectic appearing. Is getting TPN at 70 mL an hour. He is also getting a Cardizem 5 mg an hour. Currently on room air with saturation of 93%. Mildly tachypnea. Not well alert and with it. Progress note dated 04/19/2016 This is a 75-year-old black male who was admitted back on April 07. The patient has a history of recent partial colectomy for perforated rectosigmoid colon. He was recently transferred to the ICU for an episode of hypotension on April 15. Currently most of his hypotension has resolved although he remains on very small dose of pressor at 1 lisa per minute. Is getting TPN at 70. I asked the nurse to give him a liter and a half of fluid to see if we can get him off the levophed. He is getting O2 at 3 L nasal cannula. He is off the Cardizem drip. His overall prognosis is poor. He is DO NOT RESUSCITATE. Progress note dated 04/21/2016 75-year-old patient with a history of recent partial colectomy for perforated rectosigmoid colon. He was transferred to the ICU for hypotension. That was on April 15. He still on the Levophed. He is running at 4 mics per minute. He is getting IV in the form TPN at 70 mL an hour. Is on nasal O2 6 L. He is a DO NOT RESUSCITATE. I did talk to the daughter today. Once the patient make sure the patient doesn' t get too much pain medication. In addition he has a history of atrial fibrillation with RVR also has a history of cardiomegaly bilateral effusions hypotension. Objective - Vital Signs Vital signs: Vital Signs Temp 97.7 F 04/21/16 04:00 Pulse 117 H 04/21/16 07:00 Resp 35 H 04/21/16 07:00 BP 94/79 04/21/16 07:00 Pulse Ox 94 L 04/21/16 07:00 Intake & Output 04/20/16 04/21/16 04/21/16 18:59 06:59 18:59 Intake Total 2315.797 1491.428 Output Total 235 149 Balance 2080.797 1342.428 Weight 73.9 kg Intake: IV 1134 1078 Fat Emulsion 20% 250 ml @ 84 168 21 mls/hr IV DAILY@1300 [facility] Rx#:[id number] Sodium Acetate 35 meq 1050 910 Calcium Gluconate 1,500 mg Potassium Chloride 10 meq In Amino Acid 5%-D25w 1,000 ml @ 70 mls/hr IV .BY DURATION [facility] Rx#: [id number] Intake, IV Titration 1181.797 113.428 Amount Norepinephrine 16 mg In 94.297 63.428 Sodium Chloride 0.9% 250 ml @ Titrate IV .Q0M [facility] Rx#:[id number] Piperacillin-Tazobactam 3 50 50.0 .375 gm In Dextrose/Water 1 50ml.bag @ 12.5 mls/hr IVPB Q12HR [facility] Rx#: [id number] Sodium Acetate 35 meq 1037.5 Calcium Gluconate 1,500 mg Potassium Chloride 10 meq In Amino Acid 5%-D25w 1,000 ml @ 70 mls/hr IV .BY DURATION [facility] Rx#: [id number] Oral 300 Output: Drainage 130 Medial Abdomen 130 Urine 105 149 Other: Voiding Method Indwelling Catheter Indwelling Catheter # Bowel Movements 1 - Exam No acute distress, not particularly alert but does respond appropriately. Mildly tachypnea. HEENT examination is grossly unremarkable. Not wearing any supplemental oxygen. Mucous membranes are moist. Supple. Full range of motion. No adenopathy. No neck vein distention. Cardiovascular examination reveals mild tachycardia. Heart rate about 90. Heart rate is irregular Consistent with atrial fibrillation. No distinct murmurs noted. Lungs reveal few scattered basilar crackles. Breath sounds diminished. No wheezes. A few scattered upper airway rhonchi are noted. Abdomen soft. Bowel sounds are noted. Extremities are intact. - Labs CBC & Chem 7: 04/21/16 05:20 04/21/16 05:20 Labs: Abnormal Lab Results - Last 24 Hours (Table) 04/20/16 04/20/16 04/20/16 Range/Units 11:21 17:44 23:55 WBC (3.8-10.6) k/uL RBC (4.30-5.90) m/uL Hgb (13.0-17.5) gm/dL Hct (39.0-53.0) % MCHC (31.0-37.0) g/dL RDW (11.5-15.5) % Plt Count (150-450) k/uL Neutrophils # (Manual) (1.3-7.7) k/uL Lymphocytes # (Manual) (1.0-4.8) k/uL Nucleated RBCs (0-0) /100 WBC Sodium (137-145) mmol/L Carbon Dioxide (22-30) mmol/L BUN (9-20) mg/dL Creatinine (0.66-1.25) mg/dL Glucose (74-99) mg/dL POC Glucose (mg/dL) 206 H 121 H 144 H (75-99) mg/dL Calcium (8.4-10.2) mg/dL Phosphorus (2.5-4.5) mg/dL 04/21/16 04/21/16 04/21/16 Range/Units 05:20 05:20 05:25 WBC 13.0 H (3.8-10.6) k/uL RBC 3.05 L (4.30-5.90) m/uL Hgb 8.2 L (13.0-17.5) gm/dL Hct 27.3 L (39.0-53.0) % MCHC 29.9 L (31.0-37.0) g/dL RDW 20.0 H (11.5-15.5) % Plt Count 133 L (150-450) k/uL Neutrophils # (Manual) 11.9 H (1.3-7.7) k/uL Lymphocytes # (Manual) 0.6 L (1.0-4.8) k/uL Nucleated RBCs 13 H (0-0) /100 WBC Sodium 133 L (137-145) mmol/L Carbon Dioxide 19 L (22-30) mmol/L BUN 122 H* (9-20) mg/dL Creatinine 4.30 H (0.66-1.25) mg/dL Glucose 153 H (74-99) mg/dL POC Glucose (mg/dL) 176 H (75-99) mg/dL Calcium 7.9 L (8.4-10.2) mg/dL Phosphorus 5.1 H (2.5-4.5) mg/dL Microbiology - Last 24 Hours (Table) 04/17/16 17:40 Blood Culture - Preliminary Blood No Growth after 72 hours 04/17/16 17:49 Blood Culture - Preliminary Blood No Growth after 72 hours Assessment and Plan (1) Atrial fibrillation Status: Acute (2) Cardiomyopathy Status: Acute (3) Prostate cancer Status: Acute (4) CVA (cerebral vascular accident) Status: Acute (5) Status post colectomy Status: Acute (6) ARF (acute renal failure) Status: Acute (7) Anemia Status: Acute (8) Dehydration Status: Acute (9) Peptic ulcer disease with hemorrhage Status: Acute (10) Protein-calorie malnutrition, severe Status: Acute (11) Transient cerebral ischemia Status: Acute Plan: Plan The patient was seen again today. The patient seemed to be more stable hemodynamically. We will set his been weaned off. His overall prognosis is very poor. Has been seen by surgery. He is a DO NOT RESUSCITATE. Continue to follow. Possible discharge to 6 selective later today bed opens up. We'll review the x-rays labs and medications. Plan dated 04/19/2016 The patient is about the same or slightly better. We'll see if we can get him off the pressor today. We'll give him a liter to a liter and a half of fluid. He's only a small amount of oxygen therapy. He remains on TPN. His medications x-rays and labs are reviewed. Prognosis is guarded. Plan dated 04/21/2016 The patient just doesn't seem to be making much progress. He is a DO NOT RESUSCITATE. Talk to his daughter today. The plan will be to try to get him off of pressor. Really give him some additional fluid. We'll transfer him out I don't think he stable for dialysis. The patient really cannot make decisions for himself. We'll rely on the family members to do that. His overall prognosis is very poor. I don't suspect eczema make an out-of- hospital release I would think that would be unlikely. Time with Patient: Less than 30
[2016-04-21 10:01] VITALS: BP 79/61; PULSE 99; RESP 39
[2016-04-21] MEDS: HYDROmorphone 1 MG/ML 1 ML SYRINGE IVP PRN (12:08)
[2016-04-21 12:45] VITALS: BMI 20.9
[2016-04-21] MEDS: FAT EMULSION 20% 250 ML IV SCH (13:17)
--- NOTE | 2016-04-21 15:50 | P.PN ---
Progress Note - Text Patient's prognosis remains poor. He is now on comfort care. Nothing surgical to offer. We will see him periodically.
--- NOTE | 2016-04-22 07:43 | PN ---
DATE OF SERVICE: 04/21/2016 INTERVAL HISTORY: Mr. Mendoza is a 75-year-old male with known history of peptic ulcer disease, admitted to the hospital with 60 pound weight loss as per the family patient was found to be severely anemic with hemoglobin of 4.2. Patient underwent blood transfusion and had work-up including EGD and colonoscopy done. The patient was found to have a pneumoperitoneum. Supposed to have colonoscopy 04/11/16 and was found to have sigmoid perforation and patient underwent colectomy and laparotomy. Patient was getting TPN. Patient also having acute on chronic kidney disease, and currently requiring hemodialysis and patient underwent under hemodialysis on 04/19/16 and post hemodialysis patient became very hypotensive and was transferred to ICU on 04/19/2016. Currently maintained on pressor support due to hypotension and underlying multiple medical problems and also history of cardiomegaly with ejection fraction of 20%, patient is not a candidate for hemodialysis. Patient is a poor historian and cannot ( ) at this time. As per family discussion and family agreeable and wants his CODE STATUS to be changed to comfort care only. Currently denied any complaints of chest pain or worsening short of breath. No fever. No chills. No acute overnight issues. Patient is a poor historian. Complete review of systems could not be obtained from the patient. Current medications include: Tylenol, Dilaudid and Narcan. PHYSICAL EXAMINATION: A 75-year-old male lying in the bed, awake, alert, oriented x1 to 2, appears to be in mild distress. VITALS: Blood pressure is 101/77, pulse is 125, respirations 17, temperature afebrile, pulse ox 92% on 6-L high flow nasal cannula. HEENT: Atraumatic, normocephalic. Neck is supple. No JVD. CVS: S1, S2 heard. No murmurs, no gallop. Patient is tachycardic. LUNGS: Bilateral decreased breath sounds basally. No crackles. No wheezing. ABDOMEN: Soft. Patient does have abdominal tenderness of the surgical site. Bowel sounds are sluggish. EXTREMITIES: No edema. Pulses are palpable bilaterally. No clubbing or cyanosis. PSYCHIATRIC: Cooperative. SKIN: No rash or skin lesions. Patient does have cachexia and loss of muscle mass. LABORATORY DATA: WBC 13, hemoglobin 8.2, platelets 133, sodium 133, potassium 4.4, chloride 98, bicarb is 19, BUN 132, creatinine 4.3, albumin 2.0. IMPRESSION: 1. Acute on chronic microscopic blood loss anemia most likely from gastrointestinal source. 2. Rectosigmoid perforation, status post colectomy. 3. Decompensated systolic heart failure due to fluid infusion during shock state. 4. Acute hypoxic respiratory failure secondary to fluid overload. 5. Acute on chronic kidney disease secondary to acute tubular necrosis, secondary to severe anemia and hemodynamic instability. 6. Chronic kidney disease stage III. 7. Severe protein calorie malnutrition, albumin of 2.0. 8. Intermediate troponin leak. 9. Hypophosphatemia. 10. Atrial fibrillation. 11. Hypotension, possible sepsis and shock. 12. CODE STATUS IS COMFORT CARE at this time. DISCUSSION AND PLAN: A 75-year-old male with multiple medical problems and comorbid conditions including underlying cardiomyopathy with ejection fraction of 20% and acute on chronic blood loss anemia secondary to gastrointestinal bleed and rectosigmoid perforation. Currently hypotensive, requiring pressor support and based on the family decision the patient's code status has been changed to comfort care only. Prognosis is poor. I did discuss with the family in detail.
--- NOTE | 2016-04-24 10:31 | DS ---
DATE OF ADMISSION: 04/07/2016 DATE OF DISCHARGE: 04/21/2016 DATE OF EXPIRATION: 04/21/2016 DIAGNOSES: 1. Acute on chronic congestive heart failure with systolic dysfunction, ejection fraction 20%. 2. Acute hypoxic respiratory failure secondary to fluid overload. 3. Acute on chronic kidney disease secondary to acute tubular necrosis secondary to severe anemia and hemodynamic instability requiring hemodialysis. 4. Rectosigmoid perforation, status post colectomy. 5. Acute on chronic blood loss anemia secondary to gastrointestinal bleed. 6. Chronic kidney disease, Stage III. 7. Severe protein calorie malnutrition, albumin level of 2.0. 8. Intermediate troponin leak. 9. Hypophosphatemia. 10. Atrial fibrillation. 11. Hypotension with possible sepsis and septic shock. HOSPITAL COURSE: Mr. Mendoza is a 75-year-old male with history of peptic ulcer disease, admitted to the hospital with a 60 pound weight loss, severe protein calorie malnutrition with albumin level of 2.0 and also was found to have hemoglobin of 4.2. The patient underwent blood transfusion and had work-up including EGD and colonoscopy done. The patient was found to have a pneumoperitoneum post colonoscopy and subsequently the patient underwent rectosigmoid resection and was started on TPN. Postoperatively the patient became hypotension and even with fluid resuscitation, the patient was requiring pressor support and was transferred to MICU. Patient had acute on chronic kidney disease with worsening renal function due to ATN due to hemodynamic instability and profound anemia. The patient was continued to monitor in the ICU and patient was started on renal replacement therapy, hemodialysis and the patient became more hypotensive and could not tolerate hemodialysis. Otherwise patient does have decompensated systolic heart failure. Ejection fraction 20%. The patient remained hypotensive and is requiring pressor support. Due to the above multiple medical problems and comorbid conditions and worsening renal function and refractory hypotension, we did discuss with the family in detail and the family is very agreeable for comfort measures only. The patient was made comfortable and continued on pain management and comfort care. Pressor support has been discontinued and patient on 04/21/2016 at 1725. Family has been notified.
== END 2016-04-21 23:01 | disposition expired | DRG 329 ==
LOC: EC 12:28 → 6ICU 15:21 → 6SEL 04-13 15:27 → 6ICU 04-15 13:33 → 5ONC 04-21 14:48
PROVIDERS: ADMIT Hospitalist; ATTEND Hospitalist
PROC: 30233P1 Transfusion of Nonautologous Frozen Red Cells into Peripheral Vein, Percutaneous Approach (ICD-10-PCS; 2016-04-09)
PROC: 0DB68ZX Excision of Stomach, Via Natural or Artificial Opening Endoscopic, Diagnostic (ICD-10-PCS; 2016-04-10)
PROC: 0DBN0ZZ Excision of Sigmoid Colon, Open Approach (ICD-10-PCS; 2016-04-11)
PROC: 0DJD8ZZ Inspection of Lower Intestinal Tract, Via Natural or Artificial Opening Endoscopic (ICD-10-PCS; 2016-04-11)
PROC: 02HV33Z Insertion of Infusion Device into Superior Vena Cava, Percutaneous Approach (ICD-10-PCS; principal; 2016-04-11 09:30)
PROC: B548ZZA Ultrasonography of Superior Vena Cava, Guidance (ICD-10-PCS; principal; 2016-04-11 09:30)
PROC: 5A1D60Z (ICD-10-PCS; 2016-04-19)
PROC: 06HN33Z Insertion of Infusion Device into Left Femoral Vein, Percutaneous Approach (ICD-10-PCS; 2016-04-20)
DX: K55.1 Chronic vascular disorders of intestine (principal); J96.01 Acute respiratory failure with hypoxia; N17.0 Acute kidney failure with tubular necrosis; E43 Unspecified severe protein-calorie malnutrition; K63.1 Perforation of intestine (nontraumatic); R57.9 Shock, unspecified; R65.21 Severe sepsis with septic shock; I50.23 Acute on chronic systolic (congestive) heart failure; I24.8 Other forms of acute ischemic heart disease; R64 Cachexia; N18.3 Chronic kidney disease, stage 3 (moderate); E87.2 Acidosis; I42.9 Cardiomyopathy, unspecified; D62 Acute posthemorrhagic anemia; J98.11 Atelectasis; K66.8 Other specified disorders of peritoneum; I13.10 Hypertensive heart and chronic kidney disease without heart failure, with stage 1 through stage 4 chronic kidney disease, or unspecified chronic kidney disease; E83.39 Other disorders of phosphorus metabolism; I48.0 Paroxysmal atrial fibrillation; E86.0 Dehydration; E87.5 Hyperkalemia; E86.1 Hypovolemia; F17.200 Nicotine dependence, unspecified, uncomplicated; G47.30 Sleep apnea, unspecified; I44.7 Left bundle-branch block, unspecified; I71.4 Abdominal aortic aneurysm, without rupture; J44.9 Chronic obstructive pulmonary disease, unspecified; K21.9 Gastro-esophageal reflux disease without esophagitis; K44.9 Diaphragmatic hernia without obstruction or gangrene; R62.7 Adult failure to thrive; Z51.5 Encounter for palliative care; Z66 Do not resuscitate; Z79.82 Long term (current) use of aspirin; Z82.49 Family history of ischemic heart disease and other diseases of the circulatory system; Z85.46 Personal history of malignant neoplasm of prostate; Z86.73 Personal history of transient ischemic attack (TIA), and cerebral infarction without residual deficits; K25.9 Gastric ulcer, unspecified as acute or chronic, without hemorrhage or perforation
CPT/HCPCS: 36415; 36569; 43239; 45378; 71010; 71020; 71250; 74020; 74176; 76770; 76937; 80048; 80051; 80053; 81001; 82040; 82330; 82378; 82533; 82550; 82553; 83036; 83540; 83550; 83605; 83690; 83735; 84100; 84132; 84443; 84478; 84484; 85025; 85027; 85610; 85730; 86335; 86704; 86706; 86850; 86900; 86901; 86920; 87040; 87070; 87086; 87205; 87340; 88305; 88307; 88342; 90935; 93005; 94640; 94760; 96360; 96361; 99285